=== PATIENT | female | born 1970 | race Caucasian/White ===

== ENCOUNTER 2019-06-08 15:42 | Emergency (ER) | payer MEDICAID, SELFPAY ==
[2019-06-08 15:42] VITALS: BP 181/80
[2019-06-08 15:43] VITALS: BP 159/102; PULSE 100; RESP 18; TEMP 37.1; O2SAT 96; BMI 43.2
--- NOTE | 2019-06-08 16:05 | ED.VIS.LOWEX ---
History of Present Illness Chief Complaint: Lower Extremity Injury Informant: Patient Mechanism/Context: Negative for: Injury Onset: Yesterday Quality of Pain: Aching Associated Symptoms: Negative for: Parasthesia, Weakness, Loss of Funtion Narrative: Patient is a 49-year-old female presenting with atraumatic right knee pain. Patient states she has a remote history of what sounds like a patellar fracture. She never required surgery for it. She states her knee started hurting yesterday. Is the anterior knee just above the kneecap. Pain is worse with range of motion and walking. No radiation of pain. She has had some swelling and notes her skin was discolored earlier today. Patient took ibuprofen 800 mg for pain. 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 Patient denies any associated numbness or tingling. She denies any fever or chills. She she is otherwise been feeling well. She denies any other complaints at this time. Past Medical History - Allergies and Home Meds Allergies/Adverse Reactions: Allergies dicyclomine HCl [From Bentyl] Allergy (Verified 06/08/19 15:45) [facility] Primary Care Physician: Fredo Larose DO [Primary Care Provider] - Past Medical History: - - Asthma Surgical History: appendectomy - possible colonoscopy by Dr Rich in the past., cholecystectomy, - - colonoscopy h/o esophageal spasms. Lives: With Family Smoking Status: Unknown if ever smoked - Family History Maternal Family History: Reports: Unknown, - - adopted Paternal Family History: Reports: Unknown, - - adopted Review of Systems General: Denies: Chills, Fever, Sweats Eyes: Denies: Visual changes - bilaterally, Diplopia ENT: Denies: Rhinorrhea, Sore throat Cardiovascular: Denies: Chest pain, Palpitations Respiratory: Denies: Dyspnea, Cough, Dyspnea on exertion Gastrointestinal: Denies: Abdominal pain, Nausea, Vomiting, Diarrhea, Melena, Hematochezia Genitourinary: Denies: Dysuria, Hematuria, Frequency Musculoskeletal: Reports: Arthralgias - right knee, Swelling - right knee. Denies: Back pain Skin: Denies: Rash, Wounds Neurological: Denies: Headache, Weakness, Numbness Physical Exam Vital Signs/Narrative: Vital Signs Temp Pulse Resp BP Pulse Ox 06/08/19 15:43 98.7 F 100 18 159/102 H 96 06/08/19 15:42 181/80 H Inital Vital Signs reviewed: Yes - Extremity Exam Right Hip: Negative for: Deformity, Limited ROM Right Femur: - - Straight leg mechanism intact. Negative for: Deformity, Hematoma, Limited ROM Right Knee: Edema, Limited ROM - secondary to pain, - - Tenderness to palpation and mild edema of the proximal anterior knee over the bursa. Mild crepitus with direct palpation of the patella. No associated erythema. No joint effusion present. No obvious ligament laxity with range of motion of the knee. Negative anterior and posterior drawer test.. Negative for: Deformity Right Tib fib: Negative for: Deformity, Limited ROM Right Ankle: Negative for: Deformity, Limited ROM Right Foot: - - 2+ DP pulse. Negative for: Deformity, Limited ROM General: Well nourished, Well developed, Obese Head: Normocephalic, Atraumatic Eyes: Perrl, EOMI ENT: No Trauma, Moist Mucous Membranes Cardiovascular: Regular rate, Regular rhythm, No murmurs Respiratory: No distress, CTA bilaterally, Chest nontender Abdomen: Soft, Nontender, Nondistended, Normal bowel sounds Skin: Normal color, No rash Neurological: Alert, Oriented x3, Cranial nerves II-XII grossly intact, Normal Strength, Normal Sensation Psychological: Normal affect Diagnostic/Tx/Re-eval - Medical Decision Making Patient is evaluated for atraumatic right knee pain. Physical exam is consistent with a bursitis. She does not have any significant joint effusion, warmth or short arc range of motion. I do not suspect a septic joint. She not have any overlying cellulitis. Do not suspect a quadricep tendon rupture. Patient is neurovascularly intact. Patient is counseled on signs and symptoms requiring return to the emergency room. Patient verbalizes agreement and understand this plan. Patient discharged home in stable and improved condition. ED Disposition - Plan for ED Patient: Disposition: Home or Assisted Living Diagnosis: Burn of right knee Instructions: ED Knee Pain UKO, ED Bursitis Prescriptions: Prednisone [Deltasone] 40 mg PO DAILY #8 tab Transmission Status: Pending to [facility] Ibuprofen [Motrin] 600 mg PO Q6H PRN PRN #20 tab PRN Reason: Pain/Inflammation Transmission Status: Pending to [facility] Referrals: Fredo Larose DO [Primary Care Provider] -
[2019-06-08] MEDS: predniSONE 20 MG Tablet 60 MG PO (16:12)
== END 2019-06-08 16:28 | disposition home or self-care (01) ==
PROVIDERS: Emergency Provider Emergency Medicine; PCP Student in an Organized Health Care Education/Training Program
DX: T24.021A Burn of unspecified degree of right knee, initial encounter (principal); Y92.9 Unspecified place or not applicable
CPT/HCPCS: 99282

== ENCOUNTER 2022-12-19 15:01 | Emergency (ER) | payer MEDICAID, SELFPAY ==
[2022-12-19 15:02] VITALS: BP 158/110; PULSE 75; RESP 16; TEMP 36.6; O2SAT 99; BMI 46.0
--- NOTE | 2022-12-19 15:30 | US_ITS ---
STUDY: ULTRASOUND TRANSVAGINAL CLINICAL: Female, 52 years old. menorrhagia TECHNIQUE: Transvaginal COMPARISON: None. FINDINGS: Normal uterine size measuring 10.2 x 9.4 x 7.7 cm in maximal craniocaudal dimension. 1.5 cm round hypoechoic mass in the posterior lower uterine segment consistent with a submucosal fibroid. 4.5 cm heterogeneous mass in the left side of the body the uterus consistent with an intramural fibroid.. Normal endometrial thickness measuring 10 mm. There are no endometrial masses, and there is no fluid in the endometrial cavity. Normal uterine cervix. Normal right ovary, measuring 2.5 x 2.2 x 1.9 cm. There are multiple follicles without a dominant cyst. The left ovary is not visualized.. There is no free fluid in the pelvis. Polycystic ovary disease: No. US/Transvaginal Non- IMPRESSION: Enlarged fibroid uterus. Electronically Signed: Abraham Jolly MD at 18:17 EDT ,
--- NOTE | 2022-12-19 15:31 | ED.VIS.FEGU ---
HPI HPI - Female History of Present Illness Chief Complaint: Vag Bleeding Informant: patient Bleeding Issue: Positive for Vaginal bleeding Onset: Days (3 days) Narrative Narrative: Patient presents secondary to menorrhagia. She states that she is currently undergoing menopause and has had some light and some very heavy periods. She states on Monday she started spotting lightly and it was time for her period to start. Yesterday would have been a heavy bleeding day. She put into ultra tampons and went to [facility] but blood through before the service could even start. She states all day yesterday and into today she will bleed through 2 tampons in an hour or 2. She does have some abdominal cramping. She states she is never had bleeding this heavy that is lasted this long. She called her PCP and mentioned to them that she has not had a Pap smear in probably 10 years. They called the [facility] office who recommended she come to the ER for evaluation. She is not currently established with a [facility]. PFSH PFSH Medical History no medical history no medical history Home Medications NK 12/19/22 [History Last Taken Unknown] Allergy/AdvReac Type Severity Reaction Status Date / Time dicyclomine HCl [From Bentyl] Allergy Hives Verified 12/19/22 15:03 Social History Smoking Status: Unknown if ever smoked ROS ROS ED Constitutional Constitutional ED: Denies chills or fever(s) Eyes Eyes: Denies discharge from eye(s) ENT ENT ED: Denies discharge from eye(s), rhinorrhea or sore throat Cardiovascular Cardiovascular: Denies chest pain or palpitations Respiratory/Chest Respiratory/Chest: Denies cough or dyspnea Gastrointestinal Gastrointestinal: Reports abdominal pain; Denies diarrhea, nausea or vomiting Genitourinary Genitourinary ED: Denies dysuria Musculoskeletal Musculoskeletal: Denies back pain or extremity pain Integumentary Denies Abrasions or rash Neurologic Neurologic: Denies headache(s) or weakness Psychiatric Psychiatric: Denies anxiety or depression Allergic/Immunologic Allergic/Immunologic ED: Denies lip swelling or urticaria EXAM Physical Exam Const Vital Signs: 12/19/22 15:02 12/19/22 17:38 Temperature 98 F Temperature Source Temporal Pulse Rate 75 96 Respiratory Rate 16 18 Blood Pressure 158/110 H 150/95 H Blood Pressure Mean 126 113 Pulse Ox 99 99 Oxygen Delivery Method Room Air Positive well nourished and well developed General Appearance ED: well developed HEENT Reports moist mucous membranes Eyes EOMs intact bilaterally Neck no lymphadenopathy Chest Wall inspection of chest normal and palpation of chest normal Resp normal respiratory effort and clear to auscultation bilaterally Cardio regular rate and regular rhythm GI soft to palpation and non-tender Auscultation: hypoactive bowel sounds Extremity normal to inspection Neuro oriented x3 and no sensory deficits noted Motor Exam: strength 5/5 throughout Psych mental status grossly normal Skin no rashes or lesions noted MDM MDM MDM Narrative Medical decision making narrative: Patient is comfortable in no acute distress. She denies lightheadedness or dizziness. CBC will be obtained to evaluate hemoglobin levels. Pelvic ultrasound will be obtained to evaluate for any masses, uterine thickness abnormalities, etc. Lab Data Labs: Laboratory Results - last 24 hr 12/19/22 15:45 WBC 9.1 RBC 4.68 Hgb 12.4 Hct 40.0 MCV 85.5 MCH 26.5 L MCHC 31.0 L RDW Std Deviation 40.6 RDW Coeff of Suresh 13.2 Plt Count 245 MPV 10.1 Immature Gran % (Auto) 0.300 Neut % (Auto) 69.0 Lymph % (Auto) 22.2 [place] % (Auto) 6.8 Eos % (Auto) 1.2 Baso % (Auto) 0.5 Absolute Neuts (auto) 6.3 Absolute Lymphs (auto) 2.03 Nucleated RBC % 0 Serum , Qual NEGATIVE Radiography Diagnostic Testing: Clinical Impression(s) from Imaging Studies Transvaginal US 12/19/22 15:30 IMPRESSION: Enlarged fibroid uterus. Electronically Signed: Abraham Jolly MD at 18:17 EDT , Treatment and Re-Evaluation Narrative: CBC was normal white count 9.1 with a hemoglobin of 12.4. test is negative. Pelvic ultrasound reveals an enlarged fibroid uterus. No other masses noted. Endometrial thickness is measuring 10 mm. On repeat evaluation patient is tearful. She states she just wants to go home to her granddaughter. Test results are discussed with her. I will refer her to Dr. Knox, on-call for [facility] as her PCP has already spoken with them today. Return instructions are given. Discharge Plan Triage Chief Complaint: Vag Bleeding ED Provider: Maty Walker Dx/Rx/DC Orders Clinical Impression: Menorrhagia Instructions: ED Heavy Menstrual Bleeding Prescriptions: No Action NK Primary Care Provider: Fredo Larose Referrals: Fredo Larose DO [Primary Care Provider] - Heidy Knox DO [Med Staff - Active Staff] - As soon as possible Disposition Disposition: Home, Self Care
[2022-12-19 16:00] LABS: Absolute Lymphocyte Count 2.03 X10^3/uL (0.83-4.51); Absolute Neutrophil Count 6.3 X10^3/uL (2.0-7.7); Basophil# 0.05 X10^3/uL; Basophil% 0.5 % (0-1); Eosinophil# 0.11 X10^3/uL; Eosinophils% 1.2 % (0-5); Hemoglobin 12.4 g/dL (12.0-15.0); Lymphocyte # 2.03 X10^3/ul (0.83-4.51); Lymphocyte % 22.2 % (19-41); Mean Corpuscular Hgb 26.5 pg (27.0-32.0); Mean Corpuscular Volume 85.5 fL (81-99); Mean Platelet Vol. 10.1 fl (6.2-12.0); Monocyte# 0.62 X10^3/uL; Monocyte% 6.8 % (0-10); NRBC Flagged by Analyzer 0 % (0-5); Platelet Count 245 K/mm3 (150-450); RBC Distribution Width CV 13.2 % (11.6-14.6); RBC Distribution Width SD 40.6 fl (35.1-43.9); Red Blood Count 4.68 M/mm3 (4.2-5.4); White Blood Count 9.1 K/mm3 (4.4-11.0)
[2022-12-19 16:16] LABS: Internal QC Validated? YES +Cl - CLEAR BKGD; Pregnancy, Serum, hCG Quali. NEGATIVE Negative
[2022-12-19 17:38] VITALS: BP 150/95; PULSE 96; RESP 18; O2SAT 99
== END 2022-12-19 18:30 | disposition home or self-care (01) ==
PROVIDERS: Emergency Provider Emergency Medicine; PCP Student in an Organized Health Care Education/Training Program; Visit Provider Emergency Medicine
DX: N92.0 Excessive and frequent menstruation with regular cycle (principal)
CPT/HCPCS: 76830; 84703; 85025; 99283; A4216

== ENCOUNTER 2023-12-17 03:50 | Emergency (ER) | payer OTHER, SELFPAY ==
[2023-12-17 03:51] VITALS: BP 191/93; PULSE 73; RESP 16; TEMP 36.7; O2SAT 98; BMI 47.2
--- NOTE | 2023-12-17 04:10 | RAD_ITS ---
INDICATION: PAIN EXAMINATION/TECHNIQUE: X-RAY - XR Hip Unilateral with Pelvis when performed; 2-3 Views COMPARISON: No relevant prior comparison study available FINDINGS: PELVIC BONES: No displaced fracture, destructive or sclerotic lesions. Note that overlapping bowel shadows may however obscure fine detail. Sacroiliac joints demonstrate mild degenerative arthrosis. No widening of the pubic symphysis. HIPS: The articular structures are unremarkable. No displaced fracture seen in this frontal view. SOFT TISSUES: No soft tissue swelling or gas. RAD/HIP, UNI W/ Pelvis 2-3 Views IMPRESSION: No evidence of displaced pelvic or hip fracture. Electronically Signed: Lovely Topete MD at 5:33 EDT ,
[2023-12-17] MEDS: Lidocaine 5% Patch 1 PATCH TOPICAL (04:22)
[2023-12-17] MEDS: Acetaminophen 500 MG Tablet 1000 MG PO (04:22)
--- OUTSIDE RECORDS SUMMARY | 2023-12-17 04:29 | XMS RPT_ITS | CCD ---
Author Organization [facility] Inform ion Partnership [facility] Care Team Providers Care Manager Of Disaster Recovery Name Role Phone FREDO LAROSE DO Primary Care Physician Fredo Larose DO Primary Care Provider Fredo Larose DO Primary Care Provider Fredo Larose DO Primary Care Provider Fredo Larose DO Primary Care Provider Fredo Larose DO Primary Care Provider FREDO LAROSE Primary Care Unavailable SHAHEED ROGEL Referring Unavailable FREDO LAROSE Primary Care Unavailable NOHEMI LOYOLA Attending Unavailable FREDO LAROSE Primary Care Unavailable FREDO LAROSE Referring Unavailable FREDO LAROSE Primary Care Unavailable FREDO LAROSE Primary Care Unavailable LAROSEFREDO MCDONALD Primary Care Unavailable LAROSE, FREDO Carter Referring Unavailable THUAN, FREDO Carter Primary Care Unavailable KYRA CASTRO Referring Unavailable FREDO LAROSE Primary Care Unavailable FREDO LAROSE Primary Care Unavailable FREDO LAROSE Attending Unavailable FREDO LAROSE Referring Unavailable Allergies Allergy Classification Reported Allergen(s) Allergy Type Date of Onset Reaction(s) Facility (15 sources) Dicyclomine; Translations: [dicyclomine] Drug Allergy 3 [facility] (20 sources) Acetylcholine Release Inhibitor; Translations: [ANTICHOLINERGICS - OTHER] Propensity to adverse reactions 3 [facility] Medications Current Medications Medication Drug Class(es) Dates Sig (Normalized) Sig (Original) acyclovir 400 mg oral tablet (1 source) Herpesvirus Nucleoside Analog DNA Polymerase Inhibitor, Herpes Simplex Virus Nucleoside Analog DNA Polymerase Inhibitor, Herpes Zoster Virus Nucleoside Analog DNA Polymerase Inhibitor Start: 10-20-2022 End: 10-25-2022 take 1 tablet by mouth three times daily acyclovir (ZOVIRAX) 400 mg tablet Take 1 tablet by mouth three times daily for 5 days. 15 tablet 0 10/20/2022 10/25/2022 Active Comment on above: Take 1 tablet by sam th three times daily for 5 days. Albuterol (20 sources) beta2-Adrenergic Agonist Start: 05-08-2021 albuterol 2.5 mg/3 mL (0.083%) inhalation solution 0 Refill(s) Start Date: 05/08/21 Status: Ordered Start: 04-21-2021 End: 06-08-2022 albuterol (PROVENTIL) 2.5 mg /3 mL (0.083 %) nebulizer solution Indications: SOB (shortness of breath) on exertion , Cough Use 3 mL via nebulizer every 4 hours as needed for wheezing/shortness of breath. Use over 5-15minutes. 100 Vial 0 04/21/2021 06/08/2022 Discontinued Start: 04-02-2021 take 2 puff(s) by in halation every four hours as needed for wheezing albuterol HFA (PROVENTIL HFA, VENTOLIN HFA) 90 mcg/actuation inhaler Inhale 2 Puffs as instructed every 4 hours as needed for wheezing/shortness of breath. 8 g 04/02/2021 Active Comment on above: Inhale 2 Puffs as in structed every 4 hours as needed for wheezing/shortness of breath. Use 3 mL via nebuliz er every 4 hours as needed for wheezing/shortness of breath. Use over 5-15minutes. Albuterol / Ipratropium (20 sources) Anticholinergic, beta2-Adrenergic Agonist Start: 05-08-2021 albuterol-ipratropium 2.5 mg-0.5 mg/3 mL inhalation solution 0 Refill(s) Start Date: 05/08/21 Status: Ordered Start: 05-02-2021 End: 06-01-2021 take 3 mL by inhalation every six hours as needed ipratropium-albuterol (DUONEB) 0.5 mg-3 mg(2.5 mg base)/3 mL nebu Inhale 3 mL as instructed every 6 hours as needed for wheezing/shortness of breath. cough 30 Vial 05/02/2021 Active Comment on above: Inhale 3 mL as instr ucted every 6 hours as needed for wheezing/shortness of breath. cough azithromycin 250 mg oral tablet (1 source) Macrolide Antimicrobial Start: End: azithromycin 250 mg oral tablet Take two (2) tablets day 1-then one (1) tablet, Oral, Daily, X 5 day(s), # 6 tab(s), 0 Refill(s), 04/12/21 21:04:00 EST, 119 Start Date: 04/07/21 Stop Date: 04/12/21 Status: Ordered benzonatate 100 mg oral capsule (13 sources) Non-narcotic Antitussive Start: End: take 1 capsule by mouth every eight hours as needed for cough benzonatate (TESSALON PERLE) 100 mg capsule Indications: Mild intermittent asthma with acute exacerbation Take 1 capsule by mouth every 8 hours as needed for cough for up to 15 days. 30 capsule 0 03/31/2023 04/15/2023 Active Start: 11-29-2022 End: 12-29-2022 take 1 capsule by mouth three times daily as needed for cough benzonatate (TESSALON PERLE) 100 mg capsule Indications: Cough , SOB (shortness of breath) on exertion Take 1 capsule by mouth three times daily as needed for cough. 90 capsule 0 11/29/2022 12/29/2022 Active Start: 04-21-2021 End: 05-21-2021 benzonatate 100 mg oral caps ule 0 Refill(s) Start Date: 05/08/21 Status: Ordered Comment on above: Take 1 capsule by mo uth three times daily as needed for cough. Take 1 capsule by mo uth every 8 hours as needed for cough for up to 15 days. Blood Pressure Test Kit-Large (20 sources) Start: 12-23-2020 Blood Pressure Test Kit-Large Indications: Hypertension, essential 1 Each as needed (blood pressure). Dx: Essential hypertension 1 Each 12/23/2020 Active Start: 12-23-2020 Blood Pressure Test Kit-Large Indications: Hypertension, essential 1 Each as needed (blood pressure). Dx: Essential hypertension 1 Each 0 12/23/2020 Active Comment on above: 1 Each as needed (bl ood pressure). Dx: Essential hypertension cetirizine hydrochloride 10 mg oral tablet (20 sources) Histamine-1 Receptor Antagonist Start: End: take 1 tablet by mouth once daily cetirizine (ZYRTEC) 10 mg tablet Take 1 tablet by mouth once daily. 90 tablet 1 10/16/2023 Active Start: 08-10-2020 End: 07-07-2021 take 1 tablet by mouth once daily cetirizine (ZYRTEC) 10 mg tablet Take 1 tablet by mouth once daily. 90 tablet 3 07/07/2021 Active Comment on above: Take 1 tablet by sam once daily. cholecalciferol 0.05 mg oral capsule (20 sources) Vitamin D Start: 01-06-20 take 1 capsule by mouth once daily Cholecalciferol, Vitamin D3, 50 mcg (2,000 unit) cap Take 1 capsule by mouth once daily. 90 capsule 1 01/05/2022 Active Comment on above: Take 1 capsule by mo [facility] once daily. cyclobenzaprine hydrochloride 10 mg oral tablet (9 sources) Muscle Relaxant Start: 11-30-19 End: 01-19-20 23 take 1 tablet by mouth three times daily as needed for muscle spasms cyclobenzaprine (FLEXERIL) 10 mg tablet Indications: Chest pain, unspecified type Take 1 tablet by mouth three times a day as needed for muscle spasm. 30 tablet 0 12/19/2022 01/18/2023 Active Start: 06-08-2022 End: 07-08-2022 take 1 tablet by mouth three times daily as needed for muscle spasms cyclobenzaprine (FLEXERIL) 10 mg tablet Indications: Chest pain, unspecified type Take 1 tablet by mouth three times daily as needed for muscle spasm. 30 tablet 0 06/08/2022 07/08/2022 Active Comment on above: Take 1 tablet by sam three times daily as needed for muscle spasm. Take 1 tablet by sam th three times a day as needed for muscle spasm. dexamethasone 6 mg oral tablet (1 source) Corticosteroid Start: 05-09-19 dexamethasone 6 mg oral tablet 0 Refill(s) Start Date: 05/08/21 Status: Ordered diclofenac sodium 75 mg delayed release oral tablet (20 sources) Nonsteroidal Anti-inflammatory Drug Start: 06-16-19 take 1 tablet by mouth twice daily as needed for pain diclofenac, EC, (VOLTAREN) 75 mg EC tablet Indications: Chronic pain of both knees , Arthritis of knee Take 1 tablet by mouth two times a day as needed (joint pain). As needed For pain/inflammation. Take with food. 180 tablet 1 06/16/2023 Active Start: 09-28-2022 End: 04-19-2023 take 1 tablet by mouth twice daily as needed for pain diclofenac, EC, (VOLTAREN) 75 mg EC tablet Indications: Chronic pain of both knees , Arthritis of knee Take 1 tablet by mouth twice daily. As needed For pain/inflammation. Take with food. 60 tablet 5 09/28/2022 04/19/2023 Discontinued Start: 07-07-2021 diclofenac (VO LTAREN ARTHRITIS PAIN) 1 % topical gel Indications: Acute pain of left knee , Suprapatellar bursitis of left knee Apply 2 g to affected area twice daily as needed (left knee pain). 100 g 1 07/07/2021 Active Comment on above: Apply 2 g to affecte d area twice daily as needed (left knee pain). Take 1 tablet by sam th twice daily. As needed For pain/inflammation. Take with food. doxycycline hyclate 100 mg oral tablet (9 sources) Tetracycline-class Drug Start: 09-18-2023 End: 09-28-2023 take 1 tablet by mouth twice daily doxycycline (VIBRA-TABS) 100 mg tablet Take 1 tablet by mouth two times a day for 10 days. 20 tablet 0 09/18/2023 09/28/2023 Active Start: 11-29-2022 End: 12-06-2022 take 1 tablet by mouth twice daily doxycycline monohydrate 100 mg tablet Indications: Skin infection Take 1 tablet by mouth two times a day for 7 days. 14 tablet 0 11/29/2022 12/06/2022 Start: 08-27-2021 End: 09-03-2021 take 1 tablet by mouth twice daily doxycycline monohydrate 100 mg tablet Indications: Lower resp. tract infection Take 1 tablet by mouth twice daily for 7 days. 14 tablet 0 08/27/2021 09/03/2021 Active Comment on above: Take 1 tablet by sam th twice daily for 7 days. Take 1 tablet by sam th two times a day for 7 days. Flovent HFA 110 mcg/inh inhalation aerosol (1 source) Start: 05-09-19 Flovent HFA 110 mcg/inh inhalation aerosol 0 Refill(s) Start Date: 05/08/21 Status: Ordered 120 actuat fluticasone propionate 0.11 mg/actuat metered dose inhaler (1 source) Corticosteroid Start: 05-03-19 End: 06-02-19 take 1 puff(s) by mouth twice daily fluticasone (FLOVENT HFA) 110 mcg/actuation inhaler Inhale 1 Puff as instructed twice daily. Shake well before use. Rinse mouth after use. 1 Inhaler 0 05/02/2021 06/01/2021 Active Comment on above: Inhale 1 Puff as ins tructed twice daily. Shake well before use. Rinse mouth after use. gabapentin 100 mg oral capsule (20 sources) Anti-epileptic Agent Start: 06-16-19 End: 07-16-19 take 1-2 capsules by mouth three times daily as needed for pain gabapentin (NEURONTIN) 100 mg capsule Indications: Chronic pain of both knees , Arthritis of knee Take 1-2 capsules by mouth three times a day as needed (joint pain) for up to 30 days. 90 capsule 3 06/16/2023 Active Start: 03-09-2023 End: 06-12-2023 take 1-2 capsules by mouth three times daily as needed for pain gabapentin (NEURONTIN) 100 mg capsule Indications: Chronic pain of both knees , Arthritis of knee Take 1-2 capsules by mouth three times a day as needed (joint pain) for up to 30 days. 90 capsule 0 03/09/2023 06/12/2023 Discontinued Start: 09-28-2022 End: 10-28-2022 take 1-2 capsules by mouth three times daily as needed for pain gabapentin (NEURONTIN) 100 mg capsule Indications: Chronic pain of both knees , Arthritis of knee Take 1-2 capsules by mouth three times daily as needed (joint pain) for up to 30 days. 90 capsule 1 09/28/2022 Active Comment on above: Take 1-2 capsules by mouth three times daily as needed (joint pain) for up to 30 days. Take 1-2 capsules by mouth three times a day as needed (joint pain) for up to 30 days. homatropine / HYDROcodone (1 source) Opioid Agonist, Cholinergic Muscarinic Agonist Start: 2 End: 2 take 1 dose by mouth every six hours as needed for cough homatropine-hydroc odone 1.5 mg-5 mg/5 mL oral syrup Dose = 5 mL, Oral, q6h, PRN for cough, # 60 mL, 0 Refill(s), Cough Asthmatic bronchitis, 119 Start Date: 05/08/21 Stop Date: 05/11/21 Status: Ordered ibuprofen 800 mg oral tablet (20 sources) Nonsteroidal Anti-inflammatory Drug Start: 3 take 1 tablet by mouth every eight hours as needed ibuprofen (MOTRIN) 800 mg tablet Take 1 tablet by mouth every 8 hours as needed for pain. Take with food. 21 tablet 09/15/2022 Active Start: 04-21-2021 End: 06-02-2022 take 1 tablet by mouth every eight hours as needed ibuprofen (MOTRIN) 800 mg tablet Take 1 tablet by mouth every 8 hours as needed for pain. Take with food. 21 tablet 09/15/2022 Active Comment on above: Take 1 tablet by sam th every 8 hours as needed for pain. Take with food. Leg Brace (ELASTIC KNEE SUPPORT) [facility] (20 sources) Start: 07-08-19 Leg Brace (ELASTIC KNEE SUPPORT) [facility] [place] Indications: Acute pain of left knee , Suprapatellar bursitis of left knee 1 Device as directed. Dx: left knee pain, left suprapatellar bursitis 1 Each 1 07/07/2021 Active Comment on above: 1 Device as directed . Dx: left knee pain, left suprapatellar bursitis lisinopril 5 mg oral tablet (20 sources) Angiotensin Converting Enzyme Inhibitor Start: 12-24-19 End: 10-16-19 24 take 1 tablet by mouth once daily lisinopril (ZESTRIL) 5 mg tablet Indications: Hypertension, essential Take 1 tablet by mouth once daily. For blood pressure 90 tablet 3 10/16/2023 Active Comment on above: Take 1 tablet by sam th once daily. For blood pressure Magnesium (20 sources) Start: 11-23-19 take 1 tablet by mouth once daily Magnesium 250 mg tab Indications: Vitamin D deficiency Take 1 tablet by mouth once daily. 30 tablet 11 11/22/2017 Active Comment on above: Take 1 tablet by sam th once daily. meclizine hydrochloride 12.5 mg oral tablet (20 sources) Antiemetic Start: 04-02-19 meclizine (ANTIVERT) 12.5 mg tab 1 to 2 tablets three times a day as needed. 30 tablet 04/02/2021 Active Comment on above: 1 to 2 tablets three times a day as needed. Medrol Dosepak 4 mg oral tablet (1 source) Start: 05-09-19 End: 05-15-19 Medrol Dosepak 4 mg oral tablet 1 packet(s), Oral, qDay, as directed on package labeling, X 6 day(s), # 21 tab(s), 0 Refill(s), 05/14/21 17:23:00 EDT, Cough Asthmatic bronchitis Start Date: 05/08/21 Stop Date: 05/14/21 Status: Ordered methocarbamol 500 mg oral tablet (1 source) Muscle Relaxant Start: 12-16-19 End: 12-19-19 take 1 tablet by mouth every six hours as needed methocarbamol (ROBAXIN) 500 mg tablet Take 1 tablet by mouth every 6 hours as needed (Pain) for up to 3 days. 12 tablet 12/16/2023 12/19/2023 Active montelukast 10 mg oral tablet (20 sources) Leukotriene Receptor Antagonist Start: 06-16-19 End: 07-16-19 take 1 tablet by mouth once daily at bedtime montelukast (SINGULAIR) 10 mg tablet Take 1 tablet by mouth daily at bedtime. 90 tablet 1 06/16/2023 Active Start: 08-17-2022 End: 09-16-2022 take 1 tablet by mouth once daily at bedtime montelukast (SINGULAIR) 10 mg tablet Take 1 tablet by mouth daily at bedtime. 90 tablet 1 08/17/2022 Active Start: 05-06-2021 End: 02-04-2022 take 1 tablet by mouth once daily at bedtime montelukast (SINGULAIR) 10 mg tablet Take 1 tablet by mouth daily at bedtime. 90 tablet 1 01/05/2022 Active montelukast sodi um (SINGULAIR ORAL) Take by mouth. 0 Active Comment on above: Take 1 tablet by sam th daily at bedtime. Take by mouth. Nebulizer Accessories kit (20 sources) Start: 04-22-2021 Nebulizer Accessories kit Indications: SOB (shortness of breath) on exertion , Cough 1 Each four times daily. 1 Kit 04/22/2021 Active Start: 04-22-2021 Nebulizer Acce ssories kit Indications: SOB (shortness of breath) on exertion , Cough 1 Each four times daily. 1 Kit 0 04/22/2021 Active Comment on above: 1 Each four times da [place]. polymyxin b 00099 unt/ml / trimethoprim 1 mg/ml ophthalmic solution (1 source) Dihydrofolate Reductase Inhibitor Antibacterial, Polymyxin-class Antibacterial Start: 12-28-19 End: 01-04-20 take 2 drop(s) into the eye(s) three times daily trimethoprim-polym yxin (POLYTRIM) 10,000 unit- 1 mg/mL ophthalmic solution Use 2 Drops in both eyes three times a day for 7 days. 10 mL 0 12/27/2022 01/03/2023 Active Comment on above: Use 2 Drops in both eyes three times a day for 7 days. predniSONE 20 mg oral tablet (20 sources) Start: 12-16-19 End: 12-21-19 24 take 2 tablets by mouth once daily at mealtime predniSONE (DELTASONE) 20 mg tablet Take 2 tablets by mouth once daily for 5 days. Take daily with food. 10 tablet 12/16/2023 12/21/2023 Active Start: 03-31-2023 End: 04-05-2023 take 2 tablets by mouth once daily at mealtime predniSONE (DELTASONE) 20 mg tablet Indications: Mild intermittent asthma with acute exacerbation Take 2 tablets by mouth once daily for 5 days. Take daily with food. 10 tablet 0 03/31/2023 04/05/2023 Active Start: 08-27-2021 End: 09-05-2021 predniSONE (DELTASONE) 10 mg tablet Take 4 orally daily for 5 days, then 3 orally for 5 days, then 2 orally for 5 days, then one daily for 10 days 55 tablet 0 09/06/2021 Active Start: 05-19-2021 End: 05-28-2021 predniSONE (DELTASONE) 10 mg tablet Indications: SOB (shortness of breath) on exertion , History of COVID-19 , Persistent cough Take 4 tabs daily for 3 days, then 2 tabs daily for 3 days, then 1 tab daily for 3 days with food. 21 tablet 0 05/19/2021 05/28/2021 Active Start: 05-08-2021 predniSONE 10 mg oral tablet 0 Refill(s) Start Date: 05/08/21 Status: Ordered Comment on above: Take 4 tabs daily fo r 3 days, then 2 tabs daily for 3 days, then 1 tab daily for 3 days with food. Take 4 orally daily for 5 days, then 3 orally for 5 days, then 2 orally for 5 days, then one daily for 10 days Take 2 tablets by [facility] once daily for 5 days. Take daily with food. Completed/Discontinued Medications Medication Drug Class(es) Dates Sig (Normalized) Sig (Original) 120 actuat fluticasone propionate 0.115 mg/actuat / salmeterol 0.021 mg/actuat metered dose inhaler (20 sources) Corticosteroid, beta2-Adrenergic Agonist Start: 09-06-2021 take 2 puff(s) by inhalation twice daily fluticasone-salme terol HFA (ADVAIR HFA) 115-21 mcg/actuation inhaler Inhale 2 Puffs as instructed twice daily. 1 Inhaler 3 09/06/2021 Active Start: 09-06-2021 take 2 puff(s) by in halation twice daily fluticasone-salmeterol HFA (ADVAIR HFA) 115-21 mcg/actuation inhaler Inhale 2 Puffs as instructed twice daily. 1 Inhaler 3 09/06/2021 Active Start: 05-19-2021 End: 06-08-2022 take 2 puff(s) by mouth twice daily fluticasone-salmeterol HFA (ADVAIR HFA) 115-21 mcg/actuation inhaler Indications: SOB (shortness of breath) on exertion , History of COVID-19 Inhale 2 Puffs as instructed twice daily. Rinse mouth after use. 1 Inhaler 1 05/19/2021 06/08/2022 Discontinued Start: 05-19-2021 take 2 puff(s) by mo uth twice daily fluticasone-salmeterol HFA (ADVAIR HFA) 115-21 mcg/actuation inhaler Indications: SOB (shortness of breath) on exertion , History of COVID-19 Inhale 2 Puffs as instructed twice daily. Rinse mouth after use. 1 Inhaler 1 05/19/2021 Active Comment on above: Inhale 2 Puffs as in structed twice daily. Rinse mouth after use. Inhale 2 Puffs as in structed twice daily. saccharomyces boulardii 250 mg oral capsule (18 sources) Start: 01-06-20 take 1 capsule by mouth once daily at bedtime Saccharomyces boulardii (PROBIOTIC, S.BOULARDII,) 250 mg capsule Take 1 capsule by mouth daily at bedtime. 90 capsule 3 01/05/2022 Active Comment on above: Take 1 capsule by mo uth daily at bedtime. TENS unit and electrodes cmpk (11 sources) Start: 09-29-19 TENS unit and electrodes cmpk Indications: Chronic pain of both knees , Arthritis of knee 1 Device as directed. Dx: right gluteal and thigh pain, bilateral knee pain, OA knees 1 Each 0 09/28/2022 Active Comment on above: 1 Device as directed . Dx: right gluteal and thigh pain, bilateral knee pain, OA knees Vitamin B Complex (13 sources) Start: 07-08-19 End: 01-06-20 take 1 tablet by mouth once daily in the morning vitamin b complex (VITAMINS B COMPLEX) tab Indications: History of COVID-19 Take 1 tablet by mouth once daily. In the morning 90 tablet 1 07/07/2021 01/05/2022 Discontinued Start: 07-07-2021 take 1 tablet by sam th once daily in the morning vitamin b complex (VITAMINS B COMPLEX) tab Indications: History of COVID-19 Take 1 tablet by mouth once daily. In the morning 90 tablet 1 07/07/2021 Active Comment on above: Take 1 tablet by sam th once daily. In the morning vitamin b12 1 mg oral tablet (18 sources) Vitamin B12 Start: 01-05-2022 take 1 tablet by mouth once daily cyanocobalamin (VITAMIN B-12) 1,000 mcg tab Take 1 tablet by mouth once daily. 90 tablet 3 01/05/2022 Active Comment on above: Take 1 tablet by sam once daily. Problems Active Problems Problem Classification Problem Date Documented Da te Episodic/Chronic Acute bronchitis (1 source) Acute bronchitis; Translations: [Acute bronchitis, unspecified] Onset: 04-07-2021 Episodic Anxiety disorders (20 sources) Anxiety state; Translations: [Generalized anxiety disorder] Onset: 05-02-2006 06-05-2006 Chronic Asthma (20 sources) Asthma; Translations: [Unspecified asthma, uncomplicated] Onset: 07-05-2006 Chronic Essential hypertension (20 sources) Essential hypertension; Translations: [Essential (primary) hypertension] Onset: 09-28-2022 Chronic Gastroduodenal ulcer (except hemorrhage) (20 sources) Gastric ulcer; Translations: [Gastric ulcer, unspecified as acute or chronic, without hemorrhage or perforation] Onset: 09-18-2007 09-18-2007 Chronic Menopausal disorders (20 sources) Perimenopausal disorder; Translations: [Unspecified menopausal and perimenopausal disorder] Onset: 03-13-2019 03-13-2019 Chronic Mood disorders (20 sources) Depressive disorder; Translations: [Depression] Onset: 12-16-2010 12-16-2010 Chronic Nutritional deficiencies (20 sources) Vitamin D deficiency; Translations: [Vitamin D deficiency, unspecified] Onset: 11-28-2017 11-28-2017 Chronic Osteoarthritis (20 sources) Arthritis of knee; Translations: [Unilateral primary osteoarthritis, unspecified knee] Onset: 09-28-2022 09-28-2022 Chronic Other and unspecified benign neoplasm (1 source) Lipoma of left lower limb; Translations: [Benign lipomatous neoplasm of skin and subcutaneous tissue of left leg] Episodic Other connective tissue disease (1 source) Suprapatellar bursitis of left knee; Translations: [Other bursitis of knee, left knee] Episodic Other connective tissue disease (1 source) Pain in left lower limb; Translations: [Pain in left leg] 12-16-2023 Episodic Other gastrointestinal disorders (20 sources) Irritable bowel syndrome characterized by alternating bowel habit; Translations: [Mixed irritable bowel syndrome] Onset: 01-05-2022 Chronic Other infections; including parasitic (3 sources) Personal history of other infectious and parasitic diseases; Translations: [History of COVID-19] Episodic Other infections; including parasitic (1 source) Lyme disease; Translations: [Lyme disease, unspecified] 10-02-2023 Episodic Other lower respiratory disease (3 sources) Dyspnea on exertion; Translations: [Shortness of breath] Episodic Other lower respiratory disease (1 source) Persistent cough; Translations: [Persistent cough] Episodic Other lower respiratory disease (2 sources) Chronic cough; Translations: [Chronic cough] Episodic Other lower respiratory disease (1 source) Cough; 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] Episodic Other nervous system disorders (1 source) Other chronic pain; Translations: [Chronic pain of both knees] Onset: 09-28-2022 Chronic Other nutritional; endocrine; and metabolic disorders (20 sources) Morbid obesity; Translations: [Morbid (severe) obesity due to excess calories] Onset: 07-05-2006 05-16-2020 Chronic Other nutritional; endocrine; and metabolic disorders (20 sources) Body mass index 40+ - severely obese; Translations: [Morbid (severe) obesity due to excess calories] Onset: 04-12-2013 04-12-2013 Chronic Other nutritional; endocrine; and metabolic disorders (15 sources) Severe obesity; Translations: [Morbid (severe) obesity due to excess calories] Onset: 04-19-2023 04-19-2023 Chronic Other nutritional; endocrine; and metabolic disorders (1 source) Morbid (severe) obesity due to excess calories; Translations: [Class 3 severe obesity with body mass index (BMI) of 45.0 to 49.9 in adult, unspecified obesity type, unspecified whether serious comorbidity present (HCC)] Onset: 04-19-2023 Chronic Other nutritional; endocrine; and metabolic disorders (1 source) Body mass index (BMI) 45.0-49.9, adult; Translations: [Class 3 severe obesity with body mass index (BMI) of 45.0 to 49.9 in adult, unspecified obesity type, unspecified whether serious comorbidity present (HCC)] Onset: 04-19-2023 Chronic Other skin disorders (1 source) Eruption; Translations: [Rash and other nonspecific skin eruption] 10-20-2022 Episodic Other upper respiratory infections (2 sources) Acute sinusitis, unspecified; Translations: [Sore throat symptom] Onset: 04-07-2021 Episodic Residual codes; unclassified (20 sources) Obstructive sleep apnea syndrome; Translations: [Obstructive sleep apnea (adult) (pediatric)] Onset: 05-26-2012 05-26-2012 Chronic Screening and history of mental health and substance abuse codes (20 sources) Tobacco use and exposure - finding; Translations: [Personal history of nicotine dependence] 05-16-2020 Episodic Skin and subcutaneous tissue infections (2 sources) Infection of skin; Translations: [Local infection of the skin and subcutaneous tissue, unspecified] 11-29-2022 Episodic Past or Other Problems Problem Classification Problem Date Documented Date Episodic/Chronic Abdominal pain (20 sources) Epigastric pain; Translations: [Epigastric pain] Onset: 8 09-18-2007 Episodic Biliary tract disease (20 sources) Postcholecystectomy syndrome; 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] Onset: 1 12-16-2010 Episodic Cardiac dysrhythmias (20 sources) Palpitations; Translations: [Palpitations] Onset: 6 05-23-2015 Episodic Deficiency and other anemia (20 sources) Iron deficiency anemia; Translations: [Iron deficiency anemia, unspecified] Onset: 8 11-28-2017 Episodic Gastritis and duodenitis (20 sources) Acute gastritis; Translations: [Acute gastritis without bleeding] Onset: 8 09-18-2007 Episodic Gastrointestinal hemorrhage (20 sources) Hematochezia; Translations: [Melena] Onset: 9 12-09-2008 Episodic Immunizations and screening for infectious disease (20 sources) Mantoux: positive; Translations: [Nonspecific reaction to tuberculin skin test without active tuberculosis] Onset: 7 Resolved: 1 12-16-2010 Episodic Malaise and fatigue (2 sources) Fatigue; Translations: [Other fatigue] Onset: 4 09-13-2023 Episodic Neoplasms of unspecified nature or uncertain behavior (20 sources) Neoplasm of uncertain behavior of skin; Translations: [Neoplasm of uncertain behavior of skin] Onset: 9 01-30-2009 Episodic Nonspecific chest pain (20 sources) Chest pain; Translations: [Chest pain, unspecified] Onset: 9 12-03-2008 Episodic Other and unspecified benign neoplasm (20 sources) Dermatofibroma; Translations: [Other benign neoplasm of skin of unspecified lower limb, including hip] Onset: 9 01-30-2009 Episodic Other and unspecified benign neoplasm (20 sources) Lipoma (clinical); Translations: [Benign lipomatous neoplasm, unspecified] Onset: 4 05-11-2013 Episodic Other connective tissue disease (20 sources) Lateral epicondylitis; Translations: [Lateral epicondylitis, unspecified elbow] Onset: 7 08-29-2006 Episodic Other connective tissue disease (20 sources) Muscle pain; Translations: [Myalgia and myositis, unspecified] Onset: 9 10-28-2008 Episodic Other connective tissue disease (20 sources) Fibromyalgia; Translations: [Fibromyalgia] Onset: 3 05-26-2012 Episodic Other connective tissue disease (20 sources) Pain of right thigh; Translations: [Pain in right thigh] Onset: 3 09-28-2022 Episodic Other lower respiratory disease (20 sources) Cough; Translations: [Cough, unspecified] Onset: 4 Episodic Other non-traumatic joint disorders (20 sources) Pain in lower limb; Translations: [Pain in unspecified knee] Onset: 7 01-30-2007 Episodic Other non-traumatic joint disorders (20 sources) Pain in right hip joint; Translations: [Pain in right hip] Onset: 3 05-26-2012 Episodic Other non-traumatic joint disorders (20 sources) Pain in left knee; Translations: [Pain in joint, lower leg] Onset: 3 Episodic Other non-traumatic joint disorders (2 sources) Hip pain; Translations: [Pain in right hip] Onset: 3 05-26-2012 Episodic Other non-traumatic joint disorders (1 source) Pain in right knee; Translations: [Chronic pain of both knees] Onset: 3 Episodic Other screening for suspected conditions (not mental disorders or infectious disease) (18 sources) Patient encounter status; Translations: [Encounter for screening mammogram for malignant neoplasm of breast] Onset: 4 Episodic Other skin disorders (20 sources) Subcutaneous nodule; Translations: [Localized swelling, mass and lump, unspecified] Onset: 4 02-15-2021 Episodic Residual codes; unclassified (20 sources) Memory impairment; Translations: [Other amnesia] Onset: 3 09-28-2022 Episodic Spondylosis; intervertebral disc disorders; other back problems (20 sources) Low back pain; Translations: [Lumbago] Onset: 7 06-05-2006 Episodic Unclassified (1 source) Exposure to 2019 novel coronavirus; Translations: [Contact with and (suspected) exposure to COVID19] Onset: 2 Results Test Name Value Interpretation Reference Range Facility [facility] 12-16-2023 CNOV Office Visit (UCTR ) MATY FAIRBANKS ([id number]) 1970 F Date Time Provider Department 12/16/23 8:45 AM SHANKAR JO[facility] During your visit today, we recorded the following information about you: Pulse Respiration Blood pressure Weight 86/minute 16/minute 136/79 125.4 kg Shankar Jose PA 12/16/2023 9:17 AM Signed This note was created using [employer]. Subjective Maty Fairbanks is a 53 year old female. HPI 53-year-old female with PMH of myositis, fibromyalgia, dermatofibromas presents for left leg pain. Patient states that she has lumps on arms, legs, low back that are chronic. Per chart review, it appears she has been diagnosed with dermatofibroma's. She states that occasionally they flareup and give her pain. She states that 1 on the back of her left leg started giving her pain a few days ago. She states that it feels like it is causing the muscle to spasm and is shooting pain down the left leg. She denies any leg swelling, redness, warmth. No fevers. No history of DVT. No recent travel recent hospitalization. No chest pain or shortness of breath. She states that this feels typical of a flareup of her fibromas. She states usually 1 in her left lower back causes a lot of pain. Typically she is able to use lidocaine patches, and take diclofenac which helps. Patient has tried this along with heating pad, but it has not helped that much. She also took an old muscle relaxer that did not help. No other complaint today. PAST MEDICAL HISTORY Diagnosis Date Abdominal pain, epigastric Acute gastritis without mention of hemorrhage Asthma Attention deficit disorder without mention of hyperactivity Calculus of gallbladder without mention of cholecystitis or obstruction Chest pain, unspecified Dysthymic disorder history of depression Esophageal spasm Gastric ulcer, unspecified as acute or chronic, without mention of hemorrhage, perforation, or obstruction with hemorrhage Generalized anxiety disorder History of tobacco use Morbid obesity (HCC) JAMES (obstructive sleep apnea) PAST SURGICAL HISTORY Procedure Laterality Date APPENDECTOMY COLONOSCOPY FLX DX W/COLLJ SPEC WHEN PFRMD 12/15/2008 irritation at the anal verge COLONOSCOPY FLX DX W/COLLJ SPEC WHEN PFRMD 07/10/15 normal colonoscopy EGD TRANSORAL BIOPSY SINGLE/MULTIPLE Gastritis, healing ulcer EGD TRANSORAL BIOPSY SINGLE/MULTIPLE 07/10/15 minimal gastritis LAPAROSCOPY SURG CHOLECYSTECTOMY 08/21/07 LIG/TRNSXJ FLP TUBE ABDL/VAG APPR UNI/BI ALLERGIES Anticholinergics - Other and Dicyclomine MEDICATIONS lisinopril (ZESTRIL) 5 mg tablet Take 1 tablet by mouth once daily. For blood pressure cetirizine (ZYRTEC) 10 mg tablet Take 1 tablet by mouth once daily. gabapentin (NEURONTIN) 100 mg capsule Take 1-2 capsules by mouth three times a day as needed (joint pain) for up to 30 days. montelukast (SINGULAIR) 10 mg tablet Take 1 tablet by mouth daily at bedtime. diclofenac, EC, (VOLTAREN) 75 mg EC tablet Take 1 tablet by mouth two times a day as needed (joint pain). As needed For pain/inflammation. Take with food. ibuprofen (MOTRIN) 800 mg tablet Take 1 tablet by mouth every 8 hours as needed for pain. Take with food. (Patient not taking: Reported on 09/13/2023) ibuprofen (MOTRIN) 800 mg tablet Take 1 tablet by mouth every 8 hours as needed for pain. Take with food. (Patient not taking: Reported on 09/13/2023) Cholecalciferol, Vitamin D3, 50 mcg (2,000 unit) cap Take 1 capsule by mouth once daily. Leg Brace (ELASTIC KNEE SUPPORT) misc 1 Device as directed. Dx: left knee pain, left suprapatellar bursitis (Patient not taking: Reported on 09/13/2023) ipratropium-albuterol (DUONEB) 0.5 mg-3 mg(2.5 mg base)/3 mL nebu Inhale 3 mL as instructed every 6 hours as needed for wheezing/shortness of breath. cough Nebulizer Accessories kit 1 Each four times daily. (Patient not taking: Reported on 09/13/2023) albuterol HFA (PROVENTIL HFA, VENTOLIN HFA) 90 mcg/actuation inhaler Inhale 2 Puffs as instructed every 4 hours as needed for wheezing/shortness of breath. meclizine (ANTIVERT) 12.5 mg tab 1 to 2 tablets three times a day as needed. Blood Pressure Test Kit-Large 1 Each as needed (blood pressure). Dx: Essential hypertension Magnesium 250 mg tab Take 1 tablet by mouth once daily. FAMILY HISTORY Adopted: Yes Problem Relation Age of Onset other (unknown) Other adopted Social History Tobacco Use Smoking status: Former Current packs/day: 0.00 Average packs/day: 1 pack/day for 8.0 years (8.0 ttl pk-yrs) Types: Cigarettes Start date: 07/22/1998 Quit date: 07/22/2006 Years since quittin.4 Passive exposure: Never Smokeless tobacco: Never Tobacco comments: SMOKED SINCE 18 YEARS OLD Vaping Use Vaping status: Never Used Substance Use Topics Alcohol use: No Drug use: No Review of Systems (more content not included)... Normal [facility] [place] 12-14-2023 LUIS ANTONIO Telephone (FAMPWS) MATY FAIRBANKS ([id number]) 1970 F Date Time Provider Department 12/14/23 FREDO LAROSE During your visit today, we recorded the following information about you: Bryanna Conde LPN 12/14/2023 2:27 PM Signed Pt called and scheduled her physical for 04/25/23. Please put in fasting labs for pt to have done prior to apt. Orders pended, please add or delete if needed. CORNELIO Jean Jordan L, DO 12/15/2023 8:47 AM Signed Orders placed for labs Please let patient know DO Mali Farris Amanda, RN 12/15/2023 9:09 AM Signed Pt called and is notified of providers message and instructions. Pt voices understanding. Rhonda Samson RN Allergies As of Date: 12/14/2023 Noted Allergy Reaction ANTICHOLINERGICS - OTHER 01/14/2003 Comments: (Bentyl) causes hives DICYCLOMINE 12/19/2022 4 - Hives Date Reviewed: 09/13/2023 Reviewed by: Emani Gonzalez MA - Fully Assessed Reason for Visit: Lab Orders [1688] Primary Visit Diagnosis:Well adult exam [Z00.00] Order(s):VITAMIN D 25 HYDROXY [SQVITD] Order #: [id number] FUTURE THYROID STIMULATING HORMONE [SQTSH] Order #: [id number] FUTURE COMPLETE BLOOD COUNT [SQCBC] Order #: [id number] FUTURE LIPID PANEL BASIC [SQLIPB] Order #: [id number] FUTURE HEMOGLOBIN A1C [ZCINI2E] Order #: [id number] FUTURE COMPREHENSIVE METABOLIC PANEL [SQCMP] Order #: [id number] FUTURE T4 FREE/FREE THYROXINE [SQFT4] Order #: [id number] FUTURE Prescriptions as of 12/15/2023 - lisinopril (ZESTRIL) 5 mg tablet Take 1 tablet by mouth once daily. For blood pressure - cetirizine (ZYRTEC) 10 mg tablet Take 1 tablet by mouth once daily. - gabapentin (NEURONTIN) 100 mg capsule Take 1-2 capsules by mouth three times a day as needed (joint pain) for up to 30 days. - montelukast (SINGULAIR) 10 mg tablet Take 1 tablet by mouth daily at bedtime. - diclofenac, EC, (VOLTAREN) 75 mg EC tablet Take 1 tablet by mouth two times a day as needed (joint pain). As needed For pain/inflammation. Take with food. - ibuprofen (MOTRIN) 800 mg tablet Take 1 tablet by mouth every 8 hours as needed for pain. Take with food. - ibuprofen (MOTRIN) 800 mg tablet Take 1 tablet by mouth every 8 hours as needed for pain. Take with food. - Cholecalciferol, Vitamin D3, 50 mcg (2,000 unit) cap Take 1 capsule by mouth once daily. - Leg Brace (ELASTIC KNEE SUPPORT) misc 1 Device as directed. Dx: left knee pain, left suprapatellar bursitis - ipratropium-albuterol (DUONEB) 0.5 mg-3 mg(2.5 mg base)/3 mL nebu Inhale 3 mL as instructed every 6 hours as needed for wheezing/shortness of breath. cough - Nebulizer Accessories kit 1 Each four times daily. - albuterol HFA (PROVENTIL HFA, VENTOLIN HFA) 90 mcg/actuation inhaler Inhale 2 Puffs as instructed every 4 hours as needed for wheezing/shortness of breath. - meclizine (ANTIVERT) 12.5 mg tab 1 to 2 tablets three times a day as needed. - Blood Pressure Test Kit-Large 1 Each as needed (blood pressure). Dx: Essential hypertension - Magnesium 250 mg tab Take 1 tablet by mouth once daily. Meds Comments as of 05/07/2021: 05/07/2021 8:45 PM New meds: Prednisone, Tessalon Perls, Singular, Flovent. Chio Esquivel RN Problem List As Of Date 12/14/2023 Noted Resolved LUMBAGO [M54.50] 05/02/2006 ANXIETY STATE NOS [F41.1] 05/02/2006 Tuberculin test reaction [795.5] 07/05/2006 12/16/2010 ASTHMA UNSPECIFIED [J45.909] 07/05/2006 Morbid obesity (HCC) [E66.01] 07/05/2006 LATERAL EPICONDYLITIS [M77.10] 08/29/2006 PAIN IN JOINT, LOWER LEG [M25.569] 01/30/2007 ACUTE GASTRITIS W/O HEMORRHAGE [K29.00] 09/18/2007 ABDOMINAL PAIN EPIGASTRIC [R10.13] 09/18/2007 STOMACH ULCER NOS [K25.9] 09/18/2007 Unspecified Myalgia and Myositis [UKY6780] 10/28/2008 Unspecified Backache [M54.9] 10/28/2008 Chest Pain [R07.9] 12/03/2008 Blood in Stool [K92.1] 12/09/2008 Dermatofibroma of Lower Extremity [D23.70] 01/30/2009 Neoplasm of Uncertain Behavior of Skin [D48.5] 01/30/2009 Dermatofibroma of Upper Extremity [D23.60] 01/30/2009 Positive PPD [R76.11] 12/16/2010 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] 12/16/2010 Depression [F32.A] 12/16/2010 JAMES (obstructive sleep apnea) [G47.33] 05/26/2012 Fibromyalgia [M79.7] 05/26/2012 Right hip pain [M25.551] 05/26/2012 Morbid obesity with BMI of 45.0-49.9, adult [E6*04/12/2013 Fear of flying [F40.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 [facility] FAIR[facility]ANKS ([id number]) 1970 F Date Time Provider Department 10/24/23 FREDO LAROSE During your visit today, we recorded the following information about you: Loreto Hair RN 10/24/2023 1:49 PM Signed Patient calls and is asking about her lyme disease results: Latest Ref Rng 10/21/2023 Lyme Abs, IgG/IgM Negative Positive ! Patient had tested positive on 09/15 for lyme ab early but negative on the confirmatory lab. Patient testing positive once again for lyme ab early lab. Confirmatory lab is still in process. Patient asking what the next steps are since she tested positive again? Advised patient that we are waiting on confirmatory lab results. Patient asking what happens if that tests negative again? Please review and advise, LIN Sneed Stephanie, RN 10/30/2023 10:48 AM Signed Latest Ref Rn 10/21/2023 Lyme IgG Western Blot Negative Negative Lyme IgG, Bands No Bands Seen Lyme IgM Western Blot Negative Negative Lyme IgM, Bands No Bands Seen Interpretation (Lyme Abs/WB) Antibodies against Borrelia burgdorferi were not detected by Western Blot, suggesting a false-positive result in the screening assay. However, patients tested during an extremely early stage of infection (<2weeks) could theoretically have low levels of antibody not yet detectable by WB., If the clinical presentation suggests a very recent infection and clinical suspicion of Lyme Disease is high, a repeat serology in 4-6 weeks may be helpful. Clinical correlation is necessary. See Note from below regarding patient questions. Fredo Larose DO 11/01/2023 9:27 PM Signed Please let patient know that her lab again is showing that the western blot confirmatory testing is negative for LYME disease. We have the option to treat with doxycyline rx to make sure or can get an opinion with infectious disease specialist but doesn't appear that she has a current infection DO Stephanie Farris Beth, LPN 11/02/2023 8:54 AM Signed Phoned patient and went over results, notes from Dr Larose, patient has many questions. If she takes the antibiotic rx does she have to have blood test done again in few weeks? Asking why is the blood test showing negative now after it was positive after she took the rx? Patient is asking PCP opinion if she should just take the rx or if she should see Infectious Disease? She would just like to talk to PCP about this, she can only come in for appt Monday evening after 530 pm. Antonia Felipe [employer] schedule no longer has late evening spots to schedule appts. Please advise Fredo Larose DO 11/03/2023 5:12 PM Signed Please let patient know that I don't think she has Lyme disease. Her testing is showing me that she has antibodies to Lyme disease which means she has had the exposure in the past, but with the confirmatory retesting, this is negative. Which essentially tells me she no longer has an infection. If she would like infectious disease opinion that is okay, but I don't think she needs this DO Jordy Farris Janice, LPN 11/04/2023 8:49 AM Signed Patient notified of results and provider's instructions. Patient verbalizes understanding. Corinne Spence LPN Allergies As of Date: 10/24/2023 Noted Allergy Reaction ANTICHOLINERGICS - OTHER 01/14/2003 Comments: (Bentyl) causes hives DICYCLOMINE 12/19/2022 4 - Hives Date Reviewed: 09/13/2023 Reviewed by: Emani Gonzalez MA - Fully Assessed Reason for Visit: Results [95] Prescriptions as of 11/04/2023 - lisinopril (ZESTRIL) 5 mg tablet Take 1 tablet by mouth once daily. For blood pressure - cetirizine (ZYRTEC) 10 mg tablet Take 1 tablet by mouth once daily. - gabapentin (NEURONTIN) 100 mg capsule Take 1-2 capsules by mouth three times a day as needed (joint pain) for up to 30 days. - montelukast (SINGULAIR) 10 mg tablet Take 1 tablet by mouth daily at bedtime. - diclofenac, EC, (VOLTAREN) 75 mg EC tablet Take 1 tablet by mouth two times a day as needed (joint pain). As needed For pain/inflammation. Take with food. - ibuprofen (MOTRIN) 800 mg tablet Take 1 tablet by mouth every 8 hours as needed for pain. Take with food. - ibuprofen (MOTRIN) 800 mg tablet Take 1 tablet by mouth every 8 hours as needed for pain. Take with food. - Cholecalciferol, Vitamin D3, 50 mcg (2,000 unit) cap Take 1 capsule by mouth once daily. - Leg Brace (ELASTIC KNEE SUPPORT) misc 1 Device as directed. Dx: left knee pain, left suprapatellar bursitis - ipratropium-albuterol (DUONEB) 0.5 mg-3 mg(2.5 mg base)/3 mL nebu Inhale 3 mL as instructed every 6 hours as needed for wheezing/shortness of breath. cough - Nebulizer Accessories kit 1 Each four times daily. - albuterol HFA (PROVENTIL HFA, VENTOLIN HFA) 90 mcg/actuation inhaler Inhale 2 Puffs as instructed every 4 hours (more content not included)... Normal [facility] B. burgdorferi IgG and IgM p nile (S)on 10-21-2023 B. burgdorferi IgG+IgM Qn (S) Positive Abnormal Negative [facility] Comment on above: Order Comment: Speci men Type: BLOOD SPECIMENOrdering Facility: [facility] Address: [address] [place] [address] Result Comment: Borr haseeb burgdorferi antibody screening test indicates possible presence of Lyme-specific antibodies. Current testing guidelines recommend that all positive or equivocal screen test results be confirmed by a standardized Lyme immunoblot assay following CDC criteria. For final interpretation please refer to Lyme immunoblot result(s). Clinical and epidemiological correction is required. Lyme Western Blot confirmation test has been ordered and billed. Performed By: #### 3 4942-3, 94204-4 ####[facility] [id number] [address] [place] B. burgdorferi IgG+IgM IB Ql (S)on 10-21-2023 B. burgdorferi Ab band pattern IB (S) [Interp] Antibodies against Borrelia burgdorferi were not detected by Western Blot, suggesting a false-positive result in the screening assay. However, patients tested during an extremely early stage of infection (<2weeks) could theoretically have low levels of antibody not yet detectable by WB., If the clinical presentation suggests a very recent infection and clinical suspicion of Lyme Disease is high, a repeat serology in 4-6 weeks may be helpful. Clinical correlation is necessary. Normal [facility] Comment on above: Order Comment: Carly crooks Type: BLOOD SPECIMENOrdering Facility: [facility] Address: [address] [place] [address] Performed By: #### 3 4942-3, 41581-1 ####[facility] [id number] [place] [address] [place] B. burgdorferi IgG band pattern IB (S) [Interp] No Bands Seen Normal [facility] Comment on above: Order Comment: Carly crooks Type: BLOOD SPECIMENOrdering Facility: [facility] Address: [address] [place] [address] Performed By: #### 3 4943, 39144-0 ####[facility] [id number] [place] [address] [place] B. burgdorferi IgG IB Ql (S) Negative Normal Negative [facility] Comment on above: Order Comment: Carly crooks Type: BLOOD SPECIMENOrdering Facility: [facility] Address: [address] [place] [address] Result Comment: [facility] criteria for a positive Western blot are the presence of >=5 bands for IgG. Performed By: #### 3 494-3, 90247-4 ####[facility] [id number] [place] [address] [place] B. burgdorferi IgM band pattern IB (S) [Interp] No Bands Seen Normal [facility] Comment on above: Order Comment: Carly crooks Type: BLOOD SPECIMENOrdering Facility: [facility] Address: [address] [place] [address] Performed By: #### 3 494-3, 73983-5 ####[facility] [id number] [place] [address] [place] B. burgdorferi IgM IB Ql (S) Negative Normal Negative [facility] Comment on above: Order Comment: Speci men Type: BLOOD SPECIMENOrdering Facility: [facility] Address: [address] [place] [address] Result Comment: [facility] criteria for a positive Western Blot are the presence of >=2 bands for IgM. Performed By: #### 3 4942-3, 85650-9 ####[facility] [id number] [place] [address] [place] Basic metabolic 2000 panelon 10-21-2023 Anion gap [Moles/Vol] 12 mmol/L Normal 8-15 [facility] Comment on above: Order Comment: Speci men Type: BLOOD SPECIMENOrdering Facility: [facility] Address: [address] [place] [address] Performed By: #### 2 4321-2 ####[facility] [id number] [place] [address] [place] Calcium [Mass/Vol] 8.9 mg/dL Normal 8.5-10.2 [facility] Comment on above: Order Comment: Speci men Type: BLOOD SPECIMENOrdering Facility: [facility] Address: [address] [place] [address] Performed By: #### 2 4321-2 ####[facility] [id number] [place] [address] [place] Chloride [Moles/Vol] 106 mmol/L Normal 98-107 [facility] Comment on above: Order Comment: Speci men Type: BLOOD SPECIMENOrdering Facility: [facility] Address: [address] [place] [address] Performed By: #### 2 4321-2 ####[facility] [id number] [place] [address] [place] CO2 [Moles/Vol] 22 mmol/L Normal 22-30 [facility] Comment on above: Order Comment: Speci men Type: BLOOD SPECIMENOrdering Facility: [facility] Address: [address] [place] [address] Performed By: #### 2 4321-2 ####[facility] [id number] [place] [address] [place] Creatinine [Mass/Vol] 0.63 mg/dL Normal 0.58-0.96 [facility] Comment on above: Order Comment: Speci men Type: BLOOD SPECIMENOrdering Facility: [facility] Address: [address] [place] [address] Performed By: #### 2 4321-2 ####[facility]CL[facility] [id number] [place] [address] [place] Creatinine and Glomerular filtration rate.predicted panel (S/P/Bld) 108 mL/min/1.73m??? Normal >=60 [facility] Comment on above: Order Comment: Speci men Type: BLOOD SPECIMENOrdering Facility: [facility] Address: [address] [place] [address] Result Comment: Neva mated Glomerular Filtration Rate (eGFR) is calculated using the 2020 CKD-EPI creatinine equation. This equation utilizes serum creatinine, sex, and age as parameters. The creatinine assay has traceable calibration to isotope dilution-mass spectrometry. Refer to KDIGO guidelines for clinical interpretation. In patients with unstable renal function, e.g. those with acute kidney injury, the eGFR may not accurately reflect actual GFR. Performed By: #### 2 4321-2 ####[facility] LABIA [id number] [place] [address] [place] Glucose [Mass/Vol] 88 mg/dL Normal 74-99 [facility] Comment on above: Order Comment: Speci men Type: BLOOD SPECIMENOrdering Facility: [facility] Address: [address] [place] [address] Result Comment: The [place] Diabetes Association (ADA) provides guidance for cutoff values for fasting glucose and random glucose. The ADA defines fasting as no caloric intake for at least 8 hours. Fasting plasma glucose results between 100 to 125 mg/dL indicate increased risk for diabetes (prediabetes). Fasting plasma glucose results greater than or equal to 126 mg/dL meet the criteria for diagnosis of diabetes. In the absence of unequivocal hyperglycemia, results should be confirmed by repeat testing. In a patient with classic symptoms of hyperglycemia or hyperglycemic crisis, random plasma glucose results greater than or equal to 200 mg/dL meet the criteria for diagnosis of diabetes. Reference: Standards of Medical Care in Diabetes 2016, [place] [employer]. Diabetes Care. 2016.39(Suppl 1). Performed By: #### 2 4321-2 ####[facility]CL[facility] [id number] [place] [address] [place] Potassium [Moles/Vol] 4.1 mmol/L Normal 3.7-5.1 [facility] Comment on above: Order Comment: Speci men Type: BLOOD SPECIMENOrdering Facility: [facility] Address: [address] [place] [address] Performed By: #### 2 4321-2 ####[facility] LABIA [id number] [place] [address] [place] Sodium [Moles/Vol] 140 mmol/L Normal 136-144 [facility] Comment on above: Order Comment: Speci men Type: BLOOD SPECIMENOrdering Facility: [facility] Address: [address] [place] [address] Performed By: #### 2 4321-2 ####[facility]CL[facility] [id number] [place] [address] [place] Urea nitrogen [Mass/Vol] 13 mg/dL Normal 7-21 [facility] Comment on above: Order Comment: Speci men Type: BLOOD SPECIMENOrdering Facility: [facility] Address: [address] [place] [address] Performed By: #### 2 4321-2 ####[facility]CL[facility] [id number] [address] STATES OF [facility] [place] 10-02-2023 CNPN Telephone (FAMPWS) MATY FAIRBANKS ([id number]) 1970 F Date Time Provider Department 10/02/23 [facility] During your visit today, we recorded the following information about you: Velma Turner 10/02/2023 12:07 PM Signed Pt requesting repeat lab orders for Lyme to check if antibiotic worked. Had appt scheduled 10/03 with Tatiana but as she is out now pt wondering if she can just do labs instead of having an appointment. Please review and advise. Velma Turner October 02, 2023 12:07 PM Fredo Larose DO 10/02/2023 3:03 PM Signed Order placed for lab DO Mira Farris Susan LPN 10/02/2023 3:55 PM Signed Pt. informed. Allergies As of Date: 10/02/2023 Noted Allergy Reaction ANTICHOLINERGICS - OTHER 01/14/2003 Comments: (Bentyl) causes hives DICYCLOMINE 12/19/2022 4 - Hives Date Reviewed: 09/13/2023 Reviewed by: Emani Gonzalez MA - Fully Assessed Reason for Visit: Orders [681] Primary Visit Diagnosis:Lyme disease [A69.20] Order(s):LYME AB EARLY <=30 DAY SYMPTOMS [SQLMERLY] Order #: [id number] FUTURE Prescriptions as of 10/02/2023 - gabapentin (NEURONTIN) 100 mg capsule Take 1-2 capsules by mouth three times a day as needed (joint pain) for up to 30 days. - montelukast (SINGULAIR) 10 mg tablet Take 1 tablet by mouth daily at bedtime. - diclofenac, EC, (VOLTAREN) 75 mg EC tablet Take 1 tablet by mouth two times a day as needed (joint pain). As needed For pain/inflammation. Take with food. - cetirizine (ZYRTEC) 10 mg tablet Take 1 tablet by mouth once daily. - lisinopril (ZESTRIL) 5 mg tablet Take 1 tablet by mouth once daily. For blood pressure - ibuprofen (MOTRIN) 800 mg tablet Take 1 tablet by mouth every 8 hours as needed for pain. Take with food. - ibuprofen (MOTRIN) 800 mg tablet Take 1 tablet by mouth every 8 hours as needed for pain. Take with food. - Cholecalciferol, Vitamin D3, 50 mcg (2,000 unit) cap Take 1 capsule by mouth once daily. - Leg Brace (ELASTIC KNEE SUPPORT) misc 1 Device as directed. Dx: left knee pain, left suprapatellar bursitis - ipratropium-albuterol (DUONEB) 0.5 mg-3 mg(2.5 mg base)/3 mL nebu Inhale 3 mL as instructed every 6 hours as needed for wheezing/shortness of breath. cough - Nebulizer Accessories kit 1 Each four times daily. - albuterol HFA (PROVENTIL HFA, VENTOLIN HFA) 90 mcg/actuation inhaler Inhale 2 Puffs as instructed every 4 hours as needed for wheezing/shortness of breath. - meclizine (ANTIVERT) 12.5 mg tab 1 to 2 tablets three times a day as needed. - Blood Pressure Test Kit-Large 1 Each as needed (blood pressure). Dx: Essential hypertension - Magnesium 250 mg tab Take 1 tablet by mouth once daily. Meds Comments as of 05/07/2021: 05/07/2021 8:45 PM New meds: Prednisone, Tessalon Perls, Singular, Flovent. Chio Esquivel RN Problem List As Of Date 10/02/2023 Noted Resolved LUMBAGO [M54.50] 05/02/2006 ANXIETY STATE NOS [F41.1] 05/02/2006 Tuberculin test reaction [795.5] 07/05/2006 12/16/2010 ASTHMA UNSPECIFIED [J45.909] 07/05/2006 Morbid obesity (HCC) [E66.01] 07/05/2006 LATERAL EPICONDYLITIS [M77.10] 08/29/2006 PAIN IN JOINT, LOWER LEG [M25.569] 01/30/2007 ACUTE GASTRITIS W/O HEMORRHAGE [K29.00] 09/18/2007 ABDOMINAL PAIN EPIGASTRIC [R10.13] 09/18/2007 STOMACH ULCER NOS [K25.9] 09/18/2007 Unspecified Myalgia and Myositis [KTB5855] 10/28/2008 Unspecified Backache [M54.9] 10/28/2008 Chest Pain [R07.9] 12/03/2008 Blood in Stool [K92.1] 12/09/2008 Dermatofibroma of Lower Extremity [D23.70] 01/30/2009 Neoplasm of Uncertain Behavior of Skin [D48.5] 01/30/2009 Dermatofibroma of Upper Extremity [D23.60] 01/30/2009 Positive PPD [R76.11] 12/16/2010 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] 12/16/2010 Depression [F32.A] 12/16/2010 JAMES (obstructive sleep apnea) [G47.33] 05/26/2012 Fibromyalgia [M79.7] 05/26/2012 Right hip pain [M25.551] 05/26/2012 Morbid obesity with BMI of 45.0-49.9, adult [E6*04/12/2013 Fear of flying [F40.243] 04/12/2013 Subcutaneous nodules [R22.9] 04/12/2013 Lipoma [D17.9] 05/11/2013 Cough [R05.9] 11/26/2013 Heart palpitations [R00.2] 05/23/2015 Rectal bleed [K62.5] 07/12/2015 Iron deficiency anemia [D50.9] 11/28/2017 Vitamin D deficiency [E55.9] 11/28/2017 Well adult exam [Z00.00] 03/13/2019 Perimenopausal disorder [N95.9] 03/13/2019 TUSHAR (generalized anxiety disorder) [F41.1] 03/13/2019 History of tobacco use [Z87.891] Irritable bowel syndrome with alternating bowel*01/05/2022 Right thigh pain [M79.651] 09/28/2022 Arthritis of knee [M17.10] 09/28/2022 Memory change [R41.3] 09/28/2022 Chronic pain of both knees [M25.561, M25.562, G*09/28/2022 Hypertension, essential [I10] 09/28/2022 Elevated LFTs [R79.89] 04/19/2023 Class 3 severe obesity with body mass index (BM*04/19/2023 Encounter Status:Closed by DET (more content not included)... [facility] MATY FAIRBANKS ([id number]) 1970 F Date Time Provider Department 09/21/[address] [facility] During your visit today, we recorded the following information about you: Lc Gonzalez, RN 09/21/2023 8:37 AM Signed Patient reports she was seen in on 09-13-23 with sore throat, fatigue. Strep and mono tests neg. Reports provider had her do a lyme disease lab- 1st result was positive, 2nd test was negative. Reports she has never been bit by a tick and never had a rash. Provider prescribed doxycycline 100 mg bid for 10 days. Patient is extremely nauseous. Has not vomited. Advised to take with food. Patient states she has not tried this. Reports she has taken 4 doses so far. 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 Reports the plan was to take the doxycycline, follow up with Tatiana on 10-04-23 and Tatiana was to order repeat testing. States she is unable to take this feeling of nausea. Asking if she can just stop the doxycycline, follow up with Tatiana for repeat testing, then if it's positive, can take the antibiotic? Please advise patient. Tatiana Almeida APRN.GENERATOR ASSEMBLER 09/21/2023 12:29 PM Signed I would recommend taking antibiotic with food first and if that does not subside the n/v then OK to discontinue and we will follow-up as scheduled. Thank you, Tatiana Almeida APRN.Xochitl Gan LPN 09/21/2023 12:50 PM Signed Phoned patient left message to return call and ask to speak to a nurse. Lc Gonzalez RN 09/21/2023 1:19 PM Signed Pt returned call and given provider's message below with verbalized understanding. Patient agreeable. Allergies As of Date: 09/21/2023 Noted Allergy Reaction ANTICHOLINERGICS - OTHER 01/14/2003 Comments: (Bentyl) causes hives DICYCLOMINE 12/19/2022 4 - Hives Date Reviewed: 09/13/2023 Reviewed by: Emani Gonzalez MA - Fully Assessed Reason for Visit: Patient Question [4957] Prescriptions as of 09/21/2023 - doxycycline (VIBRA-TABS) 100 mg tablet Take 1 tablet by mouth two times a day for 10 days. - gabapentin (NEURONTIN) 100 mg capsule Take 1-2 capsules by mouth three times a day as needed (joint pain) for up to 30 days. - montelukast (SINGULAIR) 10 mg tablet Take 1 tablet by mouth daily at bedtime. - diclofenac, EC, (VOLTAREN) 75 mg EC tablet Take 1 tablet by mouth two times a day as needed (joint pain). As needed For pain/inflammation. Take with food. - cetirizine (ZYRTEC) 10 mg tablet Take 1 tablet by mouth once daily. - lisinopril (ZESTRIL) 5 mg tablet Take 1 tablet by mouth once daily. For blood pressure - ibuprofen (MOTRIN) 800 mg tablet Take 1 tablet by mouth every 8 hours as needed for pain. Take with food. - ibuprofen (MOTRIN) 800 mg tablet Take 1 tablet by mouth every 8 hours as needed for pain. Take with food. - Cholecalciferol, Vitamin D3, 50 mcg (2,000 unit) cap Take 1 capsule by mouth once daily. - Leg Brace (ELASTIC KNEE SUPPORT) misc 1 Device as directed. Dx: left knee pain, left suprapatellar bursitis - ipratropium-albuterol (DUONEB) 0.5 mg-3 mg(2.5 mg base)/3 mL nebu Inhale 3 mL as instructed every 6 hours as needed for wheezing/shortness of breath. cough - Nebulizer Accessories kit 1 Each four times daily. - albuterol HFA (PROVENTIL HFA, VENTOLIN HFA) 90 mcg/actuation inhaler Inhale 2 Puffs as instructed every 4 hours as needed for wheezing/shortness of breath. - meclizine (ANTIVERT) 12.5 mg tab 1 to 2 tablets three times a day as needed. - Blood Pressure Test Kit-Large 1 Each as needed (blood pressure). Dx: Essential hypertension - Magnesium 250 mg tab Take 1 tablet by mouth once daily. Meds Comments as of 05/07/2021: 05/07/2021 8:45 PM New meds: Prednisone, Tessalon Perls, Singular, Flovent. Chio Esquivel RN Problem List As Of Date 09/21/2023 Noted Resolved LUMBAGO [M54.50] 05/02/2006 ANXIETY STATE NOS [F41.1] 05/02/2006 Tuberculin test reaction [795.5] 07/05/2006 12/16/2010 ASTHMA UNSPECIFIED [J45.909] 07/05/2006 Morbid obesity (HCC) [E66.01] 07/05/2006 LATERAL EPICONDYLITIS [M77.10] 08/29/2006 PAIN IN JOINT, LOWER LEG [M25.569] 01/30/2007 ACUTE GASTRITIS W/O HEMORRHAGE [K29.00] 09/18/2007 ABDOMINAL PAIN EPIGASTRIC [R10.13] 09/18/2007 STOMACH ULCER NOS [K25.9] 09/18/2007 Unspecified Myalgia and Myositis [FDO3288] 10/28/2008 Unspecified Backache [M54.9] 10/28/2008 Chest Pain [R07.9] 12/03/2008 Blood in Stool [K92.1] 12/09/2008 Dermatofibroma of Lower Extremity [D23.70] 01/30/2009 Neoplasm of Uncertain Behavior of Skin [D48.5] 01/30/2009 Dermatofibroma of Upper Extremity [D23.60] 01/30/2009 Positive PPD [R76.11] 12/16/2010 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 Normal [facility] FAIRBANKS ([id number]) 1970 F Date Time Provider Department 09/20[facility] During your visit today, we recorded the following information about you: Elizabeth Steiner LPN 09/20/2023 10:41 AM Signed Patient calling, asking if it would be ok to reschedule her appointment for after she completes the antibiotic for lyme disease. States she is supposed to have follow up lab work but she is not sure when that is supposed to be done either. Please advise. Tatiana Almeida APRN.MAILE 09/20/2023 10:50 AM Signed OK to reschedule. I don't see any follow-up labs ordered. Please clarify. Thank you, Tatiana Almeida APRN.Maribell Pond, LIN 09/20/2023 3:21 PM Signed See below msg as this must be why pt feels there will be follow up lab work. Pt rescheduled for 2 weeks out on 10/03 as pt needs an evening appt. Explained to pt that would discuss possible repeat labwork at the appt. Pt verbalizes understanding and she will confirm appt through her MyChart as her phone was dying. Shankar Jose PA KA 09/19/23 1:41 PM Note Please contact patient and let her know that her Lyme confirmatory test came back negative. It is possible that the initial screening test was a false positive. It is also possible that she is early in the infection and that is why the confirmatory came back negative. Please advise patient to take the doxycycline as prescribed if she is still symptomatic. She will need close follow-up with her PCP in a few weeks for reevaluation and repeat lab testing. Allergies As of Date: 09/20/2023 Noted Allergy Reaction ANTICHOLINERGICS - OTHER 01/14/2003 Comments: (Bentyl) causes hives DICYCLOMINE 12/19/2022 4 - Hives Date Reviewed: 09/13/2023 Reviewed by: Emani Gonzalez MA - Fully Assessed Reason for Visit: Appointment [186] Prescriptions as of 09/20/2023 - doxycycline (VIBRA-TABS) 100 mg tablet Take 1 tablet by mouth two times a day for 10 days. - gabapentin (NEURONTIN) 100 mg capsule Take 1-2 capsules by mouth three times a day as needed (joint pain) for up to 30 days. - montelukast (SINGULAIR) 10 mg tablet Take 1 tablet by mouth daily at bedtime. - diclofenac, EC, (VOLTAREN) 75 mg EC tablet Take 1 tablet by mouth two times a day as needed (joint pain). As needed For pain/inflammation. Take with food. - cetirizine (ZYRTEC) 10 mg tablet Take 1 tablet by mouth once daily. - lisinopril (ZESTRIL) 5 mg tablet Take 1 tablet by mouth once daily. For blood pressure - ibuprofen (MOTRIN) 800 mg tablet Take 1 tablet by mouth every 8 hours as needed for pain. Take with food. - ibuprofen (MOTRIN) 800 mg tablet Take 1 tablet by mouth every 8 hours as needed for pain. Take with food. - Cholecalciferol, Vitamin D3, 50 mcg (2,000 unit) cap Take 1 capsule by mouth once daily. - Leg Brace (ELASTIC KNEE SUPPORT) misc 1 Device as directed. Dx: left knee pain, left suprapatellar bursitis - ipratropium-albuterol (DUONEB) 0.5 mg-3 mg(2.5 mg base)/3 mL nebu Inhale 3 mL as instructed every 6 hours as needed for wheezing/shortness of breath. cough - Nebulizer Accessories kit 1 Each four times daily. - albuterol HFA (PROVENTIL HFA, VENTOLIN HFA) 90 mcg/actuation inhaler Inhale 2 Puffs as instructed every 4 hours as needed for wheezing/shortness of breath. - meclizine (ANTIVERT) 12.5 mg tab 1 to 2 tablets three times a day as needed. - Blood Pressure Test Kit-Large 1 Each as needed (blood pressure). Dx: Essential hypertension - Magnesium 250 mg tab Take 1 tablet by mouth once daily. Meds Comments as of 05/07/2021: 05/07/2021 8:45 PM New meds: Prednisone, Tessalon Perls, Singular, Flovent. Chio Esquivel RN Problem List As Of Date 09/20/2023 Noted Resolved LUMBAGO [M54.50] 05/02/2006 ANXIETY STATE NOS [F41.1] 05/02/2006 Tuberculin test reaction [795.5] 07/05/2006 12/16/2010 ASTHMA UNSPECIFIED [J45.909] 07/05/2006 Morbid obesity (HCC) [E66.01] 07/05/2006 LATERAL EPICONDYLITIS [M77.10] 08/29/2006 PAIN IN JOINT, LOWER LEG [M25.569] 01/30/2007 ACUTE GASTRITIS W/O HEMORRHAGE [K29.00] 09/18/2007 ABDOMINAL PAIN EPIGASTRIC [R10.13] 09/18/2007 STOMACH ULCER NOS [K25.9] 09/18/2007 Unspecified Myalgia and Myositis [RFY5695] 10/28/2008 Unspecified Backache [M54.9] 10/28/2008 Chest Pain [R07.9] 12/03/2008 Blood in Stool [K92.1] 12/09/2008 Dermatofibroma of Lower Extremity [D23.70] 01/30/2009 Neoplasm of Uncertain Behavior of Skin [D48.5] 01/30/2009 Dermatofibroma of Upper Extremity [D23.60] 01/30/2009 Positive PPD [R76.11] 12/16/2010 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 Normal [facility] 09-19-2023 [facility] MATY FAIRBANKS Dez ([id number]) 1970 F Date Time Provider Department 09/19/23 ARLINE MARTIN During your visit today, we recorded the following information about you: Suzanne Young LPN 09/19/2023 9:43 AM Signed Pt states Rx for doxy that was escripted yesterday was not received by [facility]. Verbal was called in to pharmacist Ruddy by myself. Suzanne Young LPN Allergies As of Date: 09/19/2023 Noted Allergy Reaction ANTICHOLINERGICS - OTHER 01/14/2003 Comments: (Bentyl) causes hives DICYCLOMINE 12/19/2022 4 - Hives Date Reviewed: 09/13/2023 Reviewed by: Emani Gonzalez MA - Fully Assessed Reason for Visit: Medication Problem [65] Prescriptions as of 09/19/2023 - doxycycline (VIBRA-TABS) 100 mg tablet Take 1 tablet by mouth two times a day for 10 days. - gabapentin (NEURONTIN) 100 mg capsule Take 1-2 capsules by mouth three times a day as needed (joint pain) for up to 30 days. - montelukast (SINGULAIR) 10 mg tablet Take 1 tablet by mouth daily at bedtime. - diclofenac, EC, (VOLTAREN) 75 mg EC tablet Take 1 tablet by mouth two times a day as needed (joint pain). As needed For pain/inflammation. Take with food. - cetirizine (ZYRTEC) 10 mg tablet Take 1 tablet by mouth once daily. - lisinopril (ZESTRIL) 5 mg tablet Take 1 tablet by mouth once daily. For blood pressure - ibuprofen (MOTRIN) 800 mg tablet Take 1 tablet by mouth every 8 hours as needed for pain. Take with food. - ibuprofen (MOTRIN) 800 mg tablet Take 1 tablet by mouth every 8 hours as needed for pain. Take with food. - Cholecalciferol, Vitamin D3, 50 mcg (2,000 unit) cap Take 1 capsule by mouth once daily. - Leg Brace (ELASTIC KNEE SUPPORT) misc 1 Device as directed. Dx: left knee pain, left suprapatellar bursitis - ipratropium-albuterol (DUONEB) 0.5 mg-3 mg(2.5 mg base)/3 mL nebu Inhale 3 mL as instructed every 6 hours as needed for wheezing/shortness of breath. cough - Nebulizer Accessories kit 1 Each four times daily. - albuterol HFA (PROVENTIL HFA, VENTOLIN HFA) 90 mcg/actuation inhaler Inhale 2 Puffs as instructed every 4 hours as needed for wheezing/shortness of breath. - meclizine (ANTIVERT) 12.5 mg tab 1 to 2 tablets three times a day as needed. - Blood Pressure Test Kit-Large 1 Each as needed (blood pressure). Dx: Essential hypertension - Magnesium 250 mg tab Take 1 tablet by mouth once daily. Meds Comments as of 05/07/2021: 05/07/2021 8:45 PM New meds: Prednisone, Tessalon Perls, Singular, Flovent. Chio Esquivel RN Problem List As Of Date 09/19/2023 Noted Resolved LUMBAGO [M54.50] 05/02/2006 ANXIETY STATE NOS [F41.1] 05/02/2006 Tuberculin test reaction [795.5] 07/05/2006 12/16/2010 ASTHMA UNSPECIFIED [J45.909] 07/05/2006 Morbid obesity (HCC) [E66.01] 07/05/2006 LATERAL EPICONDYLITIS [M77.10] 08/29/2006 PAIN IN JOINT, LOWER LEG [M25.569] 01/30/2007 ACUTE GASTRITIS W/O HEMORRHAGE [K29.00] 09/18/2007 ABDOMINAL PAIN EPIGASTRIC [R10.13] 09/18/2007 STOMACH ULCER NOS [K25.9] 09/18/2007 Unspecified Myalgia and Myositis [[id number]] 10/28/2008 Unspecified Backache [M54.9] 10/28/2008 Chest Pain [R07.9] 12/03/2008 Blood in Stool [K92.1] 12/09/2008 Dermatofibroma of Lower Extremity [D23.70] 01/30/2009 Neoplasm of Uncertain Behavior of Skin [D48.5] 01/30/2009 Dermatofibroma of Upper Extremity [D23.60] 01/30/2009 Positive PPD [R76.11] 12/16/2010 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] 12/16/2010 Depression [F32.A] 12/16/2010 JAMES (obstructive sleep apnea) [G47.33] 05/26/2012 Fibromyalgia [M79.7] 05/26/2012 Right hip pain [M25.551] 05/26/2012 Morbid obesity with BMI of 45.0-49.9, adult [E6*04/12/2013 Fear of flying [F40.243] 04/12/2013 Subcutaneous nodules [R22.9] 04/12/2013 Lipoma [D17.9] 05/11/2013 Cough [R05.9] 11/26/2013 Heart palpitations [R00.2] 05/23/2015 Rectal bleed [K62.5] 07/12/2015 Iron deficiency anemia [D50.9] 11/28/2017 Vitamin D deficiency [E55.9] 11/28/2017 Well adult exam [Z00.00] 03/13/2019 Perimenopausal disorder [N95.9] 03/13/2019 TUSHAR (generalized anxiety disorder) [F41.1] 03/13/2019 History of tobacco use [Z87.891] Irritable bowel syndrome with alternating bowel*01/05/2022 Right thigh pain [M79.651] 09/28/2022 Arthritis of knee [M17.10] 09/28/2022 Memory change [R41.3] 09/28/2022 Chronic pain of both knees [M25.561, M25.562, G*09/28/2022 Hypertension, essential [I10] 09/28/2022 Elevated LFTs [R79.89] 04/19/2023 Class 3 severe obesity with body mass index (BM*04/19/2023 Encounter Status:Closed by SUZANNE YOUNG on 09/19/23 [facility] Telephone (UCWSTR) MATY FAIRBANKS ([id number]) 1970 F Date Time Provider Department 09/19/23 SHANKAR JOSE [facility] During your visit today, we recorded the following information about you: Shankar Jose PA 09/19/2023 1:41 PM Signed Please contact patient and let her know that her Lyme confirmatory test came back negative. It is possible that the initial screening test was a false positive. It is also possible that she is early in the infection and that is why the confirmatory came back negative. Please advise patient to take the doxycycline as prescribed if she is still symptomatic. She will need close follow-up with her PCP in a few weeks for reevaluation and repeat lab testing. Tio Agrawal LPN 09/19/2023 1:49 PM Signed Pt phoned office, notified of results/provider response. She verbalized understanding. Pt will keep follow up appt with LEAD TEACHER tomorrow. Tio Agrawal LPN Allergies As of Date: 09/19/2023 Noted Allergy Reaction ANTICHOLINERGICS - OTHER 01/14/2003 Comments: (Bentyl) causes hives DICYCLOMINE 12/19/2022 4 - Hives Date Reviewed: 09/13/2023 Reviewed by: Emani Gonzalez MA - Fully Assessed Reason for Visit: Results [95] Prescriptions as of 09/19/2023 - doxycycline (VIBRA-TABS) 100 mg tablet Take 1 tablet by mouth two times a day for 10 days. - gabapentin (NEURONTIN) 100 mg capsule Take 1-2 capsules by mouth three times a day as needed (joint pain) for up to 30 days. - montelukast (SINGULAIR) 10 mg tablet Take 1 tablet by mouth daily at bedtime. - diclofenac, EC, (VOLTAREN) 75 mg EC tablet Take 1 tablet by mouth two times a day as needed (joint pain). As needed For pain/inflammation. Take with food. - cetirizine (ZYRTEC) 10 mg tablet Take 1 tablet by mouth once daily. - lisinopril (ZESTRIL) 5 mg tablet Take 1 tablet by mouth once daily. For blood pressure - ibuprofen (MOTRIN) 800 mg tablet Take 1 tablet by mouth every 8 hours as needed for pain. Take with food. - ibuprofen (MOTRIN) 800 mg tablet Take 1 tablet by mouth every 8 hours as needed for pain. Take with food. - Cholecalciferol, Vitamin D3, 50 mcg (2,000 unit) cap Take 1 capsule by mouth once daily. - Leg Brace (ELASTIC KNEE SUPPORT) misc 1 Device as directed. Dx: left knee pain, left suprapatellar bursitis - ipratropium-albuterol (DUONEB) 0.5 mg-3 mg(2.5 mg base)/3 mL nebu Inhale 3 mL as instructed every 6 hours as needed for wheezing/shortness of breath. cough - Nebulizer Accessories kit 1 Each four times daily. - albuterol HFA (PROVENTIL HFA, VENTOLIN HFA) 90 mcg/actuation inhaler Inhale 2 Puffs as instructed every 4 hours as needed for wheezing/shortness of breath. - meclizine (ANTIVERT) 12.5 mg tab 1 to 2 tablets three times a day as needed. - Blood Pressure Test Kit-Large 1 Each as needed (blood pressure). Dx: Essential hypertension - Magnesium 250 mg tab Take 1 tablet by mouth once daily. Meds Comments as of 05/07/2021: 05/07/2021 8:45 PM New meds: Prednisone, Tessalon Perls, Singular, Flovent. Chio Esquivel RN Problem List As Of Date 09/19/2023 Noted Resolved LUMBAGO [M54.50] 05/02/2006 ANXIETY STATE NOS [F41.1] 05/02/2006 Tuberculin test reaction [795.5] 07/05/2006 12/16/2010 ASTHMA UNSPECIFIED [J45.909] 07/05/2006 Morbid obesity (HCC) [E66.01] 07/05/2006 LATERAL EPICONDYLITIS [M77.10] 08/29/2006 PAIN IN JOINT, LOWER LEG [M25.569] 01/30/2007 ACUTE GASTRITIS W/O HEMORRHAGE [K29.00] 09/18/2007 ABDOMINAL PAIN EPIGASTRIC [R10.13] 09/18/2007 STOMACH ULCER NOS [K25.9] 09/18/2007 Unspecified Myalgia and Myositis [TAU0830] 10/28/2008 Unspecified Backache [M54.9] 10/28/2008 Chest Pain [R07.9] 12/03/2008 Blood in Stool [K92.1] 12/09/2008 Dermatofibroma of Lower Extremity [D23.70] 01/30/2009 Neoplasm of Uncertain Behavior of Skin [D48.5] 01/30/2009 Dermatofibroma of Upper Extremity [D23.60] 01/30/2009 Positive PPD [R76.11] 12/16/2010 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] 12/16/2010 Depression [F32.A] 12/16/2010 JAMES (obstructive sleep apnea) [G47.33] 05/26/2012 Fibromyalgia [M79.7] 05/26/2012 Right hip pain [M25.551] 05/26/2012 Morbid obesity with BMI of 45.0-49.9, adult [E6*04/12/2013 Fear of flying [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] 04/12/2013 Subcutaneous nodules [R22.9] 04/12/2013 Lipoma [D17.9] 05/11/2013 Cough [R05.9] 11/26/2013 Heart palpitations [R00.2] 05/23/2015 Rectal bleed [K62.5] 07/12/2015 Iron deficiency anemia [D50.9] 11/28/2017 Vitamin D deficiency [E55.9] 11/28/2017 Well adult exam [Z00.00] 03/13/2019 Perimenopausal disorder [N95.9] 03/13/2019 TUSHAR (generalized anxiety disorder) [F41.1] 03/13/2019 History of tobacco use [Z87.891] Irritable bowel syndrome with alternating bowel*01/05/2022 Right thigh pain [M79.651] 09/28/2022 Arthritis of knee [M17.10] 09/28/2022 Memory change [R41.3] 09/28/2022 Chronic pain of both knees [M25.561, M25.562, G*08/ (more content not included)... [facility]UCW[facility] MATY FAIRBANKS ([id number]) 1970 F Date Time Provider Department 09/18/23 ARLINE MARTIN [facility] During your visit today, we recorded the following information about you: Arline Martin APRN.[facility] 09/18/2023 2:38 PM Signed [facility] called in. Patient needs to arrange a follow up appointment with PCP, 2 weeks from now. Please advise patient. Sabina Rodriguez MA 09/18/2023 6:39 PM Signed Patient given results and verbalized understanding of instructions given. Sabina Rodriguez MA Allergies As of Date: 09/18/2023 Noted Allergy Reaction ANTICHOLINERGICS - OTHER 01/14/2003 Comments: (Bentyl) causes hives DICYCLOMINE 12/19/2022 4 - Hives Date Reviewed: 09/13/2023 Reviewed by: Emani Gonzalez MA - Fully Assessed Reason for Visit: Results [95] Prescriptions as of 09/18/2023 - gabapentin (NEURONTIN) 100 mg capsule Take 1-2 capsules by mouth three times a day as needed (joint pain) for up to 30 days. - montelukast (SINGULAIR) 10 mg tablet Take 1 tablet by mouth daily at bedtime. - diclofenac, EC, (VOLTAREN) 75 mg EC tablet Take 1 tablet by mouth two times a day as needed (joint pain). As needed For pain/inflammation. Take with food. - cetirizine (ZYRTEC) 10 mg tablet Take 1 tablet by mouth once daily. - lisinopril (ZESTRIL) 5 mg tablet Take 1 tablet by mouth once daily. For blood pressure - ibuprofen (MOTRIN) 800 mg tablet Take 1 tablet by mouth every 8 hours as needed for pain. Take with food. - ibuprofen (MOTRIN) 800 mg tablet Take 1 tablet by mouth every 8 hours as needed for pain. Take with food. - Cholecalciferol, Vitamin D3, 50 mcg (2,000 unit) cap Take 1 capsule by mouth once daily. - Leg Brace (ELASTIC KNEE SUPPORT) misc 1 Device as directed. Dx: left knee pain, left suprapatellar bursitis - ipratropium-albuterol (DUONEB) 0.5 mg-3 mg(2.5 mg base)/3 mL nebu Inhale 3 mL as instructed every 6 hours as needed for wheezing/shortness of breath. cough - Nebulizer Accessories kit 1 Each four times daily. - albuterol HFA (PROVENTIL HFA, VENTOLIN HFA) 90 mcg/actuation inhaler Inhale 2 Puffs as instructed every 4 hours as needed for wheezing/shortness of breath. - meclizine (ANTIVERT) 12.5 mg tab 1 to 2 tablets three times a day as needed. - Blood Pressure Test Kit-Large 1 Each as needed (blood pressure). Dx: Essential hypertension - Magnesium 250 mg tab Take 1 tablet by mouth once daily. Meds Comments as of 05/07/2021: 05/07/2021 8:45 PM New meds: Prednisone, Tessalon Perls, Singular, Flovent. Chio Esquivel RN Problem List As Of Date 09/18/2023 Noted Resolved LUMBAGO [M54.50] 05/02/2006 ANXIETY STATE NOS [F41.1] 05/02/2006 Tuberculin test reaction [795.5] 07/05/2006 12/16/2010 ASTHMA UNSPECIFIED [J45.909] 07/05/2006 Morbid obesity (HCC) [E66.01] 07/05/2006 LATERAL EPICONDYLITIS [M77.10] 08/29/2006 PAIN IN JOINT, LOWER LEG [M25.569] 01/30/2007 ACUTE GASTRITIS W/O HEMORRHAGE [K29.00] 09/18/2007 ABDOMINAL PAIN EPIGASTRIC [R10.13] 09/18/2007 STOMACH ULCER NOS [K25.9] 09/18/2007 Unspecified Myalgia and Myositis [VDH0849] 10/28/2008 Unspecified Backache [M54.9] 10/28/2008 Chest Pain [R07.9] 12/03/2008 Blood in Stool [K92.1] 12/09/2008 Dermatofibroma of Lower Extremity [D23.70] 01/30/2009 Neoplasm of Uncertain Behavior of Skin [D48.5] 01/30/2009 Dermatofibroma of Upper Extremity [D23.60] 01/30/2009 Positive PPD [R76.11] 12/16/2010 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] 12/16/2010 Depression [F32.A] 12/16/2010 JAMES (obstructive sleep apnea) [G47.33] 05/26/2012 Fibromyalgia [M79.7] 05/26/2012 Right hip pain [M25.551] 05/26/2012 Morbid obesity with BMI of 45.0-49.9, adult [E6*04/12/2013 Fear of flying [F40.243] 04/12/2013 Subcutaneous nodules [R22.9] 04/12/2013 Lipoma [D17.9] 05/11/2013 Cough [R05.9] 11/26/2013 Heart palpitations [R00.2] 05/23/2015 Rectal bleed [K62.5] 07/12/2015 Iron deficiency anemia [D50.9] 11/28/2017 Vitamin D deficiency [E55.9] 11/28/2017 Well adult exam [Z00.00] 03/13/2019 Perimenopausal disorder [N95.9] 03/13/2019 TUSHAR (generalized anxiety disorder) [F41.1] 03/13/2019 History of tobacco use [Z87.891] Irritable bowel syndrome with alternating bowel*01/05/2022 Right thigh pain [M79.651] 09/28/2022 Arthritis of knee [M17.10] 09/28/2022 Memory change [R41.3] 09/28/2022 Chronic pain of both knees [M25.561, M25.562, G*09/28/2022 Hypertension, essential [I10] 09/28/2022 Elevated LFTs [R79.89] 04/19/2023 Class 3 severe obesity with body mass index (BM*04/19/2023 Encounter Status:Closed by SABINA RODRIGUEZ on 09/18/23 Normal [facility] B. burgdorferi IgG and IgM p nile (S)on 09-16-2023 B. burgdorferi IgG+IgM Qn (S) Positive Abnormal Negative [facility] Comment on above: Order Comment: Carly crooks Type: BLOOD SPECIMENOrdering Facility: [facility] Address: [address] [place] [address] Result Comment: Borr haseeb burgdorferi antibody screening test indicates possible presence of Lyme-specific antibodies. Current testing guidelines recommend that all positive or equivocal screen test results be confirmed by a standardized Lyme immunoblot assay following CDC criteria. For final interpretation please refer to Lyme immunoblot result(s). Clinical and epidemiological correction is required. Lyme Western Blot confirmation test has been ordered and billed. Performed By: #### 3 4942-3, 31152-3 ####[facility] LABCLIA [id number] [place] [address] [place] B. burgdorferi IgG+IgM IB Ql (S)on 09-16-2023 B. burgdorferi Ab band pattern IB (S) [Interp] Antibodies against Borrelia burgdorferi were not detected by Western Blot, suggesting a false-positive result in the screening assay. However, patients tested during an extremely early stage of infection (<2weeks) could theoretically have low levels of antibody not yet detectable by WB., If the clinical presentation suggests a very recent infection and clinical suspicion of Lyme Disease is high, a repeat serology in 4-6 weeks may be helpful. Clinical correlation is necessary. Normal [facility] Comment on above: Order Comment: Carly crooks Type: BLOOD SPECIMENOrdering Facility: [facility] Address: [address] [place] [address] Performed By: #### 3 4942-3, 33625-2 ####[facility] LABCLIA [id number] [place] [address] [place] B. burgdorferi IgG IB Ql (S) Negative Normal Negative [facility] Comment on above: Order Comment: Carly crooks Type: BLOOD SPECIMENOrdering Facility: [facility] Address: [address] [place] [address] Result Comment: CDC criteria for a positive Western blot are the presence of >=5 bands for IgG. Performed By: #### 3 4942-3, 88336-7 ####[facility] [id number] [address] OF [place] B. burgdorferi IgM band pattern IB (S) [Interp] No Bands Seen Normal [facility] Comment on above: Order Comment: Carly crooks Type: BLOOD SPECIMENOrdering Facility: [facility] Address: [address] [place] [address] Performed By: #### 3 4942-3, 03973-6 ####[facility] [id number] [address] OF [facility] B. burgdorferi IgM IB Ql (S) Negative Normal Negative [facility] Comment on above: Order Comment: Carly crooks Type: BLOOD SPECIMENOrdering Facility: [facility] Address: [address] [place] [address] Result Comment: [facility] criteria for a positive Western Blot are the presence of >=2 bands for IgM. Performed By: #### 3 4942-3, 82938-7 ####[facility] [id number] [place] [address] [place] Heteroph Ab Ser Ql LAon 07- Heterophile Ab LA Ql (S) Negative Normal Negative [facility] Comment on above: Order Comment: Carly crooks Type: BLOOD SPECIMENOrdering Facility: [facility] Address: [address] [place] [address] Result Comment: Infe ctious Mononucleosis rapid test is used as an aid in diagnosis of acute infection with Roby-Joseph virus (EBV). The antibody levels may occasionally remain elevated up to several months after a primary EBV infection. Final interpretation should be done in conjunction with EBV-specific serology and clinical correlation. False positive results may occasionally be seen with other infectious agents such as Cytomegalovirus, Toxoplasma, and HIV among others as well as non-infectious conditions such as lymphoma. Clinical correlation is required. Performed By: #### 5 213-4 ####[facility] LISA [id number] [place] [id number] [place] CNPHattie 09-14-2023 CNPN Telephone (FAMPWS) MATY FAIRBANKS ([id number]) 1970 F Date Time Provider Department 09/14/23 [facility] During your visit today, we recorded the following information about you: Rhonda Samson RN 09/14/2023 12:26 PM Signed Pt called in and reports she was seen in the on 09/13/23. She reports for a while she has been really fatigued, had a sore throat, and a headache. She states it's not everyday, but more days then not she doesn't feel well. 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 When she went to she felt like her face was flushed, but they told her she didn't have a fever. She states they want her to get a Lyme test and [place] test done and she wanted to know if Tatiana Almeida NP thought she needed to get these done, or if she should just wait until she sees her on 09/20/23. Pt states she doesn't hardly go outside, she does have dogs but they only go out to go to the bathroom and get medicine for fleas and ticks. She states she hasn't seen any ticks on her dogs or herself. Pt also states her granddaughter that lives with her was just tested last week for [place] and was negative, so she doesn't think she has it. I tried to tell her she could still be positive. I let Pt know that getting the testing would help the provider rule out causes of her symptoms. Please call and advise Pt if she should get testing done. She reports she can't come in until Monday to do it any ways. Tatiana Almeida APRN.[facility] 09/14/2023 12:37 PM Signed I would recommend still getting these test done to rule out possible causes before upcoming appointment. Thank you, Tatiana Almeida APRN.Rhonda Del Valle RN 09/14/2023 12:39 PM Signed Pt called and is notified of providers message and instructions. Pt voices understanding. Rhonda Samson RN Allergies As of Date: 09/14/2023 Noted Allergy Reaction ANTICHOLINERGICS - OTHER 01/14/2003 Comments: (Bentyl) causes hives DICYCLOMINE 12/19/2022 4 - Hives Date Reviewed: 09/13/2023 Reviewed by: Emani Gonzalez MA - Fully Assessed Reason for Visit: Patient Update [1234] Patient Question [8207] Prescriptions as of 09/14/2023 - gabapentin (NEURONTIN) 100 mg capsule Take 1-2 capsules by mouth three times a day as needed (joint pain) for up to 30 days. - montelukast (SINGULAIR) 10 mg tablet Take 1 tablet by mouth daily at bedtime. - diclofenac, EC, (VOLTAREN) 75 mg EC tablet Take 1 tablet by mouth two times a day as needed (joint pain). As needed For pain/inflammation. Take with food. - cetirizine (ZYRTEC) 10 mg tablet Take 1 tablet by mouth once daily. - lisinopril (ZESTRIL) 5 mg tablet Take 1 tablet by mouth once daily. For blood pressure - ibuprofen (MOTRIN) 800 mg tablet Take 1 tablet by mouth every 8 hours as needed for pain. Take with food. - ibuprofen (MOTRIN) 800 mg tablet Take 1 tablet by mouth every 8 hours as needed for pain. Take with food. - Cholecalciferol, Vitamin D3, 50 mcg (2,000 unit) cap Take 1 capsule by mouth once daily. - Leg Brace (ELASTIC KNEE SUPPORT) misc 1 Device as directed. Dx: left knee pain, left suprapatellar bursitis - ipratropium-albuterol (DUONEB) 0.5 mg-3 mg(2.5 mg base)/3 mL nebu Inhale 3 mL as instructed every 6 hours as needed for wheezing/shortness of breath. cough - Nebulizer Accessories kit 1 Each four times daily. - albuterol HFA (PROVENTIL HFA, VENTOLIN HFA) 90 mcg/actuation inhaler Inhale 2 Puffs as instructed every 4 hours as needed for wheezing/shortness of breath. - meclizine (ANTIVERT) 12.5 mg tab 1 to 2 tablets three times a day as needed. - Blood Pressure Test Kit-Large 1 Each as needed (blood pressure). Dx: Essential hypertension - Magnesium 250 mg tab Take 1 tablet by mouth once daily. Meds Comments as of 05/07/2021: 05/07/2021 8:45 PM New meds: Prednisone, Tessalon Perls, Singular, Flovent. Chio Esquivel RN Problem List As Of Date 09/14/2023 Noted Resolved LUMBAGO [M54.50] 05/02/2006 ANXIETY STATE NOS [F41.1] 05/02/2006 Tuberculin test reaction [795.5] 07/05/2006 12/16/2010 ASTHMA UNSPECIFIED [J45.909] 07/05/2006 Morbid obesity (HCC) [E66.01] 07/05/2006 LATERAL EPICONDYLITIS [M77.10] 08/29/2006 PAIN IN JOINT, LOWER LEG [M25.569] 01/30/2007 ACUTE GASTRITIS W/O HEMORRHAGE [K29.00] 09/18/2007 ABDOMINAL PAIN EPIGASTRIC [R10.13] 09/18/2007 STOMACH ULCER NOS [K25.9] 09/18/2007 Unspecified Myalgia and Myositis [TZP3889] 10/28/2008 Unspecified Backache [M54.9] 10/28/2008 Chest Pain [R07.9] 12/03/2008 Blood in Stool [K92.1] 12/09/2008 Dermatofibroma of Lower Extremity [D23.70] 01/30/2009 Neoplasm of Uncertain Behavior of Skin [D48.5] 01/30/2009 Dermatofibroma of Upper Extremity [D23.60] 01/30/2009 Positive PPD [R76.11] 12/16/2010 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 Normal [facility] CNOVon 09-13-2023 CNOV Office Visit (UCWSTR ) MATY FAIRBANKS ([id number]) 1970 F Date Time Provider Department 09/13/23 6:30 PM KYRA CASTRO [facility] During your visit today, we recorded the following information about you: Temperature Pulse Respiration Blood pressure 98.5 degrees 80/minute 21/minute 138/80 Weight 125.2 kg Kyra Castro APRN.[employer] 09/13/2023 7:08 PM Signed CC: Patient presents with: Sore Throat: MO, fatigue, inside of is sore x 2 weeks HPI: Maty Fairbanks is a 53 year old female who presents to the office with complaint of sore throat for 2 weeks. Symptoms are coming and going Associated symptoms includes headache and fatigue. Denies ear pain, cough, nausea, vomiting , and diarrhea. Treatments tried include nothing so far. with no relief of symptoms. Sick contacts: unknown. History of asthma, frequent episodes of bronchitis, chronic bronchitis, bronchiectasis or COPD: No Smoker: No Seasonal/environmental allergies: No The ROS is otherwise negative. The patient's pmh, medications, allergies, and past visits are reviewed. PHYSICAL EXAM: BP 138/80 Pulse 80 Temp 36.9 ?C (98.5 ?F) Resp 21 Wt 125.2 kg (276 lb 0.3 oz) LMP 02/13/2023 (Approximate) SpO2 97% BMI 47.71 kg/m? General appearance: alert, cooperative, pleasant, in no acute distress Head: Normocephalic Eyes: EOM's intact, conjunctiva pink and moist, no icterus, sclera white, non-injected Ears: Right ear: External ear/canal- Normal, TM - clear with good landmarks. Left ear: External ear/canal- Normal, TM - clear with good landmarks Oropharynx:moist without lesions, No erythema, exudates or tonsillar hypertrophy. Heart: Negative. RRR without obvious murmur, gallop, or rubs. No ectopy. Lungs: clear to auscultation, without rales or wheeze, good air exchange PAST MEDICAL HISTORY Diagnosis Date Abdominal pain, epigastric Acute gastritis without mention of hemorrhage Asthma Attention deficit disorder without mention of hyperactivity Calculus of gallbladder without mention of cholecystitis or obstruction Chest pain, unspecified Dysthymic disorder history of depression Esophageal spasm Gastric ulcer, unspecified as acute or chronic, without mention of hemorrhage, perforation, or obstruction with hemorrhage Generalized anxiety disorder History of tobacco use Morbid obesity (HCC) JAMES (obstructive sleep apnea) PAST SURGICAL HISTORY Procedure Laterality Date APPENDECTOMY COLONOSCOPY FLX DX W/COLLJ SPEC WHEN PFRMD 12/15/2008 irritation at the anal verge COLONOSCOPY FLX DX W/COLLJ SPEC WHEN PFRMD 07/10/15 normal colonoscopy EGD TRANSORAL BIOPSY SINGLE/MULTIPLE Gastritis, healing ulcer EGD TRANSORAL BIOPSY SINGLE/MULTIPLE 07/10/15 minimal gastritis LAPAROSCOPY SURG CHOLECYSTECTOMY 08/21/07 LIG/TRNSXJ FLP TUBE ABDL/VAG APPR UNI/BI ALLERGIES Anticholinergics - Other and Dicyclomine MEDICATIONS gabapentin (NEURONTIN) 100 mg capsule Take 1-2 capsules by mouth three times a day as needed (joint pain) for up to 30 days. diclofenac, EC, (VOLTAREN) 75 mg EC tablet Take 1 tablet by mouth two times a day as needed (joint pain). As needed For pain/inflammation. Take with food. cetirizine (ZYRTEC) 10 mg tablet Take 1 tablet by mouth once daily. lisinopril (ZESTRIL) 5 mg tablet Take 1 tablet by mouth once daily. For blood pressure Cholecalciferol, Vitamin D3, 50 mcg (2,000 unit) cap Take 1 capsule by mouth once daily. albuterol HFA (PROVENTIL HFA, VENTOLIN HFA) 90 mcg/actuation inhaler Inhale 2 Puffs as instructed every 4 hours as needed for wheezing/shortness of breath. meclizine (ANTIVERT) 12.5 mg tab 1 to 2 tablets three times a day as needed. Blood Pressure Test Kit-Large 1 Each as needed (blood pressure). Dx: Essential hypertension Magnesium 250 mg tab Take 1 tablet by mouth once daily. montelukast (SINGULAIR) 10 mg tablet Take 1 tablet by mouth daily at bedtime. ibuprofen (MOTRIN) 800 mg tablet Take 1 tablet by mouth every 8 hours as needed for pain. Take with food. (Patient not taking: Reported on 09/13/2023) ibuprofen (MOTRIN) 800 mg tablet Take 1 tablet by mouth every 8 hours as needed for pain. Take with food. (Patient not taking: Reported on 09/13/2023) Leg Brace (ELASTIC KNEE SUPPORT) misc 1 Device as directed. Dx: left knee pain, left suprapatellar bursitis (Patient not taking: Reported on 09/13/2023) ipratropium-albuterol (DUONEB) 0.5 mg-3 mg(2.5 mg base)/3 mL nebu Inhale 3 mL as instructed every 6 hours as needed for wheezing/shortness of breath. cough Nebulizer Accessories kit 1 Each four times daily. (Patient not taking: Reported on 09/13/2023) FAMILY HISTORY Adopted: Yes Problem Relation Age of Onset other (unknown) Other adopted Social History Tobacco Use Smoking status: Former Packs/day: 1.00 Years: 8.00 Additional pack years: 0.00 Total pack years: (more content not included)... Normal [facility] STREP A MOLECULAR (POC)on Procedural Control Valid [facility] Strep A (POCT) Negative Negative [facility] CNPHattie [facility]AN[facility] ([id number]) 1970 F Date Time Provider Department 06/12[facility]23 [facility] During your visit today, we recorded the following information about you: Gabby Sanders RN 06/12/2023 10:10 AM Signed Patient requesting 3 refills as pended. Of note, patient requesting to start Singulair again. (Pended). States she started her seasonal allergies/coughing again in April and would like to take this medication again. Also of note, patient requesting to take diclofenac medication again. This was discontinued earlier this year due to pt stating she was taking Ibuprofen 600 mg instead. Pt states she continues to take Ibuprofen 600 mg at times, but not on a consistent basis. Please call patient if PCP does not agree to refill all 3 prescriptions, otherwise no call back needed to patient. Thank you. Requested Prescriptions Pending Prescriptions Disp Refills gabapentin (NEURONTIN) 100 mg capsule 90 capsule 0 Sig: Take 1-2 capsules by mouth three times a day as needed (joint pain) for up to 30 days. montelukast (SINGULAIR) 10 mg tablet Sig: Take 1 tablet by mouth daily at bedtime. diclofenac, EC, (VOLTAREN) 75 mg EC tablet Sig: Take 1 tablet by mouth two times a day. As needed For pain/inflammation. Take with food. Date of last office visit in primary care: not scheduled yet. Gabby Sanders RN. Fredo Larose DO 06/16/2023 6:57 AM Signed The following approved medication requests have been transmitted electronically. Requested Prescriptions Signed Prescriptions Disp Refills gabapentin (NEURONTIN) 100 mg capsule 90 capsule 3 Sig: Take 1-2 capsules by mouth three times a day as needed (joint pain) for up to 30 days. Authorizing Provider: FREDO LAROSE montelukast (SINGULAIR) 10 mg tablet 90 tablet 1 Sig: Take 1 tablet by mouth daily at bedtime. Authorizing Provider: FREDO LAROSE diclofenac, EC, (VOLTAREN) 75 mg EC tablet 180 tablet 1 Sig: Take 1 tablet by mouth two times a day as needed (joint pain). As needed For pain/inflammation. Take with food. Authorizing Provider: FREDO LAROSE DO Allergies As of Date: 06/12/2023 Noted Allergy Reaction ANTICHOLINERGICS - OTHER 01/14/2003 Comments: (Bentyl) causes hives Date Reviewed: 04/19/2023 Reviewed by: Chio Meyers LPN - Fully Assessed Reason for Visit: Medication Request [138] Visit Diagnoses:Chronic pain of both knees [M25.561, M25.562, G89.29] Arthritis of knee [M17.10] Order(s):gabapentin (NEURONTIN) 100 mg capsuleTake 1-2 capsules by mouth three times a day as needed (joint pain) for up to 30 days.Disp: 90 capsuleRfl: 3 montelukast (SINGULAIR) 10 mg tabletTake 1 tablet by mouth daily at bedtime.Disp: 90 tabletRfl: 1 diclofenac, EC, (VOLTAREN) 75 mg EC tabletTake 1 tablet by mouth two times a day as needed (joint pain). As needed For pain/inflammation. Take with food.Disp: 180 tabletRfl: 1 Prescriptions as of 06/16/2023 - gabapentin (NEURONTIN) 100 mg capsule Take 1-2 capsules by mouth three times a day as needed (joint pain) for up to 30 days. - montelukast (SINGULAIR) 10 mg tablet Take 1 tablet by mouth daily at bedtime. - diclofenac, EC, (VOLTAREN) 75 mg EC tablet Take 1 tablet by mouth two times a day as needed (joint pain). As needed For pain/inflammation. Take with food. - cetirizine (ZYRTEC) 10 mg tablet Take 1 tablet by mouth once daily. - lisinopril (ZESTRIL) 5 mg tablet Take 1 tablet by mouth once daily. For blood pressure - ibuprofen (MOTRIN) 800 mg tablet Take 1 tablet by mouth every 8 hours as needed for pain. Take with food. - ibuprofen (MOTRIN) 800 mg tablet Take 1 tablet by mouth every 8 hours as needed for pain. Take with food. - Cholecalciferol, Vitamin D3, 50 mcg (2,000 unit) cap Take 1 capsule by mouth once daily. - Leg Brace (ELASTIC KNEE SUPPORT) misc 1 Device as directed. Dx: left knee pain, left suprapatellar bursitis - ipratropium-albuterol (DUONEB) 0.5 mg-3 mg(2.5 mg base)/3 mL nebu Inhale 3 mL as instructed every 6 hours as needed for wheezing/shortness of breath. cough - Nebulizer Accessories kit 1 Each four times daily. - albuterol HFA (PROVENTIL HFA, VENTOLIN HFA) 90 mcg/actuation inhaler Inhale 2 Puffs as instructed every 4 hours as needed for wheezing/shortness of breath. - meclizine (ANTIVERT) 12.5 mg tab 1 to 2 tablets three times a day as needed. - Blood Pressure Test Kit-Large 1 Each as needed (blood pressure). Dx: Essential hypertension - Magnesium 250 mg tab Take 1 tablet by mouth once daily. Meds Comments as of 05/07/2021: 05/07/2021 8:45 PM New meds: Prednisone, Tessalon Perls, Singular, Flovent. Chio Esquivel RN Problem List As Of Date 06/12/2023 Noted Resolved LUMBAGO [M54.50] 05/02/2006 ANXIETY STATE NOS [F41.1] 05/02/2006 Tuberculin test reaction [795 (more content not included)... Normal [facility] CNOVon 04-19-2023 CNOV Office Visit (FAMPWS ) MATY FAIRBANKS ([id number]) 1970 F Date Time Provider Department 04/19/23 5:00 PM FREDO LAROSE FAMPWS During your visit today, we recorded the following information about you: Temperature Pulse Respiration Blood pressure 97 degrees 60/minute 20/minute 124/80 Weight Height Last Period 121.1 kg 1.62 m 02/13/23 Fredo Larose DO 04/19/2023 6:11 PM Signed CC: Maty Fairbanks is a 52 year old female who presents to the office for physical HPI: Elevated LFTs, unsure if any history of fatty liver disease or end stage liver disease or cirrhosis. Cholesterol is overall normal. No hx of HPL. No hx of hepatitis, no hx of alcoholism or abuse of drugs. No history of any other liver disease that she is aware of. Chronic pain, fibromyalgia, myositis, use of ibuprofen 600 mg seems to help symptoms better than the diclofenac medication. Use of gabapentin as needed 100-300 mg in the evening. Mood, stable. Skin lesion right lower leg, sometimes sore, has been present x years without change PAST MEDICAL HISTORY Diagnosis Date Abdominal pain, epigastric Acute gastritis without mention of hemorrhage Asthma Attention deficit disorder without mention of hyperactivity Calculus of gallbladder without mention of cholecystitis or obstruction Chest pain, unspecified Dysthymic disorder history of depression Esophageal spasm Gastric ulcer, unspecified as acute or chronic, without mention of hemorrhage, perforation, or obstruction with hemorrhage Generalized anxiety disorder History of tobacco use Morbid obesity (HCC) JAMES (obstructive sleep apnea) PAST SURGICAL HISTORY Procedure Laterality Date APPENDECTOMY COLONOSCOPY FLX DX W/COLLJ SPEC WHEN PFRMD 12/15/2008 irritation at the anal verge COLONOSCOPY FLX DX W/COLLJ SPEC WHEN PFRMD 07/10/15 normal colonoscopy EGD TRANSORAL BIOPSY SINGLE/MULTIPLE Gastritis, healing ulcer EGD TRANSORAL BIOPSY SINGLE/MULTIPLE 07/10/15 minimal gastritis LAPAROSCOPY SURG CHOLECYSTECTOMY 08/21/07 LIG/TRNSXJ FLP TUBE ABDL/VAG APPR UNI/BI Social History: Social History Tobacco Use Smoking status: Former Packs/day: 1.00 Years: 8.00 Additional pack years: 0.00 Total pack years: 8.00 Types: Cigarettes Quit date: 07/22/2006 Years since quittin.7 Passive exposure: Never Smokeless tobacco: Never Tobacco comments: SMOKED SINCE 18 YEARS OLD Vaping Use Vaping Use: Never used Substance Use Topics Alcohol use: No Drug use: No FAMILY HISTORY Adopted: Yes Problem Relation Age of Onset other (unknown) Other adopted Current Outpatient prescriptions: cetirizine (ZYRTEC) 10 mg tablet Take 1 tablet by mouth once daily. gabapentin (NEURONTIN) 100 mg capsule Take 1-2 capsules by mouth three times a day as needed (joint pain) for up to 30 days. lisinopril (ZESTRIL) 5 mg tablet Take 1 tablet by mouth once daily. For blood pressure ibuprofen (MOTRIN) 800 mg tablet Take 1 tablet by mouth every 8 hours as needed for pain. Take with food. ibuprofen (MOTRIN) 800 mg tablet Take 1 tablet by mouth every 8 hours as needed for pain. Take with food. ipratropium-albuterol (DUONEB) 0.5 mg-3 mg(2.5 mg base)/3 mL nebu Inhale 3 mL as instructed every 6 hours as needed for wheezing/shortness of breath. cough meclizine (ANTIVERT) 12.5 mg tab 1 to 2 tablets three times a day as needed. Magnesium 250 mg tab Take 1 tablet by mouth once daily. Cholecalciferol, Vitamin D3, 50 mcg (2,000 unit) cap Take 1 capsule by mouth once daily. Leg Brace (ELASTIC KNEE SUPPORT) misc 1 Device as directed. Dx: left knee pain, left suprapatellar bursitis Nebulizer Accessories kit 1 Each four times daily. albuterol HFA (PROVENTIL HFA, VENTOLIN HFA) 90 mcg/actuation inhaler Inhale 2 Puffs as instructed every 4 hours as needed for wheezing/shortness of breath. Blood Pressure Test Kit-Large 1 Each as needed (blood pressure). Dx: Essential hypertension Allergies: ALLERGIES Allergen Reactions Anticholinergics - * (Bentyl) causes hives ROS: See HPI PE: 04/19/23 1650 BP: 124/80 Pulse: 60 Resp: 20 Temp: 36.1 ?C (97 ?F) TempSrc: Right Tympanic Weight: 121.1 kg (267 lb) Height: 162 cm (5' 3.78 ) Gen: AANDO, NAD, non-toxic appearing, Pleasant, cooperative HEENT: NT/AC, PERRLA, EOMs intact b/l, nares clear and patent b/l, pharynx without erythema, exudate or lesions. Uvula midline. MMM, poor dentition Neck: supple, No cervical LAD, no thyromegaly, no carotid bruits CV: RRR, normal S1 and S2, no murmurs, no gallops, no rubs, Pulses 2+ and symmetric in UE and LE b/l Lungs: normal respiratory effort, CTA b/l, no wheezing or rhonchi or rales Abd: soft, mild RUQ fullness, obesity, NT, ND, +BS, no hepatosplenomegaly MS: chronic myalgias and muscular pain b/l thighs and upper arms and legs. Neuro: CN II-XII intact (more content not included)... Normal [facility]AN[facility] ([id number]) 1970 F Date Time Provider Department 04/04/23 [facility] During your visit today, we recorded the following information about you: Suzanne Young LPN 04/04/2023 4:07 PM Signed Pt was seen at 03/31/23 for a cough. Finished prednisone today AND pt states she is not feeling any better. Pt asking if something else can be called in for her, pt notified she would need to be seen. Appt was offered but pt declined, states she would have to go to because of her schedule. Pt states she will probably go tonight or tomorrow. Suzanne Young LPN Allergies As of Date: 04/04/2023 Noted Allergy Reaction ANTICHOLINERGICS - OTHER 01/14/2003 Comments: (Bentyl) causes hives Date Reviewed: 03/31/2023 Reviewed by: Elizabeth Cooley LPN - Fully Assessed Reason for Visit: Cough [28] Prescriptions as of 04/04/2023 - predniSONE (DELTASONE) 20 mg tablet Take 2 tablets by mouth once daily for 5 days. Take daily with food. - benzonatate (TESSALON PERLE) 100 mg capsule Take 1 capsule by mouth every 8 hours as needed for cough for up to 15 days. - gabapentin (NEURONTIN) 100 mg capsule Take 1-2 capsules by mouth three times a day as needed (joint pain) for up to 30 days. - cetirizine (ZYRTEC) 10 mg tablet Take 1 tablet by mouth once daily. - lisinopril (ZESTRIL) 5 mg tablet Take 1 tablet by mouth once daily. For blood pressure - diclofenac, EC, (VOLTAREN) 75 mg EC tablet Take 1 tablet by mouth twice daily. As needed For pain/inflammation. Take with food. - ibuprofen (MOTRIN) 800 mg tablet Take 1 tablet by mouth every 8 hours as needed for pain. Take with food. - ibuprofen (MOTRIN) 800 mg tablet Take 1 tablet by mouth every 8 hours as needed for pain. Take with food. - Cholecalciferol, Vitamin D3, 50 mcg (2,000 unit) cap Take 1 capsule by mouth once daily. - Leg Brace (ELASTIC KNEE SUPPORT) misc 1 Device as directed. Dx: left knee pain, left suprapatellar bursitis - ipratropium-albuterol (DUONEB) 0.5 mg-3 mg(2.5 mg base)/3 mL nebu Inhale 3 mL as instructed every 6 hours as needed for wheezing/shortness of breath. cough - Nebulizer Accessories kit 1 Each four times daily. - albuterol HFA (PROVENTIL HFA, VENTOLIN HFA) 90 mcg/actuation inhaler Inhale 2 Puffs as instructed every 4 hours as needed for wheezing/shortness of breath. - meclizine (ANTIVERT) 12.5 mg tab 1 to 2 tablets three times a day as needed. - Blood Pressure Test Kit-Large 1 Each as needed (blood pressure). Dx: Essential hypertension - Magnesium 250 mg tab Take 1 tablet by mouth once daily. Meds Comments as of 05/07/2021: 05/07/2021 8:45 PM New meds: Prednisone, Tessalon Perls, Singular, Flovent. Chio Esquivel RN Problem List As Of Date 04/04/2023 Noted Resolved LUMBAGO [M54.50] 05/02/2006 ANXIETY STATE NOS [F41.1] 05/02/2006 Tuberculin test reaction [795.5] 07/05/2006 12/16/2010 ASTHMA UNSPECIFIED [J45.909] 07/05/2006 Morbid obesity (HCC) [E66.01] 07/05/2006 LATERAL EPICONDYLITIS [M77.10] 08/29/2006 PAIN IN JOINT, LOWER LEG [M25.569] 01/30/2007 ACUTE GASTRITIS W/O HEMORRHAGE [K29.00] 09/18/2007 ABDOMINAL PAIN EPIGASTRIC [R10.13] 09/18/2007 STOMACH ULCER NOS [K25.9] 09/18/2007 Unspecified Myalgia and Myositis [ACO9410] 10/28/2008 Unspecified Backache [M54.9] 10/28/2008 Chest Pain [R07.9] 12/03/2008 Blood in Stool [K92.1] 12/09/2008 Dermatofibroma of Lower Extremity [D23.70] 01/30/2009 Neoplasm of Uncertain Behavior of Skin [D48.5] 01/30/2009 Dermatofibroma of Upper Extremity [D23.60] 01/30/2009 Positive PPD [R76.11] 12/16/2010 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] 12/16/2010 Depression [F32.A] 12/16/2010 JAMES (obstructive sleep apnea) [G47.33] 05/26/2012 Fibromyalgia [M79.7] 05/26/2012 Right hip pain [M25.551] 05/26/2012 Morbid obesity with BMI of 45.0-49.9, adult [E6*04/12/2013 Fear of flying [F40.243] 04/12/2013 Subcutaneous nodules [R22.9] 04/12/2013 Lipoma [D17.9] 05/11/2013 Cough [R05.9] 11/26/2013 Heart palpitations [R00.2] 05/23/2015 Rectal bleed [K62.5] 07/12/2015 Iron deficiency anemia [D50.9] 11/28/2017 Vitamin D deficiency [E55.9] 11/28/2017 Well adult exam [Z00.00] 03/13/2019 Perimenopausal disorder [N95.9] 03/13/2019 TUSHAR (generalized anxiety disorder) [F41.1] 03/13/2019 History of tobacco use [Z87.891] Irritable bowel syndrome with alternating bowel*01/05/2022 Right thigh pain [M79.651] 09/28/2022 Arthritis of knee [M17.10] 09/28/2022 Memory change [R41.3] 09/28/2022 Chronic pain of both knees [M25.561, M25.562, G*09/28/2022 Hypertension, essential [I10] 09/28/2022 Encounter Status:Closed by SUZANNE YOUNG on 04/04/23 Normal [facility] CNOVon 03-31-2023 CNOV Office Visit (UCWSTR ) MATY FAIRBANKS ([id number]) 1970 F Date Time Provider Department 03/31/23 7:15 PM ADAIR GU [facility] During your visit today, we recorded the following information about you: Temperature Pulse Respiration Blood pressure 98.1 degrees 91/minute 22/minute 158/95 Weight Last Period 122.5 kg 02/17/23 Adair Gu MD 03/31/2023 7:54 PM Signed Patient presents with: Cough: Headache, SOB x 4 days HPI: Coughing for 4 days. Triggered after exposure to odor from new water heater. Positive symptoms: Cough, Shortness of breath, Headache, Negative symptoms: Sore throat, Fever, Chills, Vomiting, Diarrhea, OTC: tessalon. Has not used inhaler. PAST MEDICAL HISTORY Diagnosis Date Abdominal pain, epigastric Acute gastritis without mention of hemorrhage Asthma Attention deficit disorder without mention of hyperactivity Calculus of gallbladder without mention of cholecystitis or obstruction Chest pain, unspecified Dysthymic disorder history of depression Esophageal spasm Gastric ulcer, unspecified as acute or chronic, without mention of hemorrhage, perforation, or obstruction with hemorrhage Generalized anxiety disorder History of tobacco use Morbid obesity (HCC) JAMES (obstructive sleep apnea) MEDICATIONS: Current Outpatient Medications Medication Sig gabapentin (NEURONTIN) 100 mg capsule Take 1-2 capsules by mouth three times a day as needed (joint pain) for up to 30 days. cetirizine (ZYRTEC) 10 mg tablet Take 1 tablet by mouth once daily. lisinopril (ZESTRIL) 5 mg tablet Take 1 tablet by mouth once daily. For blood pressure diclofenac, EC, (VOLTAREN) 75 mg EC tablet Take 1 tablet by mouth twice daily. As needed For pain/inflammation. Take with food. ibuprofen (MOTRIN) 800 mg tablet Take 1 tablet by mouth every 8 hours as needed for pain. Take with food. Leg Brace (ELASTIC KNEE SUPPORT) misc 1 Device as directed. Dx: left knee pain, left suprapatellar bursitis Nebulizer Accessories kit 1 Each four times daily. meclizine (ANTIVERT) 12.5 mg tab 1 to 2 tablets three times a day as needed. Blood Pressure Test Kit-Large 1 Each as needed (blood pressure). Dx: Essential hypertension Magnesium 250 mg tab Take 1 tablet by mouth once daily. ibuprofen (MOTRIN) 800 mg tablet Take 1 tablet by mouth every 8 hours as needed for pain. Take with food. (Patient not taking: Reported on 03/31/2023) Cholecalciferol, Vitamin D3, 50 mcg (2,000 unit) cap Take 1 capsule by mouth once daily. (Patient not taking: Reported on 03/31/2023) ipratropium-albuterol (DUONEB) 0.5 mg-3 mg(2.5 mg base)/3 mL nebu Inhale 3 mL as instructed every 6 hours as needed for wheezing/shortness of breath. cough albuterol HFA (PROVENTIL HFA, VENTOLIN HFA) 90 mcg/actuation inhaler Inhale 2 Puffs as instructed every 4 hours as needed for wheezing/shortness of breath. No current facility-administered medications for this visit. ALLERGIES: ALLERGIES Allergen Reactions Anticholinergics - * (Bentyl) causes hives VITALS: BP 158/95 Pulse 91 Temp 36.7 ?C (98.1 ?F) Resp 22 Wt 122.5 kg (270 lb) LMP 02/17/2023 (Approximate) SpO2 96% BMI 47.83 kg/m? PHYSICAL EXAM: GEN: Pleasant, in no acute distress. HEENT: PERRL, EOMI, conjunctiva clear Ears: canals clear. TMs without erythema, bulge, or effusion Sinuses: non-tender frontal sinus, non-tender maxillary sinuses Throat: moist mucous membranes, no erythema, no exudate Neck: supple, no thyromegaly, no lymphadenopathy HEART: regular rate and rhythm, no murmurs LUNGS: clear to auscultation, no wheezes or crackles, no increased WOB; frequent non-productive cough ASSESSMENT/PLAN: 1. Mild intermittent asthma with acute exacerbation - ICD9: 493.92, ICD10: J45.21 - PREDNISONE 20 MG TABLET burst - BENZONATATE 100 MG CAPSULE Adair Gu MD Allergies As of Date: 03/31/2023 Noted Allergy Reaction ANTICHOLINERGICS - OTHER 01/14/2003 Comments: (Bentyl) causes hives Date Reviewed: 03/31/2023 Reviewed by: Elizabeth Cooley LPN - Fully Assessed Reason for Visit: Cough [28] Cmt: Headache, SOB x 4 days Primary Visit Diagnosis:Mild intermittent asthma with acute exacerbation [J45.21] Order(s):predniSONE (DELTASONE) 20 mg tabletTake 2 tablets by mouth once daily for 5 days. Take daily with food.Disp: 10 tabletRfl: 0 benzonatate (TESSALON PERLE) 100 mg capsuleTake 1 capsule by mouth every 8 hours as needed for cough for up to 15 days.Disp: 30 capsuleRfl: 0 Prescriptions as of 03/31/2023 - predniSONE (DELTASONE) 20 mg tablet Take 2 tablets by mouth once daily for 5 days. Take daily with food. - benzonatate (TESSALON PERLE) 100 mg capsule Take 1 capsule by mouth every 8 hours as needed for cough for up to 15 days. - gabapentin (NEURONTIN) 100 mg capsule Take 1-2 capsules by mouth three times a day as needed (joint pain) for (more content not included)... Normal [facility] 25(OH)D3 SerPl-mCncon 2023 25-hydroxyvitamin D3 [Mass/Vol] 13.2 ng/mL Low 31.0-80.0 [facility] Comment on above: Order Comment: Speci men Type: BLOOD SPECIMENOrdering Facility: [facility] Address: [address] [place] [address] Result Comment: Clas sification of 25 OH Vitamin D status: Deficiency/Insufficiency: < or = 30 ng/ml. Sufficiency/Optimal Levels: 31-80 ng/mL Toxicity: > 100 ng/mL. Test performed by chemiluminescent immunoassay. Performed By: #### 1 989-3 ####[facility] LABCLIA [id number] [facility] [id number] [address] [place] CBC W Auto Differential pane l (Bld)on 03-25-2023 Basophils (Bld) [#/Vol] 0.04 10*3/uL Normal <0.11 [facility] Comment on above: Order Comment: Speci men Type: BLOOD SPECIMENOrdering Facility: [facility] Address: [address] [place] [address] Performed By: #### 5 7021-8 ####[facility] LABCLIA [id number] [place] [address] [place] Basophils/100 WBC (Bld) 0.6 % Normal [facility] Comment on above: Order Comment: Speci men Type: BLOOD SPECIMENOrdering Facility: [facility] Address: [address] [place] [address] Performed By: #### 5 7021-8 ####[facility] LABCLIA [id number] [place] [address] [place] Differential cell count method Nom (Bld) Auto Normal [facility] Comment on above: Order Comment: Speci men Type: BLOOD SPECIMENOrdering Facility: [facility] Address: [address] [place] [address] Performed By: #### 5 7021-8 ####[facility] LABCLIA [id number] [place] [address] [place] Eosinophils (Bld) [#/Vol] 0.27 10*3/uL Normal <0.46 [facility] Comment on above: Order Comment: Speci men Type: BLOOD SPECIMENOrdering Facility: [facility] Address: [address] [place] [address] Performed By: #### 5 7021-8 ####[facility] LABCLIA [id number] [place] [address] [place] Eosinophils/100 WBC (Bld) 4.2 % Normal [facility] Comment on above: Order Comment: Speci men Type: BLOOD SPECIMENOrdering Facility: [facility] Address: [address] [place] [address] Performed By: #### 5 7021-8 ####[facility] LABCLIA [id number] [place] [address] [place] Erythrocyte distribution width (RBC) [Ratio] 13.4 % Normal 11.5-15.0 [facility] Comment on above: Order Comment: Speci men Type: BLOOD SPECIMENOrdering Facility: [facility] Address: [address] [place] [address] Performed By: #### 5 7021-8 ####[facility] LABIA [id number] [place] [address] [place] Hematocrit (Bld) [Volume fraction] 40.0 % Normal 36.0-46.0 [facility] Comment on above: Order Comment: Speci men Type: BLOOD SPECIMENOrdering Facility: [facility] Address: [address] [place] [address] Performed By: #### 5 7021-8 ####[facility] LABIA [id number] [place] [address] [place] Hemoglobin (Bld) [Mass/Vol] 11.8 g/dL Normal 11.5-15.5 [facility] Comment on above: Order Comment: Speci men Type: BLOOD SPECIMENOrdering Facility: [facility] Address: [address] [place] [address] Performed By: #### 5 7021-8 ####[facility] LABIA [id number] [place] [address] [place] Immature granulocytes (Bld) [#/Vol] 10*3/uL Normal <0.10 [facility] Comment on above: Order Comment: Speci men Type: BLOOD SPECIMENOrdering Facility: [facility] Address: [address] [place] [address] Performed By: #### 5 7021-8 ####[facility] LABIA [id number] [address] [id number], [place] [address] [place] Immature granulocytes/100 WBC (Bld) 0.3 % Normal [facility] Comment on above: Order Comment: Speci men Type: BLOOD SPECIMENOrdering Facility: [facility] Address: [address] [place] [address] Performed By: #### 5 7021-8 ####[facility] LABCLIA [id number] [place] [address] [place] Lymphocytes (Bld) [#/Vol] 2.21 10*3/uL Normal 1.00-4.00 [facility] Comment on above: Order Comment: Speci men Type: BLOOD SPECIMENOrdering Facility: [facility] Address: [address] [place] [address] Performed By: #### 5 7021-8 ####[facility] LABCLIA [id number] [place] [address] [place] Lymphocytes/100 WBC (Bld) 34.2 % Normal [facility] Comment on above: Order Comment: Speci men Type: BLOOD SPECIMENOrdering Facility: [facility] Address: [address] [place] [address] Performed By: #### 5 7021-8 ####[facility] LABCLIA [id number] [place] [address] [place] MCH (RBC) [Entitic mass] 24.1 pg Low 26.0-34.0 [facility] Comment on above: Order Comment: Speci men Type: BLOOD SPECIMENOrdering Facility: [facility] Address: [address] [place] [address] Performed By: #### 5 7021-8 ####[facility] LABCLIA [id number] [place] [address] [place] MCHC (RBC) [Mass/Vol] 29.5 g/dL Low 30.5-36.0 [facility] Comment on above: Order Comment: Speci men Type: BLOOD SPECIMENOrdering Facility: [facility] Address: [address] [place] [address] Performed By: #### 5 7021-8 ####[facility] LABCLIA [id number] [place] [address] [place] MCV (RBC) [Entitic vol] 81.8 fL Normal 80.0-100.0 [facility] Comment on above: Order Comment: Speci men Type: BLOOD SPECIMENOrdering Facility: [facility] Address: [address] [place] [address] Performed By: #### 5 7021-8 ####[facility] LABCLIA [id number] [place] [address] [place] Monocytes (Bld) [#/Vol] 0.49 10*3/uL Normal <0.87 [facility] Comment on above: Order Comment: Speci men Type: BLOOD SPECIMENOrdering Facility: [facility] Address: [address] [place] [address] Performed By: #### 5 7021-8 ####[facility] LABIA [id number] [place] [address] [place] Monocytes/100 WBC (Bld) 7.6 % Normal [facility] Comment on above: Order Comment: Speci men Type: BLOOD SPECIMENOrdering Facility: [facility] Address: [address] [place] [address] Performed By: #### 5 7021-8 ####[facility] LABCLIA [id number] [place] [address] [place] Neutrophils (Bld) [#/Vol] 3.44 10*3/uL Normal 1.45-7.50 [facility] Comment on above: Order Comment: Speci men Type: BLOOD SPECIMENOrdering Facility: [facility] Address: [address] [place] [address] Performed By: #### 5 7021-8 ####[facility] LABCLIA [id number] [place] [address] [place] Neutrophils/100 WBC (Bld) 53.1 % Normal [facility] Comment on above: Order Comment: Speci men Type: BLOOD SPECIMENOrdering Facility: [facility] Address: [address] [place] [address] Performed By: #### 5 7021-8 ####[facility] LABCLIA [id number] [place] [address] [place] Nucleated RBC (Bld) [#/Vol] 10*3/uL Normal <0.01 [facility] Comment on above: Order Comment: Speci men Type: BLOOD SPECIMENOrdering Facility: [facility] Address: [address] [place] [address] Performed By: #### 5 7021-8 ####[facility] LABCLIA [id number] [place] [address] [place] Nucleated RBC/100 WBC (Bld) [Ratio] 0.0 /100 WBC Normal [facility] Comment on above: Order Comment: Speci men Type: BLOOD SPECIMENOrdering Facility: [facility] Address: [address] [place] [address] Performed By: #### 5 7021-8 ####[facility] LABCLIA [id number] [place] [address] [place] Platelet mean volume (Bld) [Entitic vol] 10.9 fL Normal 9.0-12.7 [facility] Comment on above: Order Comment: Speci men Type: BLOOD SPECIMENOrdering Facility: [facility] Address: [address] [place] [address] Performed By: #### 5 7021-8 ####[facility] LABCLIA [id number] [place] [address] [place] Platelets (Bld) [#/Vol] 247 10*3/uL Normal 150-400 [facility] Comment on above: Order Comment: Speci men Type: BLOOD SPECIMENOrdering Facility: [facility] Address: [address] [place] [address] Performed By: #### 5 7021-8 ####[facility] LABIA [id number] [place] [address] [place] RBC (Bld) [#/Vol] 4.89 10*6/uL Normal 3.90-5.20 [facility] Comment on above: Order Comment: Speci men Type: BLOOD SPECIMENOrdering Facility: [facility] Address: [address] [place] [address] Performed By: #### 5 7021-8 ####[facility] LABIA [id number] [place] [address] [place] WBC (Bld) [#/Vol] 6.47 10*3/uL Normal 3.70-11.00 [facility] Comment on above: Order Comment: Speci men Type: BLOOD SPECIMENOrdering Facility: [facility] Address: [address] [place] [address] Performed By: #### 5 7021-8 ####[facility] [id number] [place] [address] [place] Lipid 1996 panelon 4 Cholesterol [Mass/Vol] 145 mg/dL Normal <200 [facility] Comment on above: Order Comment: Speci men Type: BLOOD SPECIMENOrdering Facility: [facility] Address: [address] [place] [address] Result Comment: <200 mg/dL, Desirable 200-239 mg/dL, Borderline high >239 mg/dL, High Performed By: #### 3 016-3, 87714-1 ####[facility] LABIA [id number] [place] [address] [place] Cholesterol in HDL [Mass/Vol] 35 mg/dL Low >39 [facility] Comment on above: Order Comment: Speci men Type: BLOOD SPECIMENOrdering Facility: [facility] Address: [address] [place] [address] Result Comment: 40-5 9 mg/dL, Acceptable >59 mg/dL, High: Negative risk factor for coronary heart disease <40 mg/dL, Low: Positive risk factor for coronary heart disease Performed By: #### 3 016-3, 43434-2 ####[facility] LABCLIA [id number] [place] [address] [place] Cholesterol in LDL [Mass/Vol] 95 mg/dL Normal <100 [facility] Comment on above: Order Comment: Speci men Type: BLOOD SPECIMENOrdering Facility: [facility] Address: [address] [place] [address] Result Comment: <100 mg/dL, Optimal 100-129 mg/dL, Near optimal/above optimal 130-159 mg/dL, Borderline high 160-189 mg/dL, High >189 mg/dL, Very high Secondary prevention optimal LDL Cholesterol levels are recommended to be < 70 mg/dL Performed By: #### 3 016-3, 00921-8 ####[facility] LABCLIA [id number] [place] [address] [place] Cholesterol in LDL/Cholesterol in HDL [Mass ratio] 2.71 {ratio} High <2.54 [facility] Comment on above: Order Comment: Speci men Type: BLOOD SPECIMENOrdering Facility: [facility] Address: [address] [place] [address] Result Comment: Refe rence: 1. National Cholesterol Education Program ATP III Guideline At-A-Glance Quick Desk Reference: National Heart, Lung, and Blood [place]. National Institutes of Health. 2001: NIH Publication No. 01-3305. 2. An International Atherosclerosis Society position paper: global recommendations for the management of dyslipidemia: executive summary, Atherosclerosis. 2014: 232(2):410-413. Performed By: #### 3 016-3, 78302-4 ####[facility] LABCLIA [id number] [place] [address] [place] Cholesterol in VLDL [Mass/Vol] 15 mg/dL Normal <30 [facility] Comment on above: Order Comment: Speci men Type: BLOOD SPECIMENOrdering Facility: [facility] Address: [address] [place] [address] Performed By: #### 3 016-3, 13688-6 ####[facility] LABCLIA [id number] [place] [address] [place] Cholesterol non HDL [Mass/Vol] 110 mg/dL Normal <130 [facility] Comment on above: Order Comment: Speci men Type: BLOOD SPECIMENOrdering Facility: [facility] Address: [address] [place] [address] Result Comment: <130 mg/dL, Optimal 130-159 mg/dL, Near optimal/above optimal 160-189 mg/dL, Borderline high 190-219 mg/dL, High >219 mg/dL, Very high Secondary prevention optimal non HDL Cholesterol levels are recommended to be <100 mg/dL Performed By: #### 3 -3, 00837-2 ####[facility] LABCLIA [id number] [place] [address] [place] Cholesterol.total/ Cholesterol in HDL [Mass ratio] 4.14 {ratio} Normal <5.10 [facility] Comment on above: Order Comment: Speci men Type: BLOOD SPECIMENOrdering Facility: [facility] Address: [address] [place] [address] Performed By: #### 3 016-3, ####[facility] LABCLIA [id number] [place] [address] [place] FASTING TIME 13 hrs Normal [facility] Comment on above: Order Comment: Speci men Type: BLOOD SPECIMENOrdering Facility: [facility] Address: [address] [place] [address] Performed By: #### 3 016-3, 20734-1 ####[facility] LABCLIA [id number] [place] [address] [place] Triglyceride [Mass/Vol] 73 mg/dL Normal <150 [facility] Comment on above: Order Comment: Speci men Type: BLOOD SPECIMENOrdering Facility: [facility] Address: [address] [place] [address] Result Comment: <150 mg/dL, Normal 150-199 mg/dL, Borderline high 200-499 mg/dL, High >499 mg/dL, Very high Performed By: #### 3 016-3, 39723-1 ####[facility] LABIA [id number] [place] [address] [place] TSH SerPl-aCncon 03-25-2023 TSH Qn 0.809 m[IU]/L Normal 0.270-4.200 [facility] Comment on above: Order Comment: Speci men Type: BLOOD SPECIMENOrdering Facility: [facility] Address: [address] [place] [address] Result Comment: If t he patient is , TSH reference range varies by gestational period: First Trimester (weeks 9-12): 0.180-2.990 mIU/L Second Trimester: 0.110-3.980 mIU/L Third Trimester: 0.480-4.710 mIU/L David Carter et al. A Practical Approach for the Verifications and Determination of Site- and Trimester-Specific Reference Intervals for Thyroid Function tests in . Thyroid, 2019:29:3:412-420. Jax Dixon, et al. 2017 Guidelines of the [place] Thyroid [employer] for the Diagnosis and Management of Thyroid Disease during and the . Thyroid, 2017:27:3:315-389. Performed By: #### 3 016-3, 13491-1 ####[facility] LABIA [id number] [place] [id number] [place] CNCOon 03-01-2023 CNCO HNO ID: [id number] Author: COORDINATOR, MAMMOGRAPHY, ? Service: ? Author Type: Physician Type: Letter Filed: 03/01/2023 16:04 Note Text: March 02, 2023 PID: [id number] Maty Fairbanks [facility] [place] [address] Dear Ms. Fairbanks, We are pleased to inform you that the results of your recent breast imaging exam on 02/28/2023 are normal. Early detection of cancer is very important. We also understand recommendations regarding breast cancer screening are controversial. Please discuss with your primary care provider which strategy is best for you and whether a mammogram is right for you. Your imaging studies and report will be kept on file at [facility] as part of your permanent medical record and are available for your continuing care. Thank you for allowing us to help in meeting your health care needs. Sincerely, Dr. Mane Interpreting Radiologist [facility] (Normal over 40) Normal [facility] CNOVon 02-28-2023 CNOV Office Visit (OBGYWM ) MATY FAIRBANKS ([id number]) 1970 F Date Time Provider Department 02/28/23 1:30 PM NOHEMI LOYOLA OBGYWM During your visit today, we recorded the following information about you: Blood pressure Weight Height Last Period 120/68 121.2 kg 1.6 m 02/07/23 Nohemi Loyola APRN.GENERATOR ASSEMBLER 02/28/2023 1:57 PM Signed Appliance Fixer offered: Patient declines. Rutledge is a 52 year old who presents for an annual gynecologic exam with complaints, heavy bleeding. Patient went to the emergency room in late November for heavy menstrual bleeding. She was using 2 ultra tampons at once and a pad and would saturate through all of them less than an hour. This went on for day 1 and 2, she called her primary care which referred her to local ER. Pelvic ultrasound showed 2 fibroids. 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 Menses: cycles every 25-30 days and 7-8 days of flow. 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 LMP: 02/07/2023 (Approximate), Having periods Age at Menarche: Age at First : Age at Menopause: Bellows Charger Assembler History Comments: Sexual Activity: Not Currently; Male Contraception: Surgical PAST MEDICAL HISTORY Diagnosis Date Abdominal pain, epigastric Acute gastritis without mention of hemorrhage Asthma Attention deficit disorder without mention of hyperactivity Calculus of gallbladder without mention of cholecystitis or obstruction Chest pain, unspecified Dysthymic disorder history of depression Esophageal spasm Gastric ulcer, unspecified as acute or chronic, without mention of hemorrhage, perforation, or obstruction with hemorrhage Generalized anxiety disorder History of tobacco use Morbid obesity (HCC) JAMES (obstructive sleep apnea) PAST SURGICAL HISTORY Procedure Laterality Date APPENDECTOMY COLONOSCOPY FLX DX W/COLLJ SPEC WHEN PFRMD 12/15/2008 irritation at the anal verge COLONOSCOPY FLX DX W/COLLJ SPEC WHEN PFRMD 07/10/15 normal colonoscopy EGD TRANSORAL BIOPSY SINGLE/MULTIPLE Gastritis, healing ulcer EGD TRANSORAL BIOPSY SINGLE/MULTIPLE 07/10/15 minimal gastritis LAPAROSCOPY SURG CHOLECYSTECTOMY 08/21/07 LIG/TRNSXJ FLP TUBE ABDL/VAG APPR UNI/BI FAMILY HISTORY Adopted: Yes Problem Relation Age of Onset other (unknown) Other adopted SOCIAL HISTORY Social History Tobacco Use Smoking status: Former Packs/day: 1.00 Years: 8.00 Additional pack years: 0.00 Total pack years: 8.00 Types: Cigarettes Quit date: 07/22/2006 Years since quittin.6 Passive exposure: Never Smokeless tobacco: Never Tobacco comments: SMOKED SINCE 18 YEARS OLD Vaping Use Vaping Use: Never used Substance Use Topics Alcohol use: No Drug use: No REVIEW OF SYSTEMS Abdomen: No abdominal pain, nausea, vomiting, diarrhea, or constipation. No bloating, early satiety, indigestion, or increased flatulence. Bladder: No dysuria, gross hematuria, urinary frequency, urinary urgency, or incontinence. Breast: No breast lumps, nipple d/c, overlying skin changes, redness or skin retraction. Allergies and current medication updated:Yes EXAM: Ht 5' 3 (1.60m) Wt 267 lb 3.2 oz (121.2kg) LMP 02/07/2023 BMI 47.34 kg/(m2). GENERAL: pleasant, female in no apparent distress HEENT: Normocephalic, atraumatic, mucus membranes moist, and no lesions NECK: Supple, full range of motion, no adenopathy, and thyroid normal DERMATOLOGY: Normal, without lesions, non-icteric, and non-hirsute BREAST: soft, non-tender, symmetric, no dominant mass, normal nipple-areolar complex, no lymphadenopathy, and no nipple discharge CHEST: Normal inspiratory effort ABDOMEN: soft, non-tender, and no masses PELVIC: external genitalia normal, normal Bartholin's glands, urethra, [place]'s glands, no vulvar lesions, no cervical lesions, good vaginal support, physiologic discharge present, normal appearing perineal body and perianal region BIMANUAL: uterus normal size, shape and consistency, no adnexal masses, non-tender, and difficult to assess due to body habitus RECTOVAGINAL: deferred. NEURO: alert and oriented x3,exam grossly non-focal EXTREMITIES: normal ASSESSMENT/PLAN: 1) Health maintenance: Pap/HPV up to date. Mammogram up to date . Nutrition, exercise and routine health maintenance exams reviewed. Calcium/Vitamin D supplementation information provided. 2) Contraception: tubal sterilization. Contraceptive options reviewed and information provided. 3) STD screening: Declined STD check. 4) Follow up one year or sooner as needed Patient will continue t (more content not included)... Normal [facility] [place] 02-28-2023 [facility] Telephone (FAMYvesWS) MATY FAIRBANKS ([id number]) 1970 F Date Time Provider Department 02/28/[address] [facility] During your visit today, we recorded the following information about you: Chio Meyers LPN 02/28/2023 9:40 AM Signed Pt. would like lab orders filed. Shaheed Rogel PA-C 02/28/2023 10:40 AM Signed Labs ordered. SARITA Valladares Gillian, OCCA 02/28/2023 10:57 AM Signed TC to patient who verbalized understanding and has no further questions at this time. JOSE Stephen Allergies As of Date: 02/28/2023 Noted Allergy Reaction ANTICHOLINERGICS - OTHER 01/14/2003 Comments: (Bentyl) causes hives Date Reviewed: 12/03/2022 Reviewed by: Elizabeth Cooley LPN - Fully Assessed Reason for Visit: Orders [681] Primary Visit Diagnosis:Hypertension, essential [I10] Other Visit Diagnosis:Vitamin D deficiency [E55.9] Order(s):LIPID PANEL BASIC [SQLIPB] Order #: [id number] FUTURE CBC + DIFF [SQCBCDIF] Order #: [id number] FUTURE TSH BLD [SQTSH] Order #: [id number] FUTURE VITAMIN D 25 HYDROXY [SQVITD] Order #: [id number] FUTURE Prescriptions as of 02/28/2023 - cetirizine (ZYRTEC) 10 mg tablet Take 1 tablet by mouth once daily. - lisinopril (ZESTRIL) 5 mg tablet Take 1 tablet by mouth once daily. For blood pressure - diclofenac, EC, (VOLTAREN) 75 mg EC tablet Take 1 tablet by mouth twice daily. As needed For pain/inflammation. Take with food. - gabapentin (NEURONTIN) 100 mg capsule Take 1-2 capsules by mouth three times daily as needed (joint pain) for up to 30 days. - TENS unit and electrodes cmpk 1 Device as directed. Dx: right gluteal and thigh pain, bilateral knee pain, OA knees - ibuprofen (MOTRIN) 800 mg tablet Take 1 tablet by mouth every 8 hours as needed for pain. Take with food. - montelukast (SINGULAIR) 10 mg tablet Take 1 tablet by mouth daily at bedtime. - ibuprofen (MOTRIN) 800 mg tablet Take 1 tablet by mouth every 8 hours as needed for pain. Take with food. - cyanocobalamin (VITAMIN B-12) 1,000 mcg tab Take 1 tablet by mouth once daily. - Cholecalciferol, Vitamin D3, 50 mcg (2,000 unit) cap Take 1 capsule by mouth once daily. - Saccharomyces boulardii (PROBIOTIC, S.BOULARDII,) 250 mg capsule Take 1 capsule by mouth daily at bedtime. - fluticasone-salmeterol HFA (ADVAIR HFA) 115-21 mcg/actuation inhaler Inhale 2 Puffs as instructed twice daily. - predniSONE (DELTASONE) 10 mg tablet Take 4 orally daily for 5 days, then 3 orally for 5 days, then 2 orally for 5 days, then one daily for 10 days - diclofenac (VOLTAREN ARTHRITIS PAIN) 1 % topical gel Apply 2 g to affected area twice daily as needed (left knee pain). - Leg Brace (ELASTIC KNEE SUPPORT) misc 1 Device as directed. Dx: left knee pain, left suprapatellar bursitis - ibuprofen (MOTRIN) 800 mg tablet Take 1 tablet by mouth every 8 hours as needed for pain. Take with food. - ipratropium-albuterol (DUONEB) 0.5 mg-3 mg(2.5 mg base)/3 mL nebu Inhale 3 mL as instructed every 6 hours as needed for wheezing/shortness of breath. cough - Nebulizer Accessories kit 1 Each four times daily. - albuterol HFA (PROVENTIL HFA, VENTOLIN HFA) 90 mcg/actuation inhaler Inhale 2 Puffs as instructed every 4 hours as needed for wheezing/shortness of breath. - meclizine (ANTIVERT) 12.5 mg tab 1 to 2 tablets three times a day as needed. - Blood Pressure Test Kit-Large 1 Each as needed (blood pressure). Dx: Essential hypertension - Magnesium 250 mg tab Take 1 tablet by mouth once daily. Meds Comments as of 05/07/2021: 05/07/2021 8:45 PM New meds: Prednisone, Tessalon Perls, Singular, Flovent. Chio Esquivel RN Problem List As Of Date 02/28/2023 Noted Resolved LUMBAGO [M54.50] 05/02/2006 ANXIETY STATE NOS [F41.1] 05/02/2006 Tuberculin test reaction [795.5] 07/05/2006 12/16/2010 ASTHMA UNSPECIFIED [J45.909] 07/05/2006 Morbid obesity (HCC) [E66.01] 07/05/2006 LATERAL EPICONDYLITIS [M77.10] 08/29/2006 PAIN IN JOINT, LOWER LEG [M25.569] 01/30/2007 ACUTE GASTRITIS W/O HEMORRHAGE [K29.00] 09/18/2007 ABDOMINAL PAIN EPIGASTRIC [R10.13] 09/18/2007 STOMACH ULCER NOS [K25.9] 09/18/2007 Unspecified Myalgia and Myositis [GKC2498] 10/28/2008 Unspecified Backache [M54.9] 10/28/2008 Chest Pain [R07.9] 12/03/2008 Blood in Stool [K92.1] 12/09/2008 Dermatofibroma of Lower Extremity [D23.70] 01/30/2009 Neoplasm of Uncertain Behavior of Skin [D48.5] 01/30/2009 Dermatofibroma of Upper Extremity [D23.60] 01/30/2009 Positive PPD [R76.11] 12/16/2010 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 Normal [facility] SCREENINGon 02-28-2023 [facility] SCREENING * * *Final Report* * * DATE OF EXAM: Feb 28 2023 1:08PM [facility] 0581 - [facility] SCREENING / PROCEDURE REASON: Encounter for screening mammogram for breast cancer * * * * Physician Interpretation * * * * RESULT: #[id number] - [facility] SCREENING BILATERAL DIGITAL SCREENING MAMMOGRAM WITH CAD: 02/28/2023 HISTORY: Encounter For Screening Mammogram For Breast Cancer / Screening Mammogram-Patient reports NO symptoms. /priors available for comparison. RESULT: TECHNIQUE: The study was acquired using full field digital technology and interpreted from soft copy. Current study was also evaluated with a Computer Aided Detection (CAD). Comparison is made to exams dated: 08/02/2017 mammogram, 08/28/2014 mammogram, and 01/24/2011 mammogram - [facility]. There are scattered areas of fibroglandular density. No significant masses, calcifications, or other findings are seen in either breast. There has been no significant interval change. IMPRESSION: NEGATIVE There is no mammographic evidence of malignancy. A 1 year screening mammogram is recommended. Elvia womack/francois:03/01/2023 16:04:24 Pin Drafter Operator(s): Imedla Mendes RT(R)(M), [facility] letter sent: Normal over 40 Mammogram BI-RADS: 1 Negative Multiple national specialty organizations have released breast cancer screening guidelines for women at average risk for developing breast cancer - guidelines that are based on both evidence and opinion, yet differ on when to start and how often to screen for breast cancer. With representation from Breast Imaging, Internal Medicine, Women's Health, Family Medicine, and Medical/Surgical Oncology, the [facility] has carefully reviewed the data and reached the following consensus: 1) All women should engage in shared decision-making with their providers to decide when to start and how often to screen; 2) All women should have the opportunity to start screening mammography at age 40; 3) For women ages 45-55, we recommend annual screening mammograms; 4) For women ages 55 and over, we support both the transition from an annual to a biennial interval if this aligns more with patient's values and preferences, or continuation with annual screening; 5) All women should discuss with their providers when to stop screening mammograms. Storm Chaser: Francois Transcribe Date/Time: Feb 28 2023 12:48P Dictated by: ELVIA MANE MD This examination was interpreted and the report reviewed and electronically signed by: ELVIA MANE MD on Mar 01 2023 4:04PM EST [id number] Normal [facility] [place] 12-27-2022 [facility] Telephone (FAMPWS) MATY FAIRBANKS ([id number]) 1970 F Date Time Provider Department 12/27/22 FREDO LAROSE During your visit today, we recorded the following information about you: María Stovall RN 12/27/2022 11:57 AM Signed Patient calls to report that she was exposed to pink eye on Monday by her grand daughter. She has (June 2022) polymyxin eye drops on hand from previously when she had pink eye that she is currently using. Patient reports she has no symptoms other than right eye itching and pain/burning when she puts the eye drops in. No symptoms in the left eye but she is also putting eye drops in the left eye. Patient asking if provider would send in prescription for eye drops since she has known exposure and had pink eye in the past. Pended previous eye drop order for review. LIN Disla Jordan L, DO 12/27/2022 4:50 PM Signed OKAY TO START DROPS BELOW Fredo Larose DO The following approved medication requests have been transmitted electronically. Requested Prescriptions Signed Prescriptions Disp Refills trimethoprim-polymyxin (POLYTRIM) 10,000 unit- 1 mg/mL ophthalmic solution 10 mL 0 Sig: Use 2 Drops in both eyes three times a day for 7 days. Authorizing Provider: FREDO LAROSE DO Strait, Gillian, OCCA 12/27/2022 4:57 PM Signed TC to patient with no answer. Left VM to return call to office. JOSE Stephen Ma, Kathryn 12/29/2022 10:09 AM Signed Pt notified. Janice Oakes Ma Allergies As of Date: 12/27/2022 Noted Allergy Reaction ANTICHOLINERGICS - OTHER 01/14/2003 Comments: (Bentyl) causes hives Date Reviewed: 12/03/2022 Reviewed by: Elizabeth Cooley LPN - Fully Assessed Reason for Visit: Patient Question [2205] Order(s):trimethoprim-p olymyxin (POLYTRIM) 10,000 unit- 1 mg/mL ophthalmic solutionUse 2 Drops in both eyes three times a day for 7 days.Disp: 10 mLRfl: 0 Prescriptions as of 12/29/2022 - trimethoprim-polymyxin (POLYTRIM) 10,000 unit- 1 mg/mL ophthalmic solution Use 2 Drops in both eyes three times a day for 7 days. - cyclobenzaprine (FLEXERIL) 10 mg tablet Take 1 tablet by mouth three times a day as needed for muscle spasm. - benzonatate (TESSALON PERLE) 100 mg capsule Take 1 capsule by mouth three times daily as needed for cough. - cetirizine (ZYRTEC) 10 mg tablet Take 1 tablet by mouth once daily. - lisinopril (ZESTRIL) 5 mg tablet Take 1 tablet by mouth once daily. For blood pressure - diclofenac, EC, (VOLTAREN) 75 mg EC tablet Take 1 tablet by mouth twice daily. As needed For pain/inflammation. Take with food. - gabapentin (NEURONTIN) 100 mg capsule Take 1-2 capsules by mouth three times daily as needed (joint pain) for up to 30 days. - TENS unit and electrodes cmpk 1 Device as directed. Dx: right gluteal and thigh pain, bilateral knee pain, OA knees - ibuprofen (MOTRIN) 800 mg tablet Take 1 tablet by mouth every 8 hours as needed for pain. Take with food. - montelukast (SINGULAIR) 10 mg tablet Take 1 tablet by mouth daily at bedtime. - ibuprofen (MOTRIN) 800 mg tablet Take 1 tablet by mouth every 8 hours as needed for pain. Take with food. - cyanocobalamin (VITAMIN B-12) 1,000 mcg tab Take 1 tablet by mouth once daily. - Cholecalciferol, Vitamin D3, 50 mcg (2,000 unit) cap Take 1 capsule by mouth once daily. - Saccharomyces boulardii (PROBIOTIC, S.BOULARDII,) 250 mg capsule Take 1 capsule by mouth daily at bedtime. - fluticasone-salmeterol HFA (ADVAIR HFA) 115-21 mcg/actuation inhaler Inhale 2 Puffs as instructed twice daily. - predniSONE (DELTASONE) 10 mg tablet Take 4 orally daily for 5 days, then 3 orally for 5 days, then 2 orally for 5 days, then one daily for 10 days - diclofenac (VOLTAREN ARTHRITIS PAIN) 1 % topical gel Apply 2 g to affected area twice daily as needed (left knee pain). - Leg Brace (ELASTIC KNEE SUPPORT) misc 1 Device as directed. Dx: left knee pain, left suprapatellar bursitis - ibuprofen (MOTRIN) 800 mg tablet Take 1 tablet by mouth every 8 hours as needed for pain. Take with food. - ipratropium-albuterol (DUONEB) 0.5 mg-3 mg(2.5 mg base)/3 mL nebu Inhale 3 mL as instructed every 6 hours as needed for wheezing/shortness of breath. cough - Nebulizer Accessories kit 1 Each four times daily. - albuterol HFA (PROVENTIL HFA, VENTOLIN HFA) 90 mcg/actuation inhaler Inhale 2 Puffs as instructed every 4 hours as needed for wheezing/shortness of breath. - meclizine (ANTIVERT) 12.5 mg tab 1 to 2 tablets three times a day as needed. - Blood Pressure Test Kit-Large 1 Each as needed (blood pressure). Dx: Essential hypertension - Magnesium 250 mg tab Take 1 tablet by mouth once daily. Meds Comments as of 05/07/2021: 05/07/2021 8:45 PM New meds: Prednisone, Tessalon Perls, Singular, Flovent. Chio Therese Z (more content not included)... Normal [facility] XR KNEE GENERAL 4V AP BOTH/P A BOTH/LAT/MERC LEFTon 09-15-2022 [facility] XR Knee - left 4 Viewson IMPRESSION: No acute fracture or dislocation. Storm Chaser: NUHA Transcribe Date/Time: Sep 15 2022 8:47P Dictated by : JENAE KAUR MD This examination was interpreted and the report reviewed and electronically signed by: JENAE KAUR MD on Sep 15 2022 8:50PM [facility] DIVISION OF RADIOLOGY * * *Final Report* * * DATE OF EXAM: Sep 15 2022 7:38PM WOX [id number] - XR KNEE 4V AP/PA BOTH+LAT/YOLY LT / PROCEDURE REASON: Acute pain of left knee * * * * Physician Interpretation * * * * Bilateral KNEE X-RAY SERIES HISTORY: Acute pain of left knee TECHNIQUE: 4 views of the left knee and 2 views of the right knee COMPARISON: 10/29/2014. RESULT: No acute fracture, dislocation or destructive changes. Mild medial and lateral compartment degenerative changes of the bilateral knees. Redemonstrated remote avulsion fracture of the superior pole of the patella. Increased ossification compared to older studies. DIVISION OF RADIOLOGY Provider, [facility] - 09/15/2022 * * *Final Report* * * DATE OF EXAM: Sep 15 2022 7:38PM WOX [id number] - XR KNEE 4V AP/PA BOTH+LAT/YOLY LT / PROCEDURE REASON: Acute pain of left knee * * * * Physician Interpretation * * * * Bilateral KNEE X-RAY SERIES HISTORY: Acute pain of left knee TECHNIQUE: 4 views of the left knee and 2 views of the right knee COMPARISON: 10/29/2014. RESULT: No acute fracture, dislocation or destructive changes. Mild medial and lateral compartment degenerative changes of the bilateral knees. Redemonstrated remote avulsion fracture of the superior pole of the patella. Increased ossification compared to older studies. IMPRESSION IMPRESSION: No acute fracture or dislocation. Storm Chaser: [facility] Transcribe Date/Time: Sep 15 2022 8:47P Dictated by : JENAE KAUR MD This examination was interpreted and the report reviewed and electronically signed by: JENAE KAUR MD on Sep 15 2022 8:50PM [facility] Radiology Study observation (narrative) [facility] XR Knee - left 4 ViewsOrdere d By: [facility] Provider on 09-15-2022 [facility] No Panel Informationon 09-06 CPV42-22% PRE (L/S) 2.19 L/S [facility] FEV1 PRE (L) 2.36 L [facility] FEV1/FVC PRE (%) 0.79 % [facility] FVC PRE (L) 2.99 L [facility] PEF PRE (L/S) 4.87 L/S [facility] XR CHEST 2 VIEWSon 2 XR CHEST 2 VIEWS ORIGINAL EXAMINATION: TWO XRAY VIEWS OF THE CHEST 05/08/2021 5:06 pm COMPARISON: 04/07/2021. HISTORY: ORDERING SYSTEM PROVIDED HISTORY: Reason for Exam: cough FINDINGS: The cardiac and mediastinal contours are within normal limits. Mildly low lung volumes. There is no appreciable pneumothorax, pleural effusion, or vascular congestion. No focal consolidations. Mild subsegmental atelectasis suspected of the right lower lobe. No acute skeletal abnormality is evident. Mild degenerative changes are evident of the spine. IMPRESSION: 1. Mildly low lung volumes with suspected mild subsegmental atelectasis of right lower lobe. Interpreted by: Laz Del Rio DO Preliminary Report By: Laz Del Rio DO Electronically signed By Laz Del Rio DO Dictated Date: 05/08/2021 5:13:42 PM Prelim Date: 05/08/2021 5:14:56 PM Sign Date: 05/08/2021 5:14:56 PM Ordering Provider: SAMPSON PEDRO [facility] ([place]) XR CHEST 1 VIEWon 04-07-2021 XR CHEST 1 VIEW ORIGINAL EXAMINATION: ONE XRAY VIEW OF THE CHEST 04/07/2021 8:53 pm COMPARISON: None. HISTORY: ORDERING SYSTEM PROVIDED HISTORY: Reason for Exam: SOB Shortness of breath FINDINGS: Cardiomediastinal contours are normal. Clear lungs. No pneumothorax or pleural effusion. IMPRESSION: No acute findings. Interpreted by: Mary Dennis Preliminary Report By: Mary Dennis Electronically signed By Mary Dennis Dictated Date: 04/07/2021 9:58:14 PM Prelim Date: 04/07/2021 9:58:56 PM Sign Date: 04/07/2021 9:58:56 PM Ordering Provider: UMM Bardales [facility]) Vital Signs Date Time Vital Sign Value Performing Clinician Radha garcia 12-16-2023 08:56-0400 Body mass index (BMI) [Ratio] 47.78 kg/m2 Zeeshanislyjustin Aberegg PA Work Phone: [facility] 12-16-2023 08:56-0400 Body weight 125.4 kg Krislyjustin Aberegg PA Work Phone: [facility] 12-16-2023 08:56-0400 Diastolic blood pressure 79 mm[Hg] Zeeshanislyjustin Aberegg PA Work Phone: [facility] 12-16-2023 08:56-0400 Heart rate 86 /min Krisalyssa Aberegg PA Work Phone: [facility] 12-16-2023 08:56-0400 Respiratory rate 16 /min Krislyn Aberegg PA Work Phone: [facility] 12-16-2023 08:56-0400 SaO2% (BldA) [Mass fraction] 99 % Krislyn Aberegg PA Work Phone: [facility] 12-16-2023 08:56-0400 Systolic blood pressure 136 mm[Hg] Krislyn Aberegg PA Work Phone: [facility] 09-13-2023 18:47-0400 Body mass index (BMI) [Ratio] 47.71 kg/m2 Kyra Castro APRN.GENERATOR ASSEMBLER Work Phone: [facility] 09-13-2023 18:47-0400 Body temperature 98.49 [degF] Kyra Castro APRN.GENERATOR ASSEMBLER Work Phone: [facility] 09-13-2023 18:47-0400 Body weight 125.2 kg Kyra Castro APRN.GENERATOR ASSEMBLER Work Phone: [facility] 09-13-2023 18:47-0400 Diastolic blood pressure 80 mm[Hg] Kyra Castro APRN.GENERATOR ASSEMBLER Work Phone: [facility] 09-13-2023 18:47-0400 Heart rate 80 /min Kyra Castro APRN.GENERATOR ASSEMBLER Work Phone: [facility] 09-13-2023 18:47-0400 Respiratory rate 21 /min Kyra Castro APRN.GENERATOR ASSEMBLER Work Phone: [facility] 09-13-2023 18:47-0400 SaO2% (BldA) [Mass fraction] 97 % Kyra Castro APRN.GENERATOR ASSEMBLER Work Phone: [facility] 09-13-2023 18:47-0400 Systolic blood pressure 138 mm[Hg] Kyra Castro APRN.GENERATOR ASSEMBLER Work Phone: [facility] 04-19-2023 16:50-0500 Body height 162 cm Fredo Larose DO Work Phone: [facility] 04-19-2023 16:50-0500 Body temperature 97 [degF] Fredo Larose DO Work Phone: [facility] 04-19-2023 16:50-0500 Body weight 121.11 kg Fredo Larose DO Work Phone: [facility] 04-19-2023 16:50-0500 Diastolic blood pressure 80 mm[Hg] Fredo Larose DO Work Phone: [facility] 04-19-2023 16:50-0500 Heart rate 60 /min Fredo Larose DO Work Phone: [facility] 04-19-2023 16:50-0500 Respiratory rate 20 /min Fredo Larose DO Work Phone: [facility] 04-19-2023 16:50-0500 Systolic blood pressure 124 mm[Hg] Fredo Larose DO Work Phone: [facility] 03-31-2023 19:26-0500 Body temperature 98.1 [degF] Adair Gu MD Work Phone: [facility] 03-31-2023 19:26-0500 Body weight 122.47 kg Adair Gu MD Work Phone: [facility] 03-31-2023 19:26-0500 Diastolic blood pressure 95 mm[Hg] Adair Gu MD Work Phone: [facility] 03-31-2023 19:26-0500 Heart rate 91 /min Adair Gu MD Work Phone: [facility] 03-31-2023 19:26-0500 Respiratory rate 22 /min Adair Gu MD Work Phone: [facility] 03-31-2023 19:26-0500 SaO2% (BldA) [Mass fraction] 96 % Adair Gu MD Work Phone: [facility] 03-31-2023 19:26-0500 Systolic blood pressure 158 mm[Hg] Adair Gu MD Work Phone: [facility] 12-03-2022 14:51-0400 Body temperature 97.2 [degF] Blanca Praisler-Wood STONE POLISHER HAND.GENERATOR ASSEMBLER Work Phone: [facility] 12-03-2022 14:51-0400 Body weight 123.38 kg Blanca Praisler-Wood STONE POLISHER HAND.GENERATOR ASSEMBLER Work Phone: [facility] 12-03-2022 14:51-0400 Diastolic blood pressure 88 mm[Hg] Blanca Praisler-Wood STONE POLISHER HAND.GENERATOR ASSEMBLER Work Phone: [facility] 12-03-2022 14:51-0400 Heart rate 68 /min Blanca Praisler-Wood STONE POLISHER HAND.GENERATOR ASSEMBLER Work Phone: [facility] 12-03-2022 14:51-0400 Respiratory rate 18 /min Blanca Praisler-Wood STONE POLISHER HAND.GENERATOR ASSEMBLER Work Phone: [facility] 12-03-2022 14:51-0400 SaO2% (BldA) [Mass fraction] 99 % Blanca Praisler-Wood STONE POLISHER HAND.GENERATOR ASSEMBLER Work Phone: [facility] 12-03-2022 14:51-0400 Systolic blood pressure 139 mm[Hg] Blanca Praisler-Wood STONE POLISHER HAND.GENERATOR ASSEMBLER Work Phone: [facility] 11-29-2022 19:11-0400 Body temperature 97.9 [degF] Kyra Castro STONE POLISHER HAND.GENERATOR ASSEMBLER Work Phone: [facility] 11-29-2022 19:11-0400 Body weight 123.83 kg Kyra Castro STONE POLISHER HAND.GENERATOR ASSEMBLER Work Phone: [facility] 11-29-2022 19:11-0400 Diastolic blood pressure 84 mm[Hg] Kyra Castro STONE POLISHER HAND.GENERATOR ASSEMBLER Work Phone: [facility] 11-29-2022 19:11-0400 Heart rate 96 /min Kyra Castro STONE POLISHER HAND.GENERATOR ASSEMBLER Work Phone: [facility] 11-29-2022 19:11-0400 Respiratory rate 16 /min Kyra James [employer] POL[employer]ER HAND.GENERATOR ASSEMBLER Work Phone: [facility] 11-29-2022 19:11-0400 SaO2% (BldA) [Mass fraction] 98 % Kyra Castro STONE POLISHER HAND.GENERATOR ASSEMBLER Work Phone: [facility] 11-29-2022 19:11-0400 Systolic blood pressure 142 mm[Hg] Kyra Castro STONE POLISHER HAND.GENERATOR ASSEMBLER Work Phone: [facility] 10-20-2022 17:06-0400 Body temperature 97.2 [degF] Sung Pendlebury STONE POLISHER HAND.GENERATOR ASSEMBLER Work Phone: [facility] 10-20-2022 17:06-0400 Body weight 121.11 kg Sung Barrettowen STONE POLISHER HAND.GENERATOR ASSEMBLER Work Phone: [facility] 10-20-2022 17:06-0400 Diastolic blood pressure 72 mm[Hg] Sung Pendlebury [employer]ONE POLISHER HAND.GENERATOR ASSEMBLER Work Phone: [facility] 10-20-2022 17:06-0400 Heart rate 71 /min Sung Pendlebury STONE POLISHER HAND.GENERATOR ASSEMBLER Work Phone: [facility] 10-20-2022 17:06-0400 Respiratory rate 18 /min Sung Pendleoewn STONE POLISHER HAND.GENERATOR ASSEMBLER Work Phone: [facility] 10-20-2022 17:06-0400 SaO2% (BldA) [Mass fraction] 96 % Sung Pendleowen STONE POLISHER HAND.GENERATOR ASSEMBLER Work Phone: [facility] 10-20-2022 17:06-0400 Systolic blood pressure 118 mm[Hg] Sung Pendlebury [employer]ONE POLISHER HAND.GENERATOR ASSEMBLER Work Phone: [facility] 09-28-2022 18:15-0400 Body temperature 97.59 [degF] Fredo Larose DO Work Phone: [facility] 09-28-2022 18:15-0400 Body weight 121.11 kg Fredo Larose DO Work Phone: [facility] 09-28-2022 18:15-0400 Diastolic blood pressure 60 mm[Hg] Fredo Larose DO Work Phone: [facility] 09-28-2022 18:15-0400 Heart rate 76 /min Fredo Larose DO Work Phone: [facility] 09-28-2022 18:15-0400 Respiratory rate 20 /min Fredo Larose DO Work Phone: [facility] 09-28-2022 18:15-0400 Systolic blood pressure 110 mm[Hg] Fredo Larose DO Work Phone: [facility] 09-15-2022 19:04-0400 Body temperature 98.6 [degF] Krislyn Aberegg PA Work Phone: [facility] 09-15-2022 19:04-0400 Body weight 120.66 kg Krislyn Aberegg PA Work Phone: [facility] 09-15-2022 19:04-0400 Diastolic blood pressure 78 mm[Hg] Krislyn Aberegg PA Work Phone: [facility] 09-15-2022 19:04-0400 Heart rate 80 /min Krislyn Aberegg PA Work Phone: [facility] 09-15-2022 19:04-0400 Respiratory rate 21 /min Krislyn Aberegg PA Work Phone: [facility] 09-15-2022 19:04-0400 SaO2% (BldA) [Mass fraction] 98 % Krislyn Aberegg PA Work Phone: [facility] 09-15-2022 19:04-0400 Systolic blood pressure 110 mm[Hg] Krislyn Aberegg PA Work Phone: [facility] 06-08-2022 18:42-0400 Body weight 120.84 kg Tatiana Almeida APRN.GENERATOR ASSEMBLER Work Phone: [facility] 06-08-2022 18:42-0400 Diastolic blood pressure 78 mm[Hg] Tatiana Almeida [employer]ONE POLISHER HAND.GENERATOR ASSEMBLER Work Phone: [facility] 06-08-2022 18:42-0400 Heart rate 68 /min Tatiana Almeida [employer]ONE POLISHER HAND.GENERATOR ASSEMBLER Work Phone: [facility] 06-08-2022 18:42-0400 Respiratory rate 16 /min Tatiana Almeida [employer]ONE POLISHER HAND.GENERATOR ASSEMBLER Work Phone: [facility] 06-08-2022 18:42-0400 Systolic blood pressure 138 mm[Hg] Tatiana Almeida [employer]ONE POLISHER HAND.GENERATOR ASSEMBLER Work Phone: [facility] 01-05-2022 18:06-0500 Body temperature 96.21 [degF] Fredo Larose DO Work Phone: [facility] 01-05-2022 18:06-0500 Body weight 123.38 kg Fredo Larose DO Work Phone: [facility] 01-05-2022 18:06-0500 Diastolic blood pressure 80 mm[Hg] Fredo Larose DO Work Phone: [facility] 01-05-2022 18:06-0500 Heart rate 68 /min Fredo Larose DO Work Phone: [facility] 01-05-2022 18:06-0500 Respiratory rate 20 /min Fredo Larose DO Work Phone: [facility] 01-05-2022 18:06-0500 Systolic blood pressure 130 mm[Hg] Fredo Larose DO Work Phone: [facility] 09-06-2021 14:29-0400 Body height 161.3 cm Torie Reyna MD Work Phone: [facility] 09-06-2021 14:29-0400 Body weight 122.47 kg Torie Reyna MD Work Phone: [facility] 09-06-2021 14:29-0400 Diastolic blood pressure 80 mm[Hg] Torie Reyna MD Work Phone: [facility] 09-06-2021 14:29-0400 Heart rate 70 /min Torie Reyna MD Work Phone: [facility] 09-06-2021 14:29-0400 Respiratory rate 12 /min Torie Reyna MD Work Phone: [facility] 09-06-2021 14:29-0400 SaO2% (BldA) [Mass fraction] 98 % Torie Reyna MD Work Phone: [facility] 09-06-2021 14:29-0400 Systolic blood pressure 122 mm[Hg] Torie Reyna MD Work Phone: [facility] 09-06-2021 14:28-0400 Body height 161.3 cm Respiratory Wstr Work Phone: [facility] 09-06-2021 14:28-0400 Body weight 122.65 kg Respiratory Wstr Work Phone: [facility] 09-06-2021 14:28-0400 Heart rate 70 /min Respiratory Wstr Work Phone: [facility] 09-06-2021 14:28-0400 Respiratory rate 12 /min Respiratory Wstr Work Phone: [facility] 09-06-2021 14:28-0400 SaO2% (BldA) [Mass fraction] 98 % Respiratory Wstr Work Phone: [facility] 07-07-2021 18:18-0400 Body temperature 98.01 [degF] Fredo Larose DO Work Phone: [facility] 07-07-2021 18:18-0400 Body weight 123.38 kg Fredo Larose DO Work Phone: [facility] 07-07-2021 18:18-0400 Diastolic blood pressure 80 mm[Hg] Fredo Larose DO Work Phone: [facility] 07-07-2021 18:18-0400 Heart rate 76 /min Fredo Larose DO Work Phone: [facility] 07-07-2021 18:18-0400 Respiratory rate 20 /min Fredo Larose DO Work Phone: [facility] 07-07-2021 18:18-0400 Systolic blood pressure 136 mm[Hg] Fredo Larose DO Work Phone: [facility] 05-19-2021 18:06-0400 Body temperature 98.91 [degF] Fredo Larose DO Work Phone: [facility] 05-19-2021 18:06-0400 Body weight 123.38 kg Fredo Larose DO Work Phone: [facility] 05-19-2021 18:06-0400 Diastolic blood pressure 80 mm[Hg] Fredo Larose DO Work Phone: [facility] 05-19-2021 18:06-0400 Heart rate 80 /min Fredo Larose DO Work Phone: [facility] 05-19-2021 18:06-0400 Respiratory rate 20 /min Fredo Larose DO Work Phone: [facility] 05-19-2021 18:06-0400 Systolic blood pressure 120 mm[Hg] Fredo Larose DO Work Phone: [facility] 05-08-2021 17:05-0400 Heart rate 99 /min DR SAMPSON PEDRO MD [facility] 05-08-2021 17:05-0400 Respiratory rate 22 /min DR SAMPSON PEDRO MD [facility] 05-08-2021 16:41-0400 Body temperature 98.78 [degF] DR SAMPSON PEDRO MD [facility] 05-08-2021 16:41-0400 Diastolic blood pressure 81 mm[Hg] DR SAMPSON PEDRO MD [facility] 05-08-2021 16:41-0400 Heart rate 106 /min DR SAMPSON PEDRO MD [facility] 05-08-2021 16:41-0400 Respiratory rate 20 /min DR SAMPSON PEDRO MD [facility] 05-08-2021 16:41-0400 Systolic blood pressure 126 mm[Hg] DR SAMPSON PEDRO MD [facility] 04-07-2021 20:45-0500 Heart rate 92 /min LUH COATES MD [facility] 04-07-2021 20:45-0500 Respiratory rate 20 /min LUH COATES MD [facility] 04-07-2021 20:21-0500 Body height 162.6 cm LUH COATES MD [facility] 04-07-2021 20:21-0500 Body temperature 97.88 [degF] LUH COATES MD [facility] 04-07-2021 20:21-0500 Body weight 119 kg LUH COATES MD [facility] 04-07-2021 20:21-0500 Diastolic blood pressure 96 mm[Hg] LUH COATES MD [facility] 02-16-2022 20:21-0500 Heart rate 90 /min LUH COTAES MD [facility] 04-07-2021 20:21-0500 Respiratory rate 18 /min LUH COATES MD [facility] 04-07-2021 20:21-0500 Systolic blood pressure 164 mm[Hg] LUH COATES MD [facility] Encounters Encounter Date Encounter Type Care Provider Facility Start: 12-16-2023 End: 12-16-2023 ambulatory FREDO LAROSE Facility:[facility] Start: 12-16-2023 End: 12-16-2023 Patient encounter procedure Shankar DANIELLE Work Phone: [facility] Comment on above: Left leg pain (Prima ry Dx) Start: 12-14-2023 End: 12-15-2023 Patient encounter status Fredo Larose DO Work Phone: [facility] Work Phone: Start: 12-14-2023 End: 12-15-2023 Telephone encounter Fredo Larose DO Work Phone: [facility] [place] Comment on above: Lab Orders Start: 10-24-2023 End: 11-04-2023 Telephone encounter Fredo Larose DO Work Phone: [facility] [place] Comment on above: Results Start: 10-21-2023 End: 10-21-2023 ambulatory FREDO LAROSE Facility:[facility] Start: 10-16-2023 End: 10-16-2023 Refill Fredo Larose DO Work Phone: [facility] [place] Comment on above: Refill Request Start: 10-02-2023 Telephone encounter Fredo treviño DO Work Phone: [facility] [place] Comment on above: Orders Start: 09-21-2023 Telephone encounter Fredo Johns kamila DO Work Phone: [facility] [place] Comment on above: Patient Question Start: 09-20-2023 Telephone encounter Tatiana angeles STONE POLISHER HAND.GENERATOR ASSEMBLER Work Phone: [facility] [place] Comment on above: Appointment Start: 09-19-2023 Telephone encounter Arline Miguelito ggs [employer]ONE POLISHER HAND.GENERATOR ASSEMBLER Work Phone: [facility] [place] Comment on above: Medication Problem Results Start: 09-18-2023 Telephone encounter Arline Farley ggs STONE POLISHER HAND.GENERATOR ASSEMBLER Work Phone: [facility] Comment on above: Results Start: 09-16-2023 End: 09-16-2023 ambulatory FREDO LAROSE Facility:[facility] Start: 09-14-2023 Telephone encounter Fredo Johns kamila DO Work Phone: [facility] [place] Comment on above: Patient Update; Rere ent Question Start: 09-13-2023 End: 09-13-2023 ambulatory FREDO LAROSE Facility:[facility] Start: 09-13-2023 End: 09-13-2023 Patient encounter procedure Kyra Castro [employer]ONE POLISHER HAND.GENERATOR ASSEMBLER Work Phone: [facility] Comment on above: Sore throat (Primary Dx); Fatigue, unspecified type Start: 06-12-2023 Telephone encounter Fredo Johns kamila DO Work Phone: [facility] [place] Comment on above: Medication Request Start: 04-19-2023 End: 04-19-2023 Patient encounter procedure Fredo Larose DO Work Phone: [facility] [place] Comment on above: Well adult exam (Nelsy altamirano Dx); Hypertension, essential; Chronic pain of both knees; Vitamin D deficiency; Elevated LFTs; Class 3 severe obesity with body mass index (BMI) of 45.0 to 49.9 in adult, unspecified obesity type, unspecified whether serious comorbidity present (HCC) Start: 04-19-2023 End: 04-19-2023 Patient encounter status Fredo Larose DO Work Phone: [facility] Work Phone: Start: 04-19-2023 End: 04-19-2023 ambulatory FREDO Raul MANNINGON Facility:[facility] Start: 04-06-2023 Refill Fredo Laura son DO Work Phone: [facility] [place] Comment on above: Refill Request Start: 04-04-2023 Telephone encounter Fredo Johns arrison DO Work Phone: [facility] [place] Comment on above: Cough Start: 03-31-2023 End: 03-31-2023 ambulatory FREDO Carter LAROSE Facility:[facility] Start: 03-31-2023 End: 03-31-2023 Patient encounter procedure Adair Gu MD Work Phone: [facility] Comment on above: Mild intermittent as thma with acute exacerbation (Primary Dx) Start: 03-25-2023 End: 03-25-2023 ambulatory SHAHEED ROGEL Facility:[facility] Start: 02-28-2023 Encounter for gynecological examination (general) (routine) without abnormal findings [facility] Start: 02-28-2023 End: 02-28-2023 ambulatory [facility] Facility:[facility] Start: 12-27-2022 Telephone encounter Fredo Carter Nat kamila DO Work Phone: [facility] [place] Comment on above: Patient Question Start: 12-19-2022 Refill Fredo angeles DO Work Phone: [facility] [place] Comment on above: Refill Request Vaginal Bleeding Start: 12-06-2022 Telephone encounter Blanca Pool APRN.GENERATOR ASSEMBLER Work Phone: [facility] Comment on above: Results Start: 12-03-2022 End: 12-03-2022 Patient encounter procedure Blanca Alejo APRN.GENERATOR ASSEMBLER Work Phone: [facility] Comment on above: Boil of trunk (Prima ry Dx) Start: 12-01-2022 Patient encounter status Stephen Larose DO Work Phone: [facility] Work Phone: Start: 12-01-2022 Telephone encounter Fredo treviño DO Work Phone: [facility] [place] Start: 11-29-2022 End: 11-29-2022 Patient encounter procedure Kyra Castro APRN.GENERATOR ASSEMBLER Work Phone: [facility] Comment on above: Skin infection (Prim america Dx) Start: 11-29-2022 Refill Tatiana Almeida [employer]ER HAND.GENERATOR ASSEMBLER Work Phone: [facility] [place] Comment on above: Refill Request Start: 11-07-2022 Telephone encounter Fredo treviño DO Work Phone: [facility] [place] Comment on above: Knee Pain Start: 10-20-2022 End: 10-20-2022 Office outpatient visit 25 minutes Sung Griffith APRN.GENERATOR ASSEMBLER Work Phone: [facility] Comment on above: Rash (Primary Dx) Start: 09-28-2022 End: 09-28-2022 Patient encounter procedure Fredo Larose DO Work Phone: [facility] [place] Comment on above: Chronic pain of both knees (Primary Dx); Hypertension, essential; Arthritis of knee; Memory change; Right thigh pain; Chronic right-sided low back pain with right-sided sciatica Start: 09-16-2022 Telephone encounter Arline bellamy [employer] POL[employer]ER HAND.GENERATOR ASSEMBLER Work Phone: [facility] Comment on above: Results Start: 09-15-2022 End: 09-15-2022 Subsequent hospital visit by physician Xr [facility] [place] Work Phone: Radiology Comment on above: Acute pain of left k nee [M25.562] Start: 09-15-2022 End: 09-15-2022 Patient encounter procedure Shankar DANIELLE Work Phone: [facility] [place] [facility] Comment on above: Acute pain of left k nee (Primary Dx) Start: 08-28-2022 ambulatory Kay Bennett RN NURSE [employer] WORK[employer] Comment on above: Diarrhea Start: 06-08-2022 End: 06-08-2022 Patient encounter procedure Tatiana Almeida [employer] POL[employer]ER HAND.GENERATOR ASSEMBLER Work Phone: [facility] [place] Comment on above: Chest pain, unspecif ied type (Primary Dx); Vitamin D deficiency; Hypertension, essential; Well adult exam; History of COVID-19; Lipoma of left lower extremity; TUSHAR (generalized anxiety disorder) Start: 06-08-2022 End: 06-08-2022 Patient encounter status Tatiana Almeida JORGE.GENERATOR ASSEMBLER Work Phone: [facility] [place] Start: 06-02-2022 Refill Tatiana Almeida JORGE.GENERATOR ASSEMBLER Work Phone: [facility] [place] Comment on above: Refill Request Start: 02-07-2022 Refill Fredo Laura son DO Work Phone: [facility] [place] Comment on above: Refill Request Start: 01-05-2022 End: 01-05-2022 Patient encounter procedure Fredo Larose DO Work Phone: [facility] [place] Comment on above: Well adult exam ([facility] Dx); Perimenopausal disorder; Vitamin D deficiency; Morbid obesity with BMI of 45.0-49.9, adult (HCC); Dermatofibroma of lower extremity, unspecified laterality; Irritable bowel syndrome with alternating bowel habits Start: 01-05-2022 End: 01-05-2022 Patient encounter status Fredo Larose DO Work Phone: [facility] Medicine [place] Start: 10-05-2021 ambulatory Fredo Laura son DO Work Phone: [facility] [place] Comment on above: Abdominal Pain Start: 09-30-2021 ambulatory Fredo Laura son DO Work Phone: [facility] [place] Comment on above: Constipation Start: 09-27-2021 Refill Fredo Laura son DO Work Phone: [facility] [place] Comment on above: Refill Request Start: 09-08-2021 ambulatory Fredo Laura son DO Work Phone: [facility] [place] Comment on above: left leg bruising fo r several months; left leg pain for several months Start: 09-06-2021 End: 09-06-2021 ambulatory Respiratory Therapist [facility] Work Phone: Pulmonary Medicine Comment on above: Spirometry Start: 09-06-2021 End: 09-06-2021 Patient encounter procedure Respiratory Therapist [facility] Work Phone: [place] [facility] Comment on above: Post-COVID chronic c ough (Primary Dx); Mild intermittent asthma without complication; Morbid obesity (HCC) Start: 08-28-2021 Telephone encounter Joshua shaw APRN.GENERATOR ASSEMBLER Work Phone: [place] [facility] Comment on above: Results Start: 08-27-2021 ambulatory Fredo angeles DO Work Phone: [facility] [place] Comment on above: Cough; chest tightne ss Start: 08-18-2021 ambulatory Fredo angeles DO Work Phone: [facility] [place] Start: 08-05-2021 Telephone encounter Fredo Carter Nat saydaminda DO Work Phone: [facility] [place] Comment on above: Faxed to [facility] Alyson [employer] [facility] Start: 07-09-2021 Refill Fredo angeles DO Work Phone: [facility] [place] Comment on above: Refill Request (See Rx notes) Start: 07-07-2021 End: 07-07-2021 Patient encounter procedure Fredo Larose DO Work Phone: [facility] [place] Comment on above: Acute pain of left k nee (Primary Dx); Suprapatellar bursitis of left knee; SOB (shortness of breath) on exertion; History of COVID-19 Start: 06-08-2021 Refill Fredo angeles DO Work Phone: [facility] [place] Comment on above: Refill Request Start: 05-19-2021 End: 05-19-2021 Patient encounter procedure Fredo Larose DO Work Phone: [facility] [place] Comment on above: Persistent cough (Pr imary Dx); SOB (shortness of breath) on exertion; History of COVID-19; Moderate persistent asthma with (acute) exacerbation Start: 05-08-2021 End: 05-08-2021 Emergency department patient visit DR SAMPSON PEDRO MD [facility] Start: 04-07-2021 End: 04-07-2021 Emergency department patient visit LUH COATES MD [facility] Start: 03-13-2019 Encounter for christin l adult medical examination without abnormal findings FREDO Raul LAROSE [facility] Start: 03-13-2019 Patient encounter status Stephen anderson Thuan DO Work Phone: [facility] Work Phone: Procedures Date Procedure Procedure Detail Performing Clinician Start: 09-13-2023 STREP A MOLECULAR (POC) Joshua Araujo APRN.GENERATOR ASSEMBLER Work Phone: Start: 03-25-2023 Lipid 1996 panel - S bret or Plasma Adair Gu MD Work Phone: Start: 09-15-2022 Radiologic exam knee complete 4/more views Shankar DANIELLE Work Phone: Start: 09-06-2021 Nitric oxide gas determination Torie Reyna MD Work Phone: Start: 09-06-2021 Brncdilat rspse spmt ry pre&post-brncdilat admn Torie Reyna MD Work Phone: Start: 05-16-2020 Lipid 1996 panel - S bret or Plasma Ferdo Larose DO Work Phone: Start: 12-10-2008 Mammography Fredo torres DO Work Phone: Appendectomy DR SAMPSON PEDRO MD Cholecystectomy DR SAMPSON MUNROE MD Plan of Treatment Date Care Activity Detail Author Start: 03-25-2028 Lipid panel Lipid Screening [facility] Start: 10-20-2026 Diabetes Screening Diabetes Screenin g [facility] Start: 01-27-2026 HPV TESTING HPV TESTING [facility] Start: 01-27-2026 PAP TESTING PAP TESTING [facility] Start: 01-27-2026 Screening for malign ant neoplasm of cervix [facility] Start: 05-16-2025 Lipid 1996 panel - S bret or Plasma Lipid Screening [facility] Start: 05-16-2025 LIPID SCREEN LIPID SCREEN [facility] Start: 04-24-2024 End: 04-24-2024 Patient encounter procedure 04/24/2024 4:40 PM EST Office Visit [facility] [place] [address] [facility], [place] [address] Fredo Larose DO [address] [facility] [place], [place] [id number] Physical [facility] Medicine [place] Comment on above: Physical Start: 04-19-2024 Annual PCP Team Beauty Culture Teacher anuel Disease Visit Annual PCP Team Chronic Disease Visit [facility] Start: 04-19-2024 BP Controlled (<130/80) BP Controlle d (<130/80) [facility] Start: 02-29-2024 Screening for malign ant neoplasm of breast Mammogram Screening [facility] Start: 12-15-2023 End: 03-15-2024 25-hydroxyvitamin D3 [Mass/volume] in Serum or Plasma VITAMIN D 25 HYDROXY Lab Routine Well adult exam Expected: 12/15/2023, Expires: 03/15/2024 [facility] Work Phone: Comment on above: Expected: 12/15/2023 , Expires: 03/15/2024 Start: 12-15-2023 End: 03-15-2024 CBC panel - Blood by Automated count COMPLETE BLOOD COUNT Lab Routine Well adult exam Expected: 12/15/2023, Expires: 03/15/2024 [facility] Comment on above: Expected: 12/15/2023 , Expires: 03/15/2024 Start: 12-15-2023 End: 03-15-2024 Comprehensive metabolic 2000 panel - Serum or Plasma COMPREHENSIVE METABOLIC PANEL Lab Routine Well adult exam Expected: 12/15/2023, Expires: 03/15/2024 [facility] Comment on above: Expected: 12/15/2023 , Expires: 03/15/2024 Start: 12-15-2023 End: 03-15-2024 Hemoglobin A1c in Blood HEMOGLOBIN A1C Lab Routine Well adult exam Expected: 12/15/2023, Expires: 03/15/2024 [facility] Comment on above: Expected: 12/15/2023 , Expires: 03/15/2024 Start: 12-15-2023 End: 03-15-2024 Lipid 1996 panel - Serum or Plasma LIPID PANEL BASIC Lab Routine Well adult exam Expected: 12/15/2023, Expires: 03/15/2024 [facility] Comment on above: Expected: 12/15/2023 , Expires: 03/15/2024 Start: 12-15-2023 End: 03-15-2024 Thyrotropin [Units/volume] in Serum or Plasma THYROID STIMULATING HORMONE Lab Routine Well adult exam Expected: 12/15/2023, Expires: 03/15/2024 [facility] Comment on above: Expected: 12/15/2023 , Expires: 03/15/2024 Start: 12-15-2023 End: 03-15-2024 Thyroxine (T4) free [Mass/volume] in Serum or Plasma T4 FREE/FREE THYROXINE Lab Routine Well adult exam Expected: 12/15/2023, Expires: 03/15/2024 [facility] Comment on above: Expected: 12/15/2023 , Expires: 03/15/2024 Start: 10-22-2023 Covid-19 Vaccine ( season) Covid-19 Vaccine () [facility] Start: 10-22-2023 Covid-19 Vaccine ( season) Covid-19 Vaccine ( season) [facility] Start: 10-22-2023 Influenza vaccination [facility] Start: 10-21-2023 BP CONTROLLED (<130/80) BP CONTROLLE D (<130/80) [facility] Start: 10-21-2023 End: 10-21-2023 ambulatory 10/21/2023 11:00 AM EDT Results Only [place] [facility] [address] [facility] [place] [address] [place] [facility] Start: 10-16-2023 End: 01-15-2024 Basic metabolic 2000 panel - Serum or Plasma BASIC METABOLIC PANEL Lab Routine Hypertension, essential Expected: 10/16/2023, Expires: 01/15/2024 [facility] Work Phone: Comment on above: Expected: 10/16/2023 , Expires: 01/15/2024 Start: 10-07-2023 End: 10-07-2023 ambulatory 10/07/2023 8:45 AM EDT Results Only [facility] [address] [facility] [place] [address] [facility] Start: 10-04-2023 End: 10-04-2023 Patient encounter procedure 10/04/2023 6:20 PM EDT Office Visit [facility] [place] [address] [place] [address] Tatiana Almeida APRN.GENERATOR ASSEMBLER [address] [facility] [place] [address] follow up possibly Lyme disease-? need for repeat labs [facility] [place] Comment on above: follow up possibly L yme disease-? need for repeat labs Start: 10-02-2023 End: 01-01-2024 Borrelia burgdorferi IgG and IgM panel - Serum LYME AB EARLY <=30 DAY SYMPTOMS Lab Routine Lyme disease Expected: 10/02/2023, Expires: 01/01/2024 [facility] Work Phone: Comment on above: Expected: 10/02/2023 , Expires: 01/01/2024 Start: 09-29-2023 ANNUAL PCP TEAM FARM OR RANCH ANIMAL CARETAKER ANUEL DISEASE VISIT ANNUAL PCP TEAM CHRONIC DISEASE VISIT [facility] Start: 09-29-2023 BP CONTROLLED (<130/80) BP CONTROLLE D (<130/80) [facility] Start: 09-20-2023 End: 09-20-2023 Patient encounter procedure 09/20/2023 6:20 PM EDT Office Visit [facility] [place] [address] [place] [address] Tatiana Almeida APRN.GENERATOR ASSEMBLER [address] [facility] [place] [place] [address] follow up [facility] [place] Comment on above: follow up Start: 09-16-2023 BP CONTROLLED (<130/80) BP CONTROLLE D (<130/80) [facility] Start: 09-13-2023 End: 12-13-2023 Borrelia burgdorferi IgG and IgM panel - Serum LYME AB EARLY <=30 DAY SYMPTOMS Lab Routine Fatigue, unspecified type Expected: 09/13/2023, Expires: 12/13/2023 [facility] Comment on above: Expected: 09/13/2023 , Expires: 12/13/2023 Start: 09-13-2023 End: 12-13-2023 Heterophile Ab [Presence] in Serum by Latex agglutination MONOTEST, INFECTIOUS MONO Lab Routine Fatigue, unspecified type Expected: 09/13/2023, Expires: 12/13/2023 [facility] Work Phone: Comment on above: Expected: 09/13/2023 , Expires: 12/13/2023 Start: 08-20-2023 Influenza vaccination Influenza Vacc ine (#1) [facility] Comment on above: Postponed from 10/21 (Declined at this time) Start: 07-10-2023 BP CONTROLLED (<130/80) BP CONTROLLE D (<130/80) [facility] Start: 06-09-2023 ANNUAL PCP TEAM FARM OR RANCH ANIMAL CARETAKER ANUEL DISEASE VISIT ANNUAL PCP TEAM CHRONIC DISEASE VISIT [facility] Start: 06-09-2023 COVID-19 VACCINE (#1) COVID-19 VACCI NE (#1) [facility] Comment on above: Postponed from 11/24 (Declined at this time) Start: 06-09-2023 HEPATITIS B (1 of 3 - 3-dose series) HEPATITIS B (1 of 3 - 3-dose series) [facility] Comment on above: Postponed from 05/25 (Declined at this time) Start: 06-09-2023 Hepatitis B Vaccine (1 of 3 - 3-dose series) Hepatitis B Vaccine (1 of 3 - 3-dose series) [facility] Comment on above: Postponed from 05/25 (Declined at this time) Start: 06-09-2023 PNEUMOCOCCAL (1 - PCV) PNEUMOCOCCAL (1 - PCV) [facility] Comment on above: Postponed from 05/25 (Declined at this time) Start: 06-09-2023 Pneumococcal vaccination [facility] Comment on above: Postponed from 05/25 (Declined at this time) Start: 06-09-2023 SHINGRIX VACCINE (1 of 2) SHINGRIX VACCINE (1 of 2) [facility] Comment on above: Postponed from 05/25 (Declined at this time) Start: 06-09-2023 Urine microalbumin profile [facility] Comment on above: Postponed from 07/18 (Declined at this time) Start: 05-17-2023 DIABETES SCREEN DIABETES SCREEN [facility] Start: 05-17-2023 Diabetes Screening Diabetes Screenin g [facility] Start: 01-05-2023 ANNUAL PCP TEAM FARM OR RANCH ANIMAL CARETAKER ANUEL DISEASE VISIT ANNUAL PCP TEAM CHRONIC DISEASE VISIT [facility] Start: 12-05-2022 End: 02-04-2023 CBC panel - Blood by Automated count CBC Lab Routine Well adult exam Expected: 12/05/2022, Expires: 02/04/2023 [facility] Work Phone: Comment on above: Expected: 12/05/2022 , Expires: 02/04/2023 Start: 12-05-2022 End: 02-04-2023 Comprehensive metabolic 2000 panel - Serum or Plasma COMP METABOLIC PANEL Lab Routine Well adult exam Expected: 12/05/2022, Expires: 02/04/2023 [facility] Work Phone: Comment on above: Expected: 12/05/2022 , Expires: 02/04/2023 Start: 12-05-2022 End: 02-04-2023 Hemoglobin A1c in Blood HGB A1C Lab Routine Well adult exam Expected: 12/05/2022, Expires: 02/04/2023 [facility] Work Phone: Comment on above: Expected: 12/05/2022 , Expires: 02/04/2023 Start: 12-05-2022 End: 02-04-2023 Lipid 1996 panel - Serum or Plasma LIPID PANEL BASIC Lab Routine Well adult exam Expected: 12/05/2022, Expires: 02/04/2023 [facility] Work Phone: Comment on above: Expected: 12/05/2022 , Expires: 02/04/2023 Start: 12-05-2022 End: 02-04-2023 Thyrotropin [Units/volume] in Serum or Plasma TSH BLD Lab Routine Well adult exam Expected: 12/05/2022, Expires: 02/04/2023 [facility] Work Phone: Comment on above: Expected: 12/05/2022 , Expires: 02/04/2023 Start: 10-21-2022 Covid-19 Vaccine () Covid-19 Vaccine () [facility] Start: 10-21-2022 Influenza vaccination [facility] Start: 08-19-2022 Influenza vaccination INFLUENZA (#1) [facility] Comment on above: Postponed from 10/21 (Declined at this time) Start: 07-07-2022 ANNUAL PCP TEAM FARM OR RANCH ANIMAL CARETAKER ANUEL DISEASE VISIT ANNUAL PCP TEAM CHRONIC DISEASE VISIT [facility] Start: 06-08-2022 End: 08-08-2022 25-hydroxyvitamin D3 [Mass/volume] in Serum or Plasma VITAMIN D 25 HYDROXY Lab Routine Vitamin D deficiency Expected: 06/08/2022, Expires: 08/08/2022 [facility] Work Phone: Comment on above: Expected: 06/08/2022 , Expires: 08/08/2022 Start: 06-08-2022 End: 08-08-2022 CBC panel - Blood by Automated count CBC Lab Routine Well adult exam Expected: 06/08/2022, Expires: 08/08/2022 [facility] Work Phone: Comment on above: Expected: 06/08/2022 , Expires: 08/08/2022 Start: 06-08-2022 End: 08-08-2022 Cobalamin (Vitamin B12) [Mass/volume] in Serum or Plasma VITAMIN B12 BLOOD Lab Routine Well adult exam Expected: 06/08/2022, Expires: 08/08/2022 [facility] Work Phone: Comment on above: Expected: 06/08/2022 , Expires: 08/08/2022 Start: 06-08-2022 End: 08-08-2022 Comprehensive metabolic 2000 panel - Serum or Plasma COMP METABOLIC PANEL Lab Routine Well adult exam Expected: 06/08/2022, Expires: 08/08/2022 [facility] Work Phone: Comment on above: Expected: 06/08/2022 , Expires: 08/08/2022 Start: 06-08-2022 End: 08-08-2022 Hemoglobin A1c in Blood HGB A1C Lab Routine Well adult exam Expected: 06/08/2022, Expires: 08/08/2022 [facility] Work Phone: Comment on above: Expected: 06/08/2022 , Expires: 08/08/2022 Start: 06-08-2022 End: 08-08-2022 Lipid 1996 panel - Serum or Plasma LIPID PANEL BASIC Lab Routine Well adult exam Expected: 06/08/2022, Expires: 08/08/2022 [facility] Work Phone: Comment on above: Expected: 06/08/2022 , Expires: 08/08/2022 Start: 06-08-2022 End: 08-08-2022 Thyrotropin [Units/volume] in Serum or Plasma TSH BLD Lab Routine Well adult exam Expected: 06/08/2022, Expires: 08/08/2022 [facility] Work Phone: Comment on above: Expected: 06/08/2022 , Expires: 08/08/2022 Start: 2022 SHINGRIX VACCINE (1 of 2) SHINGRIX VACCINE (1 of 2) [facility] Start: 05-19-2022 ANNUAL PCP TEAM FARM OR RANCH ANIMAL CARETAKER ANUEL DISEASE VISIT ANNUAL PCP TEAM CHRONIC DISEASE VISIT [facility] Start: 05-19-2022 COVID-19 VACCINE (#1) COVID-19 VACCI NE (#1) [facility] Comment on above: Postponed from 05/25 (Declined at this time) Postponed from 11/24 (Declined at this time) Start: 05-19-2022 COVID-19 VACCINE (1) COVID-19 VACCIN E (1) [facility] Comment on above: Postponed from 05/25 (Declined at this time) Start: 01-05-2022 End: 03-07-2022 25-hydroxyvitamin D3 [Mass/volume] in Serum or Plasma VITAMIN D 25 HYDROXY Lab Routine Well adult exam Expected: 01/05/2022, Expires: 03/07/2022 [facility] Work Phone: Comment on above: Expected: 01/05/2022 , Expires: 03/07/2022 Start: 01-05-2022 End: 03-07-2022 CBC W Auto Differential panel - Blood CBC + DIFF Lab Routine Well adult exam Expected: 01/05/2022, Expires: 03/07/2022 [facility] Work Phone: Comment on above: Expected: 01/05/2022 , Expires: 03/07/2022 Start: 01-05-2022 End: 03-07-2022 Cobalamin (Vitamin B12) [Mass/volume] in Serum or Plasma VITAMIN B12 BLOOD Lab Routine Well adult exam Expected: 01/05/2022, Expires: 03/07/2022 [facility] Work Phone: Comment on above: Expected: 01/05/2022 , Expires: 03/07/2022 Start: 01-05-2022 End: 03-07-2022 Comprehensive metabolic 2000 panel - Serum or Plasma COMP METABOLIC PANEL Lab Routine Well adult exam Expected: 01/05/2022, Expires: 03/07/2022 [facility] Work Phone: Comment on above: Expected: 01/05/2022 , Expires: 03/07/2022 Start: 01-05-2022 End: 03-07-2022 Hemoglobin A1c in Blood HGB A1C Lab Routine Well adult exam Expected: 01/05/2022, Expires: 03/07/2022 [facility] Work Phone: Comment on above: Expected: 01/05/2022 , Expires: 03/07/2022 Start: 01-05-2022 End: 03-07-2022 Lipid 1996 panel - Serum or Plasma LIPID PANEL BASIC Lab Routine Well adult exam Expected: 01/05/2022, Expires: 03/07/2022 [facility] Work Phone: Comment on above: Expected: 01/05/2022 , Expires: 03/07/2022 Start: 01-05-2022 End: 03-07-2022 Thyrotropin [Units/volume] in Serum or Plasma TSH BLD Lab Routine Well adult exam Expected: 01/05/2022, Expires: 03/07/2022 [facility] Work Phone: Comment on above: Expected: 01/05/2022 , Expires: 03/07/2022 Start: 10-21-2021 Influenza vaccination [facility] Start: 08-19-2021 Influenza vaccination INFLUENZA (#1) [facility] Comment on above: Postponed from 10/21 (Declined at this time) Start: 07-18-2021 Urine microalbumin profile [facility] Start: 2017 COLOGUARD (FIT-DNA) COLOGUARD (FIT-D NA) [facility] Start: 2017 Colonoscopy COLONOSCOPY [facility] Start: 2017 COLORECTAL CANCER SCREENING COLORECTAL CANCER SCREENING [facility] Start: [address] COLONOGRAPHY [facility] Start: 2017 FECAL OCCULT BLOOD FECAL OCCULT BLOO D [facility] Start: 2017 Screening for malign ant neoplasm of colon [facility] Start: 2017 SIGMOIDOSCOPY SIGMOIDOSCOPY [facility] Start: 2012 Mammography [facility] Start: 05-26-1991 Hepatitis B Vaccine (1 of 3 - 19+ 3-dose series) Hepatitis B Vaccine (1 of 3 - 19+ 3-dose series) [facility] Start: 1990 BP CONTROLLED (<130/80) BP CONTROLLE D (<130/80) [facility] Start: 1990 HEPATITIS C SCREENING HEPATITIS C [facility] Start: 1990 Hepatitis C screening Hepatitis C [facility] Start: 1990 HIV SCREENING HIV SCREENING [facility] Start: 1990 HIV screening HIV Screening [facility] Start: 1990 SPIROMETRY SPIROMETRY [facility] Start: 1978 PNEUMOCOCCAL (1 - PCV) PNEUMOCOCCAL (1 - PCV) [facility] Start: 1972 COVID-19 VACCINE (#1) COVID-19 VACCI NE (#1) [facility] Start: 1972 HEPATITIS B (1 of 3 - 3-dose series) HEPATITIS B (1 of 3 - 3-dose series) [facility] Bacteria identified in Wound by Culture ABSCESS AND WOUND CULTURE WITH GRAM STAIN Microbiology Routine Boil of trunk 12/03/2022 3:26 PM EDT [facility] Work Phone: ECG B/O W INTERP (ME D OFFICE) ECG B/O W INTERP (MED OFFICE) ECG Routine Chest pain, unspecified type Ordered: 06/08/2022 [facility] Work Phone: Comment on above: Ordered: 06/08/2022 OUTSIDE VENDOR CARDI AC OUTPATIENT EVENT RECORDER OUTSIDE VENDOR CARDIAC OUTPATIENT EVENT RECORDER Holter Routine Chest pain, unspecified type Ordered: 06/08/2022 [facility] Work Phone: Comment on above: Ordered: 06/08/2022 End: 09-17-2022 Screening mammography bi 2-view breast inc cad TEVIN SCREENING Radiology Routine Encounter for screening mammogram for breast cancer 1 Occurrences starting 08/18/2021 until 09/17/2022 [facility] Work Phone: Comment on above: 1 Occurrences starti ng 08/18/2021 until 09/17/2022 End: 05-18-2024 US Abdomen RUQ US ABD RIGHT UPPER QUADRANT Radiology Routine Elevated LFTs 1 Occurrences starting 04/19/2023 until 05/18/2024 [facility] Work Phone: Comment on above: 1 Occurrences starti ng 04/19/2023 until 05/18/2024 [facility] Immunizations Immunization Date Immunization Notes Care Provider Tommie etienne 11-22-2017 influenza virus vaccine, unspecified formulation Fredo Larose DO Work Phone: [facility] 07-19-2011 tetanus toxoid, redu delmy diphtheria toxoid, and acellular pertussis vaccine, adsorbed Fredo Larose DO Work Phone: [facility] Work Phone: 12-16-2010 influenza virus vaccine, unspecified formulation Fredo Larose DO Work Phone: [facility] 12-25-2009 influenza virus vaccine, unspecified formulation Fredo Sheffieldrison DO Work Phone: [facility] 12-31-2007 influenza virus vaccine, unspecified formulation Fredo Sheffieldrison DO Work Phone: [facility] Work Phone: 10-10-1998 measles, mumps and rubella virus vaccine Fredo Larose DO Work Phone: [facility] 10-10-1998 tetanus and diphther ia toxoids, adsorbed, preservative free, for adult use (2 Lf of tetanus toxoid and 2 Lf of diphtheria toxoid) Fredo Larose DO Work Phone: [facility] Payers Date Payer Category Payer Unknown [facility] [id number] 2023-Present [phone] [address] [place] [address] PPO [id number] 2023 Unknown [id number] 2016 Medicaid [employer] [employer] [id number] 2016-Present [phone] [address] [place] [address] Medicaid [id number] 2016 Medicaid [id number] Social History Date Type Detail Facility Start: 04-07-2021 End: 12-16-2023 Ex-smoker (finding) [facility] Sex Assigned At Female [facility] Start: 07-22-1998 End: 07-22-2006 History of tobacco use Current smoker [facility] Start: 07-22-1998 End: 07-22-2006 History of tobacco use Cigarette Smoker [facility] Start: 05-19-2021 End: 12-16-2023 Alcohol intake Current non-drinker of alcohol (finding) [facility] Start: 1970 Sex Assigned At Not on file [facility] Start: 05-09-2021 End: 01-05-2022 Exposure to SARS-CoV-2 (event) Not sure [facility] Work Phone: Start: 12-16-2010 End: 09-28-2022 Cigarettes smoked current (pack per day) - Reported 1 [facility] Start: 12-16-2010 End: 12-16-2023 Tobacco use and exposure Smokeless tobacco non-user [facility] Start: 01-05-2022 Tobacco Comment SMOKED SINCE [age] YEARS OLD [facility] Start: 07-09-2022 End: 09-28-2022 Tobacco use panel [facility] Adult Depression Screening Assessment 0 [facility] NEGATED: Highlighted rowStart: [place] History of tobacco use Passive smoker [facility] Clinical Notes 07-05-2006 to 12-16-2023 Patient InstructionsShankar Jose PA - 12/16/2023 8:52 AM EDTTelephone Encounter - Rhonda Samson RN - 12/15/2023 9:08 AM EDTTelephone Encounter - Corinne Spence LPN - 11/04/2023 8:49 AM EDT Note Date & Type Note Facility 12-16-2023 Instructions Shankar Jose PA - 12/16/2023 8:56 AM EDT Muscle relaxers prescribed. Do not drive while taking this medication as it may cause drowsiness. Prednisone as prescribed. You may continue lidocaine patches, ice, heat as needed for pain. If pain worsens in any way, you need to be seen in emergency room. If you get any redness, warmth, red streaking, fevers, need to be seen in ER. If you develop any calf swelling, tenderness or redness, need to be seen in ER. Follow-up with PCP on Monday. documented in this encounter [facility] 12-16-2023 Note HNO ID: [id number] Author: SHANKAR JOSE PA Service: ? Author Type: Physician Special Education Itinerant Teacher Type: Progress Notes Filed: 12/16/2023 09:17 Note Text: This note was created using Freebee. Subjective Maty Fairbanks is a 53 year old female. HPI 53-year-old female with PMH of myositis, fibromyalgia, dermatofibromas presents for left leg pain. Patient states that she has lumps on arms, legs, low back that are chronic. Per chart review, it appears she has been diagnosed with dermatofibroma's. She states that occasionally they flareup and give her pain. She states that 1 on the back of her left leg started giving her pain a few days ago. She states that it feels like it is causing the muscle to spasm and is shooting pain down the left leg. She denies any leg swelling, redness, warmth. No fevers. No history of DVT. No recent travel recent hospitalization. No chest pain or shortness of breath. She states that this feels typical of a flareup of her fibromas. She states usually 1 in her left lower back causes a lot of pain. Typically she is able to use lidocaine patches, and take diclofenac which helps. Patient has tried this along with heating pad, but it has not helped that much. She also took an old muscle relaxer that did not help. No other complaint today. PAST MEDICAL HISTORY Diagnosis Date Abdominal pain, epigastric Acute gastritis without mention of hemorrhage Asthma Attention deficit disorder without mention of hyperactivity Calculus of gallbladder without mention of cholecystitis or obstruction Chest pain, unspecified Dysthymic disorder history of depression Esophageal spasm Gastric ulcer, unspecified as acute or chronic, without mention of hemorrhage, perforation, or obstruction with hemorrhage Generalized anxiety disorder History of tobacco use Morbid obesity (HCC) JAMES (obstructive sleep apnea) PAST SURGICAL HISTORY Procedure Laterality Date APPENDECTOMY COLONOSCOPY FLX DX W/COLLJ SPEC WHEN PFRMD 12/15/2008 irritation at the anal verge COLONOSCOPY FLX DX W/COLLJ SPEC WHEN PFRMD 07/10/15 normal colonoscopy EGD TRANSORAL BIOPSY SINGLE/MULTIPLE Gastritis, healing ulcer EGD TRANSORAL BIOPSY SINGLE/MULTIPLE 07/10/15 minimal gastritis LAPAROSCOPY SURG CHOLECYSTECTOMY 08/21/07 LIG/TRNSXJ FLP TUBE ABDL/VAG APPR UNI/BI ALLERGIES Anticholinergics - Other and Dicyclomine MEDICATIONS lisinopril (ZESTRIL) 5 mg tablet Take 1 tablet by mouth once daily. For blood pressure cetirizine (ZYRTEC) 10 mg tablet Take 1 tablet by mouth once daily. gabapentin (NEURONTIN) 100 mg capsule Take 1-2 capsules by mouth three times a day as needed (joint pain) for up to 30 days. montelukast (SINGULAIR) 10 mg tablet Take 1 tablet by mouth daily at bedtime. diclofenac, EC, (VOLTAREN) 75 mg EC tablet Take 1 tablet by mouth two times a day as needed (joint pain). As needed For pain/inflammation. Take with food. ibuprofen (MOTRIN) 800 mg tablet Take 1 tablet by mouth every 8 hours as needed for pain. Take with food. (Patient not taking: Reported on 09/13/2023) ibuprofen (MOTRIN) 800 mg tablet Take 1 tablet by mouth every 8 hours as needed for pain. Take with food. (Patient not taking: Reported on 09/13/2023) Cholecalciferol, Vitamin D3, 50 mcg (2,000 unit) cap Take 1 capsule by mouth once daily. Leg Brace (ELASTIC KNEE SUPPORT) misc 1 Device as directed. Dx: left knee pain, left suprapatellar bursitis (Patient not taking: Reported on 09/13/2023) ipratropium-albuterol (DUONEB) 0.5 mg-3 mg(2.5 mg base)/3 mL nebu Inhale 3 mL as instructed every 6 hours as needed for wheezing/shortness of breath. cough Nebulizer Accessories kit 1 Each four times daily. (Patient not taking: Reported on 09/13/2023) albuterol HFA (PROVENTIL HFA, VENTOLIN HFA) 90 mcg/actuation inhaler Inhale 2 Puffs as instructed every 4 hours as needed for wheezing/shortness of breath. meclizine (ANTIVERT) 12.5 mg tab 1 to 2 tablets three times a day as needed. Blood Pressure Test Kit-Large 1 Each as needed (blood pressure). Dx: Essential hypertension Magnesium 250 mg tab Take 1 tablet by mouth once daily. FAMILY HISTORY Adopted: Yes Problem Relation Age of Onset other (unknown) Other adopted Social History Tobacco Use Smoking status: Former Current packs/day: 0.00 Average packs/day: 1 pack/day for 8.0 years (8.0 ttl pk-yrs) Types: Cigarettes Start date: 07/22/1998 Quit date: 07/22/2006 Years since quittin.4 Passive exposure: Never Smokeless tobacco: Never Tobacco comments: SMOKED SINCE 18 YEARS OLD Vaping Use Vaping status: Never Used Substance Use Topics Alcohol use: No Drug use: No Review of Systems Constitutional: Negative for chills and fever. HENT: Negative for congestion, ear pain and sore throat. Respiratory: Negative for cough and shortness of breath. Cardiovascular: Negative for chest pain. Gastrointestinal: Negative for diarrhea and vomiting. [facility] [place] (more content not included)... [facility] 12-16-2023 History of Present illness Narrative Images from the original note were not included. This note was created using Freebee. Subjective Maty Fairbanks is a 53 year old female. HPI 53-year-old female with PMH of myositis, fibromyalgia, dermatofibromas presents for left leg pain. Patient states that she has lumps on arms, legs, low back that are chronic. Per chart review, it appears she has been diagnosed with dermatofibroma's. She states that occasionally they flareup and give her pain. She states that 1 on the back of her left leg started giving her pain a few days ago. She states that it feels like it is causing the muscle to spasm and is shooting pain down the left leg. She denies any leg swelling, redness, warmth. No fevers. No history of DVT. No recent travel recent hospitalization. No chest pain or shortness of breath. She states that this feels typical of a flareup of her fibromas. She states usually 1 in her left lower back causes a lot of pain. Typically she is able to use lidocaine patches, and take diclofenac which helps. Patient has tried this along with heating pad, but it has not helped that much. She also took an old muscle relaxer that did not help. No other complaint today. PAST MEDICAL HISTORY Diagnosis Date Abdominal pain, epigastric Acute gastritis without mention of hemorrhage Asthma Attention deficit disorder without mention of hyperactivity Calculus of gallbladder without mention of cholecystitis or obstruction Chest pain, unspecified Dysthymic disorder history of depression Esophageal spasm Gastric ulcer, unspecified as acute or chronic, without mention of hemorrhage, perforation, or obstruction with hemorrhage Generalized anxiety disorder History of tobacco use Morbid obesity (HCC) JAMES (obstructive sleep apnea) PAST SURGICAL HISTORY Procedure Laterality Date APPENDECTOMY COLONOSCOPY FLX DX W/COLLJ SPEC WHEN PFRMD 12/15/2008 irritation at the anal verge COLONOSCOPY FLX DX W/COLLJ SPEC WHEN PFRMD 07/10/15 normal colonoscopy EGD TRANSORAL BIOPSY SINGLE/MULTIPLE Gastritis, healing ulcer EGD TRANSORAL BIOPSY SINGLE/MULTIPLE 07/10/15 minimal gastritis LAPAROSCOPY SURG CHOLECYSTECTOMY 08/21/07 LIG/TRNSXJ FLP TUBE ABDL/VAG APPR UNI/BI ALLERGIES Anticholinergics - Other and Dicyclomine MEDICATIONS lisinopril (ZESTRIL) 5 mg tablet Take 1 tablet by mouth once daily. For blood pressure cetirizine (ZYRTEC) 10 mg tablet Take 1 tablet by mouth once daily. gabapentin (NEURONTIN) 100 mg capsule Take 1-2 capsules by mouth three times a day as needed (joint pain) for up to 30 days. montelukast (SINGULAIR) 10 mg tablet Take 1 tablet by mouth daily at bedtime. diclofenac, EC, (VOLTAREN) 75 mg EC tablet Take 1 tablet by mouth two times a day as needed (joint pain). As needed For pain/inflammation. Take with food. ibuprofen (MOTRIN) 800 mg tablet Take 1 tablet by mouth every 8 hours as needed for pain. Take with food. (Patient not taking: Reported on 09/13/2023) ibuprofen (MOTRIN) 800 mg tablet Take 1 tablet by mouth every 8 hours as needed for pain. Take with food. (Patient not taking: Reported on 09/13/2023) Cholecalciferol, Vitamin D3, 50 mcg (2,000 unit) cap Take 1 capsule by mouth once daily. Leg Brace (ELASTIC KNEE SUPPORT) misc 1 Device as directed. Dx: left knee pain, left suprapatellar bursitis (Patient not taking: Reported on 09/13/2023) ipratropium-albuterol (DUONEB) 0.5 mg-3 mg(2.5 mg base)/3 mL nebu Inhale 3 mL as instructed every 6 hours as needed for wheezing/shortness of breath. cough Nebulizer Accessories kit 1 Each four times daily. (Patient not taking: Reported on 09/13/2023) albuterol HFA (PROVENTIL HFA, VENTOLIN HFA) 90 mcg/actuation inhaler Inhale 2 Puffs as instructed every 4 hours as needed for wheezing/shortness of breath. meclizine (ANTIVERT) 12.5 mg tab 1 to 2 tablets three times a day as needed. Blood Pressure Test Kit-Large 1 Each as needed (blood pressure). Dx: Essential hypertension Magnesium 250 mg tab Take 1 tablet by mouth once daily. FAMILY HISTORY Adopted: Yes Problem Relation Age of Onset other (unknown) Other adopted Social History Tobacco Use Smoking status: Former Current packs/day: 0.00 Average packs/day: 1 pack/day for 8.0 years (8.0 ttl pk-yrs) Types: Cigarettes Start date: 07/22/1998 Quit date: 07/22/2006 Years since quittin.4 Passive exposure: Never Smokeless tobacco: Never Tobacco comments: SMOKED SINCE 18 YEARS OLD Vaping Use Vaping status: Never Used Substance Use Topics Alcohol use: No Drug use: No Review of Systems Constitutional: Negative for chills and fever. HENT: Negative for congestion, ear pain and sore throat. Respiratory: Negative for cough and shortness of breath. Cardiovascular: Negative for chest pain. Gastrointestinal: Negative for diarrhea and vomiting. Musculoskeletal: Positive for myalgias. Objective LMP 02/13/2023 (Approximate) Physical Exam Vitals and nursing note reviewed. Constitutional: General: She is not in acute distress. Appearance: Normal appearance. She is not toxic-appearing. HENT: Nose: Nose normal. Mouth/Throat: Mouth: Mucous membranes are moist. Eyes: Conjunctiva/sclera: Conjunctivae normal. Cardiovascular: Rate and Rhythm: Normal rate and regular rhythm. Pulmonary: Effort: Pulmonary effort is normal. Breath sounds: Normal breath sounds. Musculoskeletal: Legs: Comments: Patient has hardened nodules under skin as noted in photo above. She has multiple over her body which are chronic. Tenderness over left upper thigh nodule. No fluctuance or abscess. No redness. No streaking. Negative seated straight leg raise. Normal sensation lower extremities. Normal gait. No calf tenderness or swelling. Skin: General: Skin is warm and dry. Neurological: Mental Status: She is alert. Assessment and Plan ASSESSMENT/PLAN: 1. Left leg pain - ICD9: 729.5, ICD10: M79.605 -History of dermatofibromas, myositis. Patient believes this is a flareup. She does have tenderness over a nodule of the left upper thigh. -Continue lidocaine patches as needed, ice, heat. -Rx prednisone -Rx Robaxin -If any calf swelling, tenderness, redness, go to ER. -Follow-up with PCP in 2 days Diagnosis and treatment plan were discussed and questions were answered to the patient's satisfaction. Pt acknowledged understanding of concepts and follow up plan. Specific signs and symptoms that would indicate the need for higher level of care were discussed in detail warranting prompt ER evaluation. SHASHI Ortega documented in this encounter [facility] 12-15-2023 Telephone encounter Note Pt called and is notified of providers message and instructions. Pt voices understanding. Rhonda Samson RN [facility] 12-15-2023 Miscellaneous Notes Pt called and is notified of providers message and instructions. Pt voices understanding. Rhonda Samson RN Orders placed for labs Please let patient know Fredo Larose DO Pt called and scheduled her physical for 04/25/23. Please put in fasting labs for pt to have done prior to apt. Orders pended, please add or delete if needed. Bryanna Conde LPN documented in this encounter [facility] 12-15-2023 Telephone encounter Note Orders placed for labs Please let patient know Fredo Larose DO [facility] 12-14-2023 Telephone encounter Note Pt called and scheduled her physical for 04/25/23. Please put in fasting labs for pt to have done prior to apt. Orders pended, please add or delete if needed. Bryanna Conde LPN [facility] 11-04-2023 Telephone encounter Note Patient notified of results and provider's instructions. Patient verbalizes understanding. Corinne Spence LPN [facility] 11-04-2023 Miscellaneous Notes Patient notified of results and provider's instructions. Patient verbalizes understanding. Corinne Spence LPN Please let patient know that I don't think she has Lyme disease. Her testing is showing me that she has antibodies to Lyme disease which means she has had the exposure in the past, but with the confirmatory retesting, this is negative. Which essentially tells me she no longer has an infection. If she would like infectious disease opinion that is okay, but I don't think she needs this Fredo Larose DO Phoned patient and went over results, notes from Dr Larose, patient has many questions. If she takes the antibiotic rx does she have to have blood test done again in few weeks? Asking why is the blood test showing negative now after it was positive after she took the rx? Patient is asking PCP opinion if she should just take the rx or if she should see Infectious Disease? She would just like to talk to PCP about this, she can only come in for appt Monday evening after 530 pm. Antonia Felipe LEAD TEACHER schedule no longer has late evening spots to schedule appts. Please advise Please let patient know that her lab again is showing that the western blot confirmatory testing is negative for LYME disease. We have the option to treat with doxycyline rx to make sure or can get an opinion with infectious disease specialist but doesn't appear that she has a current infection rFedo Larose DO Latest Ref Rng 10/21/2023 Lyme IgG Western Blot Negative Negative Lyme IgG, Bands No Bands Seen Lyme IgM Western Blot Negative Negative Lyme IgM, Bands No Bands Seen Interpretation (Lyme Abs/WB) Antibodies against Borrelia burgdorferi were not detected by Western Blot, suggesting a false-positive result in the screening assay. However, patients tested during an extremely early stage of infection (<2weeks) could theoretically have low levels of antibody not yet detectable by WB., If the clinical presentation suggests a very recent infection and clinical suspicion of Lyme Disease is high, a repeat serology in 4-6 weeks may be helpful. Clinical correlation is necessary. See Note from below regarding patient questions. Patient calls and is asking about her lyme disease results: Latest Ref Rng 10/21/2023 Lyme Abs, IgG/IgM Negative Positive ! Patient had tested positive on 09/15 for lyme ab early but negative on the confirmatory lab. Patient testing positive once again for lyme ab early lab. Confirmatory lab is still in process. Patient asking what the next steps are since she tested positive again? Advised patient that we are waiting on confirmatory lab results. Patient asking what happens if that tests negative again? Please review and advise, Loreto Hair RN documented in this encounter [facility] 11-03-2023 Telephone encounter Note Please let patient know that I don't think she has Lyme disease. Her testing is showing me that she has antibodies to Lyme disease which means she has had the exposure in the past, but with the confirmatory retesting, this is negative. Which essentially tells me she no longer has an infection. If she would like infectious disease opinion that is okay, but I don't think she needs this Fredo Larose DO [facility] 11-02-2023 Telephone encounter Note Phoned patient and went over results, notes from Dr Larose, patient has many questions. If she takes the antibiotic rx does she have to have blood test done again in few weeks? Asking why is the blood test showing negative now after it was positive after she took the rx? Patient is asking PCP opinion if she should just take the rx or if she should see Infectious Disease? She would just like to talk to PCP about this, she can only come in for appt Monday evening after 530 pm. Antonia Felipe LEAD TEACHER schedule no longer has late evening spots to schedule appts. Please advise [facility] 11-01-2023 Telephone encounter Note Please let patient know that her lab again is showing that the western blot confirmatory testing is negative for LYME disease. We have the option to treat with doxycyline rx to make sure or can get an opinion with infectious disease specialist but doesn't appear that she has a current infection Fredo Larose DO T [facility] 10-30-2023 Telephone encounter Note Latest Ref Rng 10/21/2023 Lyme IgG Western Blot Negative Negative Lyme IgG, Bands No Bands Seen Lyme IgM Western Blot Negative Negative Lyme IgM, Bands No Bands Seen Interpretation (Lyme Abs/WB) Antibodies against Borrelia burgdorferi were not detected by Western Blot, suggesting a false-positive result in the screening assay. However, patients tested during an extremely early stage of infection (<2weeks) could theoretically have low levels of antibody not yet detectable by WB., If the clinical presentation suggests a very recent infection and clinical suspicion of Lyme Disease is high, a repeat serology in 4-6 weeks may be helpful. Clinical correlation is necessary. See Note from below regarding patient questions. [facility] 10-24-2023 Telephone encounter Note Patient calls and is asking about her lyme disease results: Latest Ref Rng 10/21/2023 Lyme Abs, IgG/IgM Negative Positive ! Patient had tested positive on 09/15 for lyme ab early but negative on the confirmatory lab. Patient testing positive once again for lyme ab early lab. Confirmatory lab is still in process. Patient asking what the next steps are since she tested positive again? Advised patient that we are waiting on confirmatory lab results. Patient asking what happens if that tests negative again? Please review and advise, Loreto Hair RN [facility] 10-16-2023 Telephone encounter Note The patient has been identified by name and date of : Yes Caregiver verified no other encounters exist for this prescription request: Yes Caregiver confirmed with patient/requestor that no other refills are due, in the near future, with this provider at this time: Yes The last office visit in the department: 04/19/2023 Does the patient have a future office visit with this provider/department: No Requested Prescriptions Pending Prescriptions Disp Refills lisinopril (ZESTRIL) 5 mg tablet 90 tablet 3 Sig: Take 1 tablet by mouth once daily. For blood pressure cetirizine (ZYRTEC) 10 mg tablet 90 tablet 1 Sig: Take 1 tablet by mouth once daily. Loreto Hair RN October 16, 2023 8:38 AM [facility] 10-16-2023 Miscellaneous Notes The patient has been identified by name and date of : Yes Caregiver verified no other encounters exist for this prescription request: Yes Caregiver confirmed with patient/requestor that no other refills are due, in the near future, with this provider at this time: Yes The last office visit in the department: 04/19/2023 Does the patient have a future office visit with this provider/department: No Requested Prescriptions Pending Prescriptions Disp Refills lisinopril (ZESTRIL) 5 mg tablet 90 tablet 3 Sig: Take 1 tablet by mouth once daily. For blood pressure cetirizine (ZYRTEC) 10 mg tablet 90 tablet 1 Sig: Take 1 tablet by mouth once daily. Loreto Hair RN October 16, 2023 8:38 AM documented in this encounter [facility] 10-02-2023 Telephone encounter Note Pt. informed. [facility] Work Phone: 10-02-2023 Miscellaneous Notes Pt. informed. Order placed for lab Fredo Larose DO Pt requesting repeat lab orders for Lyme to check if antibiotic worked. Had appt scheduled 10/03 with Tatiana but as she is out now pt wondering if she can just do labs instead of having an appointment. Please review and advise. Velma Turner October 02, 2023 12:07 PM documented in this encounter [facility] 10-02-2023 Telephone encounter Note Order placed for lab Fredo Larose DO [facility] 10-02-2023 Telephone encounter Note Pt requesting repeat lab orders for Lyme to check if antibiotic worked. Had appt scheduled 10/03 with Tatiana but as she is out now pt wondering if she can just do labs instead of having an appointment. Please review and advise. Velma Turner October 02, 2023 12:07 PM [facility] 09-21-2023 Telephone encounter Note Pt returned call and given provider's message below with verbalized understanding. Patient agreeable. [facility] 09-21-2023 Miscellaneous Notes Pt returned call and given provider's message below with verbalized understanding. Patient agreeable. Phoned patient left message to return call and ask to speak to a nurse. I would recommend taking antibiotic with food first and if that does not subside the n/v then OK to discontinue and we will follow-up as scheduled. Thank you, Tatiana Almeida APRN.GENERATOR ASSEMBLER Patient reports she was seen in on 09-13-23 with sore throat, fatigue. Strep and mono tests neg. Reports provider had her do a lyme disease lab- 1st result was positive, 2nd test was negative. Reports she has never been bit by a tick and never had a rash. Provider prescribed doxycycline 100 mg bid for 10 days. Patient is extremely nauseous. Has not vomited. Advised to take with food. Patient states she has not tried this. Reports she has taken 4 doses so far. 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 Reports the plan was to take the doxycycline, follow up with Tatiana on 10-04-23 and Tatiana was to order repeat testing. States she is unable to take this feeling of nausea. Asking if she can just stop the doxycycline, follow up with Tatiana for repeat testing, then if it's positive, can take the antibiotic? Please advise patient. documented in this encounter [facility] 09-21-2023 Telephone encounter Note Phoned patient left message to return call and ask to speak to a nurse. [facility] 09-21-2023 Telephone encounter Note I would recommend taking antibiotic with food first and if that does not subside the n/v then OK to discontinue and we will follow-up as scheduled. Thank you, Tatiana Almeida APRN.GENERATOR ASSEMBLER [facility] 09-21-2023 Telephone encounter Note Patient reports she was seen in on 09-13-23 with sore throat, fatigue. Strep and mono tests neg. Reports provider had her do a lyme disease lab- 1st result was positive, 2nd test was negative. Reports she has never been bit by a tick and never had a rash. Provider prescribed doxycycline 100 mg bid for 10 days. Patient is extremely nauseous. Has not vomited. Advised to take with food. Patient states she has not tried this. Reports she has taken 4 doses so far. 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 Reports the plan was to take the doxycycline, follow up with Tatiana on 10-04-23 and Tatiana was to order repeat testing. States she is unable to take this feeling of nausea. Asking if she can just stop the doxycycline, follow up with Tatiana for repeat testing, then if it's positive, can take the antibiotic? Please advise patient. [facility] 09-20-2023 Miscellaneous Notes See below msg as this must be why pt feels there will be follow up lab work. Pt rescheduled for 2 weeks out on 10/03 as pt needs an evening appt. Explained to pt that would discuss possible repeat labwork at the appt. Pt verbalizes understanding and she will confirm appt through her MyChart as her phone was dying. Shankar Jose PA KA 09/19/23 1:41 PM Note Please contact patient and let her know that her Lyme confirmatory test came back negative. It is possible that the initial screening test was a false positive. It is also possible that she is early in the infection and that is why the confirmatory came back negative. Please advise patient to take the doxycycline as prescribed if she is still symptomatic. She will need close follow-up with her PCP in a few weeks for reevaluation and repeat lab testing. OK to reschedule. I don't see any follow-up labs ordered. Please clarify. Thank you, Tatiana Almeida APRN.MAILE Patient calling, asking if it would be ok to reschedule her appointment for after she completes the antibiotic for lyme disease. States she is supposed to have follow up lab work but she is not sure when that is supposed to be done either. Please advise. documented in this encounter [facility] 09-20-2023 Telephone encounter Note See below msg as this must be why pt feels there will be follow up lab work. Pt rescheduled for 2 weeks out on 10/03 as pt needs an evening appt. Explained to pt that would discuss possible repeat labwork at the appt. Pt verbalizes understanding and she will confirm appt through her MyChart as her phone was dying. Shankar Jose PA KA 09/19/23 1:41 PM Note Please contact patient and let her know that her Lyme confirmatory test came back negative. It is possible that the initial screening test was a false positive. It is also possible that she is early in the infection and that is why the confirmatory came back negative. Please advise patient to take the doxycycline as prescribed if she is still symptomatic. She will need close follow-up with her PCP in a few weeks for reevaluation and repeat lab testing. [facility] 09-20-2023 Telephone encounter Note OK to reschedule. I don't see any follow-up labs ordered. Please clarify. Thank you, Tatiana Almeida APRN.GENERATOR ASSEMBLER [facility] 09-20-2023 Telephone encounter Note Patient calling, asking if it would be ok to reschedule her appointment for after she completes the antibiotic for lyme disease. States she is supposed to have follow up lab work but she is not sure when that is supposed to be done either. Please advise. [facility] 09-19-2023 Telephone encounter Note Pt phoned office, notified of results/provider response. She verbalized understanding. Pt will keep follow up appt with LEAD TEACHER tomorrow. Tio Agrawal LPN [facility] 09-19-2023 Miscellaneous Notes Pt phoned office, notified of results/provider response. She verbalized understanding. Pt will keep follow up appt with LEAD TEACHER tomorrow. Tio Agrawal LPN Please contact patient and let her know that her Lyme confirmatory test came back negative. It is possible that the initial screening test was a false positive. It is also possible that she is early in the infection and that is why the confirmatory came back negative. Please advise patient to take the doxycycline as prescribed if she is still symptomatic. She will need close follow-up with her PCP in a few weeks for reevaluation and repeat lab testing. documented in this encounter [facility] 09-19-2023 Telephone encounter Note Please contact patient and let her know that her Lyme confirmatory test came back negative. It is possible that the initial screening test was a false positive. It is also possible that she is early in the infection and that is why the confirmatory came back negative. Please advise patient to take the doxycycline as prescribed if she is still symptomatic. She will need close follow-up with her PCP in a few weeks for reevaluation and repeat lab testing. [facility] 09-19-2023 Telephone encounter Note Pt states Rx for doxy that was escripted yesterday was not received by [facility]. Verbal was called in to pharmacist Ruddy by myself. Suzanne Young LPN [facility] 09-19-2023 Miscellaneous Notes Pt states Rx for doxy that was escripted yesterday was not received by [facility]. Verbal was called in to pharmacist Ruddy by myself. Suzanne Young LPN documented in this encounter [facility] 09-18-2023 Telephone encounter Note Patient given results and verbalized understanding of instructions given. Sabina Rodriguez MA [facility] 09-18-2023 Miscellaneous Notes Patient given results and verbalized understanding of instructions given. Sabina Rodriguez MA [facility] called in. Patient needs to arrange a follow up appointment with PCP, 2 weeks from now. Please advise patient. documented in this encounter [facility] 09-18-2023 Telephone encounter Note [facility] called in. Patient needs to arrange a follow up appointment with PCP, 2 weeks from now. Please advise patient. [facility] 09-14-2023 Telephone encounter Note Pt called and is notified of providers message and instructions. Pt voices understanding. Rhonda Samson, LIN [facility] 09-14-2023 Miscellaneous Notes Pt called and is notified of providers message and instructions. Pt voices understanding. Rhonda Samson RN I would recommend still getting these test done to rule out possible causes before upcoming appointment. Thank you, Tatiana Almeida APRN.GENERATOR ASSEMBLER Pt called in and reports she was seen in the [facility] on 09/13/23. She reports for a while she has been really fatigued, had a sore throat, and a headache. She states it's not everyday, but more days then not she doesn't feel well. 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 When she went to she felt like her face was flushed, but they told her she didn't have a fever. She states they want her to get a Lyme test and [place] test done and she wanted to know if Tatiana Almeida NP thought she needed to get these done, or if she should just wait until she sees her on 09/20/23. Pt states she doesn't hardly go outside, she does have dogs but they only go out to go to the bathroom and get medicine for fleas and ticks. She states she hasn't seen any ticks on her dogs or herself. Pt also states her granddaughter that lives with her was just tested last week for [place] and was negative, so she doesn't think she has it. I tried to tell her she could still be positive. I let Pt know that getting the testing would help the provider rule out causes of her symptoms. Please call and advise Pt if she should get testing done. She reports she can't come in until Monday to do it any ways. documented in this encounter [facility] 09-14-2023 Telephone encounter Note I would recommend still getting these test done to rule out possible causes before upcoming appointment. Thank you, Tatiana Almeida APRN.GENERATOR ASSEMBLER [facility] 09-14-2023 Telephone encounter Note Pt called in and reports she was seen in the on 09/13/23. She reports for a while she has been really fatigued, had a sore throat, and a headache. She states it's not everyday, but more days then not she doesn't feel well. 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 When she went to she felt like her face was flushed, but they told her she didn't have a fever. She states they want her to get a Lyme test and [place] test done and she wanted to know if Tatiana Almeida LEAD TEACHER thought she needed to get these done, or if she should just wait until she sees her on 09/20/23. Pt states she doesn't hardly go outside, she does have dogs but they only go out to go to the bathroom and get medicine for fleas and ticks. She states she hasn't seen any ticks on her dogs or herself. Pt also states her granddaughter that lives with her was just tested last week for [place] and was negative, so she doesn't think she has it. I tried to tell her she could still be positive. I let Pt know that getting the testing would help the provider rule out causes of her symptoms. Please call and advise Pt if she should get testing done. She reports she can't come in until Monday to do it any ways. [facility] 09-13-2023 Note HNO ID: [id number] Author: KYRA CASTRO APRN.MAILE Service: ? Author Type: Nurse Practitioner Type: Progress Notes Filed: 09/13/2023 19:08 Note Text: CC: Patient presents with: Sore Throat: MO, fatigue, inside of is sore x 2 weeks HPI: Maty Fairbanks is a 53 year old female who presents to the office with complaint of sore throat for 2 weeks. Symptoms are coming and going Associated symptoms includes headache and fatigue. Denies ear pain, cough, nausea, vomiting , and diarrhea. Treatments tried include nothing so far. with no relief of symptoms. Sick contacts: unknown. History of asthma, frequent episodes of bronchitis, chronic bronchitis, bronchiectasis or COPD: No Smoker: No Seasonal/environmental allergies: No The ROS is otherwise negative. The patient's pmh, medications, allergies, and past visits are reviewed. PHYSICAL EXAM: BP 138/80 Pulse 80 Temp 36.9 ?C (98.5 ?F) Resp 21 Wt 125.2 kg (276 lb 0.3 oz) LMP 02/13/2023 (Approximate) SpO2 97% BMI 47.71 kg/m? General appearance: alert, cooperative, pleasant, in no acute distress Head: Normocephalic Eyes: EOM's intact, conjunctiva pink and moist, no icterus, sclera white, non-injected Ears: Right ear: External ear/canal- Normal, TM - clear with good landmarks. Left ear: External ear/canal- Normal, TM - clear with good landmarks Oropharynx:moist without lesions, No erythema, exudates or tonsillar hypertrophy. Heart: Negative. RRR without obvious murmur, gallop, or rubs. No ectopy. Lungs: clear to auscultation, without rales or wheeze, good air exchange PAST MEDICAL HISTORY Diagnosis Date Abdominal pain, epigastric Acute gastritis without mention of hemorrhage Asthma Attention deficit disorder without mention of hyperactivity Calculus of gallbladder without mention of cholecystitis or obstruction Chest pain, unspecified Dysthymic disorder history of depression Esophageal spasm Gastric ulcer, unspecified as acute or chronic, without mention of hemorrhage, perforation, or obstruction with hemorrhage Generalized anxiety disorder History of tobacco use Morbid obesity (HCC) JAMES (obstructive sleep apnea) PAST SURGICAL HISTORY Procedure Laterality Date APPENDECTOMY COLONOSCOPY FLX DX W/COLLJ SPEC WHEN PFRMD 12/15/2008 irritation at the anal verge COLONOSCOPY FLX DX W/COLLJ SPEC WHEN PFRMD 07/10/15 normal colonoscopy EGD TRANSORAL BIOPSY SINGLE/MULTIPLE Gastritis, healing ulcer EGD TRANSORAL BIOPSY SINGLE/MULTIPLE 07/10/15 minimal gastritis LAPAROSCOPY SURG CHOLECYSTECTOMY 08/21/07 LIG/TRNSXJ FLP TUBE ABDL/VAG APPR UNI/BI ALLERGIES Anticholinergics - Other and Dicyclomine MEDICATIONS gabapentin (NEURONTIN) 100 mg capsule Take 1-2 capsules by mouth three times a day as needed (joint pain) for up to 30 days. diclofenac, EC, (VOLTAREN) 75 mg EC tablet Take 1 tablet by mouth two times a day as needed (joint pain). As needed For pain/inflammation. Take with food. cetirizine (ZYRTEC) 10 mg tablet Take 1 tablet by mouth once daily. lisinopril (ZESTRIL) 5 mg tablet Take 1 tablet by mouth once daily. For blood pressure Cholecalciferol, Vitamin D3, 50 mcg (2,000 unit) cap Take 1 capsule by mouth once daily. albuterol HFA (PROVENTIL HFA, VENTOLIN HFA) 90 mcg/actuation inhaler Inhale 2 Puffs as instructed every 4 hours as needed for wheezing/shortness of breath. meclizine (ANTIVERT) 12.5 mg tab 1 to 2 tablets three times a day as needed. Blood Pressure Test Kit-Large 1 Each as needed (blood pressure). Dx: Essential hypertension Magnesium 250 mg tab Take 1 tablet by mouth once daily. montelukast (SINGULAIR) 10 mg tablet Take 1 tablet by mouth daily at bedtime. ibuprofen (MOTRIN) 800 mg tablet Take 1 tablet by mouth every 8 hours as needed for pain. Take with food. (Patient not taking: Reported on 09/13/2023) ibuprofen (MOTRIN) 800 mg tablet Take 1 tablet by mouth every 8 hours as needed for pain. Take with food. (Patient not taking: Reported on 09/13/2023) Leg Brace (ELASTIC KNEE SUPPORT) misc 1 Device as directed. Dx: left knee pain, left suprapatellar bursitis (Patient not taking: Reported on 09/13/2023) ipratropium-albuterol (DUONEB) 0.5 mg-3 mg(2.5 mg base)/3 mL nebu Inhale 3 mL as instructed every 6 hours as needed for wheezing/shortness of breath. cough Nebulizer Accessories kit 1 Each four times daily. (Patient not taking: Reported on 09/13/2023) FAMILY HISTORY Adopted: Yes Problem Relation Age of Onset other (unknown) Other adopted Social History Tobacco Use Smoking status: Former Packs/day: 1.00 Years: 8.00 Additional pack years: 0.00 Total pack years: 8.00 Types: Cigarettes Quit date: 07/22/2006 Years since quittin.1 Passive exposure: Never Smokeless tobacco: Never Tobacco comments: SMOKED SINCE 18 YEARS OLD Vaping Use Vaping Use: Never used Substance Use Topics Alcohol use: No Drug use: No ASSESSMENT/PLAN: 1. S (more content not included)... [facility] 09-13-2023 History of Present illness Narrative CC: Patient presents with: Sore Throat: MO, fatigue, inside of is sore x 2 weeks HPI: Maty Fairbanks is a 53 year old female who presents to the office with complaint of sore throat for 2 weeks. Symptoms are coming and going Associated symptoms includes headache and fatigue. Denies ear pain, cough, nausea, vomiting , and diarrhea. Treatments tried include nothing so far. with no relief of symptoms. Sick contacts: unknown. History of asthma, frequent episodes of bronchitis, chronic bronchitis, bronchiectasis or COPD: No Smoker: No Seasonal/environmental allergies: No The ROS is otherwise negative. The patient's pmh, medications, allergies, and past visits are reviewed. PHYSICAL EXAM: BP 138/80 Pulse 80 Temp 36.9 C (98.5 F) Resp 21 Wt 125.2 kg (276 lb 0.3 oz) LMP 02/13/2023 (Approximate) SpO2 97% BMI 47.71 kg/m General appearance: alert, cooperative, pleasant, in no acute distress Head: Normocephalic Eyes: EOM's intact, conjunctiva pink and moist, no icterus, sclera white, non-injected Ears: Right ear: External ear/canal- Normal, TM - clear with good landmarks. Left ear: External ear/canal- Normal, TM - clear with good landmarks Oropharynx:moist without lesions, No erythema, exudates or tonsillar hypertrophy. Heart: Negative. RRR without obvious murmur, gallop, or rubs. No ectopy. Lungs: clear to auscultation, without rales or wheeze, good air exchange PAST MEDICAL HISTORY Diagnosis Date Abdominal pain, epigastric Acute gastritis without mention of hemorrhage Asthma Attention deficit disorder without mention of hyperactivity Calculus of gallbladder without mention of cholecystitis or obstruction Chest pain, unspecified Dysthymic disorder history of depression Esophageal spasm Gastric ulcer, unspecified as acute or chronic, without mention of hemorrhage, perforation, or obstruction with hemorrhage Generalized anxiety disorder History of tobacco use Morbid obesity (HCC) JAMES (obstructive sleep apnea) PAST SURGICAL HISTORY Procedure Laterality Date APPENDECTOMY COLONOSCOPY FLX DX W/COLLJ SPEC WHEN PFRMD 12/15/2008 irritation at the anal verge COLONOSCOPY FLX DX W/COLLJ SPEC WHEN PFRMD 07/10/15 normal colonoscopy EGD TRANSORAL BIOPSY SINGLE/MULTIPLE Gastritis, healing ulcer EGD TRANSORAL BIOPSY SINGLE/MULTIPLE 07/10/15 minimal gastritis LAPAROSCOPY SURG CHOLECYSTECTOMY 08/21/07 LIG/TRNSXJ FLP TUBE ABDL/VAG APPR UNI/BI ALLERGIES Anticholinergics - Other and Dicyclomine MEDICATIONS gabapentin (NEURONTIN) 100 mg capsule Take 1-2 capsules by mouth three times a day as needed (joint pain) for up to 30 days. diclofenac, EC, (VOLTAREN) 75 mg EC tablet Take 1 tablet by mouth two times a day as needed (joint pain). As needed For pain/inflammation. Take with food. cetirizine (ZYRTEC) 10 mg tablet Take 1 tablet by mouth once daily. lisinopril (ZESTRIL) 5 mg tablet Take 1 tablet by mouth once daily. For blood pressure Cholecalciferol, Vitamin D3, 50 mcg (2,000 unit) cap Take 1 capsule by mouth once daily. albuterol HFA (PROVENTIL HFA, VENTOLIN HFA) 90 mcg/actuation inhaler Inhale 2 Puffs as instructed every 4 hours as needed for wheezing/shortness of breath. meclizine (ANTIVERT) 12.5 mg tab 1 to 2 tablets three times a day as needed. Blood Pressure Test Kit-Large 1 Each as needed (blood pressure). Dx: Essential hypertension Magnesium 250 mg tab Take 1 tablet by mouth once daily. montelukast (SINGULAIR) 10 mg tablet Take 1 tablet by mouth daily at bedtime. ibuprofen (MOTRIN) 800 mg tablet Take 1 tablet by mouth every 8 hours as needed for pain. Take with food. (Patient not taking: Reported on 09/13/2023) ibuprofen (MOTRIN) 800 mg tablet Take 1 tablet by mouth every 8 hours as needed for pain. Take with food. (Patient not taking: Reported on 09/13/2023) Leg Brace (ELASTIC KNEE SUPPORT) misc 1 Device as directed. Dx: left knee pain, left suprapatellar bursitis (Patient not taking: Reported on 09/13/2023) ipratropium-albuterol (DUONEB) 0.5 mg-3 mg(2.5 mg base)/3 mL nebu Inhale 3 mL as instructed every 6 hours as needed for wheezing/shortness of breath. cough Nebulizer Accessories kit 1 Each four times daily. (Patient not taking: Reported on 09/13/2023) FAMILY HISTORY Adopted: Yes Problem Relation Age of Onset other (unknown) Other adopted Social History Tobacco Use Smoking status: Former Packs/day: 1.00 Years: 8.00 Additional pack years: 0.00 Total pack years: 8.00 Types: Cigarettes Quit date: 07/22/2006 Years since quittin.1 Passive exposure: Never Smokeless tobacco: Never Tobacco comments: SMOKED SINCE 18 YEARS OLD Vaping Use Vaping Use: Never used Substance Use Topics Alcohol use: No Drug use: No ASSESSMENT/PLAN: 1. Sore throat - ICD9: 462, ICD10: J02.9 (primary diagnosis) - STREP A MOLECULAR (POC)-neg 2. Fatigue, unspecified type - ICD9: 780.79, ICD10: R53.83 - MONOTEST, INFECTIOUS MONO - LYME AB EARLY <=30 DAY SYMPTOMS Patient says she cannot make it until Monday to get to the lab. If either of these test come back positive please treat accordingly or give care plan accordingly Prescription instructions reviewed with patient as applicable. Potential red flag symptoms discussed with the patient. Reviewed appropriate action plan to take if red flag symptoms occur. Patient agreeable to treatment plan. She was also set up with primary care follow-up for further testing if symptoms persist. Kyra Castro APRN.MAILE documented in this encounter [facility] 06-16-2023 Telephone encounter Note The following approved medication requests have been transmitted electronically. Requested Prescriptions Signed Prescriptions Disp Refills gabapentin (NEURONTIN) 100 mg capsule 90 capsule 3 Sig: Take 1-2 capsules by mouth three times a day as needed (joint pain) for up to 30 days. Authorizing Provider: FREDO LAROSE montelukast (SINGULAIR) 10 mg tablet 90 tablet 1 Sig: Take 1 tablet by mouth daily at bedtime. Authorizing Provider: FREDO LAROSE diclofenac, EC, (VOLTAREN) 75 mg EC tablet 180 tablet 1 Sig: Take 1 tablet by mouth two times a day as needed (joint pain). As needed For pain/inflammation. Take with food. Authorizing Provider: FREDO LAROSE DO [facility] 06-16-2023 Miscellaneous Notes The following approved medication requests have been transmitted electronically. Requested Prescriptions Signed Prescriptions Disp Refills gabapentin (NEURONTIN) 100 mg capsule 90 capsule 3 Sig: Take 1-2 capsules by mouth three times a day as needed (joint pain) for up to 30 days. Authorizing Provider: FREDO LAROSE montelukast (SINGULAIR) 10 mg tablet 90 tablet 1 Sig: Take 1 tablet by mouth daily at bedtime. Authorizing Provider: FREDO LAROSE diclofenac, EC, (VOLTAREN) 75 mg EC tablet 180 tablet 1 Sig: Take 1 tablet by mouth two times a day as needed (joint pain). As needed For pain/inflammation. Take with food. Authorizing Provider: FREDO LAROSE DO Patient requesting 3 refills as pended. Of note, patient requesting to start Singulair again. (Pended). States she started her seasonal allergies/coughing again in April and would like to take this medication again. Also of note, patient requesting to take diclofenac medication again. This was discontinued earlier this year due to pt stating she was taking Ibuprofen 600 mg instead. Pt states she continues to take Ibuprofen 600 mg at times, but not on a consistent basis. Please call patient if PCP does not agree to refill all 3 prescriptions, otherwise no call back needed to patient. Thank you. Requested Prescriptions Pending Prescriptions Disp Refills gabapentin (NEURONTIN) 100 mg capsule 90 capsule 0 Sig: Take 1-2 capsules by mouth three times a day as needed (joint pain) for up to 30 days. montelukast (SINGULAIR) 10 mg tablet Sig: Take 1 tablet by mouth daily at bedtime. diclofenac, EC, (VOLTAREN) 75 mg EC tablet Sig: Take 1 tablet by mouth two times a day. As needed For pain/inflammation. Take with food. Date of last office visit in primary care: not scheduled yet. Gabby Sanders RN. documented in this encounter [facility] 06-12-2023 Telephone encounter Note Patient requesting 3 refills as pended. Of note, patient requesting to start Singulair again. (Pended). States she started her seasonal allergies/coughing again in April and would like to take this medication again. Also of note, patient requesting to take diclofenac medication again. This was discontinued earlier this year due to pt stating she was taking Ibuprofen 600 mg instead. Pt states she continues to take Ibuprofen 600 mg at times, but not on a consistent basis. Please call patient if PCP does not agree to refill all 3 prescriptions, otherwise no call back needed to patient. Thank you. Requested Prescriptions Pending Prescriptions Disp Refills gabapentin (NEURONTIN) 100 mg capsule 90 capsule 0 Sig: Take 1-2 capsules by mouth three times a day as needed (joint pain) for up to 30 days. montelukast (SINGULAIR) 10 mg tablet Sig: Take 1 tablet by mouth daily at bedtime. diclofenac, EC, (VOLTAREN) 75 mg EC tablet Sig: Take 1 tablet by mouth two times a day. As needed For pain/inflammation. Take with food. Date of last office visit in primary care: not scheduled yet. Gabby Sanders RN. [facility] 04-19-2023 Instructions Fredo Larose DO - 04/19/2023 5:45 PM EST Vitamin E 400 mg once a day Vitamin D3 2,000-4,000 international unit(s) once a day Turmeric- curcumin 500-1000 mg 1-2 times a day with food or as a powder 1 teaspoon twice a day with food documented in this encounter [facility] 04-19-2023 Note HNO ID: [id number] Author: FREDO LAROSE DO Service: ? Author Type: Physician Type: Progress Notes Filed: 04/19/2023 18:11 Note Text: CC: Maty Fairbanks is a 52 year old female who presents to the office for physical HPI: Elevated LFTs, unsure if any history of fatty liver disease or end stage liver disease or cirrhosis. Cholesterol is overall normal. No hx of HPL. No hx of hepatitis, no hx of alcoholism or abuse of drugs. No history of any other liver disease that she is aware of. Chronic pain, fibromyalgia, myositis, use of ibuprofen 600 mg seems to help symptoms better than the diclofenac medication. Use of gabapentin as needed 100-300 mg in the evening. Mood, stable. Skin lesion right lower leg, sometimes sore, has been present x years without change PAST MEDICAL HISTORY Diagnosis Date Abdominal pain, epigastric Acute gastritis without mention of hemorrhage Asthma Attention deficit disorder without mention of hyperactivity Calculus of gallbladder without mention of cholecystitis or obstruction Chest pain, unspecified Dysthymic disorder history of depression Esophageal spasm Gastric ulcer, unspecified as acute or chronic, without mention of hemorrhage, perforation, or obstruction with hemorrhage Generalized anxiety disorder History of tobacco use Morbid obesity (HCC) JAMES (obstructive sleep apnea) PAST SURGICAL HISTORY Procedure Laterality Date APPENDECTOMY COLONOSCOPY FLX DX W/COLLJ SPEC WHEN PFRMD 12/15/2008 irritation at the anal verge COLONOSCOPY FLX DX W/COLLJ SPEC WHEN PFRMD 07/10/15 normal colonoscopy EGD TRANSORAL BIOPSY SINGLE/MULTIPLE Gastritis, healing ulcer EGD TRANSORAL BIOPSY SINGLE/MULTIPLE 07/10/15 minimal gastritis LAPAROSCOPY SURG CHOLECYSTECTOMY 08/21/07 LIG/TRNSXJ FLP TUBE ABDL/VAG APPR UNI/BI Social History: Social History Tobacco Use Smoking status: Former Packs/day: 1.00 Years: 8.00 Additional pack years: 0.00 Total pack years: 8.00 Types: Cigarettes Quit date: 07/22/2006 Years since quittin.7 Passive exposure: Never Smokeless tobacco: Never Tobacco comments: SMOKED SINCE 18 YEARS OLD Vaping Use Vaping Use: Never used Substance Use Topics Alcohol use: No Drug use: No FAMILY HISTORY Adopted: Yes Problem Relation Age of Onset other (unknown) Other adopted Current Outpatient prescriptions: cetirizine (ZYRTEC) 10 mg tablet Take 1 tablet by mouth once daily. gabapentin (NEURONTIN) 100 mg capsule Take 1-2 capsules by mouth three times a day as needed (joint pain) for up to 30 days. lisinopril (ZESTRIL) 5 mg tablet Take 1 tablet by mouth once daily. For blood pressure ibuprofen (MOTRIN) 800 mg tablet Take 1 tablet by mouth every 8 hours as needed for pain. Take with food. ibuprofen (MOTRIN) 800 mg tablet Take 1 tablet by mouth every 8 hours as needed for pain. Take with food. ipratropium-albuterol (DUONEB) 0.5 mg-3 mg(2.5 mg base)/3 mL nebu Inhale 3 mL as instructed every 6 hours as needed for wheezing/shortness of breath. cough meclizine (ANTIVERT) 12.5 mg tab 1 to 2 tablets three times a day as needed. Magnesium 250 mg tab Take 1 tablet by mouth once daily. Cholecalciferol, Vitamin D3, 50 mcg (2,000 unit) cap Take 1 capsule by mouth once daily. Leg Brace (ELASTIC KNEE SUPPORT) misc 1 Device as directed. Dx: left knee pain, left suprapatellar bursitis Nebulizer Accessories kit 1 Each four times daily. albuterol HFA (PROVENTIL HFA, VENTOLIN HFA) 90 mcg/actuation inhaler Inhale 2 Puffs as instructed every 4 hours as needed for wheezing/shortness of breath. Blood Pressure Test Kit-Large 1 Each as needed (blood pressure). Dx: Essential hypertension Allergies: ALLERGIES Allergen Reactions Anticholinergics - * (Bentyl) causes hives ROS: See HPI PE: 04/19/23 1650 BP: 124/80 Pulse: 60 Resp: 20 Temp: 36.1 ?C (97 ?F) TempSrc: Right Tympanic Weight: 121.1 kg (267 lb) Height: 162 cm (5' 3.78 ) Gen: AANDO, NAD, non-toxic appearing, Pleasant, cooperative HEENT: NT/AC, PERRLA, EOMs intact b/l, nares clear and patent b/l, pharynx without erythema, exudate or lesions. Uvula midline. MMM, poor dentition Neck: supple, No cervical LAD, no thyromegaly, no carotid bruits CV: RRR, normal S1 and S2, no murmurs, no gallops, no rubs, Pulses 2+ and symmetric in UE and LE b/l Lungs: normal respiratory effort, CTA b/l, no wheezing or rhonchi or rales Abd: soft, mild RUQ fullness, obesity, NT, ND, +BS, no hepatosplenomegaly MS: chronic myalgias and muscular pain b/l thighs and upper arms and legs. Neuro: CN II-XII intact b/l, strength 5/5 b/l UE and LE, DTRs 2/4 UE and LE, sensation intact. Skin: warm, dry, intact, exophytic firm/hard skin lesion without pigment or irregular borders on right lower anterior leg No edema, normal pulses ASSESSMENT/PLAN: 1. Well adult exam - ICD9: V70.0, ICD10: Z00.00 (primary diagnosis) - Counseled on healthy diet (more content not included)... [facility] 04-19-2023 History of Present illness Narrative CC: Maty Fairbanks is a 52 year old female who presents to the office for physical HPI: Elevated LFTs, unsure if any history of fatty liver disease or end stage liver disease or cirrhosis. Cholesterol is overall normal. No hx of HPL. No hx of hepatitis, no hx of alcoholism or abuse of drugs. No history of any other liver disease that she is aware of. Chronic pain, fibromyalgia, myositis, use of ibuprofen 600 mg seems to help symptoms better than the diclofenac medication. Use of gabapentin as needed 100-300 mg in the evening. Mood, stable. Skin lesion right lower leg, sometimes sore, has been present x years without change PAST MEDICAL HISTORY Diagnosis Date Abdominal pain, epigastric Acute gastritis without mention of hemorrhage Asthma Attention deficit disorder without mention of hyperactivity Calculus of gallbladder without mention of cholecystitis or obstruction Chest pain, unspecified Dysthymic disorder history of depression Esophageal spasm Gastric ulcer, unspecified as acute or chronic, without mention of hemorrhage, perforation, or obstruction with hemorrhage Generalized anxiety disorder History of tobacco use Morbid obesity (HCC) JAMES (obstructive sleep apnea) PAST SURGICAL HISTORY Procedure Laterality Date APPENDECTOMY COLONOSCOPY FLX DX W/COLLJ SPEC WHEN PFRMD 12/15/2008 irritation at the anal verge COLONOSCOPY FLX DX W/COLLJ SPEC WHEN PFRMD 07/10/15 normal colonoscopy EGD TRANSORAL BIOPSY SINGLE/MULTIPLE Gastritis, healing ulcer EGD TRANSORAL BIOPSY SINGLE/MULTIPLE 07/10/15 minimal gastritis LAPAROSCOPY SURG CHOLECYSTECTOMY 08/21/07 LIG/TRNSXJ FLP TUBE ABDL/VAG APPR UNI/BI Social History: Social History Tobacco Use Smoking status: Former Packs/day: 1.00 Years: 8.00 Additional pack years: 0.00 Total pack years: 8.00 Types: Cigarettes Quit date: 07/22/2006 Years since quittin.7 Passive exposure: Never Smokeless tobacco: Never Tobacco comments: SMOKED SINCE 18 YEARS OLD Vaping Use Vaping Use: Never used Substance Use Topics Alcohol use: No Drug use: No FAMILY HISTORY Adopted: Yes Problem Relation Age of Onset other (unknown) Other adopted Current Outpatient prescriptions: cetirizine (ZYRTEC) 10 mg tablet Take 1 tablet by mouth once daily. gabapentin (NEURONTIN) 100 mg capsule Take 1-2 capsules by mouth three times a day as needed (joint pain) for up to 30 days. lisinopril (ZESTRIL) 5 mg tablet Take 1 tablet by mouth once daily. For blood pressure ibuprofen (MOTRIN) 800 mg tablet Take 1 tablet by mouth every 8 hours as needed for pain. Take with food. ibuprofen (MOTRIN) 800 mg tablet Take 1 tablet by mouth every 8 hours as needed for pain. Take with food. ipratropium-albuterol (DUONEB) 0.5 mg-3 mg(2.5 mg base)/3 mL nebu Inhale 3 mL as instructed every 6 hours as needed for wheezing/shortness of breath. cough meclizine (ANTIVERT) 12.5 mg tab 1 to 2 tablets three times a day as needed. Magnesium 250 mg tab Take 1 tablet by mouth once daily. Cholecalciferol, Vitamin D3, 50 mcg (2,000 unit) cap Take 1 capsule by mouth once daily. Leg Brace (ELASTIC KNEE SUPPORT) misc 1 Device as directed. Dx: left knee pain, left suprapatellar bursitis Nebulizer Accessories kit 1 Each four times daily. albuterol HFA (PROVENTIL HFA, VENTOLIN HFA) 90 mcg/actuation inhaler Inhale 2 Puffs as instructed every 4 hours as needed for wheezing/shortness of breath. Blood Pressure Test Kit-Large 1 Each as needed (blood pressure). Dx: Essential hypertension Allergies: ALLERGIES Allergen Reactions Anticholinergics - * (Bentyl) causes hives ROS: See HPI PE: 04/19/23 1650 BP: 124/80 Pulse: 60 Resp: 20 Temp: 36.1 C (97 F) TempSrc: Right Tympanic Weight: 121.1 kg (267 lb) Height: 162 cm (5' 3.78 ) Gen: A&O, NAD, non-toxic appearing, Pleasant, cooperative HEENT: NT/AC, PERRLA, EOMs intact b/l, nares clear and patent b/l, pharynx without erythema, exudate or lesions. Uvula midline. MMM, poor dentition Neck: supple, No cervical LAD, no thyromegaly, no carotid bruits CV: RRR, normal S1 and S2, no murmurs, no gallops, no rubs, Pulses 2+ and symmetric in UE and LE b/l Lungs: normal respiratory effort, CTA b/l, no wheezing or rhonchi or rales Abd: soft, mild RUQ fullness, obesity, NT, ND, +BS, no hepatosplenomegaly MS: chronic myalgias and muscular pain b/l thighs and upper arms and legs. Neuro: CN II-XII intact b/l, strength 5/5 b/l UE and LE, DTRs 2/4 UE and LE, sensation intact. Skin: warm, dry, intact, exophytic firm/hard skin lesion without pigment or irregular borders on right lower anterior leg No edema, normal pulses ASSESSMENT/PLAN: 1. Well adult exam - ICD9: V70.0, ICD10: Z00.00 (primary diagnosis) - Counseled on healthy diet and regular exercise - Calcium intake with supplements or by diet of 1000 mg/day for under 50, 6764-0579 mg/day for 50+ - Discussed need and benefit for weight loss. BMI 46.15 kg/(m^2) 2. Hypertension, essential - ICD9: 401.9, ICD10: I10 - Controlled - Continue current medications - Recommend home blood pressure monitoring, to bring results to next visit - Encouraged sodium restriction, DASH or Mediterranean diet - Recommend regular aerobic exercise - Discussed need for and benefit of weight loss. BMI 46.15 kg/(m^2) 3. Chronic pain of both knees - ICD9: 719.46, 338.29, ICD10: M25.561, M25.562, G89.29 She isn't interested in orthopedics referral 4. Vitamin D deficiency - ICD9: 268.9, ICD10: E55.9 - increase vitamin D supplement with a meal 5. Elevated LFTs - ICD9: 790.6, ICD10: R79.89 Start on vitamin E supplement, need for RUQ US, concerns for fatty liver disease. - US ABD RIGHT UPPER QUADRANT 6. Class 3 severe obesity with body mass index (BMI) of 45.0 to 49.9 in adult, unspecified obesity type, unspecified whether serious comorbidity present (HCC) - ICD9: 278.01, V85.42, ICD10: E66.01, Z68.42 Stable - PSMF and - Eat well program Fredo Larose DO To ER if develops chest pain, shortness of breath, or severe worsening of symptoms. Discussed risks, benefits, alternatives, and potential side effects of medications. Patient expressed understanding and agreed with the plan. Fredo Larose DO [address] [place] [address] documented in this encounter [facility] 04-06-2023 Miscellaneous Notes Patient has been identified by name and date of : Yes, Provider [facility] phones for refill(s): Requested Prescriptions Pending Prescriptions Disp Refills cetirizine (ZYRTEC) 10 mg tablet 90 tablet 1 Sig: Take 1 tablet by mouth once daily. Date of last office visit in primary care: 09/28/2022 Date of next office visit in primary care: 04/19/2023 Please advise. Thank you. Chio Nolasco. documented in this encounter [facility] 04-04-2023 Miscellaneous Notes Pt was seen at 03/31/23 for a cough. Finished prednisone today & pt states she is not feeling any better. Pt asking if something else can be called in for her, pt notified she would need to be seen. Appt was offered but pt declined, states she would have to go to because of her schedule. Pt states she will probably go tonight or tomorrow. Suzanne Young LPN documented in this encounter [facility] 03-31-2023 Note HNO ID: [id number] Author: ADAIR GU MD Service: ? Author Type: Physician Type: Progress Notes Filed: 03/31/2023 19:54 Note Text: Patient presents with: Cough: Headache, SOB x 4 days HPI: Coughing for 4 days. Triggered after exposure to odor from new water heater. Positive symptoms: Cough, Shortness of breath, Headache, Negative symptoms: Sore throat, Fever, Chills, Vomiting, Diarrhea, OTC: tessalon. Has not used inhaler. PAST MEDICAL HISTORY Diagnosis Date Abdominal pain, epigastric Acute gastritis without mention of hemorrhage Asthma Attention deficit disorder without mention of hyperactivity Calculus of gallbladder without mention of cholecystitis or obstruction Chest pain, unspecified Dysthymic disorder history of depression Esophageal spasm Gastric ulcer, unspecified as acute or chronic, without mention of hemorrhage, perforation, or obstruction with hemorrhage Generalized anxiety disorder History of tobacco use Morbid obesity (HCC) JAMES (obstructive sleep apnea) MEDICATIONS: Current Outpatient Medications Medication Sig gabapentin (NEURONTIN) 100 mg capsule Take 1-2 capsules by mouth three times a day as needed (joint pain) for up to 30 days. cetirizine (ZYRTEC) 10 mg tablet Take 1 tablet by mouth once daily. lisinopril (ZESTRIL) 5 mg tablet Take 1 tablet by mouth once daily. For blood pressure diclofenac, EC, (VOLTAREN) 75 mg EC tablet Take 1 tablet by mouth twice daily. As needed For pain/inflammation. Take with food. ibuprofen (MOTRIN) 800 mg tablet Take 1 tablet by mouth every 8 hours as needed for pain. Take with food. Leg Brace (ELASTIC KNEE SUPPORT) misc 1 Device as directed. Dx: left knee pain, left suprapatellar bursitis Nebulizer Accessories kit 1 Each four times daily. meclizine (ANTIVERT) 12.5 mg tab 1 to 2 tablets three times a day as needed. Blood Pressure Test Kit-Large 1 Each as needed (blood pressure). Dx: Essential hypertension Magnesium 250 mg tab Take 1 tablet by mouth once daily. ibuprofen (MOTRIN) 800 mg tablet Take 1 tablet by mouth every 8 hours as needed for pain. Take with food. (Patient not taking: Reported on 03/31/2023) Cholecalciferol, Vitamin D3, 50 mcg (2,000 unit) cap Take 1 capsule by mouth once daily. (Patient not taking: Reported on 03/31/2023) ipratropium-albuterol (DUONEB) 0.5 mg-3 mg(2.5 mg base)/3 mL nebu Inhale 3 mL as instructed every 6 hours as needed for wheezing/shortness of breath. cough albuterol HFA (PROVENTIL HFA, VENTOLIN HFA) 90 mcg/actuation inhaler Inhale 2 Puffs as instructed every 4 hours as needed for wheezing/shortness of breath. No current facility-administered medications for this visit. ALLERGIES: ALLERGIES Allergen Reactions Anticholinergics - * (Bentyl) causes hives VITALS: BP 158/95 Pulse 91 Temp 36.7 ?C (98.1 ?F) Resp 22 Wt 122.5 kg (270 lb) LMP 02/17/2023 (Approximate) SpO2 96% BMI 47.83 kg/m? PHYSICAL EXAM: GEN: Pleasant, in no acute distress. HEENT: PERRL, EOMI, conjunctiva clear Ears: canals clear. TMs without erythema, bulge, or effusion Sinuses: non-tender frontal sinus, non-tender maxillary sinuses Throat: moist mucous membranes, no erythema, no exudate Neck: supple, no thyromegaly, no lymphadenopathy HEART: regular rate and rhythm, no murmurs LUNGS: clear to auscultation, no wheezes or crackles, no increased WOB; frequent non-productive cough ASSESSMENT/PLAN: 1. Mild intermittent asthma with acute exacerbation - ICD9: 493.92, ICD10: J45.21 - PREDNISONE 20 MG TABLET burst - BENZONATATE 100 MG CAPSULE Adair Gu MD [facility] 03-31-2023 History of Present illness Narrative Patient presents with: Cough: Headache, SOB x 4 days HPI: Coughing for 4 days. Triggered after exposure to odor from new water heater. Positive symptoms: Cough, Shortness of breath, Headache, Negative symptoms: Sore throat, Fever, Chills, Vomiting, Diarrhea, OTC: tessalon. Has not used inhaler. PAST MEDICAL HISTORY Diagnosis Date Abdominal pain, epigastric Acute gastritis without mention of hemorrhage Asthma Attention deficit disorder without mention of hyperactivity Calculus of gallbladder without mention of cholecystitis or obstruction Chest pain, unspecified Dysthymic disorder history of depression Esophageal spasm Gastric ulcer, unspecified as acute or chronic, without mention of hemorrhage, perforation, or obstruction with hemorrhage Generalized anxiety disorder History of tobacco use Morbid obesity (HCC) JAMES (obstructive sleep apnea) MEDICATIONS: Current Outpatient Medications Medication Sig gabapentin (NEURONTIN) 100 mg capsule Take 1-2 capsules by mouth three times a day as needed (joint pain) for up to 30 days. cetirizine (ZYRTEC) 10 mg tablet Take 1 tablet by mouth once daily. lisinopril (ZESTRIL) 5 mg tablet Take 1 tablet by mouth once daily. For blood pressure diclofenac, EC, (VOLTAREN) 75 mg EC tablet Take 1 tablet by mouth twice daily. As needed For pain/inflammation. Take with food. ibuprofen (MOTRIN) 800 mg tablet Take 1 tablet by mouth every 8 hours as needed for pain. Take with food. Leg Brace (ELASTIC KNEE SUPPORT) misc 1 Device as directed. Dx: left knee pain, left suprapatellar bursitis Nebulizer Accessories kit 1 Each four times daily. meclizine (ANTIVERT) 12.5 mg tab 1 to 2 tablets three times a day as needed. Blood Pressure Test Kit-Large 1 Each as needed (blood pressure). Dx: Essential hypertension Magnesium 250 mg tab Take 1 tablet by mouth once daily. ibuprofen (MOTRIN) 800 mg tablet Take 1 tablet by mouth every 8 hours as needed for pain. Take with food. (Patient not taking: Reported on 03/31/2023) Cholecalciferol, Vitamin D3, 50 mcg (2,000 unit) cap Take 1 capsule by mouth once daily. (Patient not taking: Reported on 03/31/2023) ipratropium-albuterol (DUONEB) 0.5 mg-3 mg(2.5 mg base)/3 mL nebu Inhale 3 mL as instructed every 6 hours as needed for wheezing/shortness of breath. cough albuterol HFA (PROVENTIL HFA, VENTOLIN HFA) 90 mcg/actuation inhaler Inhale 2 Puffs as instructed every 4 hours as needed for wheezing/shortness of breath. No current facility-administered medications for this visit. ALLERGIES: ALLERGIES Allergen Reactions Anticholinergics - * (Bentyl) causes hives VITALS: BP 158/95 Pulse 91 Temp 36.7 C (98.1 F) Resp 22 Wt 122.5 kg (270 lb) LMP 02/17/2023 (Approximate) SpO2 96% BMI 47.83 kg/m PHYSICAL EXAM: GEN: Pleasant, in no acute distress. HEENT: PERRL, EOMI, conjunctiva clear Ears: canals clear. TMs without erythema, bulge, or effusion Sinuses: non-tender frontal sinus, non-tender maxillary sinuses Throat: moist mucous membranes, no erythema, no exudate Neck: supple, no thyromegaly, no lymphadenopathy HEART: regular rate and rhythm, no murmurs LUNGS: clear to auscultation, no wheezes or crackles, no increased WOB; frequent non-productive cough ASSESSMENT/PLAN: 1. Mild intermittent asthma with acute exacerbation - ICD9: 493.92, ICD10: J45.21 - PREDNISONE 20 MG TABLET burst - BENZONATATE 100 MG CAPSULE Adair Gu MD documented in this encounter [facility] 02-28-2023 Note HNO ID: [id number] Author: NOHEMI LOYOLA APRN.GENERATOR ASSEMBLER Service: ? Author Type: Nurse Practitioner Type: Progress Notes Filed: 02/28/2023 13:57 Note Text: Appliance Fixer offered: Patient declinesFady Rutledge is a 52 year old who presents for an annual gynecologic exam with complaints, heavy bleeding. Patient went to the emergency room in late November for heavy menstrual bleeding. She was using 2 ultra tampons at once and a pad and would saturate through all of them less than an hour. This went on for day 1 and 2, she called her primary care which referred her to local ER. Pelvic ultrasound showed 2 fibroids. 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 Menses: cycles every 25-30 days and 7-8 days of flow. 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 LMP: 02/07/2023 (Approximate), Having periods Age at Menarche: Age at First : Age at Menopause: [employer] As[employer] History Comments: Sexual Activity: Not Currently; Male Contraception: Surgical PAST MEDICAL HISTORY Diagnosis Date Abdominal pain, epigastric Acute gastritis without mention of hemorrhage Asthma Attention deficit disorder without mention of hyperactivity Calculus of gallbladder without mention of cholecystitis or obstruction Chest pain, unspecified Dysthymic disorder history of depression Esophageal spasm Gastric ulcer, unspecified as acute or chronic, without mention of hemorrhage, perforation, or obstruction with hemorrhage Generalized anxiety disorder History of tobacco use Morbid obesity (HCC) JAMES (obstructive sleep apnea) PAST SURGICAL HISTORY Procedure Laterality Date APPENDECTOMY COLONOSCOPY FLX DX W/COLLJ SPEC WHEN PFRMD 12/15/2008 irritation at the anal verge COLONOSCOPY FLX DX W/COLLJ SPEC WHEN PFRMD 07/10/15 normal colonoscopy EGD TRANSORAL BIOPSY SINGLE/MULTIPLE Gastritis, healing ulcer EGD TRANSORAL BIOPSY SINGLE/MULTIPLE 07/10/15 minimal gastritis LAPAROSCOPY SURG CHOLECYSTECTOMY 08/21/07 LIG/TRNSXJ FLP TUBE ABDL/VAG APPR UNI/BI FAMILY HISTORY Adopted: Yes Problem Relation Age of Onset other (unknown) Other adopted SOCIAL HISTORY Social History Tobacco Use Smoking status: Former Packs/day: 1.00 Years: 8.00 Additional pack years: 0.00 Total pack years: 8.00 Types: Cigarettes Quit date: 07/22/2006 Years since quittin.6 Passive exposure: Never Smokeless tobacco: Never Tobacco comments: SMOKED SINCE 18 YEARS OLD Vaping Use Vaping Use: Never used Substance Use Topics Alcohol use: No Drug use: No REVIEW OF SYSTEMS Abdomen: No abdominal pain, nausea, vomiting, diarrhea, or constipation. No bloating, early satiety, indigestion, or increased flatulence. Bladder: No dysuria, gross hematuria, urinary frequency, urinary urgency, or incontinence. Breast: No breast lumps, nipple d/c, overlying skin changes, redness or skin retraction. Allergies and current medication updated:Yes EXAM: Ht 5' 3 (1.60m) Wt 267 lb 3.2 oz (121.2kg) LMP 02/07/2023 BMI 47.34 kg/(m2). GENERAL: pleasant, female in no apparent distress HEENT: Normocephalic, atraumatic, mucus membranes moist, and no lesions NECK: Supple, full range of motion, no adenopathy, and thyroid normal DERMATOLOGY: Normal, without lesions, non-icteric, and non-hirsute BREAST: soft, non-tender, symmetric, no dominant mass, normal nipple-areolar complex, no lymphadenopathy, and no nipple discharge CHEST: Normal inspiratory effort ABDOMEN: soft, non-tender, and no masses PELVIC: external genitalia normal, normal Bartholin's glands, urethra, [place]'s glands, no vulvar lesions, no cervical lesions, good vaginal support, physiologic discharge present, normal appearing perineal body and perianal region BIMANUAL: uterus normal size, shape and consistency, no adnexal masses, non-tender, and difficult to assess due to body habitus RECTOVAGINAL: deferred. NEURO: alert and oriented x3,exam grossly non-focal EXTREMITIES: normal ASSESSMENT/PLAN: 1) Health maintenance: Pap/HPV up to date. Mammogram up to date . Nutrition, exercise and routine health maintenance exams reviewed. Calcium/Vitamin D supplementation information provided. 2) Contraception: tubal sterilization. Contraceptive options reviewed and information provided. 3) STD screening: Declined STD check. 4) Follow up one year or sooner as needed Patient will continue to monitor menses and if she continues with the heavy bleeding she will notify the office Nohemi Loyola APRN.CNP [facility] 02-28-2023 Note HNO ID: [id number] Author: IMELDA MENDES Mammo Tech Service: ? Author Type: Technologist Type: Progress Notes Filed: 02/28/2023 13:09 Note Text: Radiology Service Progress Note PATIENT NAME: Maty Fairbanks DATE OF SERVICE: February 28, 2023 TIME: 1:08 PM PATIENT IDENTITY VERIFICATION COMPLETED USING TWO (2) IDENTIFIERS: Name and Date of confirmed by patient verbally. FALL SCREENING: Has the patient had 2 falls in the last year or 1 fall with injury or currently using an Ambulatory Assistive Device (Walker, Cane, Wheelchair, Crutches, etc.)? No PATIENT GENDER DATA: Female. status: : No status: NO. PATIENT RELEVANT IMPLANT DATA REVIEWED: Not Applicable RADIOLOGY DEPARTMENT: Mammography PERIPHERAL IV DATA: Not applicable SIGNED BY: No Page February 28, 2023 1:08 PM [facility] 12-29-2022 Miscellaneous Notes Pt notified. Janice Oakes Ma TC to patient with no answer. Left VM to return call to office. JOSE Stephen OKAY TO START DROPS BELOW Fredo Larose DO The following approved medication requests have been transmitted electronically. Requested Prescriptions Signed Prescriptions Disp Refills trimethoprim-polymyxin (POLYTRIM) 10,000 unit- 1 mg/mL ophthalmic solution 10 mL 0 Sig: Use 2 Drops in both eyes three times a day for 7 days. Authorizing Provider: FREDO LAROSE DO Patient calls to report that she was exposed to pink eye on Monday by her grand daughter. She has (June 2022) polymyxin eye drops on hand from previously when she had pink eye that she is currently using. Patient reports she has no symptoms other than right eye itching and pain/burning when she puts the eye drops in. No symptoms in the left eye but she is also putting eye drops in the left eye. Patient asking if provider would send in prescription for eye drops since she has known exposure and had pink eye in the past. Pended previous eye drop order for review. María Stovall RN documented in this encounter [facility] 12-19-2022 Miscellaneous Notes Patient returned call. She is currently @ [facility] ER. Codie Luque RN Attempted to contact patient with no answer. Left message to return call. Alexus Bonilla MA Agree with EMERGENCY DEPARTMENT evaluation Fredo Larose DO Protocol recommends go to the ER now. Care plan reviewed with patient. Patient voices understanding. Advised patient that if symptoms get worse to be evaluated in Urgent Care or ER. Reason for Disposition SEVERE vaginal bleeding (e.g., soaking 2 pads or tampons per hour and present 2 or more hours; 1 menstrual cup every 2 hours) Answer Assessment - Initial Assessment Questions 1. AMOUNT: - SPOTTING: spotting, or pinkish / brownish mucous discharge; does not fill panty liner or pad - MILD: less than 1 pad / hour; less than patient's usual menstrual bleeding - MODERATE: 1-2 pads / hour; 1 menstrual cup every 6 hours; small-medium blood clots (e.g., pea, grape, small coin) - SEVERE: soaking 2 or more pads/hour for 2 or more hours; 1 menstrual cup every 2 hours; bleeding not contained by pads or continuous red blood from vagina; large blood clots (e.g., golf ball, large coin) Pt reports she is using 2 ultra tampons and a Pad and still soaking through every hour to couple hours. 2. ONSET: The bleeding began 24 hours ago and is it continuing now. 3. MENSTRUAL PERIOD: Pt states she hasn't ever had bleeding this bad, and she has never been one to have cramps and she is having them this time. 4. REGULARITY: Pt states she thinks she is going into menopause. She states sometimes she will have a period and sometimes she won't. 5. ABDOMEN PAIN: Do you have any pain? How bad is the pain? (e.g., Scale 1-10; mild, moderate, or severe) - MILD (1-3): doesn't interfere with normal activities, abdomen soft and not tender to touch - MODERATE (4-7): interferes with normal activities or awakens from sleep, abdomen tender to touch - SEVERE (8-10): excruciating pain, doubled over, unable to do any normal activities Pt reports having menstrual like cramps. 6. : Denies, reports in menopause. 7. : Denies. 8. HORMONE MEDICINES: Denies 9. BLOOD THINNER MEDICINES: Denies 10. CAUSE: Menopause 11. HEMODYNAMIC STATUS: Pt can stand and walk normally. 12. OTHER SYMPTOMS: Pt denies passed tissue, vaginal discharge, and fever. Pt reports menstrual-type cramps. Protocols used: Vaginal Bleeding - [id number] documented in this encounter [facility] 12-19-2022 Miscellaneous Notes Date of last office: 09/28/2022 Date of next office visit: None Requested Prescriptions Pending Prescriptions Disp Refills cyclobenzaprine (FLEXERIL) 10 mg tablet 30 tablet 0 Sig: Take 1 tablet by mouth three times a day as needed for muscle spasm. Please advise. Thank you. Loreto Hair RN. documented in this encounter [facility] 12-06-2022 Miscellaneous Notes I spoke with patient, area seems to be improving, is no longer painful and less red, she took the last doxycycline today. Blanca Alejo APRN.MAILE I attempted to reach patient to discuss results of her wound culture. No answer, left message. I would like to speak to her if she calls back. My extension is [phone]. Blanca Alejo APRN.MAILE documented in this encounter [facility] 12-05-2022 Miscellaneous Notes Pt informed, verbalized understanding Alexus Bonilla Labs ordered. Shaheed Rogel PA-C Pt calling for fasting lab orders. Please advise once orders are in. Pt will be loosing her insurance and requesting to have labs. Bryanna Conde LPN documented in this encounter [facility] 12-03-2022 History of Present illness Narrative Images from the original note were not included. Subjective Abscess Pertinent negatives include no chills, fever, myalgias or rash. Maty Fairbanks is a 52 year old female who presents with a boil on her abdomen. She was seen here on 11/29/22 for the same and placed on doxycycline and advised to warm compresses with epsom salt. She has not had any epsom salt to use so has been using hydrogen peroxide and alcohol on the area. She does not feel it is getting any better, in fact it seems to be a little larger and still hurts. Review of Systems Constitutional: Negative for chills and fever. Respiratory: Negative. Cardiovascular: Negative. Musculoskeletal: Negative for myalgias. Skin: Negative for itching and rash. See HPI BP 139/88 Pulse 68 Temp 36.2 C (97.2 F) Resp 18 Wt 123.4 kg (272 lb) LMP 11/14/2022 (Approximate) SpO2 99% BMI 47.43 kg/m PAST MEDICAL HISTORY Diagnosis Date Abdominal pain, epigastric Acute gastritis without mention of hemorrhage Asthma Attention deficit disorder without mention of hyperactivity Calculus of gallbladder without mention of cholecystitis or obstruction Chest pain, unspecified Dysthymic disorder history of depression Esophageal spasm Gastric ulcer, unspecified as acute or chronic, without mention of hemorrhage, perforation, or obstruction with hemorrhage Generalized anxiety disorder History of tobacco use Morbid obesity (HCC) JAMES (obstructive sleep apnea) PAST SURGICAL HISTORY Procedure Laterality Date APPENDECTOMY COLONOSCOPY FLX DX W/COLLJ SPEC WHEN PFRMD 12/15/2008 irritation at the anal verge COLONOSCOPY FLX DX W/COLLJ SPEC WHEN PFRMD 07/10/15 normal colonoscopy EGD TRANSORAL BIOPSY SINGLE/MULTIPLE Gastritis, healing ulcer EGD TRANSORAL BIOPSY SINGLE/MULTIPLE 07/10/15 minimal gastritis LAPAROSCOPY SURG CHOLECYSTECTOMY 08/21/07 LIG/TRNSXJ FLP TUBE ABDL/VAG APPR UNI/BI ALLERGIES Anticholinergics - Other MEDICATIONS albuterol HFA (PROVENTIL HFA, VENTOLIN HFA) 90 mcg/actuation inhaler Inhale 2 Puffs as instructed every 4 hours as needed for wheezing/shortness of breath. benzonatate (TESSALON PERLE) 100 mg capsule Take 1 capsule by mouth three times daily as needed for cough. Blood Pressure Test Kit-Large 1 Each as needed (blood pressure). Dx: Essential hypertension cetirizine (ZYRTEC) 10 mg tablet Take 1 tablet by mouth once daily. Cholecalciferol, Vitamin D3, 50 mcg (2,000 unit) cap Take 1 capsule by mouth once daily. cyanocobalamin (VITAMIN B-12) 1,000 mcg tab Take 1 tablet by mouth once daily. cyclobenzaprine (FLEXERIL) 10 mg tablet Take 1 tablet by mouth three times daily as needed for muscle spasm. diclofenac (VOLTAREN ARTHRITIS PAIN) 1 % topical gel Apply 2 g to affected area twice daily as needed (left knee pain). diclofenac, EC, (VOLTAREN) 75 mg EC tablet Take 1 tablet by mouth twice daily. As needed For pain/inflammation. Take with food. doxycycline monohydrate 100 mg tablet Take 1 tablet by mouth two times a day for 7 days. fluticasone-salmeterol HFA (ADVAIR HFA) 115-21 mcg/actuation inhaler Inhale 2 Puffs as instructed twice daily. gabapentin (NEURONTIN) 100 mg capsule Take 1-2 capsules by mouth three times daily as needed (joint pain) for up to 30 days. ibuprofen (MOTRIN) 800 mg tablet Take 1 tablet by mouth every 8 hours as needed for pain. Take with food. ibuprofen (MOTRIN) 800 mg tablet Take 1 tablet by mouth every 8 hours as needed for pain. Take with food. ibuprofen (MOTRIN) 800 mg tablet Take 1 tablet by mouth every 8 hours as needed for pain. Take with food. ipratropium-albuterol (DUONEB) 0.5 mg-3 mg(2.5 mg base)/3 mL nebu Inhale 3 mL as instructed every 6 hours as needed for wheezing/shortness of breath. cough Leg Brace (ELASTIC KNEE SUPPORT) misc 1 Device as directed. Dx: left knee pain, left suprapatellar bursitis lisinopril (ZESTRIL) 5 mg tablet Take 1 tablet by mouth once daily. For blood pressure Magnesium 250 mg tab Take 1 tablet by mouth once daily. meclizine (ANTIVERT) 12.5 mg tab 1 to 2 tablets three times a day as needed. montelukast (SINGULAIR) 10 mg tablet Take 1 tablet by mouth daily at bedtime. (Patient not taking: Reported on 09/15/2022) Nebulizer Accessories kit 1 Each four times daily. predniSONE (DELTASONE) 10 mg tablet Take 4 orally daily for 5 days, then 3 orally for 5 days, then 2 orally for 5 days, then one daily for 10 days Saccharomyces boulardii (PROBIOTIC, S.BOULARDII,) 250 mg capsule Take 1 capsule by mouth daily at bedtime. TENS unit and electrodes cmpk 1 Device as directed. Dx: right gluteal and thigh pain, bilateral knee pain, OA knees FAMILY HISTORY Adopted: Yes Problem Relation Age of Onset other (unknown) Other adopted Social History Tobacco Use Smoking status: Former Packs/day: 1.00 Years: 8.00 Additional pack years: 0.00 Total pack years: 8.00 Types: Cigarettes Quit date: 07/22/2006 Years since quittin.3 Smokeless tobacco: Never Tobacco comments: SMOKED SINCE 18 YEARS OLD Vaping Use Vaping Use: Never used Substance Use Topics Alcohol use: No Drug use: No Objective Physical Exam Vitals and nursing note reviewed. Constitutional: Appearance: Normal appearance. Cardiovascular: Rate and Rhythm: Normal rate. Pulmonary: Effort: Pulmonary effort is normal. Skin: General: Skin is warm and dry. Capillary Refill: Capillary refill takes less than 2 seconds. Findings: Erythema present. No bruising or rash. Neurological: Mental Status: She is alert. UNIVERSAL PROTOCOL / SAFETY CHECKLIST Procedure to be Performed: incision and drainage of boil Sign In: A Moment of CARE was completed. Personnel directly involved with the procedure wore the appropriate PPE (Personal Protective Equipment). Special equipment: suture tray, scalpel, culture swab Patient/Surrogate Stated/Verified: PATIENT VERIFIED(optional for EMERGENT procedures): Patient name, Date of , Relevant allergies, and The intended procedure Time Out Communication: Intended patient and procedure match the source documents. Consent documented and matches the intended procedure. No relevant labs, photos, and/or imaging studies were applicable for review. Correct side/site marked and visible. Medications required for procedure verified. No fire risk assessment and interventions applicable. No implant(s) inserted. Sign Out: SIGN OUT (optional for EMERGENT procedures): All specimen containers correctly labeled. All instruments, equipment, possible retained foreign bodies accounted for. Post-procedure follow-up management communicated and Plan of Care Visit completed when applicable. ASSESSMENT/PLAN: 1. Boil of trunk - ICD9: 680.2, ICD10: L02.229 - ABSCESS AND WOUND CULTURE WITH GRAM STAIN After universal precaution procedure done, skin was cleansed with saline and hibiclens. 2.5 cc of 1% lidocaine was injected surrounding the area of maximal fluctuance and small incision made with 11 blade scalpel. A small amount of purulent drainage was expressed. Culture swab obtained. A dry sterile dressing was applied. Patient tolerated procedure well. - continue doxycycline - warm compresses 2-3 times daily. Do not use hydrogen peroxide or alcohol on the area. - May take tylenol if needed for pain. - Follow-up with your PCP in 3-5 days if symptoms have not improved or sooner if symptoms worsen - Discussed red flags and need for immediate medical evaluation if any occur. - Discussed supportive care treatment with fluids, rest and analgesia. - Discussed expected course of illness Blanca Alejo APRN.MAILE documented in this encounter [facility] 12-03-2022 Instructions Blanca Alejo APRN.MAILE - 12/03/2022 3:26 PM EDT ASSESSMENT/PLAN: 1. Boil of trunk - ICD9: 680.2, ICD10: L02.229 - ABSCESS AND WOUND CULTURE WITH GRAM STAIN After universal precaution procedure done, skin was cleansed with saline and hibiclens. 2.5 cc of 1% lidocaine was injected surrounding the area of maximal fluctuance and small incision made with 11 blade scalpel. A small amount of purulent drainage was expressed. Culture swab obtained. A dry sterile dressing was applied. Patient tolerated procedure well. - continue doxycycline - warm compresses 2-3 times daily. Do not use hydrogen peroxide or alcohol on the area. - May take tylenol if needed for pain. - Follow-up with your PCP in 3-5 days if symptoms have not improved or sooner if symptoms worsen - Discussed red flags and need for immediate medical evaluation if any occur. - Discussed supportive care treatment with fluids, rest and analgesia. - Discussed expected course of illness Blanca Alejo APRN.MAILE ABSCESS (BOIL): You have a skin abscess, or boil. Boils usually develop when Staph bacteria get into the small glands or hair follicles in the skin and form a pus pocket. After an abscess is properly drained, it will most often heal without any problems. You should not squeeze an abscess or boil to drain it; this can cause the infection to spread to other areas under the skin. Boils are contagious, so you should dispose of soiled bandages carefully and not share your towel or wash cloth with others. A boil is lanced to start the draining. Soak the area in warm water for 20-30 minutes 3-4 times daily to help the healing. Oral antibiotics may be needed if the infection is severe or if it seems to be spreading. Please call your doctor if you have increased pain or swelling, chills or fever, red streaks going up the arm or leg, or continued pus drainage after 3-4 days. documented in this encounter [facility] 11-29-2022 History of Present illness Narrative Images from the original note were not included. Subjective Patient came in with complaints of possible skin infection on the left lower abdomen. Patient says she gets these all the time usually they drain and go away. Patient says this 1 does not seem to be draining. Patient denies fever nausea vomiting chills. Patient's tried alcohol and peroxide. The history is provided by the patient. No assistant speech language pathologist was used. Review of Systems Constitutional: Negative. Skin: Negative. Objective Physical Exam Constitutional: Appearance: Normal appearance. Pulmonary: Effort: Pulmonary effort is normal. Abdominal: Comments: Red area magana erythematous and warmth. Purple area magana where patient attempted to drain area. No induration or firmness noted. Neurological: Mental Status: She is alert. PAST MEDICAL HISTORY Diagnosis Date Abdominal pain, epigastric Acute gastritis without mention of hemorrhage Asthma Attention deficit disorder without mention of hyperactivity Calculus of gallbladder without mention of cholecystitis or obstruction Chest pain, unspecified Dysthymic disorder history of depression Esophageal spasm Gastric ulcer, unspecified as acute or chronic, without mention of hemorrhage, perforation, or obstruction with hemorrhage Generalized anxiety disorder History of tobacco use Morbid obesity (HCC) JAMES (obstructive sleep apnea) PAST SURGICAL HISTORY Procedure Laterality Date APPENDECTOMY COLONOSCOPY FLX DX W/COLLJ SPEC WHEN PFRMD 12/15/2008 irritation at the anal verge COLONOSCOPY FLX DX W/COLLJ SPEC WHEN PFRMD 07/10/15 normal colonoscopy EGD TRANSORAL BIOPSY SINGLE/MULTIPLE Gastritis, healing ulcer EGD TRANSORAL BIOPSY SINGLE/MULTIPLE 07/10/15 minimal gastritis LAPAROSCOPY SURG CHOLECYSTECTOMY 08/21/07 LIG/TRNSXJ FLP TUBE ABDL/VAG APPR UNI/BI ALLERGIES Anticholinergics - Other MEDICATIONS albuterol HFA (PROVENTIL HFA, VENTOLIN HFA) 90 mcg/actuation inhaler Inhale 2 Puffs as instructed every 4 hours as needed for wheezing/shortness of breath. benzonatate (TESSALON PERLE) 100 mg capsule Take 1 capsule by mouth three times daily as needed for cough. Blood Pressure Test Kit-Large 1 Each as needed (blood pressure). Dx: Essential hypertension cetirizine (ZYRTEC) 10 mg tablet Take 1 tablet by mouth once daily. Cholecalciferol, Vitamin D3, 50 mcg (2,000 unit) cap Take 1 capsule by mouth once daily. cyanocobalamin (VITAMIN B-12) 1,000 mcg tab Take 1 tablet by mouth once daily. cyclobenzaprine (FLEXERIL) 10 mg tablet Take 1 tablet by mouth three times daily as needed for muscle spasm. diclofenac (VOLTAREN ARTHRITIS PAIN) 1 % topical gel Apply 2 g to affected area twice daily as needed (left knee pain). diclofenac, EC, (VOLTAREN) 75 mg EC tablet Take 1 tablet by mouth twice daily. As needed For pain/inflammation. Take with food. doxycycline monohydrate 100 mg tablet Take 1 tablet by mouth two times a day for 7 days. fluticasone-salmeterol HFA (ADVAIR HFA) 115-21 mcg/actuation inhaler Inhale 2 Puffs as instructed twice daily. (Patient not taking: Reported on 06/08/2022) gabapentin (NEURONTIN) 100 mg capsule Take 1-2 capsules by mouth three times daily as needed (joint pain) for up to 30 days. ibuprofen (MOTRIN) 800 mg tablet Take 1 tablet by mouth every 8 hours as needed for pain. Take with food. (Patient not taking: Reported on 11/29/2022) ibuprofen (MOTRIN) 800 mg tablet Take 1 tablet by mouth every 8 hours as needed for pain. Take with food. ibuprofen (MOTRIN) 800 mg tablet Take 1 tablet by mouth every 8 hours as needed for pain. Take with food. ipratropium-albuterol (DUONEB) 0.5 mg-3 mg(2.5 mg base)/3 mL nebu Inhale 3 mL as instructed every 6 hours as needed for wheezing/shortness of breath. cough Leg Brace (ELASTIC KNEE SUPPORT) misc 1 Device as directed. Dx: left knee pain, left suprapatellar bursitis lisinopril (ZESTRIL) 5 mg tablet Take 1 tablet by mouth once daily. For blood pressure Magnesium 250 mg tab Take 1 tablet by mouth once daily. meclizine (ANTIVERT) 12.5 mg tab 1 to 2 tablets three times a day as needed. montelukast (SINGULAIR) 10 mg tablet Take 1 tablet by mouth daily at bedtime. (Patient not taking: Reported on 09/15/2022) Nebulizer Accessories kit 1 Each four times daily. predniSONE (DELTASONE) 10 mg tablet Take 4 orally daily for 5 days, then 3 orally for 5 days, then 2 orally for 5 days, then one daily for 10 days Saccharomyces boulardii (PROBIOTIC, S.BOULARDII,) 250 mg capsule Take 1 capsule by mouth daily at bedtime. TENS unit and electrodes cmpk 1 Device as directed. Dx: right gluteal and thigh pain, bilateral knee pain, OA knees (Patient not taking: Reported on 11/29/2022) FAMILY HISTORY Adopted: Yes Problem Relation Age of Onset other (unknown) Other adopted Social History Tobacco Use Smoking status: Former Packs/day: 1.00 Years: 8.00 Additional pack years: 0.00 Total pack years: 8.00 Types: Cigarettes Quit date: 07/22/2006 Years since quittin.3 Smokeless tobacco: Never Tobacco comments: SMOKED SINCE 18 YEARS OLD Vaping Use Vaping Use: Never used Substance Use Topics Alcohol use: No Drug use: No ASSESSMENT/PLAN: 1. Skin infection - ICD9: 686.9, ICD10: L08.9 - DOXYCYCLINE MONOHYDRATE 100 MG TABLET Patient was educated to monitor for signs of worsening. Patient was educated to start medication right away. Patient will follow-up if signs and symptoms seem to be getting worse not better. At this time it does not need drained. Patient was okay with this care plan. Kyra Castro APRN.MAILE documented in this encounter [facility] 11-29-2022 Miscellaneous Notes OK to refill as ordered Cleve Mcfarlane MD Patient has been identified by name and date of : Patient phones for refill(s): Requested Prescriptions Pending Prescriptions Disp Refills cyclobenzaprine (FLEXERIL) 10 mg tablet [Pharmacy Med Name: cyclobenzaprine 10 mg tablet] 30 tablet 0 Sig: Take 1 tablet by mouth three times daily as needed for muscle spasm. benzonatate (TESSALON PERLE) 100 mg capsule [Pharmacy Med Name: benzonatate 100 mg capsule] 90 capsule 0 Sig: Take 1 capsule by mouth three times daily as needed for cough. Date of last office visit in primary care:11/07/2022 Date of next office visit in primary care: Visit date not found Last 2 Encounter Wt Readings: Date: Wt: 10/20/2022 121.1 kg (267 lb) 09/28/2022 121.1 kg (267 lb) Previous labs/tests for medication: Not applicable Please advise. Thank you. Chio Meyers LPN. documented in this encounter [facility] 11-10-2022 Miscellaneous Notes Pt informed, verbalized understanding. Alexus Bonilla Please have her call her insurance to see where TENS unit and knee brace orders can be faxed. There should be a company that is covered that can be used. Also can consider appt /opinion with Orthopedics Fredo Larose DO Pt calls for following: DM advised TENS Unit and Knee brace are not billable to insurance. Pt reports she had a mesh compression/brace for left knee and has been wearing that. Pt reports the arthritis in L knee is very painful. Pt reports it has been a constant 10 the past few days and gave out on her today but she didn't fall. Pt reports it is the worst at night and she is having trouble sleeping. Pt reports she has been taking medication like prescribed and at first thought it was helping some but medication is not working now. Pt is asking what else she can do. Pt reports she used Voltaren gel on knee and realized she is not supposed to but hoped that would help but did not. Please review and advise. Avelina Ricks LPN documented in this encounter [facility] 10-20-2022 History of Present illness Narrative Images from the original note were not included. Subjective HPI Nontoxic-appearing female presents urgent care chief complaint lesion of lip. Duration of symptoms 1 day. Associated symptoms painful erythematous lesion on upper lip. Has used antibiotic cream this has not helped. Describes the lesion as stinging and burning. Does itch at times. No other concerns. Denies any fever body aches chills productive cough chest pain shortness of breath pleuritic pain hemoptysis nausea vomiting abdominal pain change in bowel or bladder habits. Past medical history prescription medication use and allergies reviewed. .Patient presents with: sore on upper lip: X 1 day PAST MEDICAL HISTORY Diagnosis Date Abdominal pain, epigastric Acute gastritis without mention of hemorrhage Asthma Attention deficit disorder without mention of hyperactivity Calculus of gallbladder without mention of cholecystitis or obstruction Chest pain, unspecified Dysthymic disorder history of depression Esophageal spasm Gastric ulcer, unspecified as acute or chronic, without mention of hemorrhage, perforation, or obstruction with hemorrhage Generalized anxiety disorder History of tobacco use Morbid obesity (HCC) JAMES (obstructive sleep apnea) PAST SURGICAL HISTORY Procedure Laterality Date APPENDECTOMY COLONOSCOPY FLX DX W/COLLJ SPEC WHEN PFRMD 12/15/2008 irritation at the anal verge COLONOSCOPY FLX DX W/COLLJ SPEC WHEN PFRMD 07/10/15 normal colonoscopy EGD TRANSORAL BIOPSY SINGLE/MULTIPLE Gastritis, healing ulcer EGD TRANSORAL BIOPSY SINGLE/MULTIPLE 07/10/15 minimal gastritis LAPAROSCOPY SURG CHOLECYSTECTOMY 08/21/07 LIG/TRNSXJ FLP TUBE ABDL/VAG APPR UNI/BI ALLERGIES Anticholinergics - Other MEDICATIONS cetirizine (ZYRTEC) 10 mg tablet Take 1 tablet by mouth once daily. lisinopril (ZESTRIL) 5 mg tablet Take 1 tablet by mouth once daily. For blood pressure diclofenac, EC, (VOLTAREN) 75 mg EC tablet Take 1 tablet by mouth twice daily. As needed For pain/inflammation. Take with food. gabapentin (NEURONTIN) 100 mg capsule Take 1-2 capsules by mouth three times daily as needed (joint pain) for up to 30 days. TENS unit and electrodes cmpk 1 Device as directed. Dx: right gluteal and thigh pain, bilateral knee pain, OA knees ibuprofen (MOTRIN) 800 mg tablet Take 1 tablet by mouth every 8 hours as needed for pain. Take with food. ibuprofen (MOTRIN) 800 mg tablet Take 1 tablet by mouth every 8 hours as needed for pain. Take with food. cyanocobalamin (VITAMIN B-12) 1,000 mcg tab Take 1 tablet by mouth once daily. Cholecalciferol, Vitamin D3, 50 mcg (2,000 unit) cap Take 1 capsule by mouth once daily. Saccharomyces boulardii (PROBIOTIC, S.BOULARDII,) 250 mg capsule Take 1 capsule by mouth daily at bedtime. diclofenac (VOLTAREN ARTHRITIS PAIN) 1 % topical gel Apply 2 g to affected area twice daily as needed (left knee pain). Leg Brace (ELASTIC KNEE SUPPORT) misc 1 Device as directed. Dx: left knee pain, left suprapatellar bursitis ibuprofen (MOTRIN) 800 mg tablet Take 1 tablet by mouth every 8 hours as needed for pain. Take with food. ipratropium-albuterol (DUONEB) 0.5 mg-3 mg(2.5 mg base)/3 mL nebu Inhale 3 mL as instructed every 6 hours as needed for wheezing/shortness of breath. cough Nebulizer Accessories kit 1 Each four times daily. meclizine (ANTIVERT) 12.5 mg tab 1 to 2 tablets three times a day as needed. Blood Pressure Test Kit-Large 1 Each as needed (blood pressure). Dx: Essential hypertension Magnesium 250 mg tab Take 1 tablet by mouth once daily. montelukast (SINGULAIR) 10 mg tablet Take 1 tablet by mouth daily at bedtime. (Patient not taking: Reported on 09/15/2022) fluticasone-salmeterol HFA (ADVAIR HFA) 115-21 mcg/actuation inhaler Inhale 2 Puffs as instructed twice daily. (Patient not taking: Reported on 06/08/2022) predniSONE (DELTASONE) 10 mg tablet Take 4 orally daily for 5 days, then 3 orally for 5 days, then 2 orally for 5 days, then one daily for 10 days albuterol HFA (PROVENTIL HFA, VENTOLIN HFA) 90 mcg/actuation inhaler Inhale 2 Puffs as instructed every 4 hours as needed for wheezing/shortness of breath. FAMILY HISTORY Adopted: Yes Problem Relation Age of Onset other (unknown) Other adopted Social History Tobacco Use Smoking status: Former Packs/day: 1.00 Years: 8.00 Additional pack years: 0.00 Total pack years: 8.00 Types: Cigarettes Quit date: 07/22/2006 Years since quittin.2 Smokeless tobacco: Never Tobacco comments: SMOKED SINCE 18 YEARS OLD Vaping Use Vaping Use: Never used Substance Use Topics Alcohol use: No Drug use: No BP 118/72 Pulse 71 Temp 36.2 C (97.2 F) (Tympanic) Resp 18 Wt 121.1 kg (267 lb) LMP 04/26/2021 (Approximate) SpO2 96% BMI 46.56 kg/m Review of Systems Constitutional: Negative for chills, fever and malaise/fatigue. HENT: Negative for congestion, ear discharge, ear pain, sinus pain and sore throat. Eyes: Negative for blurred vision, pain, discharge and redness. Respiratory: Negative for cough, hemoptysis, sputum production, shortness of breath, wheezing and stridor. Cardiovascular: Negative for chest pain. Gastrointestinal: Negative for abdominal pain, diarrhea, nausea and vomiting. Musculoskeletal: Negative for myalgias. Skin: Positive for rash. Negative for itching. Neurological: Negative for dizziness and headaches. Objective Physical Exam Constitutional: General: She is not in acute distress. Appearance: She is not toxic-appearing. HENT: Head: Normocephalic. Comments: Erythematous base lesion noted highlighted area. Fluid-filled vesicles noted. No remote redness. Nose: Nose normal. Eyes: Pupils: Pupils are equal, round, and reactive to light. Cardiovascular: Rate and Rhythm: Normal rate. Pulmonary: Effort: Pulmonary effort is normal. No respiratory distress. Musculoskeletal: Cervical back: Normal range of motion. Skin: General: Skin is warm and dry. Neurological: General: No focal deficit present. Mental Status: She is alert. ASSESSMENT/PLAN: 1. Rash - ICD9: 782.1, ICD10: R21 Diagnosed with rash. We will treat as orolabial infection. Placed on acyclovir. Patient was educated on supportive therapies. Patient will follow up with primary care provider as needed. Patient was instructed to immediately proceed to emergency room for any new, worsening, or symptoms lasting longer than anticipated. The patient's clinical presentation is otherwise unremarkable at this time. Based on exam and clinical finding, the patient is stable for discharge. Plan of care was discussed with patient. Patient verbalizes understanding and agrees to plan of care. This note was generated using [employer] software. It may contain errors in wording, punctuation, or spelling. Sugn Griffith APRN.MAILE documented in this encounter [facility] 09-28-2022 History of Present illness Narrative CC: Maty Fairbanks is a 52 year old female who presents to the office for follow up HPI: Left anterior tibia pain, now also left knee pain posterior and around medial area and anterior area of knee, worse at night when trying to lay and get comfortable. Sometimes left knee feels it is going to give out. Has got an over the counter brace of knee that is helping a little. Has had recent xrays of her knees 1-2 weeks ago which show mild medial knee joint arthritis changes. No signs of instability. Has been taking ibuprofen 800 mg as needed Right thigh pain and buttock and tailbone pain, present x months, worse some days than others, difficulty with sitting or prolonged laying. No known injuries. 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 Feels like a sharp shooting pain and deep ache Sometimes difficulty with swallowing, difficulty with choking on pills at times- sometimes has to cut pills in 1/2. Memory changes, short term, difficulty with word finding or long time to process what she wants to say before able to say it. Does also have balance concerns. Feels like also could be related to all her stressors that she has. PAST MEDICAL HISTORY Diagnosis Date Abdominal pain, epigastric Acute gastritis without mention of hemorrhage Asthma Attention deficit disorder without mention of hyperactivity Calculus of gallbladder without mention of cholecystitis or obstruction Chest pain, unspecified Dysthymic disorder history of depression Esophageal spasm Gastric ulcer, unspecified as acute or chronic, without mention of hemorrhage, perforation, or obstruction with hemorrhage Generalized anxiety disorder History of tobacco use Morbid obesity (HCC) JAMES (obstructive sleep apnea) PAST SURGICAL HISTORY Procedure Laterality Date APPENDECTOMY COLONOSCOPY FLX DX W/COLLJ SPEC WHEN PFRMD 12/15/2008 irritation at the anal verge COLONOSCOPY FLX DX W/COLLJ SPEC WHEN PFRMD 07/10/15 normal colonoscopy EGD TRANSORAL BIOPSY SINGLE/MULTIPLE Gastritis, healing ulcer EGD TRANSORAL BIOPSY SINGLE/MULTIPLE 07/10/15 minimal gastritis LAPAROSCOPY SURG CHOLECYSTECTOMY 08/21/07 LIG/TRNSXJ FLP TUBE ABDL/VAG APPR UNI/BI Current Outpatient Medications Medication Sig cetirizine (ZYRTEC) 10 mg tablet Take 1 tablet by mouth once daily. lisinopril (ZESTRIL) 5 mg tablet Take 1 tablet by mouth once daily. For blood pressure diclofenac, EC, (VOLTAREN) 75 mg EC tablet Take 1 tablet by mouth twice daily. As needed For pain/inflammation. Take with food. gabapentin (NEURONTIN) 100 mg capsule Take 1-2 capsules by mouth three times daily as needed (joint pain) for up to 30 days. TENS unit and electrodes cmpk 1 Device as directed. Dx: right gluteal and thigh pain, bilateral knee pain, OA knees ibuprofen (MOTRIN) 800 mg tablet Take 1 tablet by mouth every 8 hours as needed for pain. Take with food. montelukast (SINGULAIR) 10 mg tablet Take 1 tablet by mouth daily at bedtime. (Patient not taking: Reported on 09/15/2022) ibuprofen (MOTRIN) 800 mg tablet Take 1 tablet by mouth every 8 hours as needed for pain. Take with food. cyanocobalamin (VITAMIN B-12) 1,000 mcg tab Take 1 tablet by mouth once daily. Cholecalciferol, Vitamin D3, 50 mcg (2,000 unit) cap Take 1 capsule by mouth once daily. Saccharomyces boulardii (PROBIOTIC, S.BOULARDII,) 250 mg capsule Take 1 capsule by mouth daily at bedtime. fluticasone-salmeterol HFA (ADVAIR HFA) 115-21 mcg/actuation inhaler Inhale 2 Puffs as instructed twice daily. (Patient not taking: Reported on 06/08/2022) predniSONE (DELTASONE) 10 mg tablet Take 4 orally daily for 5 days, then 3 orally for 5 days, then 2 orally for 5 days, then one daily for 10 days diclofenac (VOLTAREN ARTHRITIS PAIN) 1 % topical gel Apply 2 g to affected area twice daily as needed (left knee pain). Leg Brace (ELASTIC KNEE SUPPORT) misc 1 Device as directed. Dx: left knee pain, left suprapatellar bursitis ibuprofen (MOTRIN) 800 mg tablet Take 1 tablet by mouth every 8 hours as needed for pain. Take with food. ipratropium-albuterol (DUONEB) 0.5 mg-3 mg(2.5 mg base)/3 mL nebu Inhale 3 mL as instructed every 6 hours as needed for wheezing/shortness of breath. cough Nebulizer Accessories kit 1 Each four times daily. albuterol HFA (PROVENTIL HFA, VENTOLIN HFA) 90 mcg/actuation inhaler Inhale 2 Puffs as instructed every 4 hours as needed for wheezing/shortness of breath. meclizine (ANTIVERT) 12.5 mg tab 1 to 2 tablets three times a day as needed. Blood Pressure Test Kit-Large 1 Each as needed (blood pressure). Dx: Essential hypertension Magnesium 250 mg tab Take 1 tablet by mouth once daily. No current facility-administered medications for this visit. ALLERGIES Allergen Reactions Anticholinergics - * (Bentyl) causes hives Social History Tobacco Use Smoking status: Former Packs/day: 1.00 Years: 8.00 Total pack years: 8.00 Types: Cigarettes Quit date: 07/22/2006 Years since quittin.1 Smokeless tobacco: Never Tobacco comments: SMOKED SINCE 18 YEARS OLD Vaping Use Vaping Use: Never used Substance Use Topics Alcohol use: No Drug use: No ROS: See HPI PE: BP 110/60 Pulse 76 Temp (Src) 97.6 (Left Tympanic) Resp 20 Wt 267 lb (121.1kg) LMP 04/26/2021 Gen: A&OX3, NAD, non-toxic appearing HEENT: PERRLA, EOMs intact b/l, nares without drainage, pharynx without erythema, exudate, lesions, or drainage. Uvula midline. Neck: No LAD, no thyromegaly, no meningismus. CV: RRR, no murmur Lungs: CTA b/l, no wheezing Skin: No rashes, lesions, or wounds on exposed skin. ASSESSMENT/PLAN: 1. Chronic pain of both knees - ICD9: 719.46, 338.29, ICD10: M25.561, M25.562, G89.29 (primary diagnosis) D/c ibuprofen, trial of diclofenac and prn gabapentin, use of TENS unit and J brace hinged. Can consider injection corticosteroid into knee joint, PHYSICAL THERAPY and orthopedics opinion as d/w her today - DICLOFENAC SODIUM 75 MG TABLET,DELAYED RELEASE - GABAPENTIN 100 MG CAPSULE - TENS UNIT AND ELECTRODES COMBO PACK - J BRACE - KNEE 2. Hypertension, essential - ICD9: 401.9, ICD10: I10 - Controlled - Continue current medications - Recommend home blood pressure monitoring, to bring results to next visit - Encouraged sodium restriction, DASH or Mediterranean diet - Recommend regular aerobic exercise - LISINOPRIL 5 MG TABLET 3. Arthritis of knee - ICD9: 716.96, ICD10: M17.10 D/c ibuprofen, trial of diclofenac and prn gabapentin, use of TENS unit and J brace hinged. Can consider injection corticosteroid into knee joint, PHYSICAL THERAPY and orthopedics opinion as d/w her today - DICLOFENAC SODIUM 75 MG TABLET,DELAYED RELEASE - GABAPENTIN 100 MG CAPSULE - TENS UNIT AND ELECTRODES COMBO PACK - J BRACE - KNEE 4. Memory change - ICD9: 780.93, ICD10: R41.3 Can consider seeing Neurologist and further testing with MMSE and brain imaging during a follow up appt 5. Right thigh pain - ICD9: 729.5, ICD10: M79.651 D/c ibuprofen, trial of diclofenac and prn gabapentin, use of TENS unit and J brace hinged. Can consider injection corticosteroid into knee joint, PHYSICAL THERAPY and orthopedics opinion as d/w her today 6. Chronic right-sided low back pain with right-sided sciatica - ICD9: 724.2, 724.3, 338.29, ICD10: M54.41, G89.29 D/c ibuprofen, trial of diclofenac and prn gabapentin, use of TENS unit and J brace hinged for knee. Can consider injection corticosteroid into knee joint, PHYSICAL THERAPY and orthopedics opinion as d/w her today Likely related to gait changes due to knee arthritis and pain as well as her lumbar spine OA Fredo Larose DO Return if no improvement. Follow up with Fredo Larose DO. To ER if develops chest pain, shortness of breath Discussed risks, benefits, alternatives, and potential side effects of medications. Patient/Guardian expressed understanding and agreed with the plan. See patient instructions. Fredo Larose DO [address] [place] [address] documented in this encounter [facility] 09-16-2022 Miscellaneous Notes Patient given results and verbalized understanding of instructions given. Sabina Rodriguez Xray negative for acute fracture. Please reach out and inform patient. RICE therapy OTC analgesics. Follow up with ortho if symptoms persist. documented in this encounter [facility] 09-15-2022 History of Present illness Narrative This note was created using [employer]. Subjective Maty Fairbanks is a 52 year old female. HPI 52-year-old female presents for left knee pain. Patient states that she has been having pain in the back of her left knee for about a year now. She states that occasionally will give out on her. States that today she was walking and her left leg gave out on her and she started having worsening pain in the back of her left knee. She did not actually fall. She denies any specific injury that she can recall that started this pain up year ago. States she did have a fall and injured her ivan, but does not recall injuring her knee. She was seen for this previously. She denies any numbness or tingling in the leg. No calf pain or swelling. No recent travel. PAST MEDICAL HISTORY Diagnosis Date Abdominal pain, epigastric Acute gastritis without mention of hemorrhage Asthma Attention deficit disorder without mention of hyperactivity Calculus of gallbladder without mention of cholecystitis or obstruction Chest pain, unspecified Dysthymic disorder history of depression Esophageal spasm Gastric ulcer, unspecified as acute or chronic, without mention of hemorrhage, perforation, or obstruction with hemorrhage Generalized anxiety disorder History of tobacco use Morbid obesity (HCC) JAMES (obstructive sleep apnea) PAST SURGICAL HISTORY Procedure Laterality Date APPENDECTOMY COLONOSCOPY FLX DX W/COLLJ SPEC WHEN PFRMD 12/15/2008 irritation at the anal verge COLONOSCOPY FLX DX W/COLLJ SPEC WHEN PFRMD 07/10/15 normal colonoscopy EGD TRANSORAL BIOPSY SINGLE/MULTIPLE Gastritis, healing ulcer EGD TRANSORAL BIOPSY SINGLE/MULTIPLE 07/10/15 minimal gastritis LAPAROSCOPY SURG CHOLECYSTECTOMY 08/21/07 LIG/TRNSXJ FLP TUBE ABDL/VAG APPR UNI/BI ALLERGIES Anticholinergics - Other MEDICATIONS cetirizine (ZYRTEC) 10 mg tablet Take 1 tablet by mouth once daily. ibuprofen (MOTRIN) 800 mg tablet Take 1 tablet by mouth every 8 hours as needed for pain. Take with food. cyanocobalamin (VITAMIN B-12) 1,000 mcg tab Take 1 tablet by mouth once daily. Cholecalciferol, Vitamin D3, 50 mcg (2,000 unit) cap Take 1 capsule by mouth once daily. Saccharomyces boulardii (PROBIOTIC, S.BOULARDII,) 250 mg capsule Take 1 capsule by mouth daily at bedtime. lisinopril (ZESTRIL, PRINIVIL) 5 mg tablet Take 1 tablet by mouth once daily. For blood pressure diclofenac (VOLTAREN ARTHRITIS PAIN) 1 % topical gel Apply 2 g to affected area twice daily as needed (left knee pain). ibuprofen (MOTRIN) 800 mg tablet Take 1 tablet by mouth every 8 hours as needed for pain. Take with food. albuterol HFA (PROVENTIL HFA, VENTOLIN HFA) 90 mcg/actuation inhaler Inhale 2 Puffs as instructed every 4 hours as needed for wheezing/shortness of breath. meclizine (ANTIVERT) 12.5 mg tab 1 to 2 tablets three times a day as needed. Blood Pressure Test Kit-Large 1 Each as needed (blood pressure). Dx: Essential hypertension Magnesium 250 mg tab Take 1 tablet by mouth once daily. ibuprofen (MOTRIN) 800 mg tablet Take 1 tablet by mouth every 8 hours as needed for pain. Take with food. montelukast (SINGULAIR) 10 mg tablet Take 1 tablet by mouth daily at bedtime. (Patient not taking: Reported on 09/15/2022) fluticasone-salmeterol HFA (ADVAIR HFA) 115-21 mcg/actuation inhaler Inhale 2 Puffs as instructed twice daily. (Patient not taking: Reported on 06/08/2022) predniSONE (DELTASONE) 10 mg tablet Take 4 orally daily for 5 days, then 3 orally for 5 days, then 2 orally for 5 days, then one daily for 10 days Leg Brace (ELASTIC KNEE SUPPORT) misc 1 Device as directed. Dx: left knee pain, left suprapatellar bursitis ipratropium-albuterol (DUONEB) 0.5 mg-3 mg(2.5 mg base)/3 mL nebu Inhale 3 mL as instructed every 6 hours as needed for wheezing/shortness of breath. cough Nebulizer Accessories kit 1 Each four times daily. FAMILY HISTORY Adopted: Yes Problem Relation Age of Onset other (unknown) Other adopted Social History Tobacco Use Smoking status: Former Packs/day: 1.00 Years: 8.00 Total pack years: 8.00 Types: Cigarettes Quit date: 07/22/2006 Years since quittin.1 Smokeless tobacco: Never Tobacco comments: SMOKED SINCE 18 YEARS OLD Vaping Use Vaping Use: Never used Substance Use Topics Alcohol use: No Drug use: No Review of Systems Constitutional: Negative for chills and fever. HENT: Negative for congestion, ear pain and sore throat. Respiratory: Negative for cough and shortness of breath. Cardiovascular: Negative for chest pain. Gastrointestinal: Negative for diarrhea and vomiting. Musculoskeletal: Positive for arthralgias (Left knee/leg pain). Objective BP 110/78 Pulse 80 Temp 37 C (98.6 F) Resp 21 Wt 120.7 kg (266 lb) LMP 04/26/2021 (Approximate) SpO2 98% BMI 46.38 kg/m Physical Exam Vitals and nursing note reviewed. Constitutional: General: She is not in acute distress. Appearance: Normal appearance. She is not toxic-appearing. Cardiovascular: Rate and Rhythm: Normal rate and regular rhythm. Pulmonary: Effort: Pulmonary effort is normal. Breath sounds: Normal breath sounds. Musculoskeletal: Left knee: Bony tenderness present. Decreased range of motion. Tenderness present over the medial joint line. Normal pulse. Comments: Patient has slightly decreased ROM left knee due to pain. She has pain over the posterior knee. She also has some anterior knee pain over the medial joint line. Normal sensation left lower extremity. Pulses 2+. Nontender calf. No obvious swelling or deformity. Skin: General: Skin is warm and dry. Neurological: Mental Status: She is alert. Assessment and Plan ASSESSMENT/PLAN: 1. Acute pain of left knee - ICD9: 719.46, ICD10: M25.562 - XR KNEE GENERAL 4V AP BOTH/PA BOTH/LAT/MERC LEFT -XR result is pending. Please call patient with result. -Recommend rest, ice, elevation. - Patient is prescribed ibuprofen 800 mg for other conditions which she has been taking with some improvement. She is requesting more of these. Refill sent to pharmacy. Advise not to take any other NSAIDs while taking this medication. -Patient has follow-up with PCP in 1 week. Advised to discuss this issue with her. She may benefit from physical therapy or more advanced imaging if needed. Diagnosis and treatment plan were discussed and questions were answered to the patient's satisfaction. Pt acknowledged understanding of concepts and follow up plan. Specific signs and symptoms that would indicate the need for higher level of care were discussed in detail warranting prompt ER evaluation. SHASHI Ortega documented in this encounter [facility] 08-28-2022 Miscellaneous Notes Reason for call; Diarrhea Outcome: 24 hour recommendation: Pt declined appt at this time. She says she may go to if not better tomorrow. Reason for Disposition [1] SEVERE diarrhea (e.g., 7 or more times / day more than normal) AND [2] present > 24 hours (1 day) Answer Assessment - Initial Assessment Questions 1. DIARRHEA SEVERITY: diarrhea started yesterday am. Pt has had about 13 stools since then. Stool is green. Pt concerned because she has not eaten anything green. She takes a probiotic but it has never turned her stool green 2. ONSET: yesterday am 3. BM CONSISTENCY: runny/loose/watery 4. VOMITING: denies 5. ABDOMINAL PAIN: none 7. ORAL INTAKE: drinking water and coffee 8. HYDRATION: making urine as usual, mouth moist. Pt has had a few breath episodes of dizziness. 10. ANTIBIOTIC USE: none 11. OTHER SYMPTOMS: denies Protocols used: [id number] documented in this encounter [facility] 06-08-2022 History of Present illness Narrative Chief Complaint Patient presents with: Chest Pain: Off and on since mar. States can be aching can be sharp does sometimes get sob, no nausea , no sweating, sometimes a cough, sometimes states feels like a gaston HPI Maty Fairbanks is a 52 year old female who presents here today for Above Complaints. Maty is an established patient of Dr. Larose, and myself. Concerns today... Chest pain --- Intermittent chest pain since March off and on. Cancelled appt in april because she thought it subsided, then it returned. L sided chest pain, non-radiating. Sometimes dull and achy pain that lasts hours, sometimes sharp stabbing pain that lasts a few minutes. Stabbing pain feels like a gaston . Denies SOB, palpitations, or heart racing sensation during these episodes. 1 episode of mild CP and SOB with strenuous exertion on May 25 -- no episodes since. Working out at [employer] and walking on treadmill 00 has felt fine, no return of symptoms. Long-haul COVID pt. + for COVID over 1 year ago. Still has intermittent cough since but other symptoms are improving. Does report hx of costochondritis in the past that does feel similar. Taking ibuprofen daily for generalized chronic aches and pains. Denies any recent increase in stressors-- for once not in court over custody of grandchild. Does feel a bit more anxious than normal over things that would normally not bother her. Does not want to be on medication for this. Hx of nodules in breast and all over body . These are kettle tender to touch and are at the area of discomfort. Breast US and diagnostic mammogram from 2018 does show 5mm oval lipoma to L breast. Past medical history, appointments, medications, allergies reviewed. Previous Medical History PAST MEDICAL HISTORY Diagnosis Date Abdominal pain, epigastric Acute gastritis without mention of hemorrhage Asthma Attention deficit disorder without mention of hyperactivity Calculus of gallbladder without mention of cholecystitis or obstruction Chest pain, unspecified Dysthymic disorder history of depression Esophageal spasm Gastric ulcer, unspecified as acute or chronic, without mention of hemorrhage, perforation, or obstruction with hemorrhage Generalized anxiety disorder History of tobacco use Morbid obesity (HCC) JAMES (obstructive sleep apnea) Previous Surgical History PAST SURGICAL HISTORY Procedure Laterality Date APPENDECTOMY COLONOSCOPY FLX DX W/COLLJ SPEC WHEN PFRMD 12/15/2008 irritation at the anal verge COLONOSCOPY FLX DX W/COLLJ SPEC WHEN PFRMD 07/10/15 normal colonoscopy EGD TRANSORAL BIOPSY SINGLE/MULTIPLE Gastritis, healing ulcer EGD TRANSORAL BIOPSY SINGLE/MULTIPLE 07/10/15 minimal gastritis LAPAROSCOPY SURG CHOLECYSTECTOMY 08/21/07 LIG/TRNSXJ FLP TUBE ABDL/VAG APPR UNI/BI Family History FAMILY HISTORY Adopted: Yes Problem Relation Age of Onset other (unknown) Other adopted Patient Allergies ALLERGIES Allergen Reactions Anticholinergics - * (Bentyl) causes hives Current Medications Current Outpatient Medications on File Prior to Visit Medication Sig ibuprofen (MOTRIN) 800 mg tablet Take 1 tablet by mouth every 8 hours as needed for pain. Take with food. montelukast (SINGULAIR) 10 mg tablet Take 1 tablet by mouth daily at bedtime. cyanocobalamin (VITAMIN B-12) 1,000 mcg tab Take 1 tablet by mouth once daily. Cholecalciferol, Vitamin D3, 50 mcg (2,000 unit) cap Take 1 capsule by mouth once daily. Saccharomyces boulardii (PROBIOTIC, S.BOULARDII,) 250 mg capsule Take 1 capsule by mouth daily at bedtime. lisinopril (ZESTRIL, PRINIVIL) 5 mg tablet Take 1 tablet by mouth once daily. For blood pressure fluticasone-salmeterol HFA (ADVAIR HFA) 115-21 mcg/actuation inhaler Inhale 2 Puffs as instructed twice daily. predniSONE (DELTASONE) 10 mg tablet Take 4 orally daily for 5 days, then 3 orally for 5 days, then 2 orally for 5 days, then one daily for 10 days montelukast sodium (SINGULAIR ORAL) Take by mouth. diclofenac (VOLTAREN ARTHRITIS PAIN) 1 % topical gel Apply 2 g to affected area twice daily as needed (left knee pain). Leg Brace (ELASTIC KNEE SUPPORT) misc 1 Device as directed. Dx: left knee pain, left suprapatellar bursitis cetirizine (ZYRTEC) 10 mg tablet Take 1 tablet by mouth once daily. ibuprofen (MOTRIN) 800 mg tablet Take 1 tablet by mouth every 8 hours as needed for pain. Take with food. fluticasone-salmeterol HFA (ADVAIR HFA) 115-21 mcg/actuation inhaler Inhale 2 Puffs as instructed twice daily. Rinse mouth after use. ipratropium-albuterol (DUONEB) 0.5 mg-3 mg(2.5 mg base)/3 mL nebu Inhale 3 mL as instructed every 6 hours as needed for wheezing/shortness of breath. cough Nebulizer Accessories kit 1 Each four times daily. albuterol (PROVENTIL) 2.5 mg /3 mL (0.083 %) nebulizer solution Use 3 mL via nebulizer every 4 hours as needed for wheezing/shortness of breath. Use over 5-15minutes. albuterol HFA (PROVENTIL HFA, VENTOLIN HFA) 90 mcg/actuation inhaler Inhale 2 Puffs as instructed every 4 hours as needed for wheezing/shortness of breath. meclizine (ANTIVERT) 12.5 mg tab 1 to 2 tablets three times a day as needed. Blood Pressure Test Kit-Large 1 Each as needed (blood pressure). Dx: Essential hypertension Magnesium 250 mg tab Take 1 tablet by mouth once daily. No current facility-administered medications on file prior to visit. Social History Social History Tobacco Use Smoking status: Former Packs/day: 1.00 Years: 8.00 Pack years: 8.00 Types: Cigarettes Quit date: 07/22/2006 Years since quittin.8 Smokeless tobacco: Never Tobacco comments: SMOKED SINCE 18 YEARS OLD Vaping Use Vaping Use: Never used Substance Use Topics Alcohol use: No Drug use: No REVIEW OF SYSTEMS: as above Reviewed relevant PMHx, PSHx, Social Hx, current medications and allergies. Review of Symptoms REVIEW OF SYSTEMS See HPI. All other systems are negative. EXAM: BP 138/78 (BP Site: Left Arm, BP Position: Sitting, BP Cuff Size: Large Adult) Pulse 68 Resp 16 Wt 120.8 kg (266 lb 6.4 oz) LMP 04/26/2021 (Approximate) BMI 46.45 kg/m General Appearance: Well appearing, alert, in no acute distress, well-hydrated, well nourished.. Skin: Skin color, texture, turgor normal, no suspicious rashes or lesions. Head: Normocephalic, no masses, lesions, tenderness or abnormalities. Neck: Supple, no adenopathy; thyroid symmetric, normal size, no bruits. Back:no pain to palpation of vertebrae, good flexion and extension, good range of motion, no muscle tenderness, reflexes are 2+ and symmetric, motor and sensory appear to be normal, negative SLR test, no evidence of scoliosis Lungs: Lungs clear to auscultation. No wheezing, rhonchi, rales.. Heart: RRR without murmur, gallop, or rubs. No ectopy. Abdomen: Normal abdominal exam, Abdomen soft, non-tender. Bowel sounds normal. No masses, organomegaly. Musculoskeletal: No joint swelling, deformity, or tenderness. Neurologic: Gait normal. Reflexes normal and symmetric. Sensation grossly intact.. Health Maintenance List HEPATITIS B(1 of 3 - 3-dose series) Never done COVID-19 VACCINE(1) Never done PNEUMOCOCCAL(1 - PCV) Never done HEPATITIS C SCREENING Never done HIV SCREENING Never done MAMMOGRAM due on 2012 COLORECTAL CANCER SCREENING Never done DTAP,TDAP,TD(2 - Td or Tdap) due on 07/18/2021 SHINGRIX VACCINE(1 of 2) due on 2022 INFLUENZA(Season Ended) due on 10/21/2022 ANNUAL PCP TEAM CHRONIC DISEASE VISIT due on 01/05/2023 DIABETES SCREEN due on 05/17/2023 LIPID SCREEN due on 05/16/2025 PAP TESTING due on 01/27/2026 HPV TESTING due on 01/27/2026 SPIROMETRY Completed ASSESSMENT/PLAN: 1. Chest pain, unspecified type - ICD9: 786.50, ICD10: R07.9 (primary diagnosis) Chest pain of unclear etiology. MSK vs cardiac vs anxiety. EKG in office -- NSR rate of 67. 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 If gives relief, we can assume MSK costochondritis. - ECG B/O W INTERP (MED OFFICE) - CYCLOBENZAPRINE 10 MG TABLET - OUTSIDE VENDOR CARDIAC OUTPATIENT EVENT RECORDER 2. Vitamin D deficiency - ICD9: 268.9, ICD10: E55.9 - VITAMIN D 25 HYDROXY 3. Hypertension, essential - ICD9: 401.9, ICD10: I10 - suboptimal control - Continue current medication(s) - Encouraged dietary sodium restriction/DASH diet - Recommended regular aerobic exercise. - Recommend home blood pressure monitoring, to bring results in on next visit - Goal of BP <130/80 - Recommended no refined sugar, low refined starch, healthy oil intake (olive oil), healthy protein (fish) along the lines of the Mediterranean diet. 4. Well adult exam - ICD9: V70.0, ICD10: Z00.00 Needs routine lab work as prior labs . Planning to come in on Monday. - COMP METABOLIC PANEL - CBC - LIPID PANEL BASIC - HGB A1C - VITAMIN B12 BLOOD - TSH BLD 5. History of COVID-19 - ICD9: V12.09, ICD10: Z86.16 Long haul covid symptoms improving. 6. Lipoma of left lower extremity - ICD9: 214.1, ICD10: D17.24 Schedule mammogram as ordered prior. Will monitor these from last exam in 2018. 7. TUSHAR (generalized anxiety disorder) - ICD9: 300.02, ICD10: F41.1 Discussed anxiousness contributing to chest discomfort. Pt aware. Pt declined any counseling, SSRI/SNRI therapy, or prn anxiety medication regimen. Will continue to monitor symptoms at this time. RTO in 3 months, sooner if needed. Prescription instructions reviewed with patient as applicable. Potential red flag symptoms discussed with the patient. Reviewed appropriate action plan to take if red flag symptoms occur. Patient agreeable to treatment plan. Tatiana Nieves APRN.GENERATOR ASSEMBLER [address] [place] [address] documented in this encounter [facility] 06-02-2022 Miscellaneous Notes Patient phones requesting refills as follows: Requested Prescriptions Pending Prescriptions Disp Refills ibuprofen (MOTRIN) 800 mg tablet [Pharmacy Med Name: ibuprofen 800 mg tablet] 30 tablet 3 Sig: Take 1 tablet by mouth every 8 hours as needed for pain. Take with food. [facility] 01/05/22 NOV 06/08/22 Please review and advise. Suzanne Gordon LPN documented in this encounter [facility] 02-09-2022 Miscellaneous Notes Patient calling to check on status of refill request below. Patient asking for refill to be sent today, if possible. Pt states she is out of he medication. Thank you. Patient calls to check on status of request. Patient has one pill left. Notified patient that request was pending Dr. Larose's review/authorization. María Stovall RN Misha--01/05/22 Nov--nothing scheduled Last refill--07/07/21 120 with 1 refill Last labs--05/16/20 Patient has been identified by name and date of : Yes Requested Prescriptions Pending Prescriptions Disp Refills ibuprofen (MOTRIN) 800 mg tablet 30 tablet 3 Sig: Take 1 tablet by mouth every 8 hours as needed for pain. Take with food. RX INSTRUCTIONS: Patient aware RX will be sent to pharmacy. No need to notify patient. 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 She doesn't exercise, admits to not eating a healthy diet either HTN, well controlled with lisinopril, taking this as prescribed Asthma, stable, taking singulair and Advair inhaler, no recent flare up of symptoms. No hemoptysis or distress respiratory. Struggling with intermittent bloating, abdominal cramping, diarrhea and constipation, alternating, no nausea or vomiting or blood in stool or fevers, years of symptoms. Doesn't know of any food triggers. PAST MEDICAL HISTORY Diagnosis Date Abdominal pain, epigastric Acute gastritis without mention of hemorrhage Asthma Attention deficit disorder without mention of hyperactivity Calculus of gallbladder without mention of cholecystitis or obstruction Chest pain, unspecified Dysthymic disorder history of depression Esophageal spasm Gastric ulcer, unspecified as acute or chronic, without mention of hemorrhage, perforation, or obstruction with hemorrhage Generalized anxiety disorder History of tobacco use Morbid obesity (HCC) JAMES (obstructive sleep apnea) PAST SURGICAL HISTORY Procedure Laterality Date APPENDECTOMY COLONOSCOPY FLX DX W/COLLJ SPEC WHEN PFRMD 12/15/2008 irritation at the anal verge COLONOSCOPY FLX DX W/COLLJ SPEC WHEN PFRMD 07/10/15 normal colonoscopy EGD TRANSORAL BIOPSY SINGLE/MULTIPLE Gastritis, healing ulcer EGD TRANSORAL BIOPSY SINGLE/MULTIPLE 07/10/15 minimal gastritis LAPAROSCOPY SURG CHOLECYSTECTOMY 08/21/07 LIG/TRNSXJ FLP TUBE ABDL/VAG APPR UNI/BI Social History: Social History Tobacco Use Smoking status: Former Packs/day: 1.00 Years: 8.00 Pack years: 8.00 Types: Cigarettes Quit date: 07/22/2006 Years since quittin.4 Smokeless tobacco: Never Tobacco comments: SMOKED SINCE 18 YEARS OLD Vaping Use Vaping Use: Never used Substance Use Topics Alcohol use: No Drug use: No FAMILY HISTORY Adopted: Yes Problem Relation Age of Onset other (unknown) Other adopted Current Outpatient prescriptions: lisinopril (ZESTRIL, PRINIVIL) 5 mg tablet Take 1 tablet by mouth once daily. For blood pressure fluticasone-salmeterol HFA (ADVAIR HFA) 115-21 mcg/actuation inhaler Inhale 2 Puffs as instructed twice daily. montelukast sodium (SINGULAIR ORAL) Take by mouth. diclofenac (VOLTAREN ARTHRITIS PAIN) 1 % topical gel Apply 2 g to affected area twice daily as needed (left knee pain). Leg Brace (ELASTIC KNEE SUPPORT) misc 1 Device as directed. Dx: left knee pain, left suprapatellar bursitis cetirizine (ZYRTEC) 10 mg tablet Take 1 tablet by mouth once daily. ibuprofen (MOTRIN) 800 mg tablet Take 1 tablet by mouth every 8 hours as needed for pain. Take with food. fluticasone-salmeterol HFA (ADVAIR HFA) 115-21 mcg/actuation inhaler Inhale 2 Puffs as instructed twice daily. Rinse mouth after use. ipratropium-albuterol (DUONEB) 0.5 mg-3 mg(2.5 mg base)/3 mL nebu Inhale 3 mL as instructed every 6 hours as needed for wheezing/shortness of breath. cough Nebulizer Accessories kit 1 Each four times daily. meclizine (ANTIVERT) 12.5 mg tab 1 to 2 tablets three times a day as needed. Blood Pressure Test Kit-Large 1 Each as needed (blood pressure). Dx: Essential hypertension Magnesium 250 mg tab Take 1 tablet by mouth once daily. montelukast (SINGULAIR) 10 mg tablet Take 1 tablet by mouth daily at bedtime. cyanocobalamin (VITAMIN B-12) 1,000 mcg tab Take 1 tablet by mouth once daily. Cholecalciferol, Vitamin D3, 50 mcg (2,000 unit) cap Take 1 capsule by mouth once daily. Saccharomyces boulardii (PROBIOTIC, S.BOULARDII,) 250 mg capsule Take 1 capsule by mouth daily at bedtime. predniSONE (DELTASONE) 10 mg tablet Take 4 orally daily for 5 days, then 3 orally for 5 days, then 2 orally for 5 days, then one daily for 10 days albuterol (PROVENTIL) 2.5 mg /3 mL (0.083 %) nebulizer solution Use 3 mL via nebulizer every 4 hours as needed for wheezing/shortness of breath. Use over 5-15minutes. albuterol HFA (PROVENTIL HFA, VENTOLIN HFA) 90 mcg/actuation inhaler Inhale 2 Puffs as instructed every 4 hours as needed for wheezing/shortness of breath. Allergies: ALLERGIES Allergen Reactions Anticholinergics - * (Bentyl) causes hives ROS: See HPI PE: 01/05/22 1806 BP: 130/80 Pulse: 68 Resp: 20 Temp: (!) 35.7 C (96.2 F) TempSrc: Left Tympanic Weight: 123.4 kg (272 lb) Gen: A&O, NAD, non-toxic appearing, Pleasant, cooperative HEENT: NT/AC, PERRLA, EOMs intact b/l, nares clear and patent b/l, pharynx without erythema, exudate or lesions. Uvula midline. EACs without erythema or debris. TMs pearly phillips with intact landmarks b/l. Neck: supple, No cervical LAD, no thyromegaly, no carotid bruits CV: RRR, normal S1 and S2, no murmurs, no gallops, no rubs, Pulses 2+ and symmetric in UE and LE b/l Lungs: normal respiratory effort, CTA b/l, no wheezing or rhonchi or rales Abd: soft, obese, NT, ND, +BS, no hepatosplenomegaly MS: FROM all 4 extremities Neuro: CN II-XII intact b/l, strength 5/5 b/l UE and LE, DTRs 2/4 UE and LE, sensation intact. Skin: warm, dry, intact, subcutaneous sore nodules in legs and upper arms No edema lower legs ASSESSMENT/PLAN: 1. Well adult exam - ICD9: V70.0, ICD10: Z00.00 (primary diagnosis) - Counseled on healthy diet and regular exercise - Calcium intake with supplements or by diet of 1000 mg/day for under 50, 5625-4858 mg/day for 50+ - Discussed need and benefit for weight loss. BMI 47.43 kg/(m^2) - COMP METABOLIC PANEL - CBC + DIFF - LIPID PANEL BASIC - HGB A1C - TSH BLD - VITAMIN B12 BLOOD - VITAMIN D 25 HYDROXY 2. Perimenopausal disorder - ICD9: 627.9, ICD10: N95.9 - consider starting SSRI, she isn't interestd, 3. Vitamin D deficiency - ICD9: 268.9, ICD10: E55.9 Need for her to restart taking supplement, rx sent to pharmacy 4. Morbid obesity with BMI of 45.0-49.9, adult (HCC) - ICD9: 278.01, V85.42, ICD10: E66.01, Z68.42 Stable - Behavioral intervention 5. Dermatofibroma of lower extremity, unspecified laterality - ICD9: 216.7, ICD10: D23.70 - stable 6. Irritable bowel syndrome with alternating bowel habits - ICD9: 564.1, ICD10: K58.2 F/u with colonoscopy recommended, she refuses, try low FODMAP food diet if interested Fredo Larose DO To ER if develops chest pain, shortness of breath, or severe worsening of symptoms. Discussed risks, benefits, alternatives, and potential side effects of medications. Patient expressed understanding and agreed with the plan. Fredo Larose DO [address] [place] [address] documented in this encounter [facility] 01-05-2022 Instructions Fredo Larose DO - 01/05/2022 6:39 PM EST [place] supplement for menopause documented in this encounter [facility] 10-05-2021 Miscellaneous Notes Protocol recommends see provider in 24 hours. Patient states she can only come in on Mon, after 5:30 pm. Scheduled appt. LUQ pain for about a week, comes and goes. Reports she has taken 9 rounds of steroids since Mar 2021 - had covid in Mar, and possibly long haulers covid. Reason for Disposition [1] MODERATE pain (e.g., interferes with normal activities) AND [2] pain comes and goes (cramps) AND [3] present > 24 hours (Exception: pain with Vomiting or Diarrhea - see that Guideline) Answer Assessment - Initial Assessment Questions 1. LOCATION: LUQ abdomen, just under ribs. 2. RADIATION: Radiates to upper center of abdomen 3. ONSET: 1 week ago 4. SUDDEN: Gradual 5. PATTERN Pain comes and goes. Having right now. Pain went away during this converstation. Lasts no longer than an hour. 6. SEVERITY: Moderate when it comes. Not tender to touch. Does not cause her to double over. Woke her up from sleep twice last night. Does not affect normal activities. 7. RECURRENT SYMPTOM: No. Except when had gallbladder issue. Gallbladder removed 10-15 years ago. History of stomach ulcers. 8. CAUSE: No idea. Had trouble with constipation about a week ago. The constipation has improved by trying natural methods. Thinks she has IBS- usually when eats runs to bathroom immediately. Since Mar 2021 has taken 9 rounds prednisone, and 3 rounds of AB. Completed prednisone last week for cough- prescribed by pulmonary. Seeing pulmonary for radhika kaminski. Recent pulmonary tests were pretty good, and may no longer have long haulers covid. 9. RELIEVING/AGGRAVATING FACTORS: Eating makes the abdominal pain better. Has not eaten today. Nothing makes it worse. 10. OTHER SYMPTOMS: Had constipation a week ago- resolved. No problems with urination. 11. : Missed period this month. Tubes tied, and no sex for last 3 years. Protocols used: Abdominal Pain - [id number] documented in this encounter [facility] 09-30-2021 Miscellaneous Notes Noted. Bibi Felipe APRN.MAILE Reviewed triage protocol guidelines with patient. Verbalized understanding. She had been juicing fruits like apples, pears, peaches and will try eating them whole for increased fiber. She will try to increase fluid and activity also. Disposition: Home Care. Codie Luque RN Reason for Disposition MILD constipation Answer Assessment - Initial Assessment Questions 1. STOOL PATTERN OR FREQUENCY: daily BM but thinner feels like she is going less than usual 2. STRAINING: No straining 3. RECTAL PAIN: No rectal pain 4. STOOL COMPOSITION: firmer than usual 5. BLOOD ON STOOLS: No blood in stool 6. CHRONIC CONSTIPATION: intermittent x one week 7. CHANGES IN DIET OR HYDRATION: states she is drinking enough fluids. One cup of coffee in th morning. No alcohol. 8. MEDICATIONS: Started taking Prednisone mid August 9. LAXATIVES: No 10.ACTIVITY: No decreased or increased activity 11. CAUSE: unknown 12. OTHER SYMPTOMS: mild intermittent abdominal discomfort 13. MEDICAL HISTORY: No history of hemorrhoids, rectal fissures, or rectal surgery or rectal abscess? 14. : No Protocols used: [id number] documented in this encounter [facility] 09-27-2021 Miscellaneous Notes Patient has been identified by name and date of : Yes Pending Prescriptions Disp Refills LISINOPRIL 5 MG TABLET 90 tablet 3 Sig: Take 1 tablet by mouth once daily. For blood pressure MADHU: No MISHA-07/07/21 Labs-05/16/20 NOV-12/01/21 med filled 12/23/20 RX INSTRUCTIONS: Patient is out of medication, please send today. Patient aware RX will be sent to pharmacy. No need to notify patient. Sara Nolasco documented in this encounter [facility] 09-08-2021 Miscellaneous Notes Patient notified and verbalized understanding Tequila Dhaliwal Cma Agree if there is red streaking, she needs to be evaluated. Bibi Felipe APRN.MAILE Protocol recommends for patient to be seen within 4 hours due to redness. Patient unable to come in for evaluation until after 5:30pm. No appts available. Patient asking if she must get this evaluated today at [facility] this evening or if this is something she can monitor at home? Her next appt is in November. Please advise patient . Thank you. [phone]. Reason for Disposition [1] Red area or streak AND [2] large (> 2 in. or 5 cm) Answer Assessment - Initial Assessment Questions Patient calling to ask provider's advise. She reports back in April she was stepping down some steps outside and thought she was at the bottom of the steps but was not and tripped forward into a shallow pool, scraping her left ivan. She states at that time her left ivan bruised and was tender to touch but never hurt when she walked, or any other symptoms. Today she is calling because she notes that her left ivan still is reddened in two areas. One area is the size of golf ball and the other bruise is about the size of a [place]. Areas remain tender to touch. Denies swelling, no pain when walking, no increased warmth, no tingling or numbness. 1. ONSET: as above 2. LOCATION:as above 3. PAIN: mild when touched 4. WORK OR EXERCISE: as above 5. CAUSE: as above 6. OTHER SYMPTOMS: Denies chest pain, back pain, breathing difficulty, swelling, rash, fever, numbness, or weakness Protocols used: LEG [id number] documented in this encounter [facility] 09-06-2021 History of Present illness Narrative Images from the original note were not included. . [facility] [place] Note Patient name: Maty Fairbanks PCP: Fredo Larose DO Referring Physician: Same Consultation requested by Dr. Larose for an opinion regarding chronic cough. My final recommendations will be communicated back to the requesting physician by way of shared Medical record or letter to requesting physician via US mail. CC: Chronic cough HPI: Maty Fairbanks 51 year old morbidly obese female former minimal smoker with PMH significant for ADD, history of depression, anxiety disorder, JAMES, asthma being sent for evaluation of chronic cough and recently tested positive for COVID 08/28/21. Asthma diagnosed in her early 20s. She was treated with as needed albuterol. Did not require inhaled corticosteroids, no history of intubation or hospitalizations for asthma. She states she was doing well until March of this past year when she believes she probably had COVID infection. 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 At that time she had minimal symptoms but developed severe cough. Cough productive of phlegm. Coughing jags where she felt as if she was going to pass out. Severity of cough induced urinary incontinence. Cough interfered with her sleep. Coughing induced by talking for prolonged periods. She was treated with oral steroids and antibiotics on several occasions. She states that she would feel better after the steroids and antibiotics only to have recrudescence of her symptoms. She was prescribed Advair HFA inhaler but through miscommunication on her end, she never picked up the prescription. She was feeling somewhat better until she developed sore throat, chills and recrudescence of her cough. She did positive for COVID. She just completed a course of steroids and antibiotics and is concerned that she will have recrudescence of her cough thus prompting evaluation today. No current chest pain, shortness of breath or wheezing. Spirometry showed no significant airflow obstruction and her exhaled nitric oxide level was normal. No nasal congestion with postnasal drip or acid reflux symptoms. DATA: Review of pulmonary function test shows normal spirometry RESPIRATORY THERAPY ORAL EXHALED NITRIC OXIDE SERVICE DATE: 09/06/2021 SERVICE TIME: 2:31 PM Oral Exhaled Nitric Oxide measurement: 12.0 (ppb) Labs: Component Ref Range & Units 10 d ago COVID 19 Result Not Detected SARS-CoV-2 (Agent of COVID-19) Detected by RT-PCR or equivalent method. Abnormal Imaging / Diagnostic Studies: Chest x-ray not done PAST MEDICAL HISTORY Diagnosis Date Abdominal pain, epigastric Acute gastritis without mention of hemorrhage Asthma Attention deficit disorder without mention of hyperactivity Calculus of gallbladder without mention of cholecystitis or obstruction Chest pain, unspecified Dysthymic disorder history of depression Esophageal spasm Gastric ulcer, unspecified as acute or chronic, without mention of hemorrhage, perforation, or obstruction with hemorrhage Generalized anxiety disorder History of tobacco use Morbid obesity (HCC) JAMES (obstructive sleep apnea) ALLERGIES Allergen Reactions Anticholinergics - * (Bentyl) causes hives albuterol (PROVENTIL) 2.5 mg /3 mL (0.083 %) nebulizer solution Use 3 mL via nebulizer every 4 hours as needed for wheezing/shortness of breath. Use over 5-15minutes. fluticasone-salmeterol HFA (ADVAIR HFA) 115-21 mcg/actuation inhaler Inhale 2 Puffs as instructed twice daily. predniSONE (DELTASONE) 10 mg tablet Take 4 orally daily for 5 days, then 3 orally for 5 days, then 2 orally for 5 days, then one daily for 10 days montelukast sodium (SINGULAIR ORAL) Take by mouth. montelukast (SINGULAIR) 10 mg tablet Take 1 tablet by mouth daily at bedtime. diclofenac (VOLTAREN ARTHRITIS PAIN) 1 % topical gel Apply 2 g to affected area twice daily as needed (left knee pain). Leg Brace (ELASTIC KNEE SUPPORT) misc 1 Device as directed. Dx: left knee pain, left suprapatellar bursitis cetirizine (ZYRTEC) 10 mg tablet Take 1 tablet by mouth once daily. ibuprofen (MOTRIN) 800 mg tablet Take 1 tablet by mouth every 8 hours as needed for pain. Take with food. vitamin b complex (VITAMINS B COMPLEX) tab Take 1 tablet by mouth once daily. In the morning fluticasone-salmeterol HFA (ADVAIR HFA) 115-21 mcg/actuation inhaler Inhale 2 Puffs as instructed twice daily. Rinse mouth after use. ipratropium-albuterol (DUONEB) 0.5 mg-3 mg(2.5 mg base)/3 mL nebu Inhale 3 mL as instructed every 6 hours as needed for wheezing/shortness of breath. cough Nebulizer Accessories kit 1 Each four times daily. albuterol HFA (PROVENTIL HFA, VENTOLIN HFA) 90 mcg/actuation inhaler Inhale 2 Puffs as instructed every 4 hours as needed for wheezing/shortness of breath. meclizine (ANTIVERT) 12.5 mg tab 1 to 2 tablets three times a day as needed. Blood Pressure Test Kit-Large 1 Each as needed (blood pressure). Dx: Essential hypertension lisinopril (ZESTRIL, PRINIVIL) 5 mg tablet Take 1 tablet by mouth once daily. For blood pressure Magnesium 250 mg tab Take 1 tablet by mouth once daily. Social History Tobacco Use Smoking status: Former Smoker Packs/day: 1.00 Years: 8.00 Pack years: 8.00 Types: Cigarettes Quit date: 07/22/2006 Years since quittin.1 Smokeless tobacco: Never Used Tobacco comment: SMOKED SINCE 18 YEARS OLD Vaping Use Vaping Use: Never used Substance Use Topics Alcohol use: No Drug use: No Home daycare. Pets: Guinea pigs, cat and dog FAMILY HISTORY Adopted: Yes Problem Relation Age of Onset other (unknown) Other adopted PAST SURGICAL HISTORY Procedure Laterality Date APPENDECTOMY COLONOSCOPY FLX DX W/COLLJ SPEC WHEN PFRMD 12/15/2008 irritation at the anal verge COLONOSCOPY FLX DX W/COLLJ SPEC WHEN PFRMD 07/10/15 normal colonoscopy EGD TRANSORAL BIOPSY SINGLE/MULTIPLE Gastritis, healing ulcer EGD TRANSORAL BIOPSY SINGLE/MULTIPLE 07/10/15 minimal gastritis LAPAROSCOPY SURG CHOLECYSTECTOMY 08/21/07 LIG/TRNSXJ FLP TUBE ABDL/VAG APPR UNI/BI PMH, Social history, family history and surgical history reviewed and updated in EMR REVIEW OF SYSTEMS: CONSTITUTIONAL: No fevers, chills, nightsweats, unintended weight loss HEENT: Denies nasal congestion/sinus symptoms, allergy problems. EYES: No diplopia or blurry vision. CARDIOVASCULAR: No chest pain, palpitations, orthopnea, PND, ankle edema. PULM: No dyspnea, unexplained cough. GI: No dysphagia/odynophagia, problematic reflux, diarrhea : No urinary complaints, including dysuria, gross hematuria or pyuria. Urinary incontinence with cough NEURO: No new balance problems, peripheral weakness/paresthesias or numbness of concern. MUSC-SKEL: No new joint pain, swelling, or erythema. PSY: No concerns regarding depression, anxiety INTEGUMENTARY: No new skin changes or rashes PHYSICAL EXAMINATION: BP 122/80 Pulse 70 Resp 12 Ht 5' 3.5 (1.61m) Wt 270 lb (122.5kg) SpO2 98% LMP 04/26/2021 BMI 47.07 kg/(m^2). General Appearance: Morbidly obese female, no acute distress Skin: Skin color, texture, turgor normal, no suspicious rashes or lesions. Head: Normocephalic, no masses, lesions, tenderness or abnormalities. Eyes: Sclera, conjunctiva normal Oropharynx: No oral lesions or erythema Neck: No JVD, no masses Lungs: Not labored, normal to percussion, no wheezes or crackles Heart: Regular rate and rhythm, no murmurs or gallops Extremities: No edema or clubbing Musculoskeletal: No joint deformities or joint effusions Neurologic: Oriented, no focal findings Lymph Nodes: No cervical lymphadenopathy, No supraclavicular lymphadenopathy Assessment/Plan: 1. Post COVID chronic cough -Persistent cough due to underlying asthma triggered by COVID infection -Recommend Advair as previously prescribed. Sent in new prescription -Continue albuterol as needed -Steroid taper over 3 to 4 weeks 2. Intermittent asthma without complication -See #1 -If cough recurs would recommend definitive methacholine challenge testing 3. Morbid obesity -Class III obesity, BMI 47 -Weight loss advised as obesity portends poor control of asthma Torie Reyna MD [facility] [place] documented in this encounter [facility] 09-06-2021 Procedure note Associated Order(s): NITRIC OXIDE, EXHALED RESPIRATORY THERAPY ORAL EXHALED NITRIC OXIDE SERVICE DATE: 09/06/2021 SERVICE TIME: 2:31 PM Oral Exhaled Nitric Oxide measurement: 12.0 (ppb) Normal: Adult 5-20 ppb, pediatric (<12 years) 5-15 ppb High Normal / Increased: Adult 20-35 ppb, pediatric (<12 years) 15-25 ppb Moderately raised exhaled Nitric Oxide may indicate underlying inflammation, but note that: Cold and influenza can raise exhaled Nitric Oxide and some patients have higher baseline exhaled Nitric Oxide levels than others. High: Adult >35 ppb, pediatric (<12 years) >25 ppb Indicative of ongoing eosinophilic inflammation. Symptomatic patient likely to respond to steroids. Possible causes (if already on steroids): Poor compliance, recent allergen exposure, steroid dose inadequate, and steroid resistance. Note that not all patients with high exhaled nitric oxide levels display symptoms. Oral Exhaled Nitric Oxide measurement (Previous Encounters) Test Date Oral Exhaled Nitric Oxide (ppb) 09/06/2021 12.0 NAME: JONNY López PATIENT NAME: Maty Fairbanks DATE: September 06, 2021 TIME: 2:31 PM documented in this encounter [facility] 09-06-2021 Nurse Note Intake information documented in the prior visit with JONNY López today. documented in this encounter [facility] 09-06-2021 History of Present illness Narrative PULM FUNCTION SMARTBLOCK: Provider: Torie Reyna MD Assisting Tech: JONNY López Spirometry: 1 Exhaled Nitric Oxide: 1 documented in this encounter [facility] 08-28-2021 Miscellaneous Notes Patient given results and verbalized understanding of instructions given. Sabina Rodriguez You tested positive for COVID-19 Follow the CDC guidelines for isolation: 1. Everyone, regardless of vaccination status, should stay home for 5 days. 2. If you have no symptoms or your symptoms are resolving after 5 days, you can leave your house. 3. Continue to wear a mask around others for 5 additional days. If you have a fever, continue to stay home until your fever resolves, even if it is longer than 5 days. Please monitor your symptoms, and for any worrisome symptoms, call your primary care provider or schedule a visit with [facility]. A test is not recommended to return to work/school when meeting the above criteria. documented in this encounter [facility] 08-27-2021 Miscellaneous Notes Noted. Agree with below. Thank you, Tatiana Nieves APRN.GENERATOR ASSEMBLER Protocol Recommended: See provider within 4 hours unless provider has other recommendations. [facility]. Reason for Disposition [1] MILD difficulty breathing (e.g., minimal/no SOB at rest, SOB with walking, pulse <100) AND [2] still present when not coughing Answer Assessment - Initial Assessment Questions Patient reports she is nervous about a cough that she has. States has a returning cough that she had on and off for several months which recently resolved and has returned again on 08/25/21. Had COVID in March. Currently cough is a productive cough. She is also experiencing mild chest tightness and headache. She has nasal congestion also. Mild shortness of breath with activity only. No SOB at rest. She reports on 08/24 she had a sore throat, and on 08/24 and 08/25 she had moments of chills and facial flushing but never took her temperature. Denies wheezing, nausea, vomiting or diarrhea. She takes Zyrtec, Singulair and inhaler. Has history of asthmatic bronchitis. She will be seeing Pulmonary on 09/06/21. 1. ONSET: 08/24/21 2. SEVERITY: moderate 3. SPUTUM: yellow 4. HEMOPTYSIS: no 5. DIFFICULTY BREATHING: as above 6. FEVER: Has not measured it 7. CARDIAC HISTORY:yes 8. LUNG HISTORY: yes 9. PE RISK FACTORS: denies prior lung clot 10. OTHER SYMPTOMS: as above 11. : no 12. TRAVEL:no Protocols used: COUGH - ACUTE [id number] documented in this encounter [facility] 08-05-2021 Miscellaneous Notes Faxed recent ov notes to [facility], per request. . Needed for knee brace order. documented in this encounter [facility] 07-09-2021 Miscellaneous Notes Patient last visit with PCP 07/07/21 Follow up appointment scheduled none Torie Watson Ma Patient has been identified by name and date of : Yes Pending Prescriptions Disp Refills MONTELUKAST 10 MG TABLET 90 tablet 1 Sig: Take 1 tablet by mouth daily at bedtime. 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 Patient aware RX will be sent to pharmacy. No need to notify patient. Sara Newman Pss documented in this encounter [facility] 07-07-2021 History of Present illness Narrative CC: Maty Fairbanks is a 51 year old female who presents to the office for follow up HPI: Previously, was seen in office in Mar and April Patient exposed to COVID around the beginning of March, but was not tested at that time. Cough started on 04/01 and has not improved. Patient has been evaluated multiple times since 04/02 for cough and SOB. Has had chest and d dimer in the [place] [facility] on 04/07 which were negative. Diagnosed with asthmatic bronchitis. Has been treated with Prednisone and azithromycin at home which did seem to help with symptoms initially. Had follow up at on 05/03 after symptoms returned/worsed about 5 days prior and was started on 6 day taper of Prednisone and encouraged her to continue treatment with tessalon. Since her evaluation she has been using her inhalers, prednisone and tessalon as prescribed and cough has not improved. States that she has abdominal pain with her frequent harsh cough. Bringing up creamish colored sputum with cough. Denies SOB or wheezing outside of her coughing. Higher dose of prednisone, inhalers and tessalon not helping with her cough. Not taking anything OTC for cough. Tested with rapid test at home on Monday which was negative. She was seen for follow up by Dr. Albarado on 05/08 and told symptoms were likely due to cough variant asthma. She was told to follow up with helpdesk specialist for opinion which she hasn't done yet. She did have improvement with the prednisone and isn't being as consistent as she should with the Flovent but tolerating it well without obvious SE to medication. She continues to cough, worse with prolonged talking or outside in cold weather or in a shower etc. No current chest pain or shortness of breath or wheezing of hemoptysis or fevers or chills. Currently Cough, had overall been well controlled. Decided that she was going to stop the singulair and the flovent. Has been off both medications the last couple of weeks and the dry cough has returned, intermittent but daily. Thought she could potentially be off the medications. Going to be seeing Field Service Specialist in August since wasn't able to be off work for offered June appt. Left knee pain, hx of injury in the past years ago, hx of bursitis. Recently has been doing a lot of standing and walking. Feels the area has been sore the last 2 weeks, no obvious redness. Feels the area is tight/full feeling and aching. No use of ice or heat. Use of ibuprofen as needed. Needing rx refilled. PAST MEDICAL HISTORY Diagnosis Date Abdominal pain, epigastric Acute gastritis without mention of hemorrhage Attention deficit disorder without mention of hyperactivity Calculus of gallbladder without mention of cholecystitis or obstruction Chest pain, unspecified Dysthymic disorder history of depression Esophageal spasm Extrinsic asthma, unspecified Gastric ulcer, unspecified as acute or chronic, without mention of hemorrhage, perforation, or obstruction with hemorrhage Generalized anxiety disorder History of tobacco use Morbid obesity (HCC) JAMES (obstructive sleep apnea) PAST SURGICAL HISTORY Procedure Laterality Date APPENDECTOMY COLONOSCOPY FLX DX W/COLLJ SPEC WHEN PFRMD 12/15/2008 irritation at the anal verge COLONOSCOPY FLX DX W/COLLJ SPEC WHEN PFRMD 07/10/15 normal colonoscopy EGD TRANSORAL BIOPSY SINGLE/MULTIPLE Gastritis, healing ulcer EGD TRANSORAL BIOPSY SINGLE/MULTIPLE 07/10/15 minimal gastritis LAPAROSCOPY SURG CHOLECYSTECTOMY 08/21/07 LIG/TRNSXJ FLP TUBE ABDL/VAG APPR UNI/BI Current Outpatient Medications Medication Sig diclofenac (VOLTAREN ARTHRITIS PAIN) 1 % topical gel Apply 2 g to affected area twice daily as needed (left knee pain). Leg Brace (ELASTIC KNEE SUPPORT) [facility] 1 Device as directed. Dx: left knee pain, left suprapatellar bursitis cetirizine (ZYRTEC) 10 mg tablet Take 1 tablet by mouth once daily. ibuprofen (MOTRIN) 800 mg tablet Take 1 tablet by mouth every 8 hours as needed for pain. Take with food. vitamin b complex (VITAMINS B COMPLEX) tab Take 1 tablet by mouth once daily. In the morning montelukast (SINGULAIR) 10 mg tablet Take 1 tablet by mouth daily at bedtime. fluticasone-salmeterol HFA (ADVAIR HFA) 115-21 mcg/actuation inhaler Inhale 2 Puffs as instructed twice daily. Rinse mouth after use. ipratropium-albuterol (DUONEB) 0.5 mg-3 mg(2.5 mg base)/3 mL nebu Inhale 3 mL as instructed every 6 hours as needed for wheezing/shortness of breath. cough Nebulizer Accessories kit 1 Each four times daily. albuterol (PROVENTIL) 2.5 mg /3 mL (0.083 %) nebulizer solution Use 3 mL via nebulizer every 4 hours as needed for wheezing/shortness of breath. Use over 5-15minutes. albuterol HFA (PROVENTIL HFA, VENTOLIN HFA) 90 mcg/actuation inhaler Inhale 2 Puffs as instructed every 4 hours as needed for wheezing/shortness of breath. meclizine (ANTIVERT) 12.5 mg tab 1 to 2 tablets three times a day as needed. Blood Pressure Test Kit-Large 1 Each as needed (blood pressure). Dx: Essential hypertension lisinopril (ZESTRIL, PRINIVIL) 5 mg tablet Take 1 tablet by mouth once daily. For blood pressure Magnesium 250 mg tab Take 1 tablet by mouth once daily. No current facility-administered medications for this visit. ALLERGIES Allergen Reactions Anticholinergics - * (Bentyl) causes hives Social History Tobacco Use Smoking status: Former Smoker Packs/day: 1.00 Years: 8.00 Pack years: 8.00 Types: Cigarettes Quit date: 07/22/2006 Years since quittin.9 Smokeless tobacco: Never Used Tobacco comment: SMOKED SINCE 18 YEARS OLD Vaping Use Vaping Use: Never used Substance Use Topics Alcohol use: No Drug use: No ROS: See HPI PE: BP 136/80 Pulse 76 Temp (Src) 98 (Left Tympanic) Resp 20 Wt 272 lb (123.4kg) LMP 04/26/2021 Gen: A&OX3, NAD, non-toxic appearing HEENT: PERRLA, EOMs intact b/l, nares without drainage, pharynx without erythema, exudate, lesions, or drainage. Uvula midline. Neck: No LAD, no thyromegaly, no meningismus. CV: RRR, no murmur Lungs: CTA b/l, no wheezing Skin: No rashes, lesions, or wounds on exposed skin. Left suprapatellar bursa with mild fluid/swelling and TTP as well as quadriceps insertion TTP of patella, no obvious other signs of knee instability or joint swelling, no calf swelling or TTP or erythema/warmth of calf ASSESSMENT/PLAN: 1. Acute pain of left knee - ICD9: 719.46, ICD10: M25.562 (primary diagnosis) Seems to have suprapatellar bursitis and possible quadriceps insertion tendinitis. Need for rest, ice, support bracing and topical voltaren as well as oral ibuprofen as needed - DICLOFENAC 1 % TOPICAL GEL - ELASTIC KNEE SUPPORT 2. Suprapatellar bursitis of left knee - ICD9: 726.69, ICD10: M70.52 - see above - DICLOFENAC 1 % TOPICAL GEL - ELASTIC KNEE SUPPORT 3. SOB (shortness of breath) on exertion - ICD9: 786.05, ICD10: R06.02 - needs to continue her singulair and flovent as d/w her today, cough has returned after being under control on these medications. F/u with Field Service Specialist as scheduled - IBUPROFEN 800 MG TABLET 4. History of COVID-19 - ICD9: V12.09, ICD10: Z86.16 See above - IBUPROFEN 800 MG TABLET - VITAMIN B COMPLEX TABLET Fredo Larose DO Return if no improvement. Follow up with Fredo Larose DO. To ER if develops chest pain, shortness of breath Discussed risks, benefits, alternatives, and potential side effects of medications. Patient/Guardian expressed understanding and agreed with the plan. See patient instructions. Fredo Larose DO [address] [place] [address] documented in this encounter [facility] 06-08-2021 Miscellaneous Notes Patient has been identified by name and date of : Yes Patient phones for refill(s): Pending Prescriptions Disp Refills MONTELUKAST 10 MG TABLET 30 tablet 0 Sig: Take 1 tablet by mouth daily at bedtime. MADHU: No CETIRIZINE 10 MG TABLET 90 tablet 3 Sig: Take 1 tablet by mouth once daily. MADHU: No Date of last office visit with pcp: 05-19-21. Next appt: 07-07-21. Last 2 Encounter Wt Readings: Date: Wt: 05/19/2021 123.4 kg (272 lb) 05/08/2021 123.4 kg (272 lb) Previous labs/tests for medication: Blood Pressure: BUN (mg/dL) Date Value 05/16/2020 11 Sodium (mmol/L) Date Value 05/16/2020 139 Last 1 Encounter BP Readings: Date: BP: 05/19/2021 120/80 Liver Function: ALT (U/L) Date Value 05/16/2020 49 AST (U/L) Date Value 05/16/2020 46 Please advise. Thank you. Lc Gonzalez RN documented in this encounter [facility] 05-19-2021 History of Present illness Narrative CC: Maty Fairbanks is a 50 year old female who presents to the office for follow up. HPI: Previously Patient exposed to COVID around the beginning of March, but was not tested at that time. Cough started on 04/01 and has not improved. Patient has been evaluated multiple times since 04/02 for cough and SOB. Has had chest and d dimer in the [place] ED on 04/07 which were negative. Diagnosed with asthmatic bronchitis. Has been treated with Prednisone and azithromycin at home which did seem to help with symptoms initially. Had follow up at on 05/03 after symptoms returned/worsed about 5 days prior and was started on 6 day taper of Prednisone and encouraged her to continue treatment with tessalon. Since her evaluation she has been using her inhalers, prednisone and tessalon as prescribed and cough has not improved. States that she has abdominal pain with her frequent harsh cough. Bringing up creamish colored sputum with cough. Denies SOB or wheezing outside of her coughing. Higher dose of prednisone, inhalers and tessalon not helping with her cough. Not taking anything OTC for cough. Tested with rapid test at home on Monday which was negative. She was seen for follow up by Dr. Albarado on 05/08 and told symptoms were likely due to cough variant asthma. She was told to follow up with helpdesk specialist for opinion which she hasn't done yet. She did have improvement with the prednisone and isn't being as consistent as she should with the Flovent but tolerating it well without obvious SE to medication. She continues to cough, worse with prolonged talking or outside in cold weather or in a shower etc. No current chest pain or shortness of breath or wheezing of hemoptysis or fevers or chills. PAST MEDICAL HISTORY Diagnosis Date Abdominal pain, epigastric Acute gastritis without mention of hemorrhage Attention deficit disorder without mention of hyperactivity Calculus of gallbladder without mention of cholecystitis or obstruction Chest pain, unspecified Dysthymic disorder history of depression Esophageal spasm Extrinsic asthma, unspecified Gastric ulcer, unspecified as acute or chronic, without mention of hemorrhage, perforation, or obstruction with hemorrhage Generalized anxiety disorder History of tobacco use Morbid obesity (HCC) JAMES (obstructive sleep apnea) PAST SURGICAL HISTORY Procedure Laterality Date APPENDECTOMY COLONOSCOPY FLX DX W/COLLJ SPEC WHEN PFRMD 12/15/2008 irritation at the anal verge COLONOSCOPY FLX DX W/COLLJ SPEC WHEN PFRMD 07/10/15 normal colonoscopy EGD TRANSORAL BIOPSY SINGLE/MULTIPLE Gastritis, healing ulcer EGD TRANSORAL BIOPSY SINGLE/MULTIPLE 07/10/15 minimal gastritis LAPAROSCOPY SURG CHOLECYSTECTOMY 08/21/07 LIG/TRNSXJ FLP TUBE ABDL/VAG APPR UNI/BI Current Outpatient Medications Medication Sig ibuprofen (MOTRIN) 800 mg tablet Take 1 tablet by mouth every 8 hours as needed for pain. Take with food. montelukast (SINGULAIR) 10 mg tablet Take 1 tablet by mouth daily at bedtime. fluticasone (FLOVENT HFA) 110 mcg/actuation inhaler Inhale 1 Puff as instructed twice daily. Shake well before use. Rinse mouth after use. Nebulizer Accessories kit 1 Each four times daily. benzonatate (TESSALON PERLES) 100 mg capsule Take 1 capsule by mouth three times daily as needed for cough. meclizine (ANTIVERT) 12.5 mg tab 1 to 2 tablets three times a day as needed. lisinopril (ZESTRIL, PRINIVIL) 5 mg tablet Take 1 tablet by mouth once daily. For blood pressure cetirizine (ZYRTEC) 10 mg tablet Take 1 tablet by mouth once daily. Magnesium 250 mg tab Take 1 tablet by mouth once daily. fluticasone-salmeterol HFA (ADVAIR HFA) 115-21 mcg/actuation inhaler Inhale 2 Puffs as instructed twice daily. Rinse mouth after use. predniSONE (DELTASONE) 10 mg tablet Take 4 tabs daily for 3 days, then 2 tabs daily for 3 days, then 1 tab daily for 3 days with food. ipratropium-albuterol (DUONEB) 0.5 mg-3 mg(2.5 mg base)/3 mL nebu Inhale 3 mL as instructed every 6 hours as needed for wheezing/shortness of breath. cough albuterol (PROVENTIL) 2.5 mg /3 mL (0.083 %) nebulizer solution Use 3 mL via nebulizer every 4 hours as needed for wheezing/shortness of breath. Use over 5-15minutes. albuterol HFA (PROVENTIL HFA, VENTOLIN HFA) 90 mcg/actuation inhaler Inhale 2 Puffs as instructed every 4 hours as needed for wheezing/shortness of breath. Blood Pressure Test Kit-Large 1 Each as needed (blood pressure). Dx: Essential hypertension No current facility-administered medications for this visit. ALLERGIES Allergen Reactions Anticholinergics - * (Bentyl) causes hives Social History Tobacco Use Smoking status: Former Smoker Packs/day: 1.00 Years: 8.00 Pack years: 8.00 Types: Cigarettes Quit date: 07/22/2006 Years since quittin.8 Smokeless tobacco: Never Used Tobacco comment: SMOKED SINCE 18 YEARS OLD Vaping Use Vaping Use: Never used Substance Use Topics Alcohol use: No Drug use: No ROS: See HPI PE: BP 120/80 Pulse 80 Temp (Src) 98.9 (Left Tympanic) Resp 20 Wt 272 lb (123.4kg) LMP 04/26/2021 Gen: A&OX3, NAD, non-toxic appearing HEENT: PERRLA, EOMs intact b/l, nares without drainage, pharynx without erythema, exudate, lesions, or drainage. Uvula midline. MMM, EAC and TM normal b/l Neck: No LAD, no thyromegaly, no meningismus. CV: RRR, no murmur Lungs: CTA b/l, no wheezing, + cough present and worse with conversation, no rhonchi or rales No edema, normal pulses. Skin: No rashes, lesions, or wounds on exposed skin. ASSESSMENT/PLAN: 1. Persistent cough - ICD9: 786.2, ICD10: R05.3 (primary diagnosis) - d/c flovent, start on Advair, use of albuterol by MDI or nebulizer as needed, prednisone taper. F/u with Pulm for PFTs and lung testing as indicated due to prolonged course of symptoms - PREDNISONE 10 MG TABLET 2. SOB (shortness of breath) on exertion - ICD9: 786.05, ICD10: R06.02 - see above - IBUPROFEN 800 MG TABLET - FLUTICASONE PROPIONATE 115 MCG-SALMETEROL 21 MCG/ACTUATION HFA INHALER - CONSULT TO PULMONARY MEDICINE - PREDNISONE 10 MG TABLET 3. History of COVID-19 - ICD9: V12.09, ICD10: Z86.16 - see above - IBUPROFEN 800 MG TABLET - FLUTICASONE PROPIONATE 115 MCG-SALMETEROL 21 MCG/ACTUATION HFA INHALER - CONSULT TO PULMONARY MEDICINE - PREDNISONE 10 MG TABLET 4. Moderate persistent asthma with (acute) exacerbation - ICD9: 493.92, ICD10: J45.41 Cough variant Asthma - Avoidance of triggers recommended - see above Fredo Larose DO I spent 34 minutes in the visit, with more than 50% of the total [id number] time of the visit in counseling / coordination of care. Return if no improvement. Follow up with Fredo Larose DO. To ER if develops chest pain, shortness of breath Discussed risks, benefits, alternatives, and potential side effects of medications. Patient/Guardian expressed understanding and agreed with the plan. See patient instructions. Fredo Larose DO [address] [place] [address] documented in this encounter [facility] 05-08-2021 Hospital Discharge instructions Patient Education 05/08/2021 17:22:18 Bronchospasm (Adult) Bronchospasm (Adult) Bronchospasm occurs when the airways (bronchial tubes) go into spasm and contract. This makes it hard to breathe and causes wheezing (a high-pitched whistling sound). Bronchospasm can also cause frequent coughing without wheezing. Bronchospasm is due to irritation, inflammation, or allergic reaction of the airways. People with asthma get bronchospasm. However, not everyone with bronchospasm has asthma. Being exposed to harmful fumes, a recent case of bronchitis, exercise, or a flare-up of chronic obstructive pulmonary disease (COPD) may cause the airways to spasm. An episode of bronchospasm may last 7 to 14 days. Medicine may be prescribed to relax the airways and prevent wheezing. Antibiotics will be prescribed only if your healthcare provider thinks there is a bacterial infection. Antibiotics do not help a viral infection. Home care Drink lots of water or other fluids (at least 10 glasses a day) during an attack. This will loosen lung secretions and make it easier to breathe. If you have heart or kidney disease, check with your doctor before you drink extra fluids. Take prescribed medicine exactly at the times advised. If you take an inhaled medicine to help with breathing, don't use it more than once every 4 hours, unless told to do so. If prescribed an antibiotic or prednisone, take all of the medicine, even if you are feeling better after a few days. Don't smoke. Also avoid being exposed to secondhand smoke. If you were given an inhaler, use it exactly as directed. If you need to use it more often than prescribed, your condition may be getting worse. Contact your healthcare provider. Follow-up care Follow up with your healthcare provider, or as advised. If you are age 65 or older, have a chronic lung disease or condition that affects your immune system, or you smoke, ask your healthcare provider about getting a pneumococcal vaccine, as well as a yearly flu shot (influenza vaccine). When to seek medical advice Call your healthcare provider right away if any of these occur: You need to use your inhalers more often than usual Fever of 100.4 F (38 C) or higher, or as directed by your healthcare provider Cough that brings up lots of dark-colored sputum (mucus) You don't get better within 24 hours Call 911 Call 911 if any of these occur: Coughing up bloody sputum (mucus) Chest pain with each breath Increased wheezing or shortness of breath [phone] [employer] [address] [place] [id number]. All rights reserved. This information is not intended as a substitute for professional medical care. Always follow your healthcare professional's instructions. Follow Up Care 05/08/2021 16:34:55 With:FREDO LAROSE Address: [address] [place] [phone]- When:2-4 days [facility] 04-07-2021 Hospital Discharge instructions Patient Education 04/07/2021 21:06:46 Sinusitis (Antibiotic Treatment) Sinusitis (Antibiotic Treatment) The sinuses are air-filled spaces within the bones of the face. They connect to the inside of the nose. Sinusitis is an inflammation of the tissue that lines the sinuses. Sinusitis can occur during a cold. It can also happen due to allergies to pollens and other particles in the air. Sinusitis can cause symptoms of sinus congestion and a feeling of fullness. A sinus infection causes fever, headache, and facial pain. There is often green or yellow fluid draining from the nose or into the back of the throat (post-nasal drip). You have been given antibiotics to treat this condition. Home care Take the full course of antibiotics as instructed. Do not stop taking them, even when you feel better. Drink plenty of water, hot tea, and other liquids. This may help thin nasal mucus. It also may help your sinuses drain fluids. Heat may help soothe painful areas of your face. Use a towel soaked in hot water. Or, insole rasper the shower and direct the warm spray onto your face. Using a vaporizer along with a menthol rub at night may also help soothe symptoms. An expectorant with guaifenesin may help thin nasal mucus and help your sinuses drain fluids. You can use an zcng-orx-bqomhkv decongestant, unless a similar medicine was prescribed to you. Nasal sprays work the fastest. Use one that contains phenylephrine or oxymetazoline. First blow your nose gently. Then use the spray. Do not use these medicines more often than directed on the label. If you do, your symptoms may get worse. You may also take pills that contain pseudoephedrine. Don t use products that combine multiple medicines. This is because side effects may be increased. Read labels. You can also ask the pharmacist for help. (People with high blood pressure should not use decongestants. They can raise blood pressure.) Jsto-bkq-tbibnmj antihistamines may help if allergies contributed to your sinusitis. Do not use nasal rinses or irrigation during an acute sinus infection, unless your healthcare provider tells you to. Rinsing may spread the infection to other areas in your sinuses. Use acetaminophen or ibuprofen to control pain, unless another pain medicine was prescribed to you. If you have chronic liver or kidney disease or ever had a stomach ulcer, talk with your healthcare provider before using these medicines. (Aspirin should never be taken by anyone under age 18 who is ill with a fever. It may cause severe liver damage.) Don't smoke. This can make symptoms worse. Follow-up care Follow up with your healthcare provider or our staff if you are not better in 1 week. When to seek medical advice Call your healthcare provider if any of these occur: Facial pain or headache that gets worse Stiff neck Unusual drowsiness or confusion Swelling of your forehead or eyelids Vision problems, such as blurred or double vision Fever of 100.4 F (38 C) or higher, or as directed by your healthcare provider Seizure Breathing problems Symptoms don't go away in 10 days Prevention Here are steps you can take to help prevent an infection: Keep good hand washing habits. Don t have close contact with people who have sore throats, colds, or other upper respiratory infections. Don t smoke, and stay away from secondhand smoke. Stay up to date with of your vaccines. 8528-1698 [employer] [address] [place] [address], [place] [address]. All rights reserved. This information is not intended as a substitute for professional medical care. Always follow your healthcare professional's instructions. 04/07/2021 21:05:05 Caring for Your Inhaler Caring for Your Inhaler Your healthcare provider may prescribe medicine that you breathe in using a metered-dose inhaler. It is important to keep it clean. You should also keep track of how much medicine is left in the canister so you ll never run out. Keeping your inhaler clean Take off the canister, the part with the medicine, and cap from the mouthpiece. Don't wash the canister or put it in water. Run warm water through the mouthpiece for about a minute. Shake off the water and let it air-dry. If you need to use it before it is dry, shake off any water and replace the canister. Test spray it away from you to make sure it works. If you use a spacer, clean it with warm water and a small amount of mild dish soap. Do this once every week or two. Make sure you check the package insert for special instructions. The insert is the information that comes with the medicine. It may tell you how to take care of and clean your spacer. When to replace your inhaler Each inhaler is good for only a certain number of puffs of medicine. After those puffs are used up, any puffs left will not give you the amount of medicine you need. To be sure you ll get enough medicine when you need it, keep track of how many puffs you use. Here s an easy way to keep track of the medicine in your inhaler: 1. Find the number on the mouthpiece that tells you how many puffs it contains. Some inhalers have the counter on the mouthpiece instead of the canister. Keep the canister and mouthpiece together so you can keep track of how many puffs are left. 2. Divide this number by how many puffs you are told to use in one day. This gives you the number of days your medicine should last. 3. Use your calendar to find out what date your medicine will run out. Cleve it on the canister and on your calendar. Be sure to get a refill of your medicines before you run out. Some inhalers have dose counters to track the amount of medicine used. For example, if your new canister holds 200 puffs and you ve been told to use 4 puffs a day: 200 4 = 50 days Sample for you to fill in: Number of puffs in new canister Number of puffs you use each day = Number of days medicine will last Note: Remember that your medicine will not last long if you use your inhaler more often than planned. [id number] [employer] [address] [place] [address], [place] [address]. All rights reserved. This information is not intended as a substitute for professional medical care. Always follow your healthcare professional's instructions. 04/07/2021 21:04:58 BRONCHITIS, Abx Tx (Adult) Bronchitis, Antibiotic Treatment (Adult) Bronchitis is an infection of the air passages (bronchial tubes) in your lungs. It often occurs when you have a cold. Symptoms of bronchitis include cough with mucus (phlegm) and low-grade fever. Bronchitis usually lasts 7 to 14 days. Mild cases can be treated with simple home remedies. More severe infection is treated with an antibiotic. Home care Follow these guidelines when caring for yourself at home: If your symptoms are severe, rest at home for the first 2 to 3 days. When you go back to your usual activities, don't let yourself get too tired. Don t smoke. Avoid being around the smoke of others. You may use acetaminophen or ibuprofen to control fever or pain, unless another medicine was prescribed for this. If you have chronic liver or kidney disease, talk with your health care provider before using these medicines. Also talk with your provider if you ve had a stomach ulcer or GI bleeding. Your appetite may be poor, so follow a light diet. Drink 6 to 8 glasses of fluid every day. This will help you avoid dehydration. Fluids can include water, soft, drinks, juices, tea, and soup. Extra fluids will help loosen secretions in your lungs. Izea-bvu-mkrzqkv cough medicines that contain dextromethorphan may help relieve cough and congestion. Decongestants may also help with this. Don t use decongestants if you have high blood pressure. Finish all antibiotic medicine. Do this even if you are feeling better after only a few days. Follow-up care Follow up with your health care provider, or as advised, if you don t start to feel better after 3 days. You should get a pneumococcal conjugate vaccine if you are 65 or older. This is also called a PCV or PCV13 vaccine. You should also have this vaccine if you have chronic asthma or COPD. Talk with your health care provider about getting a pneumococcal polysaccharide vaccine (PPV or PPSV23) if you got a PCV13 vaccine today. You should also get a flu shot (influenza vaccine) every . When to seek medical advice Call your health care provider right away if any of these occur: Fever over 100.4 F (38.0 C) for more than 3 days Trouble breathing, or you have wheezing or pain with breathing Coughing up blood or increased amounts of colored sputum Weakness, drowsiness, headache, facial pain, ear pain, or a stiff neck [id number] [employer] [address] [place] [address], [place] [address]. All rights reserved. This information is not intended as a substitute for professional medical care. Always follow your healthcare professional's instructions. 04/07/2021 20:41:03 Asthma, Acute (Adult) Asthma (Adult) Asthma is a disease where the medium and small air passages within the lung go into spasm and restrict the flow of air. Inflammation and swelling of the airways cause further blockage. During an acute asthma attack, these factors cause trouble breathing, wheezing, cough and chest tightness. An asthma attack can be triggered by many things. Common triggers include infections such as the common cold, bronchitis, and pneumonia. Irritants such as smoke or pollutants in the air, very cold air, emotional upset, and exercise can also trigger an attack. In many adults with asthma, allergies to dust, mold, pollen and animal dander can cause an asthma attack. Skipping doses of daily asthma medicine can also bring on an asthma attack. Asthma can be controlled using the proper medicines prescribed by your healthcare provider and avoiding exposure to known triggers including allergens and irritants. Home care Take prescribed medicine exactly at the times advised. If you need medicine such as from a hand held inhaler or aerosol breathing machine more than every 4 hours, contact your healthcare provider or seek immediate medical attention. If prescribed an antibiotic or prednisone, take all of the medicine as prescribed, even if you are feeling better after a few days. Don't smoke. Avoid being exposed to the smoke of others. Some people with asthma have worsening of their symptoms when they take aspirin and non-steroidal or fever-reducing medicines like ibuprofen and naproxen. Talk to your healthcare provider if you think this may apply to you. Follow-up care Follow up with your healthcare provider, or as advised. Always bring all of your current medicines to any appointments with your healthcare provider. Also bring a complete list of medicines even those not taken for asthma. If you don't already have one, talk to your healthcare provider about developing your own Asthma Action Plan. A pneumococcal (pneumonia) vaccine and yearly flu shot (every fall) are recommended. Ask your doctor about this. When to seek medical advice Call your healthcare provider right away if any of these occur: Increased wheezing or shortness of breath Need to use your inhalers more often than usual without relief Fever of 100.4 F (38 C) or higher, or as directed by your healthcare provider Coughing up lots of dark-colored or bloody sputum (mucus) Chest pain with each breath If you use a peak flow meter as part of an Asthma Action Plan, and you are still in the yellow zone (50% to 80%) 15 minutes after using inhaler medicine. Call 911 Call 911 if any of the following occur Trouble walking or talking because of shortness of breath If you use a peak flow meter as part of an Asthma Action Plan and you are still in the red zone (less than 50%) 15 minutes after using inhaler medicine Lips or fingernails turning garcias or blue [id number] [employer] [address] [place] [address]. All rights reserved. This information is not intended as a substitute for professional medical care. Always follow your healthcare professional's instructions. 04/07/2021 20:40:59 Asthma Action Plan Asthma Action Plan Your name: Emergency contact: Healthcare provider: Today's Date: Phone: Signature: Next appt (date/time): Phone: Phone: Green zone My symptoms What I should do My medicine No wheezing, coughing, or chest tightness Asthma is not bothering your sleep, work, or school You rarely or never use your quick-relief medicine Peak flow is: 80%-100% of personal best Keep taking your long-term controller medicines Take your quick-relief medicines as needed Avoid your asthma triggers (list): Long-term controllers: Name: Dose: How often: Special instructions: Quick-relief: Before exercise: Yellow zone My symptoms What I should do My medicine Some wheezing, coughing, or chest tightness When at rest, your breathing is a little faster than normal Asthma symptoms wake you up at night Peak flow is: 50%-80% of personal best, or has lessened by at least 15% You begin to have symptoms of a respiratory infection, if infections trigger your symptoms Keep taking your long-term controller medicines Use your quick-relief medicine If you do not feel better within an hour after using your quick-relief medicine, make sure you know what to do! You might use more medicine or use another medicine. Call your healthcare provider if you are unsure Continue to take long-term controllers: Name: Dose: How often: Special instructions Name: Dose: How often: Special instructions: Quick-relief: If your symptoms don't go away after 1 hour, take: Red zone My symptoms What I should do My medicine Continuous wheezing, coughing, or trouble breathing Trouble walking or talking Asthma symptoms make it hard for you to sleep Peak flow is: Less than 50% of personal best Use your quick-relief medicines Call your healthcare provider Call 911 if: It is getting harder to breathe You can't walk or talk Your lips or fingers look garcias or blue Quick-relief: Quick-relief: Quick-relief: [employer] [address] [place] [address]. All rights reserved. This information is not intended as a substitute for professional medical care. Always follow your healthcare professional's instructions. Follow Up Care 04/07/2021 20:17:35 With:FREDO LAROSE Address: [address] [place] [address]- When:5 to 7 days [facility] 07-05-2006 History of Past i llness Narrative Problem Noted Date Resolved Date Tuberculin test reaction 07/05/2006 011 documented as of this encounter (statuses as of 05/19/2021) [facility] History of Past illness Narrative* Problem Noted Date Resolved Date Tuberculin test reaction 07/05/2006 011 documented as of this encounter (statuses as of 06/09/2021) [facility] History of Past illness Narrative* Problem Noted Date Resolved Date Tuberculin test reaction 07/05/2006 011 documented as of this encounter (statuses as of 07/08/2021) [facility] History of Past illness Narrative* Problem Noted Date Resolved Date Tuberculin test reaction 07/05/2006 011 documented as of this encounter (statuses as of 07/09/2021) [facility] History of Past illness Narrative* Problem Noted Date Resolved Date Tuberculin test reaction 07/05/2006 011 documented as of this encounter (statuses as of 08/05/2021) [facility] History of Past illness Narrative* Problem Noted Date Resolved Date Tuberculin test reaction 07/05/2006 011 documented as of this encounter (statuses as of 08/23/2021) [facility] History of Past illness Narrative* Problem Noted Date Resolved Date Tuberculin test reaction 07/05/2006 011 documented as of this encounter (statuses as of 08/27/2021) [facility] History of Past illness Narrative* Problem Noted Date Resolved Date Tuberculin test reaction 07/05/2006 011 documented as of this encounter (statuses as of 08/28/2021) [facility] History of Past illness Narrative* Problem Noted Date Resolved Date Tuberculin test reaction 07/05/2006 011 documented as of this encounter (statuses as of 09/06/2021) [facility] History of Past illness Narrative* Problem Noted Date Resolved Date Tuberculin test reaction 07/05/2006 011 documented as of this encounter (statuses as of 09/06/2021) [facility] History of Past illness Narrative* Problem Noted Date Resolved Date Tuberculin test reaction 07/05/2006 011 documented as of this encounter (statuses as of 09/06/2021) [facility] History of Past illness Narrative* Problem Noted Date Resolved Date Tuberculin test reaction 07/05/2006 011 documented as of this encounter (statuses as of 09/08/2021) [facility] History of Past illness Narrative* Problem Noted Date Resolved Date Tuberculin test reaction 07/05/2006 011 documented as of this encounter (statuses as of 09/28/2021) [facility] History of Past illness Narrative* Problem Noted Date Resolved Date Tuberculin test reaction 07/05/2006 011 documented as of this encounter (statuses as of 09/30/2021) [facility] History of Past illness Narrative* Problem Noted Date Resolved Date Tuberculin test reaction 07/05/2006 011 documented as of this encounter (statuses as of 01/06/2022) [facility] History of Past illness Narrative* Problem Noted Date Resolved Date Tuberculin test reaction 07/05/2006 011 documented as of this encounter (statuses as of 02/09/2022) [facility] History of Past illness Narrative* Problem Noted Date Resolved Date Tuberculin test reaction 07/05/2006 011 documented as of this encounter (statuses as of 03/22/2022) [facility] History of Past illness Narrative* Problem Noted Date Resolved Date Tuberculin test reaction 07/05/2006 011 documented as of this encounter (statuses as of 06/03/2022) [facility] History of Past illness Narrative* Problem Noted Date Resolved Date Tuberculin test reaction 07/05/2006 011 documented as of this encounter (statuses as of 06/09/2022) [facility] History of Past illness Narrative* Problem Noted Date Diagnosed Date Resolved Date Tuberculin test reaction 07/05/2006 documented as of this encounter (statuses as of 08/28/2022) [address]16[address]2007 History of Past illness Narrative* Problem Noted Date Diagnosed Date Resolved Date Tuberculin test reaction 07/05/2006 documented as of this encounter (statuses as of 09/16/2022) [address]16[address]2007 History of Past illness Narrative* Problem Noted Date Diagnosed Date Resolved Date Tuberculin test reaction 07/05/2006 documented as of this encounter (statuses as of 09/16/2022) [address]16[address]2007 History of Past illness Narrative* Problem Noted Date Diagnosed Date Resolved Date Tuberculin test reaction 07/05/2006 documented as of this encounter (statuses as of 09/29/2022) [address]16[address]2007 History of Past illness Narrative* Problem Noted Date Diagnosed Date Resolved Date Tuberculin test reaction 07/05/2006 documented as of this encounter (statuses as of 10/21/2022) [address]16[address]2007 History of Past illness Narrative* Problem Noted Date Diagnosed Date Resolved Date Tuberculin test reaction 07/05/2006 documented as of this encounter (statuses as of 11/11/2022) [address]16[address]2007 History of Past illness Narrative* Problem Noted Date Diagnosed Date Resolved Date Tuberculin test reaction 07/05/2006 documented as of this encounter (statuses as of 11/30/2022) [address]16[address]2007 History of Past illness Narrative* Problem Noted Date Diagnosed Date Resolved Date Tuberculin test reaction 07/05/2006 documented as of this encounter (statuses as of 12/03/2022) [address]16[address]2007 History of Past illness Narrative* Problem Noted Date Diagnosed Date Resolved Date Tuberculin test reaction 07/05/2006 documented as of this encounter (statuses as of 12/06/2022) [address]16[address]2007 History of Past illness Narrative* Problem Noted Date Diagnosed Date Resolved Date Tuberculin test reaction 07/05/2006 documented as of this encounter (statuses as of 12/07/2022) [address]16[address]2007 History of Past illness Narrative* Problem Noted Date Diagnosed Date Resolved Date Tuberculin test reaction 07/05/2006 documented as of this encounter (statuses as of 12/20/2022) [address] History of Past illness Narrative* Problem Noted Date Diagnosed Date Resolved Date Tuberculin test reaction 07/05/2006 documented as of this encounter (statuses as of 12/20/2022) [address]16[address]2007 History of Past illness Narrative* Problem Noted Date Diagnosed Date Resolved Date Tuberculin test reaction 07/05/2006 documented as of this encounter (statuses as of 12/29/2022) [address]2007 History of Past illness Narrative* Problem Noted Date Diagnosed Date Resolved Date Tuberculin test reaction 07/05/2006 documented as of this encounter (statuses as of 03/31/2023) [address]2007 History of Past illness Narrative* Problem Noted Date Diagnosed Date Resolved Date Tuberculin test reaction 07/05/2006 documented as of this encounter (statuses as of 04/04/2023) [address]2007 History of Past illness Narrative* Problem Noted Date Diagnosed Date Resolved Date Tuberculin test reaction 07/05/2006 documented as of this encounter (statuses as of 04/07/2023) [address]16[address]2007 History of Past illness Narrative* Problem Noted Date Diagnosed Date Resolved Date Tuberculin test reaction 07/05/2006 documented as of this encounter (statuses as of 04/20/2023) [facility] note No data available for this section [facility] Evaluation note* Diagnosis Persistent cough- Primary Cough SOB (shortness of breath) on exertion Shortness of breath History of COVID-19 Moderate persistent asthma with (acute) exacerbation [facility] Diagnosis Acute pain of left knee- Primary Suprapatellar bursitis of left knee SOB (shortness of breath) on exertion Shortness of breath [facility] of COVID-[facility] for [facility] Diagnosis Post-COVID chronic cough- Primary Mild intermittent asthma without complication Unspecified asthma Morbid obesity (HCC) Morbid obesity [facility]* Diagnosis Hypertension, essential Unspecified essential hypertension [facility] Diagnosis Well adult exam- Primary Routine general medical examination at a health care facility Perimenopausal disorder Unspecified menopausal and postmenopausal disorder Vitamin D deficiency Unspecified vitamin D deficiency Morbid obesity with BMI of 45.0-49.9, adult (HCC) Morbid obesity Dermatofibroma of lower extremity, unspecified laterality Irritable bowel syndrome with alternating bowel habits [facility] Diagnosis Chest pain, unspecified type- Primary Vitamin D deficiency Unspecified vitamin D deficiency Hypertension, essential Unspecified essential hypertension Well adult exam Routine general medical examination at a health care facility History of COVID-19 Lipoma of left lower extremity TUSHAR (generalized anxiety disorder) Generalized anxiety disorder [facility] Diagnosis Acute pain of left knee- Primary [facility] Diagnosis Chronic pain of both knees- Primary Hypertension, essential Unspecified essential hypertension Arthritis of knee Unspecified arthropathy, lower leg Memory change Memory loss Right thigh pain Pain in limb Chronic right-sided low back pain with right-sided sciatica [facility] Diagnosis Rash- Primary Rash and other nonspecific skin eruption [facility] Diagnosis Chest pain, unspecified type Cough SOB (shortness of breath) on exertion Shortness of breath [facility] Diagnosis Skin infection- Primary Unspecified local infection of skin and subcutaneous tissue [facility] Diagnosis Boil of trunk- Primary Carbuncle and furuncle of trunk [facility]* Diagnosis Well adult exam- Primary Routine general medical examination at a health care facility [facility]* Diagnosis Chest pain, unspecified type [facility]* Diagnosis Mild intermittent asthma with acute exacerbation- Primary Unspecified asthma, with exacerbation [facility]* Diagnosis Well adult exam- Primary Routine general medical examination at a health care facility Hypertension, essential Unspecified essential hypertension Chronic pain of both knees Vitamin D deficiency Unspecified vitamin D deficiency Elevated LFTs Other abnormal blood chemistry Class 3 severe obesity with body mass index (BMI) of 45.0 to 49.9 in adult, unspecified obesity type, unspecified whether serious comorbidity present (HCC) documented in this encounter [facility] note* Diagnosis Chronic pain of both knees Arthritis of knee Unspecified arthropathy, lower leg documented in this encounter [facility] note* Diagnosis Sore throat- Primary Acute pharyngitis Fatigue, unspecified type documented in this encounter [facility] note* Diagnosis Lyme disease- Primary [facility]* Diagnosis Hypertension, essential Unspecified essential hypertension documented in this encounter [facility] note* Diagnosis Acute pain of left knee documented in this encounter [facility] note* Diagnosis Well adult exam- Primary Routine general medical examination at a health care facility documented in this encounter [facility] note* Diagnosis Left leg pain- Primary Pain in limb [facility] Diagnostic Procedure Only (Routine) - Pending Review Specialty Diagnoses / Procedures Referred By Bruce alva Referred To Contact [facility] Diagnoses Encounter for screening mammogram for breast cancer Procedures TEVIN SCREENING SCREENING MAMMOGRAPHY BI 2-VIEW BREAST INC CAD Fredo Larose DO [address] [place] [address] [facility] [address] [place] [id number] Referral ID Status Reason Start Date Expiration Date Visits Requested Visits Authorized [id number] Pending Review Auto-Generat ed Referral 08/18/2021 09/17/2022 1 1 [facility] for referral (narrative)* Outpatient Procedure (Routine) - Closed Specialty Diagnoses / Procedures Referred By Bruce alva Referred To Contact [facility] Diagnoses Chronic cough Procedures NITRIC OXIDE, EXHALED NITRIC OXIDE GAS DETERMINATION Torie Reyna MD [address] [place] [address] [facility] [address] [place] [id number] Referral ID Status Reason Start Date Expiration Date V isits Requested Visits Authorized [id number] Closed Auto-Generate d Referral 09/06/2021 02/19/2022 1 1 * Outpatient Procedure (Routine) - Closed Specialty Diagnoses / Procedures Referred By Contac t Referred To Contact [facility] Diagnoses Chronic cough Procedures SPIROMETRY WITH DILATOR IF OBSTRUCTED BRNCDILAT RSPSE SPMTRY PRE&POST-BRNCDILAT Torie Peter MD [address] [place] [address] [facility] [address] [place] [address] Referral ID Status Reason Start Date Expiration Date V isits Requested Visits Authorized [id number] Closed Auto-Generate d Referral 09/06/2021 02/19/2022 1 1 [facility] for referral (narrative)* Diagnostic Procedure Only (Urgent) - Closed Specialty Diagnoses / Procedures Referred By Contac t Referred To Contact XR IMAGING Diagnoses Acute pain of left knee Procedures XR KNEE GENERAL 4V AP BOTH/PA BOTH/LAT/MERC LEFT RADIOLOGIC EXAM KNEE COMPLETE 4/MORE VIEWS [facility] [place] [address] X[facility] Imaging Referral ID Status Reason Start Date Expiration Date V isits Requested Visits Authorized [id number] Closed Auto-Generate d Referral 09/15/2022 10/15/2023 1 1 [facility] for referral (narrative)* Diagnostic Procedure Only (Routine) - Pending Review Specialty Diagnoses / Procedures Referred By Contac t Referred To Contact [facility] Diagnoses Elevated LFTs Procedures US ABD RIGHT UPPER QUADRANT US ABDOMINAL REAL TIME W/IMAGE LIMITED Fredo Larose DO [address] [place] [address] [facility] Referral ID Status Reason Start Date Expiration Date Visits Requested Visits Authorized [id number] Pending Review Auto-Generat ed Referral 04/19/2023 05/18/2024 1 1 [facility] for referral (narrative)* Diagnostic Procedure Only (Urgent) - Closed Specialty Diagnoses / Procedures Referred By Contac t Referred To Contact XR IMAGING Diagnoses Acute pain of left knee Procedures XR KNEE GENERAL 4V AP BOTH/PA BOTH/LAT/MERC LEFT RADIOLOGIC EXAM KNEE COMPLETE 4/MORE VIEWS [facility] [address] [place] [address] [place] [address] Referral ID Status Reason Start Date Expiration Date V isits Requested Visits Authorized [id number] Closed Auto-Generate d Referral 09/15/2022 10/15/2023 1 1 [facility] for visit Narrative* Diagnostic Procedure Only (Routine) - Authorized Specialty Diagnoses / Procedures Referred By Contact Referred To Contact Pulmonary Disease / PULMONARY MEDICINE Diagnoses Persistent cough [R05.3] Procedures SPIROMETRY WITH DILATOR IF OBS Micah Albarado MD [address] [place] [address] [facility], Respiratory Therapist [facility] [address] [place] [address] Referral ID Status Reason Start Date Expiration Date V isits Requested Visits Authorized [id number] Authorized 08/29/2021 02/19/2022 10 10 [facility] for visit Narrative* Diagnostic Procedure Only (Urgent) - Closed Specialty Diagnoses / Procedures Referred By Contac t Referred To Contact XR IMAGING Diagnoses Acute pain of left knee Procedures XR KNEE GENERAL 4V AP BOTH/PA BOTH/LAT/MERC LEFT RADIOLOGIC EXAM KNEE COMPLETE 4/MORE VIEWS [facility] [address] [place] [address] [place] [address] Referral ID Status Reason Start Date Expiration Date V isits Requested Visits Authorized [id number] Closed Auto-Generate d Referral 09/15/2022 10/15/2023 1 1 [facility] Reason for Referral Specialty Diagnoses / Procedures Referred By Contac t Referred To Contact Diagnoses SOB (shortness of breath) on exertion History of COVID-19 Procedures CONSULT TO PULMONARY MEDICINE Fredo Larose, [address] [place] [address] Referral ID Status Reason Start Date Expiration Date Visits Requested Visits Authorized [id number] Ref Not Required PCP Requested Referral 05/19/2021 08/17/2021 1 1 Summary Purpose Family History No Family History Records FoundNo Family History Records Found Advance Directives No Advanced Directives Records FoundNo Advanced Directives Records Found Health Concerns Infection Onset Date Last Indicated Resolved Time COVID-19 Confirmed 08/27/2021 08/27/2021 Infection Onset Date Last Indicated Resolved Time COVID-19 Confirmed 08/27/2021 08/27/2021 Additional Source Comments Source Comments (unrecognize d section and content) In the event this informatio n is protected by the Federal Confidentiality of Alcohol and Drug Abuse Patient Records regulations: The Federal rules restrict any use of the information to criminally investigate or prosecute any alcohol or drug abuse patient.[facility] the event this information is protected by the Federal Confidentiality of Alcohol and Drug Abuse Patient Records regulations: The Federal rules restrict any use of the information to criminally investigate or prosecute any alcohol or drug abuse patient.[facility] HealthcareIn the event this information is protected by the Federal Confidentiality of Alcohol and Drug Abuse Patient Records regulations: The Federal rules restrict any use of the information to criminally investigate or prosecute any alcohol or drug abuse patient.[facility] HealthcareIn the event this information is protected by the Federal Confidentiality of Alcohol and Drug Abuse Patient Records regulations: The Federal rules restrict any use of the information to criminally investigate or prosecute any alcohol or drug abuse patient.[facility] HealthcareIn the event this information is protected by the Federal Confidentiality of Alcohol and Drug Abuse Patient Records regulations: The Federal rules restrict any use of the information to criminally investigate or prosecute any alcohol or drug abuse patient.[facility] HealthcareIn the event this information is protected by the Federal Confidentiality of Alcohol and Drug Abuse Patient Records regulations: The Federal rules restrict any use of the information to criminally investigate or prosecute any alcohol or drug abuse patient.[facility] HealthcareIn the event this information is protected by the Federal Confidentiality of Alcohol and Drug Abuse Patient Records regulations: The Federal rules restrict any use of the information to criminally investigate or prosecute any alcohol or drug abuse patient.[facility] HealthcareIn the event this information is protected by the Federal Confidentiality of Alcohol and Drug Abuse Patient Records regulations: The Federal rules restrict any use of the information to criminally investigate or prosecute any alcohol or drug abuse patient.[facility] HealthcareIn the event this information is protected by the Federal Confidentiality of Alcohol and Drug Abuse Patient Records regulations: The Federal rules restrict any use of the information to criminally investigate or prosecute any alcohol or drug abuse patient.[facility] HealthcareIn the event this information is protected by the Federal Confidentiality of Alcohol and Drug Abuse Patient Records regulations: The Federal rules restrict any use of the information to criminally investigate or prosecute any alcohol or drug abuse patient.[facility] HealthcareIn the event this information is protected by the Federal Confidentiality of Alcohol and Drug Abuse Patient Records regulations: The Federal rules restrict any use of the information to criminally investigate or prosecute any alcohol or drug abuse patient.[facility] HealthcareIn the event this information is protected by the Federal Confidentiality of Alcohol and Drug Abuse Patient Records regulations: The Federal rules restrict any use of the information to criminally investigate or prosecute any alcohol or drug abuse patient.[facility] HealthcareIn the event this information is protected by the Federal Confidentiality of Alcohol and Drug Abuse Patient Records regulations: The Federal rules restrict any use of the information to criminally investigate or prosecute any alcohol or drug abuse patient.[facility] HealthcareIn the event this information is protected by the Federal Confidentiality of Alcohol and Drug Abuse Patient Records regulations: The Federal rules restrict any use of the information to criminally investigate or prosecute any alcohol or drug abuse patient.[facility] HealthcareIn the event this information is protected by the Federal Confidentiality of Alcohol and Drug Abuse Patient Records regulations: The Federal rules restrict any use of the information to criminally investigate or prosecute any alcohol or drug abuse patient.[facility] HealthcareIn the event this information is protected by the Federal Confidentiality of Alcohol and Drug Abuse Patient Records regulations: The Federal rules restrict any use of the information to criminally investigate or prosecute any alcohol or drug abuse patient.[facility] HealthcareIn the event this information is protected by the Federal Confidentiality of Alcohol and Drug Abuse Patient Records regulations: The Federal rules restrict any use of the information to criminally investigate or prosecute any alcohol or drug abuse patient.[facility] HealthcareIn the event this information is protected by the Federal Confidentiality of Alcohol and Drug Abuse Patient Records regulations: The Federal rules restrict any use of the information to criminally investigate or prosecute any alcohol or drug abuse patient.[facility] HealthcareIn the event this information is protected by the Federal Confidentiality of Alcohol and Drug Abuse Patient Records regulations: The Federal rules restrict any use of the information to criminally investigate or prosecute any alcohol or drug abuse patient.[facility] HealthcareIn the event this information is protected by the Federal Confidentiality of Alcohol and Drug Abuse Patient Records regulations: The Federal rules restrict any use of the information to criminally investigate or prosecute any alcohol or drug abuse patient.[facility] HealthcareIn the event this information is protected by the Federal Confidentiality of Alcohol and Drug Abuse Patient Records regulations: The Federal rules restrict any use of the information to criminally investigate or prosecute any alcohol or drug abuse patient.[facility] HealthcareIn the event this information is protected by the Federal Confidentiality of Alcohol and Drug Abuse Patient Records regulations: The Federal rules restrict any use of the information to criminally investigate or prosecute any alcohol or drug abuse patient.[facility] HealthcareIn the event this information is protected by the Federal Confidentiality of Alcohol and Drug Abuse Patient Records regulations: The Federal rules restrict any use of the information to criminally investigate or prosecute any alcohol or drug abuse patient.[facility] HealthcareIn the event this information is protected by the Federal Confidentiality of Alcohol and Drug Abuse Patient Records regulations: The Federal rules restrict any use of the information to criminally investigate or prosecute any alcohol or drug abuse patient.[facility] HealthcareIn the event this information is protected by the Federal Confidentiality of Alcohol and Drug Abuse Patient Records regulations: The Federal rules restrict any use of the information to criminally investigate or prosecute any alcohol or drug abuse patient.[facility] HealthcareIn the event this information is protected by the Federal Confidentiality of Alcohol and Drug Abuse Patient Records regulations: The Federal rules restrict any use of the information to criminally investigate or prosecute any alcohol or drug abuse patient.[facility] HealthcareIn the event this information is protected by the Federal Confidentiality of Alcohol and Drug Abuse Patient Records regulations: The Federal rules restrict any use of the information to criminally investigate or prosecute any alcohol or drug abuse patient.[facility] HealthcareIn the event this information is protected by the Federal Confidentiality of Alcohol and Drug Abuse Patient Records regulations: The Federal rules restrict any use of the information to criminally investigate or prosecute any alcohol or drug abuse patient.[facility] HealthcareIn the event this information is protected by the Federal Confidentiality of Alcohol and Drug Abuse Patient Records regulations: The Federal rules restrict any use of the information to criminally investigate or prosecute any alcohol or drug abuse patient.[facility] HealthcareIn the event this information is protected by the Federal Confidentiality of Alcohol and Drug Abuse Patient Records regulations: The Federal rules restrict any use of the information to criminally investigate or prosecute any alcohol or drug abuse patient.[facility] HealthcareIn the event this information is protected by the Federal Confidentiality of Alcohol and Drug Abuse Patient Records regulations: The Federal rules restrict any use of the information to criminally investigate or prosecute any alcohol or drug abuse patient.[facility] HealthcareIn the event this information is protected by the Federal Confidentiality of Alcohol and Drug Abuse Patient Records regulations: The Federal rules restrict any use of the information to criminally investigate or prosecute any alcohol or drug abuse patient.[facility] HealthcareIn the event this information is protected by the Federal Confidentiality of Alcohol and Drug Abuse Patient Records regulations: The Federal rules restrict any use of the information to criminally investigate or prosecute any alcohol or drug abuse patient.[facility] HealthcareIn the event this information is protected by the Federal Confidentiality of Alcohol and Drug Abuse Patient Records regulations: The Federal rules restrict any use of the information to criminally investigate or prosecute any alcohol or drug abuse patient.[facility] HealthcareIn the event this information is protected by the Federal Confidentiality of Alcohol and Drug Abuse Patient Records regulations: The Federal rules restrict any use of the information to criminally investigate or prosecute any alcohol or drug abuse patient.[facility] HealthcareIn the event this information is protected by the Federal Confidentiality of Alcohol and Drug Abuse Patient Records regulations: The Federal rules restrict any use of the information to criminally investigate or prosecute any alcohol or drug abuse patient.[facility] HealthcareIn the event this information is protected by the Federal Confidentiality of Alcohol and Drug Abuse Patient Records regulations: The Federal rules restrict any use of the information to criminally investigate or prosecute any alcohol or drug abuse patient.[facility] HealthcareIn the event this information is protected by the Federal Confidentiality of Alcohol and Drug Abuse Patient Records regulations: The Federal rules restrict any use of the information to criminally investigate or prosecute any alcohol or drug abuse patient.[facility] HealthcareIn the event this information is protected by the Federal Confidentiality of Alcohol and Drug Abuse Patient Records regulations: The Federal rules restrict any use of the information to criminally investigate or prosecute any alcohol or drug abuse patient.[facility] HealthcareIn the event this information is protected by the Federal Confidentiality of Alcohol and Drug Abuse Patient Records regulations: The Federal rules restrict any use of the information to criminally investigate or prosecute any alcohol or drug abuse patient.[facility] HealthcareIn the event this information is protected by the Federal Confidentiality of Alcohol and Drug Abuse Patient Records regulations: The Federal rules restrict any use of the information to criminally investigate or prosecute any alcohol or drug abuse patient.[facility] HealthcareIn the event this information is protected by the Federal Confidentiality of Alcohol and Drug Abuse Patient Records regulations: The Federal rules restrict any use of the information to criminally investigate or prosecute any alcohol or drug abuse patient.[facility] HealthcareIn the event this information is protected by the Federal Confidentiality of Alcohol and Drug Abuse Patient Records regulations: The Federal rules restrict any use of the information to criminally investigate or prosecute any alcohol or drug abuse patient.[facility] HealthcareIn the event this information is protected by the Federal Confidentiality of Alcohol and Drug Abuse Patient Records regulations: The Federal rules restrict any use of the information to criminally investigate or prosecute any alcohol or drug abuse patient.[facility] HealthcareIn the event this information is protected by the Federal Confidentiality of Alcohol and Drug Abuse Patient Records regulations: The Federal rules restrict any use of the information to criminally investigate or prosecute any alcohol or drug abuse patient.[facility] HealthcareIn the event this information is protected by the Federal Confidentiality of Alcohol and Drug Abuse Patient Records regulations: The Federal rules restrict any use of the information to criminally investigate or prosecute any alcohol or drug abuse patient.[facility] HealthcareIn the event this information is protected by the Federal Confidentiality of Alcohol and Drug Abuse Patient Records regulations: The Federal rules restrict any use of the information to criminally investigate or prosecute any alcohol or drug abuse patient.[facility]In the event this information is protected by the Federal Confidentiality of Alcohol and Drug Abuse Patient Records regulations: The Federal rules restrict any use of the information to criminally investigate or prosecute any alcohol or drug abuse patient.[facility] HealthcareIn the event this information is protected by the Federal Confidentiality of Alcohol and Drug Abuse Patient Records regulations: The Federal rules restrict any use of the information to criminally investigate or prosecute any alcohol or drug abuse patient.[facility]In the event this information is protected by the Federal Confidentiality of Alcohol and Drug Abuse Patient Records regulations: The Federal rules restrict any use of the information to criminally investigate or prosecute any alcohol or drug abuse patient.[facility] HealthcareIn the event this information is protected by the Federal Confidentiality of Alcohol and Drug Abuse Patient Records regulations: The Federal rules restrict any use of the information to criminally investigate or prosecute any alcohol or drug abuse patient.[facility] Reason for Visit (unrecogniz ed section and content) Reason Comments Follow Up cough Reason Onset Date Comments Refill Request 06/08/2021 Reason Comments Follow Up 6 weeks Reason Onset Date Comments Refill Request 07/09/2021 See Rx notes Reason Comments Faxed to [facility] Reason Comments Cough chest tightness Reason Comments Results Reason Comments Spirometry Specialty Diagnoses / Procedures Referred By Contac t Referred To Contact [facility] Diagnoses Chronic cough Procedures NITRIC OXIDE, EXHALED NITRIC OXIDE GAS DETERMINATION Torie Reyna MD [address] [place] [address] [facility] [address] [place] [address] Referral ID Status Reason Start Date Expiration Date V isits Requested Visits Authorized [id number] Closed Auto-Generate d Referral 09/06/2021 02/19/2022 1 1 Reason Comments New Patient persistent cough Covid Follow Up Specialty Diagnoses / Procedures Referred By Deborahac t Referred To Contact Pulmonary and Critical Care Medicine Diagnoses Persistent cough Procedures CONSULT TO PULM/CRITICAL CARE OFFICE/OUTPATIENT NEW HIGH MDM 60-74 MINUTES Micah Albarado MD [address] [place] [address] Referral ID Status Reason Start Date Expiration Date V isits Requested Visits Authorized [id number] Closed PCP Requested Referral 05/08/2021 05/08/2022 1 1 Reason Comments left leg bruising for several months left leg pain for several months Reason Onset Date Comments Refill Request 09/27/2021 Reason Comments Constipation Reason Comments Musculoskeletal Problem lower leg pain Reason Onset Date Comments Refill Request 02/07/2022 Reason Comments Abdominal Pain Reason Comments Refill Request Reason Comments Chest Pain Off and on since mar . States can be aching can be sharp does sometimes get sob, no nausea , no sweating, sometimes a cough, sometimes states feels like a gaston Reason Comments Diarrhea Reason Comments Musculoskeletal Problem Left leg pain, g ave out earlier today Reason Comments 6 Month Exam Reason Comments sore on upper lip X 1 day Reason Comments Knee Pain Reason Comments Derm Problem left lower abdominal boil, redness x 3 weeks Reason Comments Abscess Left side not gettin g better getting larger taking atb Reason Onset Date Comments Refill Request 12/19/2022 Reason Comments Vaginal Bleeding Reason Comments Patient Question Reason Comments Cough Headache, SOB x 4 da ys Reason Comments Cough Reason Onset Date Comments Refill Request 04/06/2023 Reason Comments Yearly Exam Specialty Diagnoses / Procedures Referred By Deborahac t Referred To Contact [facility] Diagnoses physical Procedures physcial Fredo Larose, [address] [place] [address] [facility] [address] [place] [address] Referral ID Status Reason Start Date Expiration Date Visits Requested Visits Authorized [id number] Pending Review OON/Self Pay Override 3 07/08/2023 1 1 Reason Comments Medication Request Reason Comments Sore Throat MO, fatigue, inside of is sore x 2 weeks Reason Comments Patient Update Patient Question Reason Comments Medication Problem Reason Comments Appointment Reason Comments Orders Reason Onset Date Comments Refill Request 10/16/2023 Reason Comments Lab Orders Reason Comments Musculoskeletal Problem Left leg pain ca using twitching; constipation x 2weeks Care Teams (unrecognized sec tion and content) Manager Of Disaster Recovery Relationship Specialty Start Date End Date Fredo Larose, DO [address] [place] [address] PCP - General Family Practice 04/10/13 Manager Of Disaster Recovery Relationship Specialty Start Date End Date Fredo Larose, DO [address] [place] [address] PCP - General Family Practice 04/10/13 Manager Of Disaster Recovery Relationship Specialty Start Date End Date Fredo Larose, DO [address] [place] [address] PCP - General Family Practice 04/10/13 Manager Of Disaster Recovery Relationship Specialty Start Date End Date Fredo Larose, DO [address] [place] [address] PCP - General Family Practice 04/10/13 Manager Of Disaster Recovery Relationship Specialty Start Date End Date Fredo Larose, DO [address] [place] [address] PCP - General Family Practice 04/10/13 Manager Of Disaster Recovery Relationship Specialty Start Date End Date Fredo Larose, DO [address] [place] [address] PCP - General Family Practice 04/10/13 Manager Of Disaster Recovery Relationship Specialty Start Date End Date Fredo Larose, DO [address] [place] [address] PCP - General Family Practice 04/10/13 Manager Of Disaster Recovery Relationship Specialty Start Date End Date Fredo Larose, DO [address] [place] [address] PCP - General Family Practice 04/10/13 Manager Of Disaster Recovery Relationship Specialty Start Date End Date Fredo Larose, DO [address] [place] [address] PCP - General Family Practice 04/10/13 Manager Of Disaster Recovery Relationship Specialty Start Date End Date Fredo Larose, DO [address] [place] [address] PCP - General Family Practice 04/10/13 Manager Of Disaster Recovery Relationship Specialty Start Date End Date Fredo Larose, DO [address] [place] [address] PCP - General Family Practice 04/10/13 Manager Of Disaster Recovery Relationship Specialty Start Date End Date Fredo Larose, DO [address] [place] [address] PCP - General Family Practice 04/10/13 Manager Of Disaster Recovery Relationship Specialty Start Date End Date Fredo Larose, DO [address] [place] [address] PCP - General Family Practice 04/10/13 Manager Of Disaster Recovery Relationship Specialty Start Date End Date Fredo Larose, DO [address] [place] [address] PCP - General Family Medicine 04/10/13 Manager Of Disaster Recovery Relationship Specialty Start Date End Date Fredo Larose, DO [address] [place] [address] PCP - General Family Medicine 04/10/13 Manager Of Disaster Recovery Relationship Specialty Start Date End Date Fredo Larose, DO [address] [place] [address] PCP - General Family Medicine 04/10/13 Manager Of Disaster Recovery Relationship Specialty Start Date End Date Fredo Larose, DO [address] [place] [address] PCP - General Family Medicine 04/10/13 Manager Of Disaster Recovery Relationship Specialty Start Date End Date Fredo Larose DO [address] [place] [address] PCP - General Family Medicine 04/10/13 Manager Of Disaster Recovery Relationship Specialty Start Date End Date Fredo Larose DO [address] [place] [address] PCP - General Family Medicine 04/10/13 Manager Of Disaster Recovery Relationship Specialty Start Date End Date Fredo Larose DO [address] [place] [address] PCP - General Family Medicine 04/10/13 Manager Of Disaster Recovery Relationship Specialty Start Date End Date Fredo Larose DO [address] [place] [address] PCP - General Family Medicine 04/10/13 Manager Of Disaster Recovery Relationship Specialty Start Date End Date Fredo Larose DO [address] [place] [address] PCP - General Family Medicine 04/10/13 Manager Of Disaster Recovery Relationship Specialty Start Date End Date Fredo Larose DO [address] [place] [address] PCP - General Family Medicine 04/10/13 Manager Of Disaster Recovery Relationship Specialty Start Date End Date Fredo Larose DO [address] [place] [address] PCP - General Family Medicine 04/10/13 Manager Of Disaster Recovery Relationship Specialty Start Date End Date Fredo Larose DO [address] [place] [address] PCP - General Family Medicine 04/10/13 Manager Of Disaster Recovery Relationship Specialty Start Date End Date Fredo Larose DO [address] [place] [address] PCP - General Family Medicine 04/10/13 Manager Of Disaster Recovery Relationship Specialty Start Date End Date Fredo Larose, [address] [place] [address] PCP - General Family Medicine 04/10/13 Manager Of Disaster Recovery Relationship Specialty Start Date End Date Fredo Larose DO [address] [place] [address] PCP - General Family Medicine 04/10/13 Manager Of Disaster Recovery Relationship Specialty Start Date End Date Fredo Larose DO [address] [place] [address] PCP - General Family Medicine 04/10/13 Manager Of Disaster Recovery Relationship Specialty Start Date End Date Fredo Larose DO [address] [place] [address] PCP - General Family Medicine 04/10/13 Manager Of Disaster Recovery Relationship Specialty Start Date End Date Fredo Larose DO [address] [place] [address] PCP - General Family Medicine 04/10/13 Manager Of Disaster Recovery Relationship Specialty Start Date End Date Fredo Larose DO [address] [place] [address] PCP - General Family Medicine 2/19/14 Manager Of Disaster Recovery Relationship Specialty Start Date End Date Fredo Larose DO [address] [place] [address] PCP - General Family Medicine 04/10/13 Manager Of Disaster Recovery Relationship Specialty Start Date End Date Fredo Larose DO [address] [place] [address] PCP - General Family Medicine 04/10/13 Manager Of Disaster Recovery Relationship Specialty Start Date End Date Fredo Larose DO [address] [facility] [place], [place] [id number] PCP - General Family Medicine 04/10/13 Manager Of Disaster Recovery Relationship Specialty Start Date End Date Fredo Larose DO [address] [place], [place] [id number] PCP - General Family Medicine 04/10/13 INFORMATION SOURCE (unrecogn ized section and content) DATE CREATED AUTHOR 05/22/2021 [facility] ([place]) DATE CREATED AUTHOR AUTHOR'S ELLIEIZ ATION 12/16/2023 [facility] FOR RECORDS PERTAINING TO PATIENTS WHO ARE OR HAVE BEEN ENROLLED IN A CHEMICAL DEPENDENCY/SUBSTANCEABUSE PROGRAM, SOME INFORMATION MAY BE OMITTED. This clinical summary was aggregated from multiple sources. Caution should be exercised in using it in the provision of clinical care. This summary normalizes information from multiple sources, and as a consequence, information in this document may materially change the coding, format and clinical context of patient data. In addition, data may be omitted in some cases. CLINICAL DECISIONS SHOULD BE BASED ON THE PRIMARY CLINICAL RECORDS. [employer] provides no warranty or guarantee of the accuracy or completeness of information in this document.
--- NOTE | 2023-12-17 04:45 | ED.VIS.LOWEX ---
HPI History of Present Illness Chief Complaint: Lower Extremity Injury Informant: patient Narrative Narrative: Reports history of painful nodules in her skin Managed by her PCP. She states nontraumatic pain in her hip and left upper thigh region. Pain worsened throughout the day. Use 600 mg ibuprofen. Previously states pain does improve with [id number] pain patches. This is not helped. She is here for evaluation. No fevers. PFSH PFSH Medical History Hypertension Home Medications ?Medication ?Instructions ?Recorded ?Last Taken ?Type cetirizine 10 mg tablet 10 mg PO DAILY 12/17/23 Unknown History diclofenac sodium 75 mg 75 mg PO BID PRN PRN pain 12/17/23 Unknown History tablet,delayed release gabapentin 100 mg capsule 100 - 200 mg PO Q8H PRN pain 12/17/23 Unknown History lidocaine 5 % topical patch 1 patch topical DAILY #15 ea 12/17/23 Unknown Rx (Lidoderm) lisinopril 5 mg tablet 5 mg PO DAILY blood pressure 12/17/23 Unknown History methocarbamol 500 mg tablet 1,000 mg PO BID 12/17/23 Unknown History prednisone 20 mg tablet 20 mg PO BID 12/17/23 Unknown History Allergy/AdvReac Type Severity Reaction Status Date / Time dicyclomine HCl (From Bentyl) Allergy Hives Verified 12/17/23 03:50 Surgical History Hx of appendectomy Hx of cholecystectomy Social History Smoking Status: Current every day smoker tobacco type: cigarettes ROS ROS ED Constitutional Constitutional ED: Denies chills, fever(s) or sweats Eyes Eyes: Denies change in vision ENT ENT ED: Denies dysphagia or sore throat Cardiovascular Cardiovascular: Denies chest pain, leg edema, palpitations or racing heartbeat Respiratory/Chest Respiratory/Chest: Denies cough, dyspnea or dyspnea on exertion Gastrointestinal Gastrointestinal: Denies abdominal pain, diarrhea, nausea or vomiting Genitourinary Genitourinary ED: Denies dysuria, hematuria or urinary frequency Musculoskeletal Musculoskeletal: Reports extremity pain; Denies back pain or neck pain Integumentary Denies rash or wounds Neurologic Neurologic: Denies headache(s), paresthesias or weakness EXAM Physical Exam Const Vital Signs: 12/17/23 03:51 Temperature 98.1 F Temperature Source Oral Pulse Rate 73 Respiratory Rate 16 Blood Pressure 191/93 H Blood Pressure Mean 125 Pulse Ox 98 Positive well nourished and well developed Constitutional Narrative: Nontoxic, tearful during exam. General Appearance ED: well developed and NAD HEENT Reports moist mucous membranes normocephalic and atraumatic Eyes EOMs intact bilaterally and conjunctivae normal General Eye ED: Yes normal appearance of both eyes Neck no lymphadenopathy and supple General: Negative for tenderness Chest Wall Chest: Negative for tenderness Resp normal respiratory effort and normal air movement Effort and Inspection: symmetric chest movement; Negative for respiratory distress Cardio regular rate, regular rhythm and no murmurs Peripheral Pulses: pulses 2+ throughout GI normal to inspection, nondistended, normoactive bowel sounds and non-tender Palpation: Negative for guarding or rebound tenderness present Back/Spine no CVA tenderness and no thoracic nor lumbar tenderness Extremity normal to inspection Extremity Narrative: Left lower extremity: Skin examination the hip no redness no crepitus. Tenderness lateral hip upper lateral thigh region. I cannot palpate any nodules. Negative logroll. No shortening or rotation. General Extremety ED: Negative for edema or tenderness General Extremity: Negative for edema Neuro oriented x3 and no sensory deficits noted Sensorium / Orientation: awake and alert Skin no rashes or lesions noted and no wounds MDM MDM MDM Narrative Medical decision making narrative: Interventions / MDM: Differential diagnosis: Left thigh pain. Diagnosis considered but do not suspect: No clinical cellulitis or necrotizing fasciitis signs. Fracture however x-ray negative. My EKG interpretation: N/A Imaging independently reviewed and interpreted by myself: Left hip x-ray 3 views: No acute process also read by radiology. External documents reviewed: N/A Test considered but not ordered:N/A ED course: Patient declines any stronger pain medications. Tylenol ordered along with a Lidoderm patch. X-ray left hip ordered for further evaluation. 0545: Clinically a lot more comfortable feeling better. Will continue Pete Motrin at home. Lidoderm patches will be written for the patient. X-ray was negative. She is ambulatory in the emergency department. No skin infections of concern. Re-evaluation: stable Disposition discussed with patient/family/significant other: Patient Case discussed with consulting clinician: N/A This note was generated with Dragon dictation software. It may contain incorrect words, spelling, and punctuation that were not noted in checking the note before signing. Radiography Diagnostic Testing: Clinical Impression(s) from Imaging Studies Hip/Pelvis X-Ray 12/17/23 04:10 IMPRESSION: No evidence of displaced pelvic or hip fracture. Electronically Signed: Lovely Topete MD at 5:33 EDT Reading Location ID and State: [facility] / [place] Tel , Service support , Discharge Plan Triage Chief Complaint: Lower Extremity Injury ED Provider: Karlos Murray Dx/Rx/DC Orders Clinical Impression: Left thigh pain, Myalgia Instructions: ED Myalgias Prescriptions: New lidocaine [Lidoderm] 5 % adhesive patch,medicated 1 patch topical DAILY Qty: 15 0RF Rx Instructions: leave on most painful area for up to 12 hrs No Action methocarbamol 500 mg tablet 1,000 mg PO BID cetirizine 10 mg tablet 10 mg PO DAILY diclofenac sodium 75 mg tablet,delayed release (DR/EC) 75 mg PO BID PRN PRN (Reason: pain) lisinopril 5 mg tablet 5 mg PO DAILY gabapentin 100 mg capsule 100 - 200 mg PO Q8H PRN (Reason: pain) prednisone 20 mg tablet 20 mg PO BID Primary Care Provider: Fredo Larose Referrals: Fredo Larose DO [Primary Care Provider] - 5-7 Days Activity Restrictions/Additional Instructions: X-ray left hip negative. Continue Tylenol and Motrin every 6 hours as needed. Use Lidoderm patch. Follow-up with your doctor. Print Language: Frisian Disposition Disposition: Home, Self Care Discharge Date/Time: 12/17/23 05:57
[2023-12-17 05:56] VITALS: BP 150/96; PULSE 61; RESP 16; TEMP 36.6; O2SAT 96
== END 2023-12-17 05:57 | disposition home or self-care (01) ==
PROVIDERS: Emergency Provider Emergency Medicine; PCP Student in an Organized Health Care Education/Training Program; Visit Provider Emergency Medicine
DX: M79.652 Pain in left thigh (principal); M25.552 Pain in left hip; I10 Essential (primary) hypertension; F17.210 Nicotine dependence, cigarettes, uncomplicated; Z90.49 Acquired absence of other specified parts of digestive tract; Z79.899 Other long term (current) drug therapy
CPT/HCPCS: 73502; 99282

== ENCOUNTER 2023-12-23 23:37 | Emergency (ER) | payer OTHER, SELFPAY ==
[2023-12-23 23:38] VITALS: BP 159/59; PULSE 76; RESP 18; TEMP 36.6; O2SAT 97; BMI 47.8
--- NOTE | 2023-12-24 00:49 | EDS_ITS ---
HPI History of Present Illness Chief Complaint: Lower Extremity Injury Informant: patient and friend Narrative Narrative: Patient is a 53-year-old female with past medical history of hypertension. She states that roughly a week or so ago she began with pain in the left back that seems to radiate down the left leg towards the ankle. She states she was massaging the area and felt a lump along the left hip. She states that there was no trauma or excessive activity prior to the pain beginning. She states she has been to the urgent care as well as the ER where she has had steroids and muscle relaxers and x-rays without any obvious reason for her pain. She states there has been no loss of bowel or bladder control and she denies any IV drug use. She also denies any recent surgical procedure or injections. She states she cannot sleep secondary to the pain and therefore comes in for evaluation. [facility] Medical History Hypertension Home Medications ?Medication ?Instructions ?Recorded ?Last Taken ?Type cetirizine 10 mg tablet 10 mg PO DAILY 12/17/23 Unknown History diclofenac sodium 75 mg 75 mg PO BID PRN PRN pain 12/17/23 Unknown History tablet,delayed release gabapentin 100 mg capsule 100 - 200 mg PO Q8H PRN pain 12/17/23 Unknown History lidocaine 5 % topical patch 1 patch topical DAILY #15 ea 12/17/23 Unknown Rx (Lidoderm) lisinopril 5 mg tablet 5 mg PO DAILY blood pressure 12/17/23 Unknown History methocarbamol 500 mg tablet 1,000 mg PO BID 12/17/23 Unknown History prednisone 20 mg tablet 20 mg PO BID 12/17/23 Unknown History oxycodone-acetaminophen 5 mg-325 1 tab PO Q6H PRN pain 3 days #12 12/24/23 Unknown Rx mg tablet (Percocet) tabs Allergy/AdvReac Type Severity Reaction Status Date / Time dicyclomine HCl (From Bentyl) Allergy Hives Verified 12/23/23 23:43 Surgical History Hx of appendectomy Hx of cholecystectomy Social History Smoking Status: Former smoker ROS ROS ED Constitutional Constitutional ED: Denies chills or fever(s) Eyes Eyes: Denies change in vision ENT ENT ED: Denies sore throat Cardiovascular Cardiovascular: Denies chest pain Respiratory/Chest Respiratory/Chest: Denies cough or dyspnea Gastrointestinal Gastrointestinal: Denies abdominal pain, diarrhea, nausea or vomiting Genitourinary Genitourinary ED: Denies dysuria or hematuria Musculoskeletal Musculoskeletal: Reports back pain Integumentary Denies rash Neurologic Neurologic: Reports paresthesias; Denies headache(s) Hematologic/Lymphatic Hematologic/Lymphatic: Denies easy bleeding or easy bruising EXAM Physical Exam Const Vital Signs: 12/23/23 23:38 12/24/23 01:37 EDT Temperature 97.9 F 98.0 F Temperature Source Oral Pulse Rate 76 75 Respiratory Rate 18 18 Blood Pressure 159/59 H 156/90 H Blood Pressure Mean 92 112 Pulse Ox 97 98 Oxygen Delivery Method Room Air Positive well nourished, well developed and obese General Appearance ED: well developed; Negative for pallor Nutritional Appearance: obese HEENT HEENT Narrative: Normocephalic atraumatic Eyes PERRL and EOMs intact bilaterally General Eye ED: Negative for scleral icterus Neck supple Neck Narrative: No nuchal rigidity or meningeal signs Resp normal respiratory effort and clear to auscultation bilaterally Cardio regular rate and regular rhythm Rate: other Other Details: Radial and carotid pulses are equal and symmetric Back/Spine Back/Spine Narrative: No bony deformity or step-off of the thoracic or lumbar spine no midline tenderness to palpation No saddle anesthesia noted. Negative clonus and Babinski bilaterally. However straight leg raise is positive on left at approximately 45 to 50 degrees. Patellar reflex is plus 3 out of 4 on the right and plus 1 out of 4 on the left. There is a soft movable lesion along the left hip most consistent with lipoma. No overlying soft tissue changes to suggest trauma or infection Extremity normal to inspection Neuro oriented x3 and CN's II-XII intact bilaterally Sensorium / Orientation: alert Motor Exam: strength 5/5 throughout Psych mental status grossly normal Skin no rashes or lesions noted and no wounds General Skin Exam: Negative for jaundice or pallor MDM MDM MDM Narrative Medical decision making narrative: Patient arrived to the ER hypertensive but has a past medical history of this. She denied any recent trauma or surgical procedures and she denied loss of bowel or bladder control or IV drug use. Therefore my concern for cauda equina or epidural abscess is low and also without trauma concern for compression fracture or spondylolisthesis is low as well. As patient does not have history of recent surgery or injections concern for discitis or osteomyelitis is low. Her physical exam does show changes consistent with lumbar radiculopathy as she does have a positive straight leg raise as well as asymmetric reflexes. However she does not have foot drop there is no true loss of sensation and there is no signs of neuro claudication. Therefore I do not feel there is need for an emergent MRI. I discussed with patient we could perform a CT scan at this time but that it is not the study of choice and I would recommend she follow-up as an outpatient and discuss MRI as this will truly display if there is nerve impingement or not. The patient states that she would prefer to follow-up as an outpatient and get the study of choice and not a subpar study. However at this time without signs of infection or neurovascular compromise I do not feel that there is need for further workup and she is otherwise safe for discharge History & Record Review Discussion w/independent historian: Patient and Friend Discharge Plan Triage Chief Complaint: Lower Extremity Injury ED Provider: Tomas Daugherty Dx/Rx/DC Orders Clinical Impression: Acute left lumbar radiculopathy, Hypertension Instructions: Understanding Lumbar Radiculopathy Prescriptions: New oxycodone-acetaminophen [Percocet] 5-325 mg tablet 1 tab PO Q6H PRN (Reason: pain) 3 Days Qty: 12 0RF No Action methocarbamol 500 mg tablet 1,000 mg PO BID cetirizine 10 mg tablet 10 mg PO DAILY diclofenac sodium 75 mg tablet,delayed release (DR/EC) 75 mg PO BID PRN PRN (Reason: pain) lisinopril 5 mg tablet 5 mg PO DAILY gabapentin 100 mg capsule 100 - 200 mg PO Q8H PRN (Reason: pain) prednisone 20 mg tablet 20 mg PO BID lidocaine [Lidoderm] 5 % adhesive patch,medicated 1 patch topical DAILY Qty: 15 0RF Rx Instructions: leave on most painful area for up to 12 hrs Primary Care Provider: Fredo Larose Referrals: Lew Badillo MD [Med Staff - Active Staff] - Fredo Larose DO [Primary Care Provider] - Activity Restrictions/Additional Instructions: Your history and exam indicate that you most likely have a nerve impingement out of your low back mainly the L4 or L5 nerve root. Follow-up with neurosurgery secondary to this and discuss an MRI to further diagnose the cause of your pain. Talk to your family doctor about increasing your gabapentin as this may help improve pain control and return to the ER should you have any further concerns or worsening of symptoms Print Language: Swedish Disposition Disposition: Home, Self Care Discharge Date/Time: 12/23/23 23:59
[2023-12-24] MEDS: morphine 10 MG/ML Syringe 8 MG IM (01:22)
[2023-12-24] MEDS: proMETHazine 25 MG/ML Syringe 12.5 MG IM (01:22)
[2023-12-24 01:37] VITALS: BP 156/90; PULSE 75; RESP 18; TEMP 36.7; O2SAT 98
--- NOTE | 2023-12-24 01:39 | ED.RN ---
pt was discharged at 0140, but because of daylight saving plan unable to put correct time.
== END 2023-12-23 23:59 | disposition home or self-care (01) ==
PROVIDERS: Emergency Provider Emergency Medicine; PCP Student in an Organized Health Care Education/Training Program; Visit Provider Emergency Medicine
DX: M54.16 Radiculopathy, lumbar region (principal); I10 Essential (primary) hypertension; L98.9 Disorder of the skin and subcutaneous tissue, unspecified; E66.9 Obesity, unspecified; Z90.49 Acquired absence of other specified parts of digestive tract; Z79.899 Other long term (current) drug therapy; Z87.891 Personal history of nicotine dependence
CPT/HCPCS: 96372; 99282

== ENCOUNTER 2024-06-27 18:49 | Emergency (ER) | payer OTHER, SELFPAY ==
[2024-06-27] VITALS (9 sets, daily range): BP systolic 146–172; BP diastolic 84–97; PULSE 62–94; RESP 11–21; TEMP 36.3–36.6; O2SAT 99–100; BMI 47.3
--- NOTE | 2024-06-27 19:50 | RAD_ITS ---
PROCEDURE: CHEST 1 VIEW (PORTABLE) 06/27/2024 REASON FOR EXAM: CHEST PAIN TECHNIQUE: Frontal view of the chest. COMPARISON: None FINDINGS: Hardware: None Heart: The heart size is normal. Lungs: No focal consolidation. No pneumothorax. No pleural effusion. Bones: The bones are unremarkable. Other: RAD/Chest 1 View (Portable) IMPRESSION: No Acute Findings. Reading Location: [facility]
[2024-06-27 20:08] LABS: Absolute Neutrophil Count 6.3 X10^3/uL (2.0-7.7); Basophil# 0.08 X10^3/uL; Basophil% 0.8 % (0-1); Eosinophil# 0.25 X10^3/uL; Eosinophils% 2.4 % (0-5); Hematocrit 41.8 % (37-47); Hemoglobin 13.1 g/dL (12.0-15.0); Lymphocyte % 27.2 % (19-41); Mean Corp Hgb Conc 31.3 g/dL (32-36); Mean Corpuscular Hgb 26.2 pg (27.0-32.0); Mean Corpuscular Volume 83.6 fL (81-99); Mean Platelet Vol. 10.7 fl (6.2-12.0); Monocyte# 0.83 X10^3/uL; Monocyte% 8.1 % (0-10); NRBC Flagged by Analyzer 0 % (0-5); Neutrophil # 6.27 X10^3/uL (2.7-7.7); Platelet Count 278 K/mm3 (150-450); RBC Distribution Width CV 14.1 % (11.6-14.6); RBC Distribution Width SD 42.8 fl (35.1-43.9); White Blood Count 10.3 K/mm3 (4.4-11.0)
--- NOTE | 2024-06-27 20:36 | ED.VIS.CHEST ---
HPI History of Present Illness Chief Complaint: Chest Pain Detail of Chief Complaint: Chest pain Informant: patient Narrative Narrative: Patient presents with chest pain that started around 5:30 PM. Patient states that she was at her granddaughter's game when she started having dull discomfort in her left chest with some intermittent shooting pains. Currently rates her pain an 8 out of 10. She denies nausea or vomiting. Pain does not radiate anywhere else. She has remote history of costochondritis years ago. She denies recent travel or surgery. No history of PE or DVT. Patient is adopted and does not know family history. She herself has never had diagnosed heart disease. [facility] Medical History Hypertension Home Medications ?Medication ?Instructions ?Recorded ?Last Taken ?Type cetirizine 10 mg tablet 10 mg PO DAILY 12/17/23 06/25/24 History diclofenac sodium 75 mg 75 mg PO Q12H PRN pain 12/17/23 06/26/24 History tablet,delayed release gabapentin 100 mg capsule 100 - 200 mg PO Q8H PRN pain 12/17/23 06/26/24 History lisinopril 5 mg tablet 5 mg PO DAILY blood pressure 12/17/23 06/26/24 History benzonatate 100 mg capsule 100 mg PO Q8H PRN cough 06/27/24 Unknown History cholecalciferol (vitamin D3) 50 50 mcg PO DAILY 06/27/24 06/27/24 History mcg (2,000 unit) tablet (D3 DOTS) omega 2-ipz-jtu-fish oil 1,200 mg 2 cap PO DAILY 06/27/24 06/27/24 History (144 mg-216 mg) capsule (Fish Oil) vitamin B complex (Balanced B-50 1 tab PO DAILY 06/27/24 06/27/24 History tablet) Allergy/AdvReac Type Severity Reaction Status Date / Time dicyclomine HCl (From Bentyl) Allergy Hives Verified 06/27/24 18:52 Family History no significant family his Surgical History Hx of appendectomy Hx of cholecystectomy Social History Smoking Status: Former smoker ROS ROS ED Review of Systems ROS Unobtainable: other Constitutional Constitutional ED: Reports lethargy; Denies chills, fever(s), sweats or weight loss Eyes Eyes: Denies blurry vision, change in vision or diplopia ENT ENT ED: Denies rhinorrhea or sore throat Cardiovascular Cardiovascular: Reports chest pain; Denies orthopnea or racing heartbeat Respiratory/Chest Respiratory/Chest: Denies cough, dyspnea, dyspnea on exertion, orthopnea or sputum Gastrointestinal Gastrointestinal: Denies abdominal pain, diarrhea, nausea or vomiting Genitourinary Genitourinary ED: Denies dysuria, hematuria or urinary frequency Musculoskeletal Musculoskeletal: Denies arthralgias, back pain, myalgias or neck pain Integumentary Denies abscess, Abrasions or rash Neurologic Neurologic: Denies headache(s) or weakness Psychiatric Psychiatric: Denies anxiety, depression or suicidal thoughts Endocrine Endocrinology: Denies polydipsia, polyphagia or polyuria Hematologic/Lymphatic Hematologic/Lymphatic: Denies easy bleeding, easy bruising or lymphadenopathy Allergic/Immunologic Allergic/Immunologic ED: Denies mouth swelling, tongue swelling or urticaria EXAM Physical Exam Const Vital Signs: 06/27/24 18:50 06/27/24 19:00 06/27/24 19:46 Temperature 97.4 F L Temperature Source Temporal Pulse Rate 66 Respiratory Rate 17 Respiratory Effort Normal Non-Labored Blood Pressure 172/97 H Blood Pressure Mean 122 Pulse Ox 99 Oxygen Delivery Method Room Air Room Air 06/27/24 19:51 06/27/24 20:00 06/27/24 20:15 Temperature Temperature Source Pulse Rate 64 68 74 Respiratory Rate 12 13 18 Respiratory Effort Blood Pressure Blood Pressure Mean Pulse Ox 100 99 99 Oxygen Delivery Method 06/27/24 20:31 06/27/24 20:45 06/27/24 21:00 Temperature Temperature Source Pulse Rate 94 74 85 Respiratory Rate 21 H 11 L 17 Respiratory Effort Blood Pressure Blood Pressure Mean Pulse Ox 100 Oxygen Delivery Method 06/27/24 21:07 Temperature Temperature Source Pulse Rate 69 Respiratory Rate 15 Respiratory Effort Blood Pressure 146/84 H Blood Pressure Mean 104 Pulse Ox Oxygen Delivery Method Positive well nourished and well developed General Appearance ED: well developed and NAD HEENT Reports TM's clear and moist mucous membranes normocephalic and atraumatic; Negative for trauma or tenderness Tympanic Membrane ED: Yes TM's clear Eyes PERRL and EOMs intact bilaterally General Eye ED: Negative for pale conjunctiva or scleral icterus Neck no lymphadenopathy, supple and no JVD General: Negative for tenderness Chest Wall inspection of chest normal and palpation of chest normal Chest Narrative: Tenderness palpation over the left upper anterior chest wall that somewhat seems to reproduce her pain. Chest: Negative for tenderness Resp normal respiratory effort and clear to auscultation bilaterally Effort and Inspection: Negative for respiratory distress or pain with movement Auscultation: Negative for rhonchi, wheezes or diminished lung sounds Cardio regular rate, regular rhythm, S1 normal heart sound, S2 normal heart sound and no murmurs Peripheral Pulses: pulses 2+ throughout GI normal to inspection, nondistended, normoactive bowel sounds, soft to palpation, non-tender, non-distended and no masses Back/Spine no CVA tenderness and no thoracic nor lumbar tenderness Extremity normal to inspection General Extremety ED: Negative for edema General Extremity: Negative for edema Neuro oriented x3, CN's II-XII intact bilaterally, no sensory deficits noted and gait normal Sensorium / Orientation: awake, alert, oriented to person, oriented to place and oriented to time Motor Exam: strength 5/5 throughout and strength abnormal Psych mental status grossly normal Skin no rashes or lesions noted and no wounds Heart Score History: Slightly/Non-Suspicious ECG: Normal Age: >45 - <65 years Risk Factors: 1 or 2 Risk Factors Troponin: </= Normal Limit Score: 2 MDM MDM MDM Narrative Medical decision making narrative: Patient presents with sudden onset of chest pain about side of the chest. She has had similar pain in the past when she was diagnosed with costochondritis. She has no heart history. No significant PE risk factors. IV established on arrival. EKG obtained showed sinus rhythm with ventricular rate of 69 bpm with no acute ST segment changes. CBC with differential showed a white count of 10.3 with hemoglobin 13.1 and platelet count of 278. Chemistries unremarkable. D-dimer was 0.46. First troponin was normal at 10 and delta troponin was normal at 8. Chest x-ray showed no acute process. On arrival she received aspirin. At this point etiology of her pain unclear however it is somewhat reproducible I suspect likely chest wall pain. Recommend she follow-up with her primary care physician within next 3 to 5 days. She will take ibuprofen for discomfort and does not want a thing more for pain Lab Data Attestation: I reviewed the patient's lab results. Labs: Laboratory Results - last 24 hr 06/27/24 06/27/24 19:15 21:14 WBC 10.3 RBC 5.00 Hgb 13.1 Hct 41.8 MCV 83.6 MCH 26.2 L MCHC 31.3 L RDW Std Deviation 42.8 RDW Coeff of Suresh 14.1 Plt Count 278 MPV 10.7 Immature Gran % (Auto) 0.500 Neut % (Auto) 61.0 Lymph % (Auto) 27.2 [place] % (Auto) 8.1 Eos % (Auto) 2.4 Baso % (Auto) 0.8 Absolute Neuts (auto) 6.3 Absolute Lymphs (auto) 2.80 Nucleated RBC % 0 D-Dimer Quant (PE/DVT) 0.46 Sodium 140 Potassium 4.1 Chloride 106 Carbon Dioxide 22.1 Anion Gap 12 BUN 13 Creatinine 0.71 Estim Creat Clear Calc 121.30 Est GFR (MDRD) Non-Af 102 BUN/Creatinine Ratio 18.0 Glucose 92 Calcium 8.8 Troponin T High Sens 10 Troponin T Hi Sens 2 Hr 8 Radiography Diagnostic Testing: Clinical Impression(s) from Imaging Studies Chest X-Ray 06/27/24 19:50 IMPRESSION: No Acute Findings. Reading Location: [facility] 1 view chest x-ray obtained interpreted by myself as no evidence of acute disease process. No infiltrate or pneumothorax or acute process. Radiology in agreement EKG Initial EKG: Attestation: I personally reviewed and interpreted this EKG as follows: Comments: Sinus rhythm with ventricular rate of 69 bpm with no acute ST segment change Discharge Plan Triage Chief Complaint: Chest Pain ED Provider: Nick Stevens Dx/Rx/DC Orders Clinical Impression: Chest pain Instructions: ED Chest Pain, Uncertain Cause Prescriptions: No Action cetirizine 10 mg tablet 10 mg PO DAILY diclofenac sodium 75 mg tablet,delayed release (DR/EC) 75 mg PO Q12H PRN (Reason: pain) lisinopril 5 mg tablet 5 mg PO DAILY gabapentin 100 mg capsule 100 - 200 mg PO Q8H PRN (Reason: pain) vitamin B complex [Balanced B-50] Tablet 1 tab PO DAILY omega 4-zrv-nre-fish oil [Fish Oil] 1,200 (144-216) mg capsule 2 cap PO DAILY cholecalciferol (vitamin D3) [D3 DOTS] 50 mcg (2,000 unit) tablet 50 mcg PO DAILY benzonatate 100 mg capsule 100 mg PO Q8H PRN (Reason: cough) Patient Comments: PT DOESNT TAKEN REGULARLY, BUT REALIZED THEY GIVE HER CHEST PAIN. Primary Care Provider: Fredo Larose Referrals: Fredo Larose, [Primary Care Provider] - 3-5 Days Print Language: [place] Disposition Disposition: Home, Self Care
[2024-06-27 20:40] LABS: Anion Gap 12 (5-15); BUN 13 mg/dL (4-19); Calcium,Total 8.8 mg/dL (7.6-11.0); Carbon Dioxide 22.1 mmol/L (21.0-32.0); Chloride 106 mmol/L (98-108); Creatinine, Serum 0.71 mg/dL (0.70-1.20); EST Glomerular Filtration Rate 102 (>60); Glucose 92 mg/dL (70-99); Potassium 4.1 mmol/L (3.3-5.1); Sodium Level 140 mmol/L (133-145); Troponin T High Sensitivity 10 ng/L (<=14)
[2024-06-27] MEDS: Aspirin 81 MG TAB.CHEW 324 MG PO (20:49)
[2024-06-27 21:32] LABS: D-Dimer Quantitative (DVT/PE) 0.46 FEU/ug/m (0.27-0.49)
[2024-06-27 22:07] LABS: Troponin T High Sens 2 HR 8 ng/L (<=14)
== END 2024-06-27 22:29 | disposition home or self-care (01) ==
PROVIDERS: Emergency Provider Emergency Medicine; PCP Student in an Organized Health Care Education/Training Program; Visit Provider Emergency Medicine
DX: R07.89 Other chest pain (principal); I10 Essential (primary) hypertension; Z79.899 Other long term (current) drug therapy; Z87.891 Personal history of nicotine dependence
CPT/HCPCS: 71045; 80048; 84484; 85025; 85379; 93005; 99283; A4216